=== PATIENT | female | born 1940 | race Caucasian/White ===

== ENCOUNTER 2020-10-21 11:44 | Outpatient (CLI) | payer MEDICARE, SELFPAY | END 2020-10-21 11:45 | disposition home or self-care (01) | PROVIDERS: PCP Family Medicine; Visit Provider Family Medicine | DX: Z23 Encounter for immunization (principal) | CPT/HCPCS: 0001A; 91300 ==

== ENCOUNTER 2020-11-11 11:21 | Outpatient (CLI) | payer MEDICARE, SELFPAY | END 2020-11-11 11:22 | disposition home or self-care (01) | LOC: ANHCOVIDVC 11:21 | PROVIDERS: PCP Family Medicine | DX: Z23 Encounter for immunization (principal) | CPT/HCPCS: 0002A; 91300 ==

== ENCOUNTER 2023-02-01 10:26 | Emergency (ER) | payer MEDICARE, SELFPAY ==
--- NOTE | ~2023-02-01 | XR_ITS ---
EXAMINATION: XR foot RT min 3V DATE: 02/01/2023 11:24 INDICATION: Redness and swelling of the great toe TECHNIQUE: Dorsoplantar, lateral, and 2 oblique views of the right foot were obtained. COMPARISON: None. FINDINGS: Bone alignment is normal. There is an oblique lucency at the lateral base of the fifth meta tarsal. There is periarticular lucency in the lateral base of the first proximal phalanx and the medi al head of the first metatarsal. 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 There is diffuse soft tissue swelling of the foot. Posterior and plantar calcaneal enthesophytes are noted. IMPRESSION: 1. Age-indeterminate fracture at the lateral base of the fifth metatarsal. 2. Periarticular lucency in the lateral base of the first proximal phalanx and the medial head of the first metatarsal which could be degenerative in nature, less likely osteomyelitis. Reviewed, dictated and finalized at location A.
--- NOTE | ~2023-02-01 | US_ITS ---
EXAMINATION:US venous doppler LE RT INDICATION:Lower extremity swelling and tenderness TECHNIQUE: Multiple grayscale, color flow and Doppler images of the right lower extremity deep venous systems were obtained and reviewed. COMPARISON:No prior studies for comparison. FINDINGS: The common femoral, superficial femoral and popliteal veins demonstrate normal respiratory variation, augmentation and compressibility. Color flow is also seen within the posterior tibial, pe roneal, greater saphenous and profunda veins. IMPRESSION: 1: No lower extremity deep venous thrombosis. Reviewed, dictated and finalized at location L.
[2023-02-01 10:29] VITALS: BP 150/61; PULSE 80; RESP 17; TEMP 36.6; O2SAT 94
[2023-02-01 12:00] VITALS: BP 128/88; PULSE 83; RESP 16; TEMP 36.8; O2SAT 98
[2023-02-01 12:07] LABS: Basophils Absolute Auto 0.1 K/mm3 (0.0-0.1); Basophils Percent Auto 0.7 % (0.2-1.2); Eosinophils Percent Auto 0.3 % (0-4.4); Hematocrit 34.4 % (37.0-47.0); Hemoglobin 10.7 g/dL (12.0-15.0); Immature Granulocyte Absolute 0.07 K/mm3 (0.00-0.031); Immature Granulocyte Percent A 0.8 % (0-0.5); Lymphocytes Absolute Auto 1.01 K/mm3 (0.9-3.2); Lymphocytes Percent Auto 11.1 % (18.3-44.2); Mean Corpuscular HGB Conc 31.1 g/dl (32-36); Mean Corpuscular Hemoglobin 27.9 pg (26-34); Mean Corpuscular Volume 89.6 fl (80-100); Mean Platelet Volume 9.5 fl (7.4-10.4); Monocytes Absolute Auto 0.9 K/mm3 (0.1-0.6); Monocytes Percent Auto 9.6 % (2.6-8.5); Neutrophils Absolute Auto 7.1 K/mm3 (1.3-6.7); Neutrophils Percent Auto 77.5 % (45.5-73.1); Platelet Count Result 202 k/mm3 (150-375); Red Blood Count 3.84 M/mm3 (4.2-5.4); Red Cell Distribution Width 15.1 % (11.5-14.5); White Blood Count 9.1 K/mm3 (4.5-10.0)
[2023-02-01 12:15] LABS: Alanine Aminotransferase 20 U/L (6-35); Albumin Level 4.3 g/dL (3.5-5.1); Alkaline Phosphatase 54 U/L (38-126); Anion Gap 8 mmol/L (8-16); Aspartate Amino Transferase 28 U/L (14-36); Bilirubin,Total 0.6 mg/dL (0.2-1.3); Blood Urea Nitrogen 18 mg/dL (7-17); Calcium 8.7 mg/dL (8.4-10.2); Carbon Dioxide 29 mmol/L (22-30); Chloride 100 mmol/L (98-107); Estimated CRCL calculation 56 ml/min; Estimated Glomerular Filt Rate > 60; Glucose 142 mg/dL (65-110); Potassium 4.8 mmol/L (3.4-5.0); Sodium 137 mmol/L (137-145)
[2023-02-01 12:19] LABS: CRP 3.7 mg/dL (<1.0)
[2023-02-01 12:39] LABS: Erythrocyte Sedimentation Rate 26 mm/hr (0-20)
[2023-02-01] MEDS: CLINDAMYCIN 600 MG/D5W 50 ML 600 MG/50 ML PIGGYBACK 100 MG IVPB (12:51)
[2023-02-01] MEDS: ceFAZolin 2 GM/D5W 50 ML 2 GM/50 ML BAG IVPB (12:52)
--- NOTE | 2023-02-01 13:48 | ED.SKABFB ---
HPI - Skin/Abscess/Foreign Bdy General Chief complaint: Extremity Injury, Lower Stated complaint: RLE swelling, redness Time Seen by Provider: 02/01/23 11:28 History of Present Illness HPI narrative: Patient reporting redness and swelling of her right lower leg that she noticed yesterday, seemed worse today so came into the hospital. No fevers or chills. She also incidentally had swelling and redness of her right great toe 1 week ago, with some drainage, has not been bothering her. Related Data Home Medications Medication Instructions Recorded Confirmed clopidogrel 75 mg tablet 75 mg PO DAILY 09/07/19 01/24/23 bimatoprost 0.03 % eye drops 1 drp EACH EYE DAILY 03/19/21 01/24/23 aspirin 81 mg tablet,delayed 81 mg PO DAILY 10/07/22 01/24/23 release (Adult Low Dose Aspirin) insulin glargine 100 unit/mL (3 25 unit subcut QPM 01/24/23 mL) subcutaneous pen (Basaglar KwikPen U-100 Insulin) metformin 500 mg tablet 500 mg PO TID 01/24/23 01/24/23 Allergies Allergy/AdvReac Type Severity Reaction Status Date / Time No Known Allergies Allergy Verified 01/24/23 13:04 Review of Systems Review of Systems: CONST: No fever. HEENT: No sore throat C/V: No chest pain RESP: No cough GI: No nausea or vomiting : No dysuria. M/S: Swelling, redness, pain to right lower leg SKIN: Swelling, redness, pain to right lower leg NEURO: [No headache or focal numbness or weakness] PSYCH: [No depression] [facility] Past Medical History Medical History Actinic keratosis Atherosclerotic heart disease of [place] coronary artery with other forms of angina pectoris Benign hypertension Benign ovarian tumor BMI greater than 30 Cataract Chronic kidney disease, stage I Chronic kidney disease, stage II (mild) DM complication NOS type I, uncontrolled DM renal manif type II DM w/o complication type II, uncontrolled Encounter for dual-energy x-ray absoptiometry review Encounter for immunization (05/10/19) Essential hypertension Hyperlipidemia LDL goal <100 [place] [employer] annual wellness visit, subsequent Metabolic syndrome Mixed hyperlipidemia Nephritis Obesity (BMI 35.0-39.9 without comorbidity) Old myocardial infarction Other and unspecified hyperlipidemia Polyp of colon Post-menopausal Screening for breast cancer Type 2 diabetes mellitus with hyperglycemia Type 2 diabetes mellitus without complication Surgical History Surgical History H/O colonoscopy H/O dilation and curettage History of coronary angioplasty with insertion of stent Hx of CABG Family History Family History Mother Hypertension Family history of congenital heart disease Family history of diabetes mellitus in first degree relative Diabetes mellitus Family history of cardiovascular disease Family history of coronary artery disease Father Diabetes mellitus Hypertension Family history of elevated blood lipids Family history of cardiovascular disease Acute myocardial infarction Family history of coronary artery disease Other Family history of arthritis Social History Social History Smoking packs per day: 1 Smoking cigarettes per day: 20.0 Years smoked: 4 Smoking pack-years: 4.00 Smoking status: Former smoker Tobacco type: cigarettes Second hand tobacco smoke exposure: No Smoking end date: 08/22/1968 Alcohol intake: never Substance use: never Substance use type: does not use Lack of Transportation: No Lack of Food: Never True Current Housing: I Have Housing Concerned About Future Housing: No Difficulty Paying Gas/Electric Bills: No Difficulty Paying for Meds: No Currently Unemployed: No Education: High School Diploma/GED Difficulty w/ Childcare or Family Care: No 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
[2023-02-01 14:00] VITALS: BP 172/80; PULSE 84; RESP 16; TEMP 36.8; O2SAT 98
--- NOTE | 2023-02-01 14:49 | PC.NURSE ---
when removing tegaderm from LFA over SLN a small skin tear occurred. Area immediately cleansed with NS and skin edges were well approximated and skin was pushed back over normal position. ERP notified and per V.O/R.B Dr. Bacon applied steri strips over edges.
[2023-02-01 14:52] VITALS: BP 164/80; PULSE 88; RESP 16; TEMP 36.8; O2SAT 98
== END 2023-02-01 14:55 | disposition home or self-care (01) ==
PROVIDERS: Emergency Provider Emergency Medicine; PCP Family Medicine
DX: L03.115 Cellulitis of right lower limb (principal); L03.031 Cellulitis of right toe; E11.22 Type 2 diabetes mellitus with diabetic chronic kidney disease; I12.9 Hypertensive chronic kidney disease with stage 1 through stage 4 chronic kidney disease, or unspecified chronic kidney disease; N18.2 Chronic kidney disease, stage 2 (mild); I25.118 Atherosclerotic heart disease of native coronary artery with other forms of angina pectoris; E78.2 Mixed hyperlipidemia; I25.2 Old myocardial infarction; E66.9 Obesity, unspecified; Z68.33 Body mass index [BMI] 33.0-33.9, adult; Z95.1 Presence of aortocoronary bypass graft; Z95.5 Presence of coronary angioplasty implant and graft; Z79.84 Long term (current) use of oral hypoglycemic drugs; Z79.4 Long term (current) use of insulin; Z79.82 Long term (current) use of aspirin; R93.6 Abnormal findings on diagnostic imaging of limbs
CPT/HCPCS: 10060; 36415; 73630; 80053; 85025; 85652; 86140; 87040; 87147; 87181; 87186; 93971; 96365; 96368; 99284; J0690

== ENCOUNTER 2023-02-03 10:11 | Inpatient (IN) | payer MEDICARE, SELFPAY ==
[2023-02-03] VITALS (9 sets, daily range): BP systolic 139–171; BP diastolic 53–68; PULSE 72–84; RESP 16–18; TEMP 35.9–36.6; O2SAT 95–100; BMI 31.3
--- NOTE | ~2023-02-03 | MR_ITS ---
EXAMINATION: MR foot RT wo con DATE: 02/05/2023 14:43 INDICATION: Cellulitis, possible osteomyelitis on x-ray TECHNIQUE: Magnetic resonance imaging (MRI) of the right foot was performed without intravenous contr ast. Sequences included axial T1 FSE and T2 FSE FS, sagittal T1 FSE and FSE STIR, and coronal T1 FSE and T2 FSE FS. COMPARISON: X-ray right foot same date FINDINGS: Significant motion artifact in the coronal T2 FSE FS sequence. No acute fracture. Specifica lly, the linear lucency in the in the prior radiograph at base of the fifth metatarsal has no corresp onding acute marrow edema and represents an old healed fracture. Joint space narrowing, osteophytosis , and subchondral sclerosis at the first MTP joint, with subchondral cyst formation. No geographic si gnal hypointensity on T1-weighted sequences to suggest osteomyelitis. No shantel cortical erosion. Mini mal joint fluid present in the first MTP joint. Extensive subcutaneous edema signal in the forefoot. No definite soft tissue defect detected. IMPRESSION: 1. No definite MR evidence of osteomyelitis. 2. Forefoot subcutaneous edema, may represent cellulitis in the appropriate clinical context. 3. Moderate osteoarthritic changes at the first MTP joint. 4. Old healed fifth metatarsal base fracture. Reviewed, dictated and finalized at location K. IMPRESSION: 1. No definite MR evidence of osteomyelitis. 2. Forefoot subcutaneous edema, may represent cellulitis in the appropriate cli nical context. 3. Moderate osteoarthritic changes at the first MTP joint. 4. Old healed fifth metatarsal base fracture.
[2023-02-03 10:56] LABS: Basophils Absolute Auto 0.1 K/mm3 (0.0-0.1); Basophils Percent Auto 0.6 % (0.2-1.2); Eosinophils Absolute Auto 0.1 K/mm3 (0-0.3); Eosinophils Percent Auto 0.6 % (0-4.4); Hematocrit 33.1 % (37.0-47.0); Hemoglobin 9.9 g/dL (12.0-15.0); Immature Granulocyte Absolute 0.09 K/mm3 (0.00-0.031); Immature Granulocyte Percent A 0.9 % (0-0.5); Lymphocytes Absolute Auto 0.97 K/mm3 (0.9-3.2); Lymphocytes Percent Auto 9.7 % (18.3-44.2); Mean Corpuscular HGB Conc 29.9 g/dl (32-36); Mean Corpuscular Hemoglobin 27.7 pg (26-34); Mean Corpuscular Volume 92.5 fl (80-100); Mean Platelet Volume 9.8 fl (7.4-10.4); Monocytes Absolute Auto 1.1 K/mm3 (0.1-0.6); Monocytes Percent Auto 10.6 % (2.6-8.5); Neutrophils Absolute Auto 7.7 K/mm3 (1.3-6.7); Neutrophils Percent Auto 77.6 % (45.5-73.1); Platelet Count Result 222 k/mm3 (150-375); Red Blood Count 3.58 M/mm3 (4.2-5.4); Red Cell Distribution Width 15.2 % (11.5-14.5)
[2023-02-03 11:07] LABS: INR 1.2; Prothrombin Time 15.8 Seconds (11.1-14.7)
[2023-02-03 11:08] LABS: Partial Thromboplastin Time 28.2 SECONDS (22.3-36.8)
[2023-02-03 11:11] LABS: Alanine Aminotransferase 23 U/L (6-35); Alkaline Phosphatase 53 U/L (38-126); Anion Gap 9 mmol/L (8-16); Aspartate Amino Transferase 29 U/L (14-36); Bilirubin,Total 0.8 mg/dL (0.2-1.3); Blood Urea Nitrogen 16 mg/dL (7-17); Calcium 7.8 mg/dL (8.4-10.2); Carbon Dioxide 24 mmol/L (22-30); Chloride 102 mmol/L (98-107); Estimated CRCL calculation 59 ml/min; Estimated Glomerular Filt Rate > 60; Glucose 186 mg/dL (65-110); Potassium 4.1 mmol/L (3.4-5.0); Sodium 135 mmol/L (137-145)
[2023-02-03 11:24] LABS: CRP 15.1 mg/dL (<1.0)
[2023-02-03 11:30] LABS: Lactic Acid Reflex 1.9 mmol/L (0.7-2.0)
[2023-02-03 11:41] LABS: Ovalocytes 1+ (NORMAL); Platelet Estimate Adequate (Adequate)
[2023-02-03 11:42] LABS: Burr Cells 1+ (NORMAL); Schistocytes None Seen (NORMAL)
--- NOTE | 2023-02-03 11:55 | ED.RECABL ---
HPI - Recheck/Abnormal Lab/Rx General Chief Complaint: Recheck/Abnormal Lab/Rx Stated Complaint: Positive Blood Cultures Time Seen by Provider: 02/03/23 10:43 Source: patient and RN notes reviewed Mode of arrival: ambulatory Limitations: no limitations History of Present Illness HPI narrative: This is an 82 year old female who presents for evaluation of positive blood cultures. PAtient developed right leg redness and swelling on Tuesday. She was evaluated in [place] ER with labs, venous duplex. She was notified today that her blood cultures returned positive for staphylococcus epidermis. She has been on antibiotics for 2 days without improvement in her leg pain and swelling. She denies chest pain, fever or shortness of breath. Related Data Home Medications Medication Instructions Recorded Confirmed clopidogrel 75 mg tablet 75 mg PO DAILY 09/07/19 02/03/23 bimatoprost 0.03 % eye drops 1 drp EACH EYE HS 03/19/21 02/03/23 aspirin 81 mg tablet,delayed 81 mg PO DAILY 10/07/22 02/03/23 release (Adult Low Dose Aspirin) insulin glargine 100 unit/mL (3 25 unit subcut QPM 01/24/23 02/03/23 mL) subcutaneous pen (Basaglar KwikPen U-100 Insulin) metformin 500 mg tablet 500 mg PO TID 01/24/23 02/03/23 furosemide 20 mg tablet 20 mg PO DAILY 02/03/23 02/03/23 isosorbide dinitrate 20 mg tablet 40 mg PO DAILY 02/03/23 02/03/23 Allergies Allergy/AdvReac Type Severity Reaction Status Date / Time No Known Allergies Allergy Verified 02/03/23 10:33 Review of Systems Constitutional: Constitutional: Denies weakness Cardiovascular: Cardiovascular: Denies syncope, Denies rapid heart rate, Denies irregular heart rhythm, Reports leg edema and Denies dyspnea Respiratory: Respiratory: Denies chest congestion, Denies hemoptysis, Denies excessive phlegm production and Denies dyspnea Gastrointestinal: Gastrointestinal: Denies abdominal pain, Denies hematochezia, Denies diarrhea and Denies vomiting Genitourinary: Genitourinary: Denies hematuria and Denies dysuria Musculoskeletal: Musculoskeletal: Denies joint swelling, Denies loss of height, Reports muscle cramps and Denies muscle weakness Integumentary/Breasts: Skin/Breast: Reports erythema Neurologic: Denies syncope, Denies focal weakness and Denies weakness [facility] Past Medical History Medical History (Updated 02/03/23 @ 15:19 by Kitty Zamorano NP) Actinic keratosis Atherosclerotic heart disease of [place] coronary artery with other forms of angina pectoris Benign hypertension Benign ovarian tumor BMI greater than 30 Cataract Chronic kidney disease, stage I Chronic kidney disease, stage II (mild) DM complication NOS type I, uncontrolled DM renal manif type II DM w/o complication type II, uncontrolled Encounter for dual-energy x-ray absoptiometry review Encounter for immunization (05/10/19) Essential hypertension Hyperlipidemia LDL goal <100 [place] [employer] annual wellness visit, subsequent Metabolic syndrome Mixed hyperlipidemia Nephritis Obesity (BMI 35.0-39.9 without comorbidity) Old myocardial infarction Other and unspecified hyperlipidemia Polyp of colon Post-menopausal Screening for breast cancer Type 2 diabetes mellitus with hyperglycemia Type 2 diabetes mellitus without complication Surgical History Surgical History (Updated 02/03/23 @ 15:14 by Kitty Zamorano NP) H/O bilateral cataract extraction H/O colonoscopy H/O dilation and curettage H/O rectal polypectomy History of coronary angioplasty with insertion of stent Hx of CABG Quadruple S/P tonsillectomy and adenoidectomy Family History Family History Mother Hypertension Family history of congenital heart disease Family history of diabetes mellitus in first degree relative Diabetes mellitus Family history of cardiovascular disease Family history of coronary artery disease Father Diabetes mellitus Hypertension F
[2023-02-03] MEDS: CEFEPIME 2 GM/NS 50 ML 2 GM/50 ML BAG IVPB ×2 (12:02→20:07)
--- NOTE | 2023-02-03 12:10 | PC.NURSE ---
this RN called dietary and ordered lunch tray for pt at this time
--- NOTE | 2023-02-03 13:25 | ADMGEN ---
This patient, Preeti Garcia, was admitted to 3 [facility] Surg Room 303-01 [id number]. Patient/family oriented to hospital policies and general routines including ID bracelet, bed and alarms, visiting hours, pain management, procedures, bathroom and other care routines, personal items, smoking policy, room service/diet, and visiting hours. Information on how to activate the Rapid Response Team has been discussed. Patient/Family are encouraged to report perceived risks to care and to ask questions if they do not understand what they are told or what they should do.
--- NOTE | 2023-02-03 13:29 | PM.IMHP ---
H&P: HPI History of Present Illness Date/Time: 02/03/23 13:29 Chief Complaint: Abnormal lab Narrative: This is a 82 year old female who came to the emergency room on 02/01/2023 who was complaining of redness and swelling of the right lower extremity that started on the . She stated that she had a swelling to her right great toe about a week ago and had some drainage. Was not bothering her until the 12. The patient was sent home on Keflex and clindamycin. The patient return to the emergency room because she was told that she has positive blood cultures. Patient still has 4+ pitting edema to the right lower extremity. Her cultures returned positive for septa coccus epidermidis. She has been on antibiotics already for 2 days without any improvement. Today her H&H is 9.9 and 33.1. Her blood sugar is 186. She had a venous Doppler on 02/01/2023 that was read as no lower extremity deep vein thrombosis. She also had a foot x-ray on 02/01/2023.1. Age-indeterminate fracture at the lateral base of the fifth metatarsal. 2. Periarticular lucency in the lateral base of the first proximal phalanx and the medial head of the first metatarsal which could be degenerative in nature, less likely osteomyelitis. No new imaging was performed today. The patient was started on cefepime and vancomycin. Her blood pressure was elevated today at 171/65. She was afebrile pulse 82. The patient is being admitted to inpatient status on the date of service of 02/03/2023. Review of Systems Review of Systems: All systems reviewed & are unremarkable except as noted in HPI and below Constitutional: Constitutional: Reports as per HPI and Reports no additional constitutional complaints Eyes: Eyes: Reports as per HPI and Reports no additional eye complaints ENT: Reports system reviewed and no additional complaints, except as documented and Reports Normal hearing present Cardiovascular: Cardiovascular: Reports no additional cardiovascular complaints Respiratory: Respiratory: Reports no additional respiratory complaints and Reports no additional respiratory complaints Gastrointestinal: Gastrointestinal: Reports as per HPI and Reports no additional gastrointestinal complaints Musculoskeletal: Musculoskeletal: Reports no additional musculoskeletal complaints Integumentary/Breasts: Skin/Breast: Reports system reviewed and no additional complaints, except as docu and Reports as per HPI Neurologic: Reports system reviewed and no additional complaints, except as documented, Reports as per HPI and Reports Normal hearing present Psychiatric: Psychiatric: Reports no additional psychiatric complaints and Reports as per HPI Endocrine: Endocrine: Reports no additional endocrine complaints Hematologic/Lymphatic: Hematologic/Lymphatic: Reports no additional hematologic/lymphatic complaints Allergic/Immunologic: Allergic/Immunologic: Reports no additional allergic/immunologic complaints [facility] Past Medical History Medical History (Updated 02/03/23 @ 15:19 by Kitty Zamorano NP) Actinic keratosis Atherosclerotic heart disease of [place] coronary artery with other forms of angina pectoris Benign hypertension Benign ovarian tumor BMI greater than 30 Cataract Chronic kidney disease, stage I Chronic kidney disease, stage II (mild) DM complication NOS type I, uncontrolled DM renal manif type II DM w/o complication type II, uncontrolled Encounter for dual-energy x-ray absoptiometry review Encounter for immunization (05/10/19) Essential hypertension Hyperlipidemia LDL goal <100 [place] [employer] annual wellness visit, subsequent Metabolic syndrome Mixed hyperlipidemia Nephritis Obesity (BMI 35.0-39.9 without comorbidity) Old myocardial infarction Other and unspecified hyperlipidemia Polyp of colon Post-menopausal Screening for breast cancer Type 2 diabetes mellitus with hyperglycemia Type 2 diabetes mellitus without complication Surgical History Surgical Hi
[2023-02-03 16:31] LABS: Glucose Point of Care 160 mg/dl (65-105)
[2023-02-03] MEDS: DICYCLOMINE HCL 10 MG CAPSULE 20 MG PO (17:35)
[2023-02-03] MEDS: METOPROLOL TARTRATE 25 MG TABLET PO (17:36)
[2023-02-03] MEDS: INSULIN GLARGINE (*BKC) 100 UNITS/ML 25 UNITS SUB-Q (17:37)
[2023-02-03] MEDS: LATANOPROST 0.005% OP SOLN 2.5 ML BTL 1 DROP EACH EYE (20:07)
[2023-02-03 20:13] LABS: Glucose Point of Care 228 mg/dl (65-105)
[2023-02-03] MEDS: INSULIN ASPART (*BKC) 100 UNITS/ML SUB-Q (20:13)
[2023-02-03] MEDS: FLUTICASONE/SALMETEROL 115-21 MCG INHALER 1 PUFF 2 PUFF INHALATION (20:18)
[2023-02-04] VITALS (7 sets, daily range): BP systolic 155–183; BP diastolic 62–65; PULSE 72–87; RESP 16–20; TEMP 35.9–36.7; O2SAT 94–98
[2023-02-04 05:58] LABS: Basophils Absolute Auto 0.1 K/mm3 (0.0-0.1); Basophils Percent Auto 0.6 % (0.2-1.2); Eosinophils Absolute Auto 0.1 K/mm3 (0-0.3); Eosinophils Percent Auto 1.5 % (0-4.4); Hematocrit 29.5 % (37.0-47.0); Hemoglobin 9.3 g/dL (12.0-15.0); Immature Granulocyte Absolute 0.09 K/mm3 (0.00-0.031); Lymphocytes Absolute Auto 1.05 K/mm3 (0.9-3.2); Lymphocytes Percent Auto 11.3 % (18.3-44.2); Mean Corpuscular HGB Conc 31.5 g/dl (32-36); Mean Corpuscular Hemoglobin 28.4 pg (26-34); Mean Corpuscular Volume 89.9 fl (80-100); Mean Platelet Volume 9.9 fl (7.4-10.4); Monocytes Percent Auto 10.7 % (2.6-8.5); Neutrophils Percent Auto 74.9 % (45.5-73.1); Platelet Count Result 222 k/mm3 (150-375); Red Blood Count 3.28 M/mm3 (4.2-5.4); Red Cell Distribution Width 14.9 % (11.5-14.5); White Blood Count 9.3 K/mm3 (4.5-10.0)
[2023-02-04 06:02] LABS: Alanine Aminotransferase 17 U/L (6-35); Albumin Level 3.5 g/dL (3.5-5.1); Alkaline Phosphatase 59 U/L (38-126); Anion Gap 7 mmol/L (8-16); Aspartate Amino Transferase 21 U/L (14-36); Bilirubin,Total 0.7 mg/dL (0.2-1.3); Blood Urea Nitrogen 12 mg/dL (7-17); Calcium 7.8 mg/dL (8.4-10.2); Carbon Dioxide 25 mmol/L (22-30); Chloride 102 mmol/L (98-107); Estimated CRCL calculation 59 ml/min; Estimated Glomerular Filt Rate > 60; Glucose 155 mg/dL (65-110); Potassium 3.9 mmol/L (3.4-5.0); Sodium 134 mmol/L (137-145)
[2023-02-04] MEDS: FLUTICASONE/SALMETEROL 115-21 MCG INHALER 1 PUFF 2 PUFF INHALATION ×2 (08:04→20:16)
[2023-02-04] MEDS: METOPROLOL TARTRATE 25 MG TABLET PO ×2 (08:12→17:18)
[2023-02-04] MEDS: ENOXAPARIN 40 MG/0.4 ML SYRINGE SUB-Q (08:12)
[2023-02-04 08:14] LABS: Glucose Point of Care 155 mg/dl (65-105)
[2023-02-04] MEDS: ASPIRIN 81 MG ENTERIC TABLET PO (08:14)
[2023-02-04] MEDS: DICYCLOMINE HCL 10 MG CAPSULE 20 MG PO ×2 (08:15→17:19)
[2023-02-04] MEDS: SIMVASTATIN 20 MG TABLET PO (08:15)
[2023-02-04] MEDS: FUROSEMIDE 20 MG TABLET PO (08:15)
[2023-02-04] MEDS: lisinopriL 20 MG TABLET 40 MG PO (08:15)
[2023-02-04] MEDS: CLOPIDOGREL BISULFATE 75 MG TABLET PO (08:15)
[2023-02-04] MEDS: CEFEPIME 2 GM/NS 50 ML 2 GM/50 ML BAG IVPB ×2 (08:16→20:53)
[2023-02-04 11:32] LABS: Glucose Point of Care 164 mg/dl (65-105)
[2023-02-04] MEDS: ISOSORBIDE MONONITRATE 60 MG TAB.ER.24H PO (12:06)
--- NOTE | 2023-02-04 12:57 | PM.IMPN ---
Progress Note: A&P Assessment and Plan (1) Cellulitis of right leg: Code(s): L03.115 - Cellulitis of right lower limb Status: Acute Assessment and Plan: Patient presented to the ED 02/02/24 with c/o redness, swelling, and pain to RLE. She was discharged on Keflex and Clindamycin. She reports taking 2 days worth of medication without improvement. Nonpurulent and no s/s suggestive of abscess. Venous doppler 02/01/23 negative for DVT. Continue IV Vancomycin and Cefepime. Elevate RLE. she reports an outpatient appoint with a drafter is already scheduled (2) Bacteremia: Code(s): R78.81 - Bacteremia Status: Acute Assessment and Plan: 02/01/23 with staph epidermidis in 1 aerobic bottle in one of two cultures. Likely contaminant. Repeat blood cultures negative to date. (3) Essential hypertension: Code(s): I10 - Essential (primary) hypertension Status: Chronic Assessment and Plan: Continue with metoprolol, lisinopril, and Lasix. (4) Type 2 diabetes mellitus with hyperglycemia: Code(s): E11.65 - Type 2 diabetes mellitus with hyperglycemia Status: Acute Assessment and Plan: Accu-Cheks AC and HS with sliding scale insulin. metformin is on hold at this time. Continue with long-acting insulin. Last A1c was 6.7% and appears well-controlled. (5) Mixed hyperlipidemia: Code(s): E78.2 - Mixed hyperlipidemia Status: Acute Assessment and Plan: Continue with Zocor (6) Iron deficiency anemia: Qualifiers: Iron deficiency anemia type: other iron deficiency Qualified Code(s): D50.8 - Other iron deficiency anemias Code(s): D50.9 - Iron deficiency anemia, unspecified Status: Chronic Assessment and Plan: Chronic, H&H is 9.9 and 33.1. Stable. Plan CODE STATUS: FULL CODE Discharge disposition: from home with spouse. Time Spent With Patient Time with patient: 25 - 35 minutes Subjective Date/time seen: 02/04/23 12:57 Interval history: She thinks her right leg is a little less red or painful. No fevers, chills, rigors, diaphoresis, or paresthesia. She had one loose stool today and yesterday. No abdominal pain, nausea or emesis. Review of Systems Review of Systems: All systems reviewed & are unremarkable except as noted in HPI and below Exam Narrative: General: Well-developed, well-nourished, nontoxic-appearing female lying in bed. HEENT: Normocephalic, atraumatic. PERRL, EOMI. Sclera anicteric. Oral mucosa moist. Neck: Supple. Respiratory: Lungs are clear to auscultation bilaterally. RR regular and unlabored. Cardiovascular: Regular rate and rhythm with S1-S2. 3/6 systolic murmur RSB. No gallops. Gastrointestinal: Abdomen is soft, nontender, and nondistended with positive bowel sounds. Skin: Warm and dry. Extremities: RLE 3+ edema, hot to touch, erythema circumferential mid calf to ankle and surrounding medial malleolus. Right great toe with small ecchymosis to medial/posterior region. Nailbed with dried blood at medial edge. No cyanosis, clubbing. Radial and pedal pulses intact. LLE 1+ edema. Neurological: Alert and oriented x4. Cranial nerves 2-12 are grossly intact. Speech is clear. No focal deficits or facial asymmetry. Psychiatric: Pleasant and cooperative with normal mood and affect. Objective Data Vital Signs Vital Signs: Vital Signs - 24 hr 02/03/23 14:00 02/03/23 17:36 02/03/23 15:30 Temperature 96.6 F L Pulse Rate 82 72 Respiratory Rate 18 Blood Pressure 171/65 H Pulse Oximetry 100 100 Oxygen Delivery Room Air 02/03/23 20:00 02/03/23 20:23 02/03/23 20:47 Temperature 97.9 F Pulse Rate 74 Respiratory Rate 18 Blood Pressure 166/65 H Pulse Oximetry 95 95 Oxygen Delivery Room Air Room Air 02/04/23 06:00 02/04/23 08:05 02/04/23 08:12 Temperature 96.7 F L Pulse Rate 85 72 Respiratory Rate 16
[2023-02-04] MEDS: VANCOMYCIN 1,250 MG/NS 250 ML 1,250 MG/250 ML BAG 166.67 MG IVPB (13:02)
--- NOTE | 2023-02-04 13:29 | PCCCNOTE ---
On 02/04/23, the student, [Precious Adorno], provided care and completed [facility] documentation on this patient. I have reviewed the student's documentation and agree with the findings.
[2023-02-04 16:27] LABS: Glucose Point of Care 149 mg/dl (65-105)
[2023-02-04] MEDS: SACCHAROMYCES BOULARDII 250 MG CAPSULE PO (17:17)
[2023-02-04] MEDS: INSULIN GLARGINE (*BKC) 100 UNITS/ML 25 UNITS SUB-Q (17:19)
[2023-02-04] MEDS: LATANOPROST 0.005% OP SOLN 2.5 ML BTL 1 DROP EACH EYE (20:53)
[2023-02-04 21:23] LABS: Glucose Point of Care 191 mg/dl (65-105)
[2023-02-05 06:00] VITALS: BP 177/69; PULSE 87; RESP 18; TEMP 35.7; O2SAT 94
[2023-02-05 06:06] LABS: Basophils Absolute Auto 0.1 K/mm3 (0.0-0.1); Basophils Percent Auto 0.8 % (0.2-1.2); Eosinophils Absolute Auto 0.1 K/mm3 (0-0.3); Eosinophils Percent Auto 1.1 % (0-4.4); Hematocrit 34.4 % (37.0-47.0); Hemoglobin 10.6 g/dL (12.0-15.0); Immature Granulocyte Absolute 0.18 K/mm3 (0.00-0.031); Immature Granulocyte Percent A 1.7 % (0-0.5); Lymphocytes Absolute Auto 1.09 K/mm3 (0.9-3.2); Lymphocytes Percent Auto 10.4 % (18.3-44.2); Mean Corpuscular HGB Conc 30.8 g/dl (32-36); Mean Corpuscular Hemoglobin 27.5 pg (26-34); Mean Corpuscular Volume 89.1 fl (80-100); Mean Platelet Volume 9.5 fl (7.4-10.4); Monocytes Absolute Auto 1.1 K/mm3 (0.1-0.6); Monocytes Percent Auto 10.3 % (2.6-8.5); Neutrophils Absolute Auto 7.9 K/mm3 (1.3-6.7); Neutrophils Percent Auto 75.7 % (45.5-73.1); Platelet Count Result 285 k/mm3 (150-375); Red Blood Count 3.86 M/mm3 (4.2-5.4); Red Cell Distribution Width 14.9 % (11.5-14.5); White Blood Count 10.5 K/mm3 (4.5-10.0)
[2023-02-05 06:29] LABS: Anion Gap 10 mmol/L (8-16); Blood Urea Nitrogen 11 mg/dL (7-17); Calcium 8.4 mg/dL (8.4-10.2); Carbon Dioxide 26 mmol/L (22-30); Chloride 101 mmol/L (98-107); Estimated CRCL calculation 59 ml/min; Estimated Glomerular Filt Rate > 60; Glucose 168 mg/dL (65-110); Potassium 3.9 mmol/L (3.4-5.0); Sodium 137 mmol/L (137-145)
[2023-02-05 07:11] LABS: Procalcitonin 0.1 ng/mL
[2023-02-05 07:51] LABS: Glucose Point of Care 158 mg/dl (65-105)
[2023-02-05] MEDS: FLUTICASONE/SALMETEROL 115-21 MCG INHALER 1 PUFF 2 PUFF INHALATION ×2 (08:19→20:21)
--- NOTE | 2023-02-05 08:32 | PM.IMPN ---
Progress Note: A&P Assessment and Plan (1) Cellulitis of right leg: Code(s): L03.115 - Cellulitis of right lower limb Status: Acute Assessment and Plan: Patient presented to the ED 02/02/24 with c/o redness, swelling, and pain to RLE. She was discharged on Keflex and Clindamycin. She reports taking 2 days worth of medication without improvement. Nonpurulent and no s/s suggestive of abscess. Venous doppler 02/01/23 negative for DVT. Foot x-ray 02/01/23 with periarticular lunacy lateral base of first proximal phalanx and medial head of 1st metatarsal degenerative changes with osteomyelitis thought less likely. Continue IV Vancomycin and Cefepime. Elevate RLE. she reports an outpatient appoint with a content curator is already scheduled 02/05- CRP 15 and unchanged, procal 0.1, WBC 10 with persistent bandemia. Add Flagyl 500 mg Q8 hours. Will check MRI r/o osteomyelitis (2) Bacteremia: Code(s): R78.81 - Bacteremia Status: Acute Assessment and Plan: 02/01/23 with staph epidermidis in 1 aerobic bottle in one of two cultures. Likely contaminant. Repeat blood cultures negative to date. (3) Essential hypertension: Code(s): I10 - Essential (primary) hypertension Status: Chronic Assessment and Plan: Continue with metoprolol, lisinopril, and Lasix. BP has been elevated 150-180s/60s. May be pain related. Add hydralazine 10 mg IV Q8 hours PRN SBP>160 or DBP>100 (4) Type 2 diabetes mellitus with hyperglycemia: Code(s): E11.65 - Type 2 diabetes mellitus with hyperglycemia Status: Acute Assessment and Plan: Accu-Cheks AC and HS with sliding scale insulin. metformin is on hold at this time. Continue with long-acting insulin. Last A1c was 6.7% and appears well-controlled. (5) Mixed hyperlipidemia: Code(s): E78.2 - Mixed hyperlipidemia Status: Acute Assessment and Plan: Continue with Zocor (6) Iron deficiency anemia: Qualifiers: Iron deficiency anemia type: other iron deficiency Qualified Code(s): D50.8 - Other iron deficiency anemias Code(s): D50.9 - Iron deficiency anemia, unspecified Status: Chronic Assessment and Plan: Chronic, H&H is 9.9 and 33.1. Stable. Plan CODE STATUS: FULL CODE Discharge disposition: from home with spouse. Time Spent With Patient Time with patient: 25 - 35 minutes Subjective Date/time seen: 02/05/23 08:32 Interval history: Her right leg is less painful and she thinks a little less red or swollen. No fever, chills, or rigors overnight. Loose stool has resolved. Review of Systems Review of Systems: All systems reviewed & are unremarkable except as noted in HPI and below Exam Narrative: General: nontoxic-appearing female lying in bed. HEENT: Normocephalic, atraumatic. PERRL, EOMI. Sclera anicteric. Oral mucosa moist. Neck: Supple. Respiratory: Lungs are clear to auscultation bilaterally. RR regular and unlabored. Cardiovascular: Regular rate and rhythm with S1-S2. 3/6 systolic murmur RSB. No gallops. Gastrointestinal: Abdomen is soft, nontender, and nondistended with positive bowel sounds. Skin: Warm and dry. Extremities: RLE 3+ edema, hot to touch, erythema circumferential mid calf to ankle and surrounding medial malleolus. Right great toe with small ecchymosis to medial/posterior region. Nail bed with dried blood at medial edge. No cyanosis, clubbing. Radial and pedal pulses intact. LLE 1+ edema. Neurological: Alert and oriented x4. Cranial nerves 2-12 are grossly intact. Speech is clear. No focal deficits or facial asymmetry. Psychiatric: Pleasant and cooperative with normal mood and affect. Objective Data Vital Signs Vital Signs: Vital Signs - 24 hr 02/04/23 14:00 02/04/23 17:18 02/04/23 20:20 Temperature 98.1 F Pulse Rate 86 78 87 Respiratory Rate 20 Blood Pressure 159/65 H Pulse Oximetry 98 95 Oxyg
[2023-02-05] MEDS: ASPIRIN 81 MG ENTERIC TABLET PO (08:49)
[2023-02-05] MEDS: CLOPIDOGREL BISULFATE 75 MG TABLET PO (08:49)
[2023-02-05] MEDS: DICYCLOMINE HCL 10 MG CAPSULE 20 MG PO ×2 (08:49→17:30)
[2023-02-05] MEDS: metroNIDAZOLE 250 MG TABLET 500 MG PO ×3 (08:49→21:09)
[2023-02-05 08:50] VITALS: PULSE 78
[2023-02-05] MEDS: FUROSEMIDE 20 MG TABLET PO (08:50)
[2023-02-05] MEDS: SIMVASTATIN 20 MG TABLET PO (08:50)
[2023-02-05] MEDS: lisinopriL 20 MG TABLET 40 MG PO (08:50)
[2023-02-05] MEDS: ENOXAPARIN 40 MG/0.4 ML SYRINGE SUB-Q (08:50)
[2023-02-05] MEDS: METOPROLOL TARTRATE 25 MG TABLET PO ×2 (08:50→17:30)
[2023-02-05] MEDS: SACCHAROMYCES BOULARDII 250 MG CAPSULE PO ×2 (08:50→17:31)
[2023-02-05] MEDS: ISOSORBIDE MONONITRATE 60 MG TAB.ER.24H PO (08:50)
[2023-02-05] MEDS: CEFEPIME 2 GM/NS 50 ML 2 GM/50 ML BAG IVPB ×2 (08:54→21:09)
[2023-02-05 12:00] LABS: Glucose Point of Care 142 mg/dl (65-105)
[2023-02-05 13:23] LABS: Vancomycin Trough 5.8 ug/mL (10.0-20.0)
[2023-02-05] MEDS: VANCOMYCIN 1,250 MG/NS 250 ML 1,250 MG/250 ML BAG 166.67 MG IVPB (15:31)
[2023-02-05 15:46] VITALS: BP 174/76; PULSE 86; RESP 18; TEMP 36.6; O2SAT 99
[2023-02-05 16:40] LABS: Glucose Point of Care 156 mg/dl (65-105)
[2023-02-05 17:30] VITALS: PULSE 74
[2023-02-05] MEDS: INSULIN GLARGINE (*BKC) 100 UNITS/ML 25 UNITS SUB-Q (17:31)
[2023-02-05 20:13] LABS: Glucose Point of Care 212 mg/dl (65-105)
[2023-02-05 20:23] VITALS: O2SAT 94
[2023-02-05] MEDS: hydrALAZINE HCL 20 MG/ML VIAL 10 MG IV PUSH (21:08)
[2023-02-05] MEDS: LATANOPROST 0.005% OP SOLN 2.5 ML BTL 1 DROP EACH EYE (21:08)
[2023-02-05] MEDS: INSULIN ASPART (*BKC) 100 UNITS/ML SUB-Q (21:09)
[2023-02-05 22:00] VITALS: BP 186/77; PULSE 87; RESP 18; TEMP 36.7; O2SAT 95
[2023-02-06] MEDS: VANCOMYCIN 1,250 MG/NS 250 ML 1,250 MG/250 ML BAG 166.67 MG IVPB (03:16)
[2023-02-06] MEDS: metroNIDAZOLE 250 MG TABLET 500 MG PO ×3 (05:55→20:38)
[2023-02-06 05:56] LABS: Hemoglobin 10.6 g/dL (12.0-15.0); Mean Corpuscular HGB Conc 31.2 g/dl (32-36); Mean Corpuscular Hemoglobin 27.7 pg (26-34); Mean Corpuscular Volume 88.8 fl (80-100); Mean Platelet Volume 9.2 fl (7.4-10.4); Platelet Count Result 321 k/mm3 (150-375); Red Blood Count 3.83 M/mm3 (4.2-5.4); White Blood Count 10.6 K/mm3 (4.5-10.0)
[2023-02-06 06:00] VITALS: BP 177/69; PULSE 94; RESP 16; TEMP 36.1; O2SAT 93
[2023-02-06 06:08] LABS: Estimated CRCL calculation 70 ml/min; Estimated Glomerular Filt Rate > 60
[2023-02-06 06:47] LABS: Lymphocytes Absolute Manual 0.95 K/mm3 (1.1-4.5); Lymphocytes Percent Manual 9 % (18-44); Monocytes Absolute Manual 1.37 K/mm3 (0.1-0.90); Monocytes Percent Manual 13 % (3-9); Neutrophils Percent Manual 75 % (46-73); Total Cells Counted 100
[2023-02-06 06:48] LABS: Basophils Percent Manual 1 % (0-1); Eosinophils Percent Manual 1 % (0-4); Metamyelocytes Percent 1 %
[2023-02-06 06:49] LABS: Platelet Estimate Adequate (Adequate)
[2023-02-06 06:50] LABS: Schistocytes None Seen (NORMAL)
[2023-02-06 07:33] LABS: Glucose Point of Care 107 mg/dl (65-105)
[2023-02-06] MEDS: FLUTICASONE/SALMETEROL 115-21 MCG INHALER 1 PUFF 2 PUFF INHALATION ×2 (07:58→19:35)
[2023-02-06] MEDS: ENOXAPARIN 40 MG/0.4 ML SYRINGE SUB-Q (08:04)
[2023-02-06 08:05] VITALS: PULSE 77
[2023-02-06] MEDS: ISOSORBIDE MONONITRATE 60 MG TAB.ER.24H PO (08:05)
[2023-02-06] MEDS: SACCHAROMYCES BOULARDII 250 MG CAPSULE PO ×2 (08:05→16:40)
[2023-02-06] MEDS: ASPIRIN 81 MG ENTERIC TABLET PO (08:05)
[2023-02-06] MEDS: SIMVASTATIN 20 MG TABLET PO (08:05)
[2023-02-06] MEDS: DICYCLOMINE HCL 10 MG CAPSULE 20 MG PO ×2 (08:05→16:40)
[2023-02-06] MEDS: CLOPIDOGREL BISULFATE 75 MG TABLET PO (08:05)
[2023-02-06] MEDS: METOPROLOL TARTRATE 25 MG TABLET PO ×2 (08:05→16:40)
[2023-02-06] MEDS: FUROSEMIDE 20 MG TABLET PO ×2 (08:05→10:11)
[2023-02-06] MEDS: lisinopriL 20 MG TABLET 40 MG PO (08:05)
[2023-02-06] MEDS: CEFEPIME 2 GM/NS 50 ML 2 GM/50 ML BAG IVPB ×2 (08:09→20:38)
[2023-02-06] MEDS: POTASSIUM CHLORIDE 10 MEQ ER TABLET PO (10:11)
[2023-02-06 12:06] LABS: Glucose Point of Care 135 mg/dl (65-105)
--- NOTE | 2023-02-06 13:28 | PM.IMPN ---
Progress Note: A&P Assessment and Plan (1) Cellulitis of right leg: Code(s): L03.115 - Cellulitis of right lower limb Status: Acute Assessment and Plan: Patient presented to the ED 02/02/24 with c/o redness, swelling, and pain to RLE. She was discharged on Keflex and Clindamycin. She reports taking 2 days worth of medication without improvement. Nonpurulent and no s/s suggestive of abscess. Venous doppler 02/01/23 negative for DVT. Foot x-ray 02/01/23 with periarticular lunacy lateral base of first proximal phalanx and medial head of 1st metatarsal degenerative changes with osteomyelitis thought less likely. Continue IV Vancomycin and Cefepime. Elevate RLE. she reports an outpatient appoint with a meter readers supervisor is already scheduled 02/05- CRP 15 and unchanged, procal 0.1, WBC 10 with persistent bandemia. Added Flagyl 500 mg Q8 hours. Will check MRI r/o osteomyelitis 02/06 Continue Cefepime (day 4), Vancomycin IV (day 4) and PO Flagyl (day 2). Repeat CBC, CRP and procalcitonin in am. Awaiting MRI r/o osteomyelitis and then can transition to oral antibiotics. (2) Bacteremia: Code(s): R78.81 - Bacteremia Status: Acute Assessment and Plan: 02/01/23 with staph epidermidis in 1 aerobic bottle in one of two cultures. Likely contaminant. Repeat blood cultures negative to date. (3) Essential hypertension: Code(s): I10 - Essential (primary) hypertension Status: Chronic Assessment and Plan: BP has been elevated 150-180s/60s. May be pain related. Continue with metoprolol, lisinopril at home doses. Increase furosemide 40 mg daily d/t LE edema. hydralazine 10 mg IV Q8 hours PRN SBP>160 or DBP>100 (4) Type 2 diabetes mellitus with hyperglycemia: Qualifiers: Diabetes mellitus terminal gauger insulin use: without group home use Qualified Code(s): E11.65 - Type 2 diabetes mellitus with hyperglycemia Code(s): E11.65 - Type 2 diabetes mellitus with hyperglycemia Status: Chronic Assessment and Plan: Chronic, Accu-Cheks AC and HS with sliding scale insulin. Metformin is on hold at this time. Continue with long-acting insulin. Last A1c was 6.7% and appears well-controlled. (5) Mixed hyperlipidemia: Code(s): E78.2 - Mixed hyperlipidemia Status: Chronic Assessment and Plan: Continue with Zocor (6) Iron deficiency anemia: Qualifiers: Iron deficiency anemia type: other iron deficiency Qualified Code(s): D50.8 - Other iron deficiency anemias Code(s): D50.9 - Iron deficiency anemia, unspecified Status: Chronic Assessment and Plan: Chronic, H&H is 9.9 and 33.1. Stable. Plan CODE STATUS: FULL CODE Discharge disposition: from home with spouse. Time Spent With Patient Time with patient: 15 - 25 minutes Subjective Date/time seen: 02/06/23 13:28 Interval history: No new complaints or overnight events. Awaiting MRI results. Review of Systems Review of Systems: All systems reviewed & are unremarkable except as noted in HPI and below Exam Narrative: General: nontoxic-appearing female lying in bed. HEENT: Normocephalic, atraumatic. PERRL, EOMI. Sclera anicteric. Oral mucosa moist. Neck: Supple. Respiratory: Lungs are clear to auscultation bilaterally. RR regular and unlabored. Cardiovascular: Regular rate and rhythm with S1-S2. 3/6 systolic murmur RSB. No gallops. Gastrointestinal: Abdomen is soft, nontender, and nondistended with positive bowel sounds. Skin: Warm and dry. Extremities: RLE 3+ edema, hot to touch, erythema circumferential mid calf to ankle and surrounding medial malleolus. Right great toe with small ecchymosis to medial/posterior region. Nail bed with dried blood at medial edge. No cyanosis, clubbing. Radial and pedal pulses intact. LLE 1+ edema. Neurological: Alert and oriented x4. Cranial nerves 2-12 are grossly intact. Speech is
[2023-02-06 14:00] VITALS: BP 162/84; PULSE 98; RESP 20; TEMP 36.8; O2SAT 100
[2023-02-06] MEDS: VANCOMYCIN 1,250 MG/NS 250 ML 1,250 MG/250 ML BAG 166 MG IVPB (14:35)
[2023-02-06] MEDS: INSULIN ASPART (*BKC) 100 UNITS/ML SUB-Q (16:39)
[2023-02-06] MEDS: INSULIN GLARGINE (*BKC) 100 UNITS/ML 25 UNITS SUB-Q (16:39)
[2023-02-06 18:11] LABS: Glucose Point of Care 217 mg/dl (65-105)
[2023-02-06 19:56] VITALS: PULSE 98; RESP 20; O2SAT 100
[2023-02-06] MEDS: LATANOPROST 0.005% OP SOLN 2.5 ML BTL 1 DROP EACH EYE (20:38)
[2023-02-06] MEDS: hydrALAZINE HCL 20 MG/ML VIAL 10 MG IV PUSH (21:12)
[2023-02-06 21:44] LABS: Glucose Point of Care 153 mg/dl (65-105)
[2023-02-06 22:00] VITALS: BP 177/66; PULSE 90; RESP 16; TEMP 36.1; O2SAT 96
[2023-02-07 02:23] LABS: Basophils Absolute Auto 0.1 K/mm3 (0.0-0.1); Basophils Percent Auto 1.6 % (0.2-1.2); Eosinophils Absolute Auto 0.3 K/mm3 (0-0.3); Eosinophils Percent Auto 2.9 % (0-4.4); Hemoglobin 10.4 g/dL (12.0-15.0); Immature Granulocyte Percent A 7.8 % (0-0.5); Lymphocytes Absolute Auto 1.21 K/mm3 (0.9-3.2); Lymphocytes Percent Auto 13.5 % (18.3-44.2); Mean Corpuscular HGB Conc 31.5 g/dl (32-36); Mean Corpuscular Hemoglobin 27.6 pg (26-34); Mean Corpuscular Volume 87.5 fl (80-100); Mean Platelet Volume 8.6 fl (7.4-10.4); Monocytes Absolute Auto 1.1 K/mm3 (0.1-0.6); Monocytes Percent Auto 12.7 % (2.6-8.5); Neutrophils Absolute Auto 5.5 K/mm3 (1.3-6.7); Neutrophils Percent Auto 61.5 % (45.5-73.1); Nucleated Red Blood Cells Perc 0.2 % (0.0-0.2); Platelet Count Result 316 k/mm3 (150-375); Red Blood Count 3.77 M/mm3 (4.2-5.4); Red Cell Distribution Width 15.1 % (11.5-14.5)
[2023-02-07 02:40] LABS: CRP 5.8 mg/dL (<1.0)
[2023-02-07 03:02] LABS: Vancomycin Trough 16.4 ug/mL (10.0-20.0)
[2023-02-07] MEDS: VANCOMYCIN 1,250 MG/NS 250 ML 1,250 MG/250 ML BAG 166 MG IVPB (03:12)
[2023-02-07 03:14] LABS: Procalcitonin 0.1 ng/mL
[2023-02-07 06:00] VITALS: BP 140/63; PULSE 81; RESP 18; TEMP 36.2; O2SAT 95
[2023-02-07] MEDS: metroNIDAZOLE 250 MG TABLET 500 MG PO (06:13)
[2023-02-07 07:42] LABS: Glucose Point of Care 148 mg/dl (65-105)
[2023-02-07] MEDS: FLUTICASONE/SALMETEROL 115-21 MCG INHALER 1 PUFF 2 PUFF INHALATION (08:11)
[2023-02-07 08:13] VITALS: O2SAT 95
[2023-02-07] MEDS: ENOXAPARIN 40 MG/0.4 ML SYRINGE SUB-Q (08:20)
[2023-02-07] MEDS: FUROSEMIDE 40 MG TABLET PO (08:22)
[2023-02-07] MEDS: ASPIRIN 81 MG ENTERIC TABLET PO (08:23)
[2023-02-07] MEDS: SIMVASTATIN 20 MG TABLET PO (08:23)
[2023-02-07] MEDS: POTASSIUM CHLORIDE 10 MEQ ER TABLET PO (08:23)
[2023-02-07] MEDS: ISOSORBIDE MONONITRATE 60 MG TAB.ER.24H PO (08:24)
[2023-02-07] MEDS: SACCHAROMYCES BOULARDII 250 MG CAPSULE PO (08:25)
[2023-02-07] MEDS: CLOPIDOGREL BISULFATE 75 MG TABLET PO (08:25)
[2023-02-07] MEDS: lisinopriL 20 MG TABLET 40 MG PO (08:25)
[2023-02-07 08:26] VITALS: PULSE 104
[2023-02-07] MEDS: METOPROLOL TARTRATE 25 MG TABLET PO (08:26)
[2023-02-07] MEDS: DICYCLOMINE HCL 10 MG CAPSULE 20 MG PO (08:26)
[2023-02-07] MEDS: CEFEPIME 2 GM/NS 50 ML 2 GM/50 ML BAG IVPB (08:30)
[2023-02-07 11:36] LABS: Glucose Point of Care 107 mg/dl (65-105)
--- NOTE | 2023-02-07 11:54 | PM.DS ---
DS: Admitting Diagnosis Discharge Date 02/07/2023 Admitting Diagnosis Bacteremia Cellulitis RLE Hypertension Type 2 diabetes mellitus DS: Discharge Diagnosis Discharge Diagnosis (1) Cellulitis of right leg: Code(s): L03.115 - Cellulitis of right lower limb Status: Acute Assessment and Plan: Patient presented to the ED 02/02/24 with c/o redness, swelling, and pain to RLE. She was discharged on Keflex and Clindamycin. She reports taking 2 days worth of medication without improvement. Nonpurulent and no s/s suggestive of abscess. Venous doppler 02/01/23 negative for DVT. Foot x-ray 02/01/23 with periarticular lunacy lateral base of first proximal phalanx and medial head of 1st metatarsal degenerative changes with osteomyelitis thought less likely. Continue IV Vancomycin and Cefepime. Elevate RLE. she reports an outpatient appoint with a orderlies teacher is already scheduled 02/05- CRP 15 and unchanged, procal 0.1, WBC 10 with persistent bandemia. Added Flagyl 500 mg Q8 hours. Will check MRI r/o osteomyelitis 02/06 Continue Cefepime (day 4), Vancomycin IV (day 4) and PO Flagyl (day 2). Repeat CBC, CRP and procalcitonin in am. Awaiting MRI r/o osteomyelitis and then can transition to oral antibiotics. 02/07 MRI negative for osteomyelitis. Pain and swelling improved. Changed to Bactrim DS 1 tab BID x 10 days and Levaquin 750 mg PO x 10 days. Mupirocin 2% ointment to right great toe x 14 days. (2) Bacteremia: Code(s): R78.81 - Bacteremia Status: Acute Assessment and Plan: 02/01/23 with staph epidermidis in 1 aerobic bottle in one of two cultures. Likely contaminant. Repeat blood cultures negative to date. (3) Essential hypertension: Code(s): I10 - Essential (primary) hypertension Status: Chronic Assessment and Plan: BP has been elevated 150-180s/60s. May be pain related. Continue with metoprolol, lisinopril at home doses. Increase furosemide 40 mg daily d/t LE edema. hydralazine 10 mg IV Q8 hours PRN SBP>160 or DBP>100 (4) Type 2 diabetes mellitus with hyperglycemia: Qualifiers: Diabetes mellitus recycling sorter insulin use: without mcc use Qualified Code(s): E11.65 - Type 2 diabetes mellitus with hyperglycemia Code(s): E11.65 - Type 2 diabetes mellitus with hyperglycemia Status: Chronic Assessment and Plan: Chronic, Accu-Cheks AC and HS with sliding scale insulin. Metformin is on hold at this time. Continue with long-acting insulin. Last A1c was 6.7% and appears well-controlled. (5) Mixed hyperlipidemia: Code(s): E78.2 - Mixed hyperlipidemia Status: Chronic Assessment and Plan: Continue with Zocor (6) Iron deficiency anemia: Qualifiers: Iron deficiency anemia type: other iron deficiency Qualified Code(s): D50.8 - Other iron deficiency anemias Code(s): D50.9 - Iron deficiency anemia, unspecified Status: Chronic Assessment and Plan: Chronic, H&H is 9.9 and 33.1. Stable. DS: Summary Hospital Course Reason for hospitalization: Positive blood culture Hospital Course: Patient is an 82 year old female who came to the emergency room on 02/01/2023 complaining of redness and swelling of the right lower extremity that started on the . She stated that she had a swelling to her right great toe started about a week prior to admission and had some drainage. The patient was sent home on Keflex and clindamycin from the ED. Blood cultures were drawn in the ED and the patient was called back to the ED because she was told they were positive blood cultures. Patient still has 4+ pitting edema to the right lower extremity. She reported RLE pain, redness and swelling was unchanged after 48 hours of oral antibiotics. She had a venous Doppler on 02/01/2023 that was read as no lower extremity deep vein thrombosis. She also had a foot x-ray on 02/01/2023 mark
--- NOTE | 2023-02-07 12:54 | PCCCNOTE ---
On 02/07/23, the student, [Precious Adorno], provided care and completed [facility] documentation on this patient. I have reviewed the student's documentation and agree with the findings.
== END 2023-02-07 13:20 | disposition home or self-care (01) | DRG 603 ==
LOC: ANHED 11:30 → ANH3MEDSUR 12:32
PROVIDERS: Admitting Provider Student in an Organized Health Care Education/Training Program; Emergency Provider General Practice; PCP Family Medicine; Visit Provider Nurse Practitioner Family
DX: L03.115 Cellulitis of right lower limb (principal); E11.65 Type 2 diabetes mellitus with hyperglycemia; E78.2 Mixed hyperlipidemia; D50.9 Iron deficiency anemia, unspecified; I25.118 Atherosclerotic heart disease of native coronary artery with other forms of angina pectoris; I12.9 Hypertensive chronic kidney disease with stage 1 through stage 4 chronic kidney disease, or unspecified chronic kidney disease; N18.2 Chronic kidney disease, stage 2 (mild); E11.22 Type 2 diabetes mellitus with diabetic chronic kidney disease; E66.9 Obesity, unspecified; Z68.31 Body mass index [BMI] 31.0-31.9, adult; I25.2 Old myocardial infarction; Z98.42 Cataract extraction status, left eye; Z98.41 Cataract extraction status, right eye; Z95.5 Presence of coronary angioplasty implant and graft; Z95.1 Presence of aortocoronary bypass graft; Z87.891 Personal history of nicotine dependence
CPT/HCPCS: 10060; 36415; 73630; 73718; 80048; 80053; 80202; 82565; 82948; 83605; 84145; 85025; 85610; 85652; 85730; 86140; 87040; 87147; 87181; 87186; 93971; 94640; 96365; 96368; 99284; 99285; A9270; J0360; J0690; J0692; J1650; J1815; J3370

== ENCOUNTER 2024-06-28 11:15 | Inpatient (IN) | payer MEDICARE, SELFPAY ==
[2024-06-28] VITALS (25 sets, daily range): BP systolic 106–134; BP diastolic 49–79; PULSE 77–96; RESP 18–27; TEMP 36.4–36.8; O2SAT 92–97; BMI 28.3
--- NOTE | ~2024-06-28 | XR_ITS ---
EXAMINATION: XR chest 1V portable DATE: 07/02/2024 14:59 INDICATION: Shortness of breath. TECHNIQUE: A single frontal view of the chest was obtained. COMPARISON: Chest single view 06/28/2024. FINDINGS: There is mild atelectasis in left lower lung zone. No pleural effusion or pneumothorax. The heart size is normal. Median sternotomy wires and mediastinal surgical clips are seen, likely from p rior coronary artery bypass grafting. IMPRESSION: 1. Mild atelectasis in left lower lung zone. Reviewed, dictated and finalized at location A. PENDENT DRIVER
--- NOTE | ~2024-06-28 | XR_ITS ---
EXAMINATION: XR abdomen/kub 1V DATE: 07/06/2024 12:50 INDICATION: Ascites. TECHNIQUE: A supine view of the abdomen was obtained. COMPARISON: None. FINDINGS: There are no dilated loops of bowel. There is a small volume of stool in the colon. IMPRESSION: 1. Normal bowel gas pattern. Reviewed, dictated and finalized at location A. ETING OPERATIONS MANAGER
--- NOTE | ~2024-06-28 | US_ITS ---
EXAMINATION: US paracentesis abd w/image DATE: 07/07/2024 09:45 INDICATION: Ascites. TECHNIQUE: The procedure and its risks, benefits, and alternatives were discussed with the patient. P otential risks discussed included bleeding and infection. The skin was prepped and draped in sterile fashion. 1% lidocaine was used for local anesthesia. Under ultrasound guidance, a 5 Fr catheter with trochar was advanced into the ascites in the right lower quadrant. Fluid was aspirated. The catheter was removed, and a dressing was applied. There were no immediate complications. FINDINGS: Ultrasound images demonstrate ascites and the catheter within the fluid. IMPRESSION: 1. Successful ultrasound-guided paracentesis yielding 3000 mL of yellow fluid. Reviewed, dictated and finalized at location A. URE STUDIES PROFESSOR
--- NOTE | ~2024-06-28 | XR_ITS ---
EXAMINATION: XR chest 1V portable DATE: 07/06/2024 12:50 INDICATION: Congestive heart failure. TECHNIQUE: A single frontal view of the chest was obtained. COMPARISON: Chest single view 07/02/2024 FINDINGS: There is mild atelectasis at the lung bases. Skinfolds overlie the chest. No pleural effusi on or pneumothorax. The heart size is normal. Median sternotomy wires and mediastinal surgical clips are seen, likely from prior coronary artery bypass grafting. IMPRESSION: 1. Mild atelectasis at the lung bases. Reviewed, dictated and finalized at location A. TIC WELDING OPERATOR
--- NOTE | ~2024-06-28 | US_ITS ---
EXAMINATION: US paracentesis abd w/image DATE: 07/03/2024 15:50 INDICATION: Ascites. TECHNIQUE: The procedure and its risks, benefits, and alternatives were discussed with the patient. P otential risks discussed included bleeding and infection. The skin was prepped and draped in sterile fashion. 1% lidocaine was used for local anesthesia. Under ultrasound guidance, a 5 Fr catheter with trochar was advanced into the ascites in the left lower quadrant. Fluid was aspirated. The catheter w as removed, and a dressing was applied. There were no immediate complications. FINDINGS: Ultrasound images demonstrate ascites and the catheter within the fluid. IMPRESSION: 1. Successful ultrasound-guided paracentesis yielding 5000 mL of yellow fluid. Reviewed, dictated and finalized at location A. IFIED MEDICAL TECHNICIAN
--- NOTE | ~2024-06-28 | US_ITS ---
Duplex Sonography of the bilateral lower extremities: Indication: Swelling Sagittal and transverse B-mode images as well as color-flow imaging were performed on the right and l eft femoral and popliteal veins. B-mode examination was done without and with compression in the tra nsverse plane. There is good visualization of the bilateral common femoral, proximal profunda femora l, superficial femoral, greater saphenous, and popliteal veins. Normal flow was seen on color-flow im aging. Normal compressibility was demonstrated. There is thrombosis the bilateral posterior tibial and peroneal veins. Impression: Probable thrombosis of the bilateral posterior tibial and peroneal veins in the calves. Reviewed, dictated and finalized at location M. HOUSE ATTENDANT Impression: Probable thrombosis of the bilateral posterior tibial and peroneal veins in the calves.
--- NOTE | ~2024-06-28 | US_ITS ---
Renal-Bladder ultrasound Clinical History: Elevated creatinine Technique: Real-time sonographic imaging of the kidneys and urinary bladder was performed. Findings: The right kidney measures 8.1 cm in length and the left kidney measures 8.7 cm. There is no hydronephrosis or renal calculus identified. Renal cortical echogenicity is within normal limits. No renal mass lesion is identified. The urinary bladder is collapsed around a Lombardo catheter. There is probable cirrhotic liver with moderate to large abdominopelvic ascites. Impression: Unremarkable kidneys. Collapsed urinary bladder limits evaluation. Probable cirrhotic liver with moderate to large abdominal pelvic ascites. Reviewed, dictated and finalized at location . KEN AND FISH CLEANER Impression: Unremarkable kidneys. Collapsed urinary bladder limits evaluation. Probable cirrhotic liver with moderate to large abdominal pelvic ascites.
--- NOTE | ~2024-06-28 | XR_ITS ---
EXAMINATION: XR chest 1V portable DATE: 06/28/2024 12:04 INDICATION: Shortness of breath. TECHNIQUE: A single frontal view of the chest was obtained. COMPARISON: Chest 2 views 05/13/2017 FINDINGS: There is no pneumonia or pneumothorax. There is a small right pleural effusion. Cardiomegal y is noted. Median sternotomy wires and mediastinal surgical clips are seen, likely from prior wilkinson ry artery bypass grafting. IMPRESSION: 1. Small right pleural effusion. 2. Cardiomegaly. Reviewed, dictated and finalized at location A. MECHANICAL ENGINEER
--- NOTE | ~2024-06-28 | NM_ITS ---
EXAMINATION: NM lung vent and perfusion DATE: 07/02/2024 14:17 INDICATION: Shortness of breath. TECHNIQUE: 24 mCi Xenon-133 was given for ventilation images. 5.2 mCi Tc-99m MAA was administered int ravenously for perfusion images. Scintigraphic images of the chest were obtained. COMPARISON: Chest single view 07/02/2024 FINDINGS: Ventilation images demonstrate diffuse retention bilaterally. There are matched small and moderate si zed defects in left lung. There are matched large defects in right upper lobe and right lower lobe. IMPRESSION: 1. Intermediate probability for pulmonary embolism. Reviewed, dictated and finalized at location A. E REPAIRMAN
--- NOTE | ~2024-06-28 | US_ITS ---
EXAMINATION: US abdomen limited DATE: 07/06/2024 14:55 INDICATION: Ascites. TECHNIQUE: Multiple grayscale ultrasound images of the abdomen were obtained. COMPARISON: Ultrasound 07/03/2024 FINDINGS: A survey of the 4 quadrants of the abdomen demonstrates a large volume of ascites. IMPRESSION: 1. Large volume of ascites. Reviewed, dictated and finalized at location A. RDER OF DEEDS IMPRESSION: 1. Large volume of ascites.
--- NOTE | ~2024-06-28 | XR_ITS ---
XR abdomen/kub 1V 06/29/2024 11:13 INDICATION: Abdomen distention TECHNIQUE: KUB COMPARISON: None FINDINGS: Bowel gas pattern is normal. There is no evidence of free air, mass, organomegaly, ascites or obstruction. No abnormal calculi are seen. The bones appear intact. Severe lower thoracic and l umbar spondylosis with scoliosis. IMPRESSION: 1: No acute abdominal abnormality identified. Reviewed, dictated and finalized at location B. WIPER
--- NOTE | 2024-06-28 11:17 | ECG_ITS ---
Test Date: 2024-06-28 12:01:13 Measurements Intervals [place] Rate: 78 P: 0 KS: 0 QRS: -42 QRSD: 86 T: 181 QT: 386 QTc: 441 Interpretive Statements SUPRAVENTRICULAR RHYTHM LEFT AXIS DEVIATION PATTERN CONSISTENT WITH PULMONARY DISEASE ST-T WAVE ABNORMALITY IN HIGH LATERAL LEADS- CONSIDER ISCHEMIA BASELINE ARTIFACT- I, II, III, AVR, AVL, AVF, V1-V2 ABNORMAL ECG No previous ECG available for comparison Electronically Signed On 06-28-2024 12:47:13 SHOE SPRAYER by Gopal Astorga D.O.
[2024-06-28] MEDS: IPRATROPIUM 0.5 MG/ALBUTEROL SULFATE 2.5 MG AMPUL.NEB 3 ML INHALATION (11:30)
[2024-06-28] MEDS: predniSONE 20 MG TABLET 40 MG PO (12:10)
[2024-06-28 12:23] LABS: Basophils Percent Auto 0.4 % (0.2-1.2); Eosinophils Percent Auto 0.1 % (0-4.4); Hematocrit 31.3 % (37.0-47.0); Hemoglobin 9.5 g/dL (12.0-15.0); Immature Granulocyte Absolute 0.06 K/mm3 (0.00-0.031); Immature Granulocyte Percent A 0.8 % (0-0.5); Lymphocytes Absolute Auto 0.72 K/mm3 (0.9-3.2); Lymphocytes Percent Auto 9.5 % (18.3-44.2); Mean Corpuscular HGB Conc 30.4 g/dl (32-36); Mean Corpuscular Hemoglobin 25.5 pg (26-34); Mean Corpuscular Volume 84.1 fl (80-100); Mean Platelet Volume 9.3 fl (7.4-10.4); Monocytes Absolute Auto 0.8 K/mm3 (0.1-0.6); Monocytes Percent Auto 10.7 % (2.6-8.5); Neutrophils Absolute Auto 5.9 K/mm3 (1.3-6.7); Neutrophils Percent Auto 78.5 % (45.5-73.1); Platelet Count Result 452 k/mm3 (150-375); Red Blood Count 3.72 M/mm3 (4.2-5.4); Red Cell Distribution Width 20.5 % (11.5-14.5); White Blood Count 7.5 K/mm3 (4.5-10.0)
[2024-06-28 12:35] LABS: Magnesium 1.9 mg/dL (1.6-2.3)
[2024-06-28 12:36] LABS: Alanine Aminotransferase 10 U/L (6-35); Albumin Level 3.6 g/dL (3.5-5.1); Alkaline Phosphatase 64 U/L (38-126); Anion Gap 10 mmol/L (4-12); Aspartate Amino Transferase 30 U/L (14-36); Bilirubin,Total 0.4 mg/dL (0.2-1.3); Blood Urea Nitrogen 33 mg/dL (7-17); Calcium 8.8 mg/dL (8.4-10.2); Carbon Dioxide 21 mmol/L (22-30); Chloride 108 mmol/L (98-107); Estimated CRCL calculation 27 ml/min; Estimated Glomerular Filt Rate 39; Glucose 148 mg/dL (65-110); Potassium 5.9 mmol/L (3.4-5.0); Sodium 139 mmol/L (137-145)
[2024-06-28 12:44] LABS: NT Pro B Type Natriuretic Pept > 30000 pg/mL (19.9-100)
[2024-06-28 12:52] LABS: Troponin I 0.131 ng/mL (0.000-0.034)
[2024-06-28] MEDS: FUROSEMIDE INJ 40 MG/4 ML VIAL IV PUSH (13:28)
--- NOTE | 2024-06-28 15:00 | P.HP_ITS ---
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 The patient presents here from home for further evaluation of shortness of breath. She reports insidious onset approximately 1 week ago. She is experiencing reduced appetite for the last few months, states she was very sick in February and her appetite never returned. Also having generalized weakness which she believes is secondary to the poor appetite. Denies cough, congestion, rhinorrhea, chest pain, palpitations, dizziness, weight gain, lower extremity edema. No known hx of congestive heart failure. She denies having echo performed in the last year. No known hx of thyroid disorders. Patient follows with cardiology, Tony CRAIG. Initial VS at presentation: 98.2? F, HR 79, RR 22, 106/68, and 93% on RA. ED workup showed: No leukocytosis, hemoglobin 9.5 (previously 9.8 on 06/14/2024), potassium 5.9, creatinine 1.3 and GFR 39 (previously 1.15 and GFR 47 on 06/18/2024), troponin 0.131, and BNP greater than 30,000. CXR showed a small right pleural effusion and cardiomegaly. EKG showed a supraventricular rhythm, rate 78, left axis deviation, pattern consistent with pulmonary disease, and ST-T-wave abnormality high lateral leads. 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 Cataract CKD (chronic kidney disease) DM renal manif type II Essential hypertension Iron deficiency anemia Irritable bowel Keratoacanthoma Mixed hyperlipidemia Nephritis Old myocardial infarction Polyp of colon Post-menopausal Type 2 diabetes mellitus without complication Surgical History Surgical History H/O bilateral cataract extraction H/O colonoscopy H/O dilation and curettage H/O rectal polypectomy History of coronary angioplasty with insertion of stent Hx of CABG Quadruple S/P tonsillectomy and adenoidectomy Family History Family History Mother Hypertension Family history of congenital heart disease Family history of diabetes mellitus in first degree relative Diabetes mellitus Family history of cardiovascular disease Family history of coronary artery disease Father Diabetes mellitus Hypertension Family history of elevated blood lipids Family history of cardiovascular disease Acute myocardial infarction Family history of coronary artery disease Other Family history of arthritis Social History Social History Social History: The patient is and has 2 children. 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 The patient is retired from [employer]. She is a former smoker she does not use any alcohol marijuana or illicit drugs. Code status full code Smoking packs per day: 1 Smoking cigarettes per day: 20.0 Years smoked: 5 Smoking pack-years: 5.00 Smoking status: Former smoker Tobacco type: cigarettes Second hand tobacco smoke exposure: No Smoking end date: 08/22/1968 Alcohol intake: never Substance use: never Substance use type: does not use Do You Feel Safe in your Home?: Yes Lack of Transportation: No Lack of Food: Never True Current Housing: I Have Housing Concerned About Future Housing: No Difficulty Paying Gas/Electric Bills: No Difficulty Paying for Meds: No Currently Unemployed: No Education: High School Diploma/GED Difficulty w/ Childcare or Family Care: No 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cation: retired Gender identity (if verbalized by the patient): Female Spiritual care concerns: No Meds Home Medications and Allergies Home Medications Medication Instructions Recorded Confirmed Type clopidogrel 75 mg tablet 75 mg PO HS 09/07/19 06/28/24 History bimatoprost 0.03 % eye drops 1 drp EACH EYE HS 03/19/21 06/28/24 History aspirin 81 mg tablet,delayed 81 mg PO DAILY 10/07/22 06/28/24 History release (Adult Low Dose Aspirin) amlodipine 5 mg tablet 5 mg PO DAILY 06/01/23 06/28/24 History isosorbide dinitrate 20 mg tablet 60 mg PO BID 06/01/23 06/28/24 History metformin 500 mg tablet,extended 500 mg PO TID #270 tabs 10/05/23 06/28/24 Rx release 24 hr pen needle, diabetic 32 gauge x #100 ea 10/05/23 06/28/24 Rx 1/4 (BD Ultra-Fine Micro Pen Needle) furosemide 20 mg tablet See Rx Instructions .Route 11/28/23 06/28/24 Rx .COMPLEX #90 tabs fluticasone 250 mcg-salmeterol 50 1 inh inhalation BID #60 ea 02/08/24 06/28/24 Rx mcg/dose blistr powdr for inhalation (Wixela Inhub) blood sugar diagnostic (OneTouch #200 strips 02/09/24 06/28/24 Rx Ultra Test strips) insulin glargine 100 unit/mL (3 20 unit (0.2 mL) subcut QPM #18 mL 02/09/24 06/28/24 Rx mL) subcutaneous pen (Basaglar KwikPen U-100 Insulin) lancets 33 gauge #200 ea 05/22/24 06/28/24 Rx lisinopril 40 mg tablet See Rx Instructions .Route 05/29/24 06/28/24 Rx .COMPLEX #90 tabs metoprolol tartrate 25 mg tablet See Rx Instructions .Route 05/29/24 06/28/24 Rx .COMPLEX #180 tabs albuterol sulfate 90 mcg/actuation 2 puff inhalation Q4H PRN 06/19/24 06/28/24 Rx aerosol inhaler (Ventolin HFA) shortness of breath or wheezing #25.5 grams dicyclomine 20 mg tablet 20 mg PO TID #180 tabs 06/19/24 06/28/24 Rx albuterol sulfate 90 mcg/actuation 2 inh inhalation Q4H PRN Wheezing 06/28/24 06/28/24 History aerosol inhaler (Ventolin HFA) latanoprost 0.005 % eye drops 1 drp EACH EYE DAILY 06/28/24 06/28/24 History simvastatin 20 mg tablet 20 mg PO DAILY 06/28/24 06/28/24 History Allergies Allergy/AdvReac Type Severity Reaction Status Date / Time No Known Allergies Allergy Verified 06/19/24 13:08 Vital Signs Vital Signs - 24 hr 06/28/24 11:33 06/28/24 11:30 06/28/24 11:36 Temperature 98.2 F Pulse Rate 79 79 82 Respiratory Rate 18 22 H 22 H Blood Pressure 106/68 Pulse Oximetry 93 Oxygen Delivery Room Air 06/28/24 12:10 06/28/24 12:31 06/28/24 12:46 Temperature 97.8 F 97.9 F Pulse Rate 78 77 77 Respiratory Rate 20 20 20 Blood Pressure 109/70 106/52 L 110/59 L Pulse Oximetry 97 95 95 Oxygen Delivery 06/28/24 13:01 06/28/24 13:16 06/28/24 13:17 Temperature 97.7 F Pulse Rate 77 77 77 Respiratory Rate 20 20 24 H Blood Pressure 113/53 L 114/55 L Pulse Oximetry 94 94 94 Oxygen Delivery 06/28/24 13:30 06/28/24 13:31 06/28/24 13:45 Temperature Pulse Rate 77 77 77 Respiratory Rate 24 H 22 H 21 H Blood Pressure 114/55 L Pulse Oximetry 95 95 Oxygen Delivery 06/28/24 13:46 06/28/24 14:00 06/28/24 14:01 Temperature Pulse Rate 77 77 77 Respiratory Rate 27 H 26 H 23 H Blood Pressure 113/61 107/52 L Pulse Oximetry Oxygen Delivery 06/28/24 14:15 06/28/24 12:39 Temperature Pulse Rate 77 Respiratory Rate 26 H Blood Pressure Pulse Oximetry Oxygen Delivery Room Air Exam Const: General: comfortable and no acute distress HENMT: Face/Nose/Sinus: Normal nares present Mouth: Yes moist mucous membranes Eyes: General: appearance normal, both eyes and all related structures Sclera: sclerae normal Pupils: Equal, round and reactive pupils present EOM: EOMs intact bilaterally Resp: Effort & Inspection: normal respiratory effort Auscultation: clear to auscultation bilaterally Cardio: Rate: tachycardic (100-110) Rhythm: abnormal rhythm Other: No murmur or rub. GI: Other: Abdomen soft, nondistended, nontender. Skin: General skin exam: normal color and no rashes or lesions noted Wounds: no wounds Neuro: Speech: normal speech Motor exam (neuro): 5/5 motor strength present throughout Sensory Exam: normal sensation Other: A&O x4 Extrem: Other: 2+ pitting edema to bilateral ankles, sy mmetric. Psych: Mental Status: mental status grossly normal Affect: normal affect Other: Good insight and judgment, pleasant H&P: Results Labs Labs: Short CBC 06/28/24 Range/Units 12:18 WBC 7.5 (4.5-10.0) K/mm3 Hgb 9.5 L (12.0-15.0) g/dL Hct 31.3 L (37.0-47.0) % Plt Count 452 H (150-375) k/mm3 BMP 06/28/24 12:18 Sodium 139 Potassium 5.9 H Chloride 108 H Carbon Dioxide 21 L BUN 33 H D Creatinine 1.30 H Glucose 148 H Calcium 8.8 Cardiac Enzymes 06/28/24 Range/Units 12:18 Troponin I 0.131 H* (0.000-0.034) ng/mL Liver Function 06/28/24 Range/Units 12:18 Total Bilirubin 0.4 (0.2-1.3) mg/dL AST 30 (14-36) U/L ALT 10 (6-35) U/L Alkaline Phosphatase 64 (38-126) U/L Albumin 3.6 (3.5-5.1) g/dL Assessment and Plan Assessment and plan (1) Shortness of breath: Code(s): R06.02 - Shortness of breath Status: Acute Assessment and Plan: - CXR: 1. Small right pleural effusion. 2. Cardiomegaly. - EKG, initial: supraventricular rhythm, rate 78, left axis deviation, pattern consistent with pulmonary disease, and ST-T-wave abnormality high lateral leads - suspect new onset CHF, see below (2) CHF (congestive heart failure): Qualifiers: Heart failure chronicity: acute Heart failure type: unspecified Qualified Code(s): I50.9 - Heart failure, unspecified Code(s): I50.9 - Heart failure, unspecified Status: Suspected Assessment and Plan: - BNP >30,000 - no echo on file, ordered - currently on: lasix 20 mg daily, will continue as 40 mg IVP of lasix daily. - TSH high in May, will add T3 and T4 - monitor I&Os and daily weights - cardiology consulted for sinus arrhythmia noted on EKG and suspected new CHF - trend renal function (3) Elevated troponin: Code(s): R79.89 - Other specified abnormal findings of blood chemistry Status: Acute Assessment and Plan: - Troponin: 0.131 -> 0.122 -> 0.116, flat. No active chest pain. - ASA 324 given - echo ordered - suspect demand secondary to volume overload/new onset chf - telemetry monitoring (4) Type 2 diabetes mellitus with kidney complication: Qualifiers: Chronic kidney disease stage: unspecified stage Diabetes mellitus complication detail: with chronic kidney disease Diabetes mellitus correction insulin use: without handle lathe operator use Qualified Code(s): E11.22 - Type 2 diabetes mellitus with diabetic chronic kidney disease Code(s): E11.29 - Type 2 diabetes mellitus with other diabetic kidney complication Status: Chronic Assessment and Plan: - hypoglycemia protocol - POC blood glucose ACHS - home medication: Hold metformin. Continue glargine 20 units subQ HS - correct regimen ordered - moderate dose TIDWM, based off BMI - A1C 5.9% on 06/14/2024 (5) CKD (chronic kidney disease): Qualifiers: Chronic kidney disease stage: unspecified stage Qualified Code(s): N18.9 - Chronic kidney disease, unspecified Code(s): N18.9 - Chronic kidney disease, unspecified Status: Chronic Assessment and Plan: - creatinine 1.3 and GFR 39, previously 1.15 and GFR 47 on 06/18/2024 - trend renal function - trend electrolytes, correct as needed (6) Essential hypertension: Code(s): I10 - Essential (primary) hypertension Status: Chronic Assessment and Plan: - chronic, currently 134/49 - continue home medications: Amlodipine 5 mg, isosorbide 60 mg b.i.d., lisinopril 40 mg daily, metoprolol 25 mg daily - monitor Plan Diet: Heart healthy GI Prophylaxis: Not currently indicated DVT Prophylaxis: SCDs Lines: Peripheral Code Status: DNR Quality VTE Prophylaxis VTE prophylaxis: mechanical ordered Hospitalist [facility] Advance Care Plan I have confirmed that the patient's Advanced Care Plan is present, code status is documented, or surrogate decision maker is listed in patient medical record.: Yes Medication Reconciliation I have utilized all available resources to obtain, update and review the patients current medications (includes all prescriptions, OTC, herbals, cannabis, and nutritional supplements).: Yes
[2024-06-28 16:42] LABS: Troponin I 0.122 ng/mL (0.000-0.034)
[2024-06-28] MEDS: ASPIRIN 81 MG CHEWABLE TABLET 324 MG PO (17:27)
[2024-06-28 17:39] LABS: Glucose Point of Care 255 mg/dl (65-105)
--- NOTE | 2024-06-28 18:39 | ED.SOB ---
HPI - SOB/Dyspnea General Chief Complaint: Shortness of Breath/Dyspnea Stated Complaint: dyspnea Time Seen by Provider: 06/28/24 11:17 History of Present Illness HPI Narrative: Patient with history of CHF, asthma, cardiac bypass, presents here with shortness of breath. Denies any chest pain, states she has been having symptoms for the last few days. Related Data Home Medications Medication Instructions Recorded Confirmed clopidogrel 75 mg tablet 75 mg PO HS 09/07/19 06/28/24 bimatoprost 0.03 % eye drops 1 drp EACH EYE HS 03/19/21 06/28/24 aspirin 81 mg tablet,delayed 81 mg PO DAILY 10/07/22 06/28/24 release (Adult Low Dose Aspirin) amlodipine 5 mg tablet 5 mg PO DAILY 06/01/23 06/28/24 isosorbide dinitrate 20 mg tablet 60 mg PO BID 06/01/23 06/28/24 albuterol sulfate 90 mcg/actuation 2 inh inhalation Q4H PRN Wheezing 06/28/24 06/28/24 aerosol inhaler (Ventolin HFA) latanoprost 0.005 % eye drops 1 drp EACH EYE DAILY 06/28/24 06/28/24 simvastatin 20 mg tablet 20 mg PO DAILY 06/28/24 06/28/24 Allergies Allergy/AdvReac Type Severity Reaction Status Date / Time No Known Allergies Allergy Verified 06/19/24 13:08 Review of Systems Review of Systems: All systems reviewed & are unremarkable except as noted in HPI and below PMFSH Past Medical History Medical History (Updated 06/28/24 @ 18:[address] MD) Actinic keratosis 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 Cataract CKD (chronic kidney disease) DM renal manif type II Essential hypertension Iron deficiency anemia Irritable bowel Keratoacanthoma Mixed hyperlipidemia Nephritis Old myocardial infarction Polyp of colon Post-menopausal Type 2 diabetes mellitus without complication Surgical History Surgical History H/O bilateral cataract extraction H/O colonoscopy H/O dilation and curettage H/O rectal polypectomy History of coronary angioplasty with insertion of stent Hx of CABG Quadruple S/P tonsillectomy and adenoidectomy Family History Family History Mother Hypertension Family history of congenital heart disease Family history of diabetes mellitus in first degree relative Diabetes mellitus Family history of cardiovascular disease Family history of coronary artery disease Father Diabetes mellitus Hypertension Family history of elevated blood lipids Family history of cardiovascular disease Acute myocardial infarction Family history of coronary artery disease Other Family history of arthritis Social History Social History Social History: The patient is and has 2 children. 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 The patient is retired from [employer]. She is a former smoker she does not use any alcohol marijuana or illicit drugs. Code status full code Smoking packs per day: 1 Smoking cigarettes per day: 20.0 Years smoked: 5 Smoking pack-years: 5.00 Smoking status: Former smoker Tobacco type: cigarettes Second hand tobacco smoke exposure: No Smoking end date: 08/22/1968 Alcohol intake: never Substance use: never Substance use type: does not use Do You Feel Safe in your Home?: Yes Lack of Transportation: No Lack of Food: Never True Current Housing: I Have Housing Concerned About Future Housing: No Difficulty Paying Gas/Electric Bills: No Difficulty Paying for Meds: No Currently Unemployed: No Education: High School Diploma/GED Difficulty w/ Childcare or Family Care: No 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cation: retired Gender identity (if verbalized by the patient): Female Spiritual care concerns: No Exam Narrative: EXAMINATION OF ORGAN SYSTEMS/BODY AREAS: Constitutional: Vital signs per nursing GENERAL: Dyspnea HEAD: Normal with no signs of head trauma. EYES: EOMI, conjunctiva normal ENT: Hearing grossly intact LUNGS: Dyspneic, end expiratory wheezing HEART: [Regular rate and rhythm] ABD: [Soft], [nontender to palpation] EXT: Lower extremity pitting edema SKIN: [No rashes or lesions.] NEURO: [Alert and oriented x 3. No gross focal sensory or strength deficits.] PSYCH: Normal affect Course Vital Signs Vital signs: Vital Signs Pulse Rate 79 06/28/24 11:30 Respiratory Rate 22 H 06/28/24 11:30 Temperature 97.7 F 06/28/24 15:01 Pulse Rate 78 06/28/24 15:01 Respiratory Rate 24 H 06/28/24 15:01 Blood Pressure 134/49 L 06/28/24 15:01 Pulse Oximetry 95 06/28/24 15:01 Oxygen Delivery Room Air 06/28/24 12:39 MDM - SOB/Dyspnea MDM Narrative Medical decision making narrative: 84-year-old female presenting to the emergency department with chest tightness, dyspnea, orthopnea and edema, presentation and history of CHF and asthma, consistent with most likely CHF exacerbation vs ACS/PR, asthma exacerbation, pneumonia, PE. IV is established and cardiac workup is initiated. EKG: Performed in triage and interpreted by me. Rate 78. Left axis. QRS duration 86. QTc for 441. No ST segment elevation a some T-wave inversion/flattening in lateral leads Chest x-ray is performed and remarkable for [cardiomegaly]. Patient given dose of DuoNebs with only minimal improvement in her symptoms. Patient is started on lasix. Labs shows elevated potassium, BNP, troponin. [The patient will be admitted for CHF/asthma exacerbation, trending of troponins, and further management.] I suspect the elevated troponin is from the CHF exacerbation as patient is denying any chest pain. Discussed hospice remission. Patient agreeable to the Lab Data 06/28/24 12:18 06/28/24 12:18 Labs: Lab Results 06/28/24 Range/Units 12:18 WBC 7.5 (4.5-10.0) K/mm3 RBC 3.72 L (4.2-5.4) M/mm3 Hgb 9.5 L (12.0-15.0) g/dL Hct 31.3 L (37.0-47.0) % MCV 84.1 (80-100) fl MCH 25.5 L (26-34) pg MCHC 30.4 L (32-36) g/dl RDW 20.5 H (11.5-14.5) % Plt Count 452 H (150-375) k/mm3 MPV 9.3 (7.4-10.4) fl Immature Gran % (Auto) 0.8 H (0-0.5) % Neut % (Auto) 78.5 H (45.5-73.1) % Lymph % (Auto) 9.5 L (18.3-44.2) % Sutton % (Auto) 10.7 H (2.6-8.5) % Eos % (Auto) 0.1 (0-4.4) % Baso % (Auto) 0.4 (0.2-1.2) % Lymph # (Auto) 0.72 L (0.9-3.2) K/mm3 Sutton # (Auto) 0.8 H (0.1-0.6) K/mm3 Eos # (Auto) 0.0 (0-0.3) K/mm3 Baso # (Auto) 0.0 (0.0-0.1) K/mm3 Abs Immat Gran (auto) 0.06 H (0.00-0.031) K/mm3 Absolute Neuts (auto) 5.9 (1.3-6.7) K/mm3 Absolute Nucleated RBC 0.000 (0.0-0.012) K/mm3 Nucleated RBC % 0.0 (0.0-0.2) % Sodium 139 (137-145) mmol/L Potassium 5.9 H (3.4-5.0) mmol/L Chloride 108 H (98-107) mmol/L Carbon Dioxide 21 L (22-30) mmol/L Anion Gap 10 (4-12) mmol/L BUN 33 H D (7-17) mg/dL Creatinine 1.30 H (0.7-1.0) mg/dL Estim Creat Clear Calc 27 ml/min Estimated GFR 39 L (59 - ) Glucose 148 H (65-110) mg/dL Calcium 8.8 (8.4-10.2) mg/dL Magnesium 1.9 (1.6-2.3) mg/dL Total Bilirubin 0.4 (0.2-1.3) mg/dL AST 30 (14-36) U/L ALT 10 (6-35) U/L Alkaline Phosphatase 64 (38-126) U/L Troponin I 0.131 H* (0.000-0.034) ng/mL NT-Pro-B Natriuret Pep > 07548 H (19.9-100) pg/mL Total Protein 7.0 (6.3-8.2) g/dL Albumin 3.6 (3.5-5.1) g/dL Discharge Plan Discharge Clinical Impression: Asthma, Elevated troponin, Acute exacerbation of CHF (congestive heart failure) Patient Disposition: Still a Patient Condition: Serious
[2024-06-28 19:05] LABS: Troponin I 0.116 ng/mL (0.000-0.034)
[2024-06-28 20:56] LABS: Glucose Point of Care 243 mg/dl (65-105)
[2024-06-28] MEDS: INSULIN GLARGINE (*BKC) 100 UNITS/ML 20 UNITS SUB-Q (23:44)
[2024-06-28] MEDS: METOPROLOL TARTRATE 25 MG TABLET PO (23:45)
[2024-06-29] VITALS (22 sets, daily range): BP systolic 120–130; BP diastolic 48–83; PULSE 62–98; RESP 18–24; TEMP 36.4–36.9; O2SAT 91–97
--- NOTE | 2024-06-29 | ECHO_ITS ---
Patient Info Name: Preeti Garcia Age: 84 years : 1940 Gender: Female Ht: 62 in Wt: 157 lbs BSA: 1.79 m2 Heart Rhythm: Indeterminant Technical Quality: Good Exam Date: 06/29/2024 2:51 PM Exam Location: Echo Lab Patient Status: Inpatient Admit Date: 06/28/2024 Staff Ordering Physician: Grace Inman MD ([email or web address]) Conference Manager: Trista Myers RDCS Attending Provider: Darrell Leblanc MD Referring Physician: Storm FRANKLIN; Exam Type: CA echo dop color flow w con Study Info Indications - CHF Complete two-dimensional, color flow and Doppler transthoracic echocardiogram is performed with contrast to opacify the left ventricle and to improve the deliniation of the left ventricle endocardial borders. Summary 1. Left ventricular chamber dimension is normal. 2. Left ventricular systolic function is normal, estimated at 60-65%. 3. Left ventricular septal wall motion is normal. 4. The left ventricular diastolic function is grade II diastolic dysfunction. 5. Right ventricular chamber dimension is mildly enlarged. 6. Right ventricular systolic function is normal. 7. There is mild to moderate mitral valve regurgitation. 8. There is moderate to severe tricuspid valve regurgitation. 9. Moderate pulmonary hypertension, estimated pulmonary arterial systolic pressure is 62 mmHg. Left Ventricle Left ventricular chamber dimension is normal. Left ventricular systolic function is normal, estimated at 60-65%. There is no increased left ventricular wall thickness. Left ventricular septal wall motion is normal. The left ventricular diastolic function is grade II diastolic dysfunction. Right Ventricle Right ventricular chamber dimension is mildly enlarged. Right ventricular systolic function is normal. Left Atria Left atrial chamber dimension is mildly enlarged. Right Atria Right atrial chamber dimension is moderately enlarged. Aortic Valve The aortic valve is trileaflet. There is no aortic valve sclerosis. There is no aortic valve stenosis. There is no aortic valve regurgitation. Pulmonic Valve The pulmonic valve is not well visualized. Mitral Valve The mitral valve has normal leaflets. There is no mitral valve stenosis. There is mild to moderate mitral valve regurgitation. Tricuspid Valve The tricuspid valve leaflets are normal. There is no significant tricuspid valve stenosis. There is moderate to severe tricuspid valve regurgitation. Moderate pulmonary hypertension, estimated pulmonary arterial systolic pressure is 62 mmHg. Pericardium/Pleural The pericardium appears normal. There is no pericardial effusion. Inferior Vena Cava Inferior vena cava is not well visualized. Aorta The aortic root size at the sinus of Valsalva is normal. The prox ascending aorta size is normal. Left Ventricular Outflow Tract Name Value Normal LVOT 2D LVOT Diameter 1.81 cm LVOT Doppler LVOT Peak Gradient 6 mmHg LVOT Mean Gradient 3 mmHg LVOT VTI 20.35 cm LVOT VTI/AV VTI Ratio 0.54 LVOT Stroke Volume 52.32 ml LVOT CO 2.33 l/min LVOT CI 1.31 L/min/m2 Pulmonic Valve Name Value Normal PV Regurgitation Doppler [place] Peak End Diastolic Velocity 136.08 cm/s Mitral Valve Name Value Normal MV Doppler MV Decel [place] 507.68 cm/s2 MV PHT 0 s MV Area (PHT) 3.93 cm2 4.00-5.00 MV Regurgitation Doppler MR Peak Gradient 95 mmHg MV Diastolic Function MV E Peak Velocity 98.12 cm/s MV A Peak Velocity 39.93 cm/s MV E/A 2.46 MV Decel Time 0 s MV Annular TDI MV E/e' (Septal) 24.91 <=8.00 MV E/e' (Lateral) 13.92 <=8.00 MV E/e' (Average) 19.42 Tricuspid Valve Name Value Normal TV Regurgitation Doppler TR Peak Velocity 361.10 cm/s TR Peak Gradient 36 mmHg Estimated PAP/RSVP RA Pressure 10 mmHg <=5 PA Systolic Pressure 62 mmHg <36 RV Systolic Pressure 62 mmHg <36 Aortic Valve Name Value Normal AV Doppler AV Peak Velocity 203.14 cm/s AV Peak Gradient 17 mmHg AV Mean Gradient 10 mmHg AV VTI 37.97 cm AV Area (Cont Eq VTI) 1.38 cm2 >=3.00 AV Area (Cont Eq Asim) 1.52 cm2 AV Regurgitation 2D LVOT Area 2.57 cm2 Ventricles Name Value Normal LV Dimensions 2D/MM IVS Diastolic Thickness (2D) 0.87 cm 0.60-1.00 LVID Diastole (2D) 4.46 cm 3.80-5.20 LVIW Diastolic Thickness (2D) 0.89 cm 0.60-0.90 LVID Systole (2D) 2.97 cm 2.20-3.50 LVOT Diameter 1.81 cm LV Mass (2D Cubed) 127.56 g 67.00-162.00 LV Mass Index (2D Cubed) 0.01 g/cm2 0.00-0.01 Relative Wall Thickness (2D) 0.40 LV Fractional Shortening/Ejection Fraction 2D/MM LV Fractional Shortening (2D) 33 % 27-45 LV EF (2D Teicholz) 62 % 54-74 LV Diastolic Volume (4C MOD) 94.27 ml LV EF (4C MOD) 64 % LV Diastolic Volume (2C MOD) 60.37 ml LV EF (2C MOD) 31 % LV Diastolic Volume (BP MOD) 78.62 ml 46.00-106.00 LV Diastolic Volume Index (BP MOD) 0.04 l/m2 0.03-0.06 LV Systolic Volume (BP MOD) 38.20 ml 14.00-42.00 LV Systolic Volume Index (BP MOD) 0.02 l/m2 0.01-0.02 LV EF (BP MOD) 51 % 54-74 LV Diastolic Length (4C) 7.36 cm LV Systolic Length (4C) 6.20 cm LV Stroke Volume (4C MOD) 60.50 ml Atria Name Value Normal LA Dimensions LA Volume (4C A-L) 28.54 ml LA Volume (BP A-L) 34.80 ml RA Dimensions RA Area (4C) 15.16 cm2 <=18.00 Report Signatures
[2024-06-29 04:26] LABS: Add Urine Microscopic? YES; Appearance Urine Cloudy (Clear); Bacteria Urine 2+ /hpf; Bilirubin Urine 2+ (Negative); Blood Urine 2+ (Negative); Color Urine Dark Yellow (Yellow); Glucose Urine UA Negative (Negative); Hyaline Casts Urine Present /lpf; Ketones Urine 1+ mg/dL (Negative); Leukocyte Esterase Ur Trace LEU/UL (Negative); Mucus Urine Present /lpf; Need Manual Microscopic Reviewed; Nitrate Urine Negative (Negative); Non Pathogenic Casts >20; Protein Urine 1+ mg/dL (Negative); Specific Grav Ur 1.022 (1.001-1.035); Squamous Epithelial Cell Urine Moderate /hpf (Few); WBC Urine 0-5 /hpf (0-3)
[2024-06-29 05:04] LABS: Basophils Percent Auto 0.1 % (0.2-1.2); Hematocrit 28.8 % (37.0-47.0); Hemoglobin 8.8 g/dL (12.0-15.0); Immature Granulocyte Absolute 0.07 K/mm3 (0.00-0.031); Immature Granulocyte Percent A 0.9 % (0-0.5); Lymphocytes Percent Auto 10.6 % (18.3-44.2); Mean Corpuscular HGB Conc 30.6 g/dl (32-36); Mean Corpuscular Hemoglobin 25.4 pg (26-34); Mean Corpuscular Volume 83.2 fl (80-100); Mean Platelet Volume 9.9 fl (7.4-10.4); Monocytes Absolute Auto 0.8 K/mm3 (0.1-0.6); Monocytes Percent Auto 10.8 % (2.6-8.5); Neutrophils Absolute Auto 5.8 K/mm3 (1.3-6.7); Neutrophils Percent Auto 77.6 % (45.5-73.1); Platelet Count Result 440 k/mm3 (150-375); Red Blood Count 3.46 M/mm3 (4.2-5.4); Red Cell Distribution Width 20.4 % (11.5-14.5); White Blood Count 7.5 K/mm3 (4.5-10.0)
[2024-06-29 05:24] LABS: Alanine Aminotransferase 10 U/L (6-35); Albumin Level 3.5 g/dL (3.5-5.1); Alkaline Phosphatase 61 U/L (38-126); Anion Gap 13 mmol/L (4-12); Aspartate Amino Transferase 25 U/L (14-36); Bilirubin,Total 0.3 mg/dL (0.2-1.3); Blood Urea Nitrogen 38 mg/dL (7-17); Calcium 8.6 mg/dL (8.4-10.2); Carbon Dioxide 19 mmol/L (22-30); Chloride 106 mmol/L (98-107); Estimated CRCL calculation 22 ml/min; Estimated Glomerular Filt Rate 31; Glucose 159 mg/dL (65-110); Potassium 5.5 mmol/L (3.4-5.0); Sodium 138 mmol/L (137-145)
[2024-06-29 06:13] LABS: Free T4 Free Thyroxine 1.32 ng/mL (0.78-2.19)
[2024-06-29 07:41] LABS: Glucose Point of Care 130 mg/dl (65-105)
[2024-06-29] MEDS: FUROSEMIDE INJ 40 MG/4 ML VIAL IV PUSH ×2 (07:51→16:48)
[2024-06-29] MEDS: lisinopriL 20 MG TABLET 40 MG PO (07:54)
[2024-06-29] MEDS: SIMVASTATIN 20 MG TABLET PO (07:54)
[2024-06-29] MEDS: ASPIRIN 81 MG ENTERIC TABLET PO (07:54)
[2024-06-29] MEDS: LATANOPROST 0.005% OP SOLN 2.5 ML BTL 1 DROP EACH EYE (07:54)
[2024-06-29] MEDS: DICYCLOMINE HCL 10 MG CAPSULE 20 MG PO ×3 (07:54→16:48)
[2024-06-29] MEDS: amLODIPine BESYLATE 5 MG TABLET PO (07:55)
[2024-06-29] MEDS: METOPROLOL TARTRATE 25 MG TABLET PO ×2 (07:55→20:43)
[2024-06-29] MEDS: ALBUTEROL SULFATE (*SP) AEROSOL 1 PUFF 2 PUFF INHALATION (08:13)
[2024-06-29] MEDS: FLUTICASONE/SALMETEROL 115-21 MCG INHALER 1 PUFF INHALATION ×2 (08:13→21:23)
--- NOTE | 2024-06-29 09:03 | PM.IMPN ---
Progress Note: A&P Assessment and Plan (1) Shortness of breath: Code(s): R06.02 - Shortness of breath Status: Acute Assessment and Plan: - CXR: 1. Small right pleural effusion. 2. Cardiomegaly. - EKG, initial: supraventricular rhythm, rate 78, left axis deviation, pattern consistent with pulmonary disease, and ST-T-wave abnormality high lateral leads - suspect new onset CHF, see below patient received Eliquis this morning unable to do thoracentesis today, check chest x-ray see if effusion has improved with diuretics (2) CHF (congestive heart failure): Qualifiers: Heart failure chronicity: acute Heart failure type: unspecified Qualified Code(s): I50.9 - Heart failure, unspecified Code(s): I50.9 - Heart failure, unspecified Status: Suspected Assessment and Plan: cardiology consulted - BNP >30,000 - no echo on file, - Echocardiogram pending - currently on: lasix 20 mg daily, will continue as 40 mg IVP of lasix daily. - TSH high in May, will add T3 and T4 - monitor I&Os and daily weights - cardiology consulted for sinus arrhythmia noted on EKG and suspected new CHF - trend renal function (3) Elevated troponin: Code(s): R79.89 - Other specified abnormal findings of blood chemistry Status: Acute Assessment and Plan: - Troponin: 0.131 -> 0.122 -> 0.116, flat. No active chest pain. - ASA 324 given - echo pending - suspect demand secondary to volume overload/new onset chf - telemetry monitoring (4) Type 2 diabetes mellitus with kidney complication: Qualifiers: Chronic kidney disease stage: unspecified stage Diabetes mellitus complication detail: with chronic kidney disease Diabetes mellitus terminal supervisor insulin use: without detention use Qualified Code(s): E11.22 - Type 2 diabetes mellitus with diabetic chronic kidney disease Code(s): E11.29 - Type 2 diabetes mellitus with other diabetic kidney complication Status: Chronic Assessment and Plan: - hypoglycemia protocol - POC blood glucose ACHS - home medication: Hold metformin. Continue glargine 20 units subQ HS - correct regimen ordered - moderate dose TIDWM, based off BMI - A1C 5.9% on 06/14/2024 (5) CKD (chronic kidney disease): Qualifiers: Chronic kidney disease stage: unspecified stage Qualified Code(s): N18.9 - Chronic kidney disease, unspecified Code(s): N18.9 - Chronic kidney disease, unspecified Status: Chronic Assessment and Plan: - creatinine 1.3 and GFR 39, previously 1.15 and GFR 47 on 06/18/2024 - trend renal function - trend electrolytes, correct as needed (6) Essential hypertension: Code(s): I10 - Essential (primary) hypertension Status: Chronic Assessment and Plan: - chronic, currently 134/49 - continue home medications: Amlodipine 5 mg, isosorbide 60 mg b.i.d., lisinopril 40 mg daily, metoprolol 25 mg daily - monitor (7) Serum potassium elevated: Code(s): E87.5 - Hyperkalemia Status: Acute Assessment and Plan: potassium 5.5 this morning recheck K in the afternoon Plan Diet: Heart healthy GI Prophylaxis: Not currently indicated DVT Prophylaxis: SCDs Lines: Peripheral Code Status: DNR Time Spent With Patient Time with patient: Greater than 35 minutes Subjective Date/time seen: 06/29/24 09:03 Interval history: 84 y/o F presents here with shortness of breath with PMH of HTN, CKD, DM, HLD, myocardial infarction, and atherosclerotic heart disease with CABG x3 vessel patient states that her breathing is easier shortness breath is improved. Review of Systems Review of Systems: All systems reviewed & are unremarkable except as noted in HPI and below Exam Narrative: 2-3+ pitting edema, symmetric. irregular, mild tachy. Const: General: comfortable and no acute distress HENMT: Face/Nose/Sinus: Normal nares present Mouth: Yes moist mucous membranes Eyes: General: appearance normal, both eyes and all related structures Sclera: sclerae normal Pupils: Equal, round and reactive pupils present EOM: EOMs intact bilaterally Resp: Effort & Inspection: normal respiratory effort Auscultation: clear to auscultation bilaterally Cardio: Rate: tachycardic (100-110) Rhythm: abnormal rhythm Other: No murmur or rub. GI: Other: Abdomen soft, nondistended, nontender. Skin: General skin exam: normal color and no rashes or lesions noted Wounds: no wounds Neuro: Cranial nerves: Yes Equal, round and reactive pupils present Speech: normal speech Motor exam (neuro): 5/5 motor strength present throughout Sensory Exam: normal sensation Other: A&O x4 Extrem: Other: 2-3+ pitting edema to bilateral ankles, symmetric. Psych: Mental Status: mental status grossly normal Affect: normal affect Other: Good insight and judgment, pleasant Objective Data Vital Signs Vital Signs: Vital Signs - 24 hr 06/28/24 11:33 06/28/24 11:30 06/28/24 11:36 Temperature 98.2 F Pulse Rate 79 79 82 Respiratory Rate 18 22 H 22 H Blood Pressure 106/68 Pulse Oximetry 93 Oxygen Delivery Room Air 06/28/24 12:10 06/28/24 12:31 06/28/24 12:46 Temperature 97.8 F 97.9 F Pulse Rate 78 77 77 Respiratory Rate 20 20 20 Blood Pressure 109/70 106/52 L 110/59 L Pulse Oximetry 97 95 95 Oxygen Delivery 06/28/24 13:01 06/28/24 13:16 06/28/24 13:17 Temperature 97.7 F Pulse Rate 77 77 77 Respiratory Rate 20 20 24 H Blood Pressure 113/53 L 114/55 L Pulse Oximetry 94 94 94 Oxygen Delivery 06/28/24 13:30 06/28/24 13:31 06/28/24 13:45 Temperature Pulse Rate 77 77 77 Respiratory Rate 24 H 22 H 21 H Blood Pressure 114/55 L Pulse Oximetry 95 95 Oxygen Delivery 06/28/24 13:46 06/28/24 14:00 06/28/24 14:01 Temperature Pulse Rate 77 77 77 Respiratory Rate 27 H 26 H 23 H Blood Pressure 113/61 107/52 L Pulse Oximetry Oxygen Delivery 06/28/24 14:15 06/28/24 12:39 06/28/24 15:01 Temperature 97.7 F Pulse Rate 77 78 Respiratory Rate 26 H 24 H Blood Pressure 134/49 L Pulse Oximetry 95 Oxygen Delivery Room Air 06/28/24 16:00 06/28/24 16:00 06/28/24 18:00 Temperature Pulse Rate 77 96 Respiratory Rate Blood Pressure Pulse Oximetry Oxygen Delivery Room Air 06/28/24 20:00 06/28/24 20:00 06/28/24 20:58 Temperature 97.6 F Pulse Rate 96 91 92 Respiratory Rate 24 H 24 H Blood Pressure 122/79 Pulse Oximetry 95 92 Oxygen Delivery Room Air 06/28/24 21:53 06/28/24 23:45 06/28/24 23:56 Temperature Pulse Rate 96 94 94 Respiratory Rate 24 H Blood Pressure Pulse Oximetry 92 Oxygen Delivery Room Air 06/29/24 00:12 06/29/24 00:00 06/29/24 02:00 Temperature 97.7 F Pulse Rate 92 89 63 Respiratory Rate 24 H Blood Pressure 129/48 L Pulse Oximetry 94 Oxygen Delivery 06/29/24 04:00 06/29/24 04:19 06/29/24 04:00 Temperature 97.6 F Pulse Rate 63 92 95 Respiratory Rate 24 H 24 H Blood Pressure 130/83 Pulse Oximetry 94 97 Oxygen Delivery Room Air 06/28/24 22:35 06/29/24 06:00 06/29/24 07:55 Temperature Pulse Rate 64 98 Respiratory Rate Blood Pressure Pulse Oximetry 93 Oxygen Delivery Room Air 06/29/24 07:24 Temperature 98.4 F Pulse Rate 64 Respiratory Rate 18 Blood Pressure 126/52 L Pulse Oximetry 97 Oxygen Delivery Intake/Output Intake/Output: Intake & Output 06/26/24 06/27/24 06/28/24 06/29/24 23:59 23:59 23:59 23:59 Intake Total 540 120 Output Total 25 Balance 540 95 Meds/Results Medications: Active Medications Generic Name Dose Route Start Last Admin Trade Name Freq PRN Reason Stop Dose Admin Albuterol 2 puff 06/28/24 23:21 06/29/24 08:13 Albuterol Sulfate (*Sp) Aerosol 1 Puff INHALATION 2 puff Q4HRT PRN Administration Wheezing Amlodipine Besylate 5 mg 06/29/24 09:00 06/29/24 07:55 Amlodipine Besylate 5 Mg Tablet PO 5 mg DAILY [facility] Administration Aspirin 81 mg 06/29/24 09:00 06/29/24 07:54 Aspirin 81 Mg Enteric Tablet PO 81 mg DAILY [facility] Administration Clopidogrel Bisulfate 75 mg 06/29/24 21:00 Clopidogrel Bisulfate 75 Mg Tablet PO [facility] Dextrose 12.5 gm 06/28/24 15:27 Dextrose 50% 25 Gm/50 Ml Syringe IV PUSH PRN PRN Hypoglycemia Protocol Dicyclomine HCl 20 mg 06/29/24 09:00 06/29/24 07:54 Dicyclomine Hcl 10 Mg Capsule PO 20 mg TID [place] Administration Furosemide 40 mg 06/29/24 09:00 06/29/24 07:51 Furosemide Inj 40 Mg/4 Ml Vial IV PUSH 40 mg DAILY [facility] Administration Glucagon 1 mg 06/28/24 15:27 Glucagon For Inj 1 Mg Vial IM PRN PRN Hypoglycemia Protocol Glucose 15 gm 06/28/24 15:27 Glucose Oral Gel 15 Gm Of Glucse In 37.5 Gm Tube PO PRN PRN Hypoglycemia Protocol Dextrose 1,000 mls @ 100 mls/hr 06/28/24 15:27 Dextrose 5% 1,000 Ml IVPB PRN PRN Hypoglycemia Protocol Insulin Aspart 3 - 6 units 06/28/24 17:00 06/29/24 07:50 Insulin Aspart (*Bkc) 100 Units/Ml SUB-Q Not Given TIDWM [facility] Protocol Insulin Glargine 20 units 06/28/24 23:25 06/28/24 23:44 Insulin Glargine (*Bkc) 100 Units/Ml SUB-Q 20 units QPM [facility] Administration Isosorbide Dinitrate 60 mg 06/29/24 09:00 Isosorbide Dinitrate 20 Mg Tablet PO BID [facility]INA Latanoprost 1 drop 06/29/24 09:00 06/29/24 07:54 Latanoprost 0.005% Op Soln 2.5 Ml Btl EACH EYE 1 drop DAILY [facility] Administration Lisinopril 40 mg 06/29/24 09:00 06/29/24 07:54 Lisinopril 20 Mg Tablet PO 40 mg QAM [facility] Administration Metoprolol Tartrate 25 mg 06/28/24 23:40 06/29/24 07:55 Metoprolol Tartrate 25 Mg Tablet PO 25 mg Q12HR [place] Administration Miscellaneous Information 0 each 06/29/24 00:01 Isosorbide External Med Record Shows Pt Takes Isosorbide Mononitrate 60mg Daily Please Cla XX 07/29/24 00:00 CLARIFY SALINA Fluticasone/Salmeterol 1 puff 06/29/24 08:00 06/29/24 08:13 Fluticasone/Salmeterol 115-21 Mcg Inhaler 1 Puff INHALATION 1 puff Q12HRT [facility] Administration Simvastatin 20 mg 06/29/24 09:00 06/29/24 07:54 Simvastatin 20 Mg Tablet PO 20 mg DAILY [place] Administration Radiology Results: ITS Impressions Chest X-Ray 06/28/24 12:30 IMPRESSION: 1. Small right pleural effusion. 2. Cardiomegaly. Labs Labs: Laboratory Results - last 24 hr 06/28/24 06/28/24 06/28/24 12:18 15:55 17:36 WBC 7.5 RBC 3.72 L Hgb 9.5 L Hct 31.3 L MCV 84.1 MCH 25.5 L MCHC 30.4 L RDW 20.5 H Plt Count 452 H MPV 9.3 Immature Gran % (Auto) 0.8 H Neut % (Auto) 78.5 H Lymph % (Auto) 9.5 L [place] % (Auto) 10.7 H Eos % (Auto) 0.1 Baso % (Auto) 0.4 Lymph # (Auto) 0.72 L [place] # (Auto) 0.8 H Eos # (Auto) 0.0 Baso # (Auto) 0.0 Abs Immat Gran (auto) 0.06 H Absolute Neuts (auto) 5.9 Absolute Nucleated RBC 0.000 Nucleated RBC % 0.0 Sodium 139 Potassium 5.9 H Chloride 108 H Carbon Dioxide 21 L Anion Gap 10 BUN 33 H D Creatinine 1.30 H Estim Creat Clear Calc 27 Estimated GFR 39 L Glucose 148 H POC Capillary Glucose 255 H Calcium 8.8 Magnesium 1.9 Total Bilirubin 0.4 AST 30 ALT 10 Alkaline Phosphatase 64 Troponin I 0.131 H* 0.122 H* NT-Pro-B Natriuret Pep > 37196 H Total Protein 7.0 Albumin 3.6 Free T4 Urine Color Urine Appearance Urine pH Ur Specific [place] Urine Protein Urine Glucose (UA) Urine Ketones Ur Blood (Man) Urine Nitrate Urine Bilirubin Urine Urobilinogen Add Ur Microanalysis Leukocyte Esterase Rfl Urine RBC Urine WBC Ur Squamous Epith Cells Urine Bacteria Urine Casts Hyaline Casts Urine Mucus 06/28/24 06/28/24 06/29/24 18:29 20:53 04:04 WBC RBC Hgb Hct MCV MCH MCHC RDW Plt Count MPV Immature Gran % (Auto) Neut % (Auto) Lymph % (Auto) [place] % (Auto) Eos % (Auto) Baso % (Auto) Lymph # (Auto) [place] # (Auto) Eos # (Auto) Baso # (Auto) Abs Immat Gran (auto) Absolute Neuts (auto) Absolute Nucleated RBC Nucleated RBC % Sodium Potassium Chloride Carbon Dioxide Anion Gap BUN Creatinine Estim Creat Clear Calc Estimated GFR Glucose POC Capillary Glucose 243 H Calcium Magnesium Total Bilirubin AST ALT Alkaline Phosphatase Troponin I 0.116 H* NT-Pro-B Natriuret Pep Total Protein Albumin Free T4 Urine Color Dark yellow Urine Appearance Cloudy H Urine pH 5.0 Ur Specific [place] 1.022 Urine Protein 1+ H Urine Glucose (UA) Negative Urine Ketones 1+ H Ur Blood (Man) 2+ H Urine Nitrate Negative Urine Bilirubin 2+ H Urine Urobilinogen 1.0 Add Ur Microanalysis Reviewed Leukocyte Esterase Rfl Trace H Urine RBC 3-5 H Urine WBC 0-5 Ur Squamous Epith Cells Moderate Urine Bacteria 2+ H Urine Casts >20 Hyaline Casts Present Urine Mucus Present 06/29/24 06/29/24 04:25 07:26 WBC 7.5 RBC 3.46 L Hgb 8.8 L Hct 28.8 L MCV 83.2 MCH 25.4 L MCHC 30.6 L RDW 20.4 H Plt Count 440 H MPV 9.9 Immature Gran % (Auto) 0.9 H Neut % (Auto) 77.6 H Lymph % (Auto) 10.6 L [place] % (Auto) 10.8 H Eos % (Auto) 0.0 Baso % (Auto) 0.1 L Lymph # (Auto) 0.80 L [place] # (Auto) 0.8 H Eos # (Auto) 0.0 Baso # (Auto) 0.0 Abs Immat Gran (auto) 0.07 H Absolute Neuts (auto) 5.8 Absolute Nucleated RBC 0.000 Nucleated RBC % 0.0 Sodium 138 Potassium 5.5 H Chloride 106 Carbon Dioxide 19 L Anion Gap 13 H BUN 38 H Creatinine 1.60 H Estim Creat Clear Calc 22 Estimated GFR 31 L Glucose 159 H POC Capillary Glucose 130 H Calcium 8.6 Magnesium Total Bilirubin 0.3 AST 25 ALT 10 Alkaline Phosphatase 61 Troponin I NT-Pro-B Natriuret Pep Total Protein 7.0 Albumin 3.5 Free T4 1.32 Urine Color Urine Appearance Urine pH Ur Specific [place] Urine Protein Urine Glucose (UA) Urine Ketones Ur Blood (Man) Urine Nitrate Urine Bilirubin Urine Urobilinogen Add Ur Microanalysis Leukocyte Esterase Rfl Urine RBC Urine WBC Ur Squamous Epith Cells Urine Bacteria Urine Casts Hyaline Casts Urine Mucus Quality VTE Prophylaxis VTE prophylaxis: mechanical ordered
[2024-06-29 11:41] LABS: Glucose Point of Care 171 mg/dl (65-105)
--- NOTE | 2024-06-29 13:02 | ECG_ITS ---
Test Date: 2024-06-29 13:27:02 Measurements Intervals [place] Rate: 88 P: 0 [place]: 0 QRS: -73 QRSD: 183 T: 152 QT: 374 QTc: 453 Interpretive Statements ATRIAL FIBRILLATION LEFT AXIS DEVIATION INTRAVENTRICULAR CONDUCTION DELAY PATTERN CONSISTENT WITH PULMONARY DISEASE BORDERLINE ST-T WAVE ABNORMALITY- ANTEROLAT/INF LEADS BASELINE ARTIFACT- I, III, AVR, AVL, AVF, V1-V6 ABNORMAL ECG Compared to ECG 06/28/2024 12:01:13 SUPRAVENTRICULAR RHYTHM NO LONGER PRESENT INTRAVENTRICULAR CONDUCTION DELAY NOW PRESENT Electronically Signed On 06-29-2024 13:50:41 [employer] by Gopal Astorga D.O.
--- NOTE | 2024-06-29 13:51 | PM.CNCAR ---
Assessment and Plan Assessment and plan (1) Acute exacerbation of CHF (congestive heart failure): Code(s): I50.9 - Heart failure, unspecified Status: Acute Assessment and Plan: Urine output not at goal. Remains volume overloaded. Will increase Lasix to 40mg IV BID. Please monitor strict I/Os. Echo pending. (2) Atrial fibrillation: Code(s): I48.91 - Unspecified atrial fibrillation Status: Acute Assessment and Plan: This is a new diagnosis for the patient. TSH mildy elevated, but T4 normal. Rate controlled currently, continue with Metoprolol. Discussed anticoagulation with the patient, including risks vs benefits. Patient agreeable to start. Will start Eliquis 2.5mg BID (given age and renal function). If renal function improves to SCr <1.5, then will need to increase dose to 5mg BID. Echo ordered and pending. (3) Elevated troponin: Code(s): R79.89 - Other specified abnormal findings of blood chemistry Status: Acute Assessment and Plan: Mildly elevated and flat. Not an acute coronary syndrome. (4) Atherosclerotic heart disease of [place] coronary artery with other forms of angina pectoris: Code(s): I25.118 - Atherosclerotic heart disease of [place] coronary artery with other forms of angina pectoris Status: Acute Assessment and Plan: Stable. On ASA and Plavix at home. Since we are starting NOAC, will discontinue Plavix and continue with ASA as she does not have an indication for triple therapy. Continue statin. Continue Metoprolol and Imdur. (5) Essential hypertension: Code(s): I10 - Essential (primary) hypertension Status: Chronic Assessment and Plan: Stable. Continue Amlodipine, Lisinopril, Metoprolol. (6) Mixed hyperlipidemia: Code(s): E78.2 - Mixed hyperlipidemia Status: Acute Assessment and Plan: Continue statin. (7) Type 2 diabetes mellitus with hyperglycemia: Qualifiers: Diabetes mellitus penitentiary insulin use: without manager terminal use Qualified Code(s): E11.65 - Type 2 diabetes mellitus with hyperglycemia Code(s): E11.65 - Type 2 diabetes mellitus with hyperglycemia Status: Chronic Assessment and Plan: Management as per Hospitalist. History of Present Illness History of Present Illness Consult date/time: 06/29/24 13:51 Requesting physician: Bekah,Natacha E., CLINICAL PROJECT ASSISTANT Consult reason: congestive heart failure Reason For Visit: COPD/CHF/ +Trop Narrative: This is an 84 year old female with CAD s/p CABG in 2009 with BAPTISTE to diagonal, SVG to OM and SVG to the RPDA with subsequent occlusion of both the [place] RCA and the vein graft. She also has hypertension. Follows with Dr. Jimenez in the office. She has been having progressive shortness of breath and lower extremity edema over the past few days. No chest pain. Workup here shows TRI with SCr of 1.3. Troponins are 0.131, 0.122, 0.116. CXR with small right pleural effusion. EKG on admission shows possible supraventricular rhythm. However, on telemetry, it appears to be atrial fibrillation. She was given dose of IV Lasix 40mg once daily on admission. Reports she has made some urine but not too much. Her shortness of breath feels better, lower extremity edema persists. 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 Cataract CKD (chronic kidney disease) DM renal manif type II Essential hypertension Iron deficiency anemia Irritable bowel Keratoacanthoma Mixed hyperlipidemia Nephritis Old myocardial infarction Polyp of colon Post-menopausal Type 2 diabetes mellitus without complication Surgical History Surgical History H/O bilateral cataract extraction H/O colonoscopy H/O dilation and curettage H/O rectal polypectomy History of coronary angioplasty with insertion of stent Hx of CABG Quadruple S/P tonsillectomy and adenoidectomy Family History Family History Mother Hypertension Family history of congenital heart disease Family history of diabetes mellitus in first degree relative Diabetes mellitus Family history of cardiovascular disease Family history of coronary artery disease Father Diabetes mellitus Hypertension Family history of elevated blood lipids Family history of cardiovascular disease Acute myocardial infarction Family history of coronary artery disease Other Family history of arthritis Social History Social History Social History: The patient is and has 2 children. Her is a durable power attorney lawyer for healthcare. The patient is retired from [email or web address]. She is a former smoker she does not use any alcohol marijuana or illicit drugs. Code status full code Smoking packs per day: 1 Smoking cigarettes per day: 20.0 Years smoked: 5 Smoking pack-years: 5.00 Smoking status: Former smoker Tobacco type: cigarettes Second hand tobacco smoke exposure: No Smoking end date: 08/22/1968 Alcohol intake: never Substance use: never Substance use type: does not use Do You Feel Safe in your Home?: Yes Lack of Transportation: No Lack of Food: Never True Current Housing: I Have Housing Concerned About Future Housing: No Difficulty Paying Gas/Electric Bills: No Difficulty Paying for Meds: No Currently Unemployed: No Education: High School Diploma/GED Difficulty w/ Childcare or Family Care: No 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cation: retired Gender identity (if verbalized by the patient): Female Spiritual care concerns: No Meds Home Medications and Allergies Home Medications Medication Instructions Recorded Confirmed Type clopidogrel 75 mg tablet 75 mg PO HS 09/07/19 06/28/24 History bimatoprost 0.03 % eye drops 1 drp EACH EYE HS 03/19/21 06/28/24 History aspirin 81 mg tablet,delayed 81 mg PO DAILY 10/07/22 06/28/24 History release (Adult Low Dose Aspirin) amlodipine 5 mg tablet 5 mg PO DAILY 06/01/23 06/28/24 History isosorbide dinitrate 20 mg tablet 60 mg PO BID 06/01/23 06/28/24 History metformin 500 mg tablet,extended 500 mg PO TID #270 tabs 10/05/23 06/28/24 Rx release 24 hr pen needle, diabetic 32 gauge x #100 ea 10/05/23 06/28/24 Rx 1/4 (BD Ultra-Fine Micro Pen Needle) furosemide 20 mg tablet See Rx Instructions .Route 11/28/23 06/28/24 Rx .COMPLEX #90 tabs fluticasone 250 mcg-salmeterol 50 1 inh inhalation BID #60 ea 02/08/24 06/28/24 Rx mcg/dose blistr powdr for inhalation (Wixela Inhub) blood sugar diagnostic (OneTouch #200 strips 02/09/24 06/28/24 Rx Ultra Test strips) insulin glargine 100 unit/mL (3 20 unit (0.2 mL) subcut QPM #18 mL 02/09/24 06/28/24 Rx mL) subcutaneous pen (Basaglar KwikPen U-100 Insulin) lancets 33 gauge #200 ea 05/22/24 06/28/24 Rx lisinopril 40 mg tablet See Rx Instructions .Route 05/29/24 06/28/24 Rx .COMPLEX #90 tabs metoprolol tartrate 25 mg tablet See Rx Instructions .Route 05/29/24 06/28/24 Rx .COMPLEX #180 tabs albuterol sulfate 90 mcg/actuation 2 puff inhalation Q4H PRN 06/19/24 06/28/24 Rx aerosol inhaler (Ventolin HFA) shortness of breath or wheezing #25.5 grams dicyclomine 20 mg tablet 20 mg PO TID #180 tabs 06/19/24 06/28/24 Rx albuterol sulfate 90 mcg/actuation 2 inh inhalation Q4H PRN Wheezing 06/28/24 06/28/24 History aerosol inhaler (Ventolin HFA) latanoprost 0.005 % eye drops 1 drp EACH EYE DAILY 06/28/24 06/28/24 History simvastatin 20 mg tablet 20 mg PO DAILY 06/28/24 06/28/24 History Allergies Allergy/AdvReac Type Severity Reaction Status Date / Time No Known Allergies Allergy Verified 06/19/24 13:08 Vital Signs Vital Signs - 24 hr 06/28/24 14:00 06/28/24 14:01 06/28/24 14:15 Temperature Pulse Rate 77 77 77 Respiratory Rate 26 H 23 H 26 H Blood Pressure 107/52 L Pulse Oximetry Oxygen Delivery Fraction of Inspired Oxygen 06/28/24 15:01 06/28/24 16:00 06/28/24 16:00 Temperature 36.5 C Pulse Rate 78 77 Respiratory Rate 24 H Blood Pressure 134/49 L Pulse Oximetry 95 Oxygen Delivery Room Air Fraction of Inspired Oxygen 06/28/24 18:00 06/28/24 20:00 06/28/24 20:00 Temperature Pulse Rate 96 96 91 Respiratory Rate 24 H Blood Pressure Pulse Oximetry 95 Oxygen Delivery Room Air Fraction of Inspired Oxygen 06/28/24 20:58 06/28/24 21:53 06/28/24 23:45 Temperature 36.4 C Pulse Rate 92 96 94 Respiratory Rate 24 H Blood Pressure 122/79 Pulse Oximetry 92 Oxygen Delivery Fraction of Inspired Oxygen 06/28/24 23:56 06/29/24 00:12 06/29/24 00:00 Temperature 36.5 C Pulse Rate 94 92 89 Respiratory Rate 24 H 24 H Blood Pressure 129/48 L Pulse Oximetry 92 94 Oxygen Delivery Room Air Fraction of Inspired Oxygen 06/29/24 02:00 06/29/24 04:00 06/29/24 04:19 Temperature 36.4 C Pulse Rate 63 63 92 Respiratory Rate 24 H 24 H Blood Pressure 130/83 Pulse Oximetry 94 97 Oxygen Delivery Room Air Fraction of Inspired Oxygen 06/29/24 04:00 06/28/24 22:35 06/29/24 06:00 Temperature Pulse Rate 95 64 Respiratory Rate Blood Pressure Pulse Oximetry 93 Oxygen Delivery Room Air Fraction of Inspired Oxygen 06/29/24 07:55 06/29/24 07:24 06/29/24 08:00 Temperature 36.9 C Pulse Rate 98 64 94 Respiratory Rate 18 Blood Pressure 126/52 L Pulse Oximetry 97 Oxygen Delivery Fraction of Inspired Oxygen 06/29/24 10:00 06/29/24 08:13 06/29/24 08:13 Temperature Pulse Rate 62 88 Respiratory Rate 22 H Blood Pressure Pulse Oximetry 97 Oxygen Delivery Room Air Fraction of Inspired Oxygen 21 06/29/24 11:44 06/29/24 11:52 06/29/24 12:00 Temperature 36.5 C Pulse Rate 66 82 Respiratory Rate 22 H Blood Pressure 121/51 L Pulse Oximetry 94 Oxygen Delivery Room Air Fraction of Inspired Oxygen Exam Const: General: comfortable and no acute distress HENMT: Mouth: Yes moist mucous membranes Eyes: General: appearance normal, both eyes and all related structures Sclera: sclerae normal Resp: Effort & Inspection: normal respiratory effort Auscultation: clear to auscultation bilaterally Cardio: Rhythm: abnormal rhythm irregularly irregular Heart sounds: no murmurs Other: + Bilateral lower extremity edema Skin: General skin exam: normal color Neuro: Speech: normal speech Psych: Mental Status: mental status grossly normal Affect: normal affect Results Labs and Meds 06/29/24 04:25 06/29/24 04:25 Lab results: Cardiac Enzymes 06/28/24 06/28/24 06/29/24 Range/Units 15:55 18:29 04:25 AST 25 (14-36) U/L Troponin I 0.122 H* 0.116 H* (0.000-0.034) ng/mL CBC 06/29/24 Range/Units 04:25 WBC 7.5 (4.5-10.0) K/mm3 RBC 3.46 L (4.2-5.4) M/mm3 Hgb 8.8 L (12.0-15.0) g/dL Hct 28.8 L (37.0-47.0) % Plt Count 440 H (150-375) k/mm3 Lymph # (Auto) 0.80 L (0.9-3.2) K/mm3 [place] # (Auto) 0.8 H (0.1-0.6) K/mm3 Eos # (Auto) 0.0 (0-0.3) K/mm3 Baso # (Auto) 0.0 (0.0-0.1) K/mm3 Comprehensive Metabolic Panel 06/29/24 Range/Units 04:25 Sodium 138 (137-145) mmol/L Potassium 5.5 H (3.4-5.0) mmol/L Chloride 106 (98-107) mmol/L Carbon Dioxide 19 L (22-30) mmol/L BUN 38 H (7-17) mg/dL Creatinine 1.60 H (0.7-1.0) mg/dL Glucose 159 H (65-110) mg/dL Calcium 8.6 (8.4-10.2) mg/dL AST 25 (14-36) U/L ALT 10 (6-35) U/L Alkaline Phosphatase 61 (38-126) U/L Total Protein 7.0 (6.3-8.2) g/dL Albumin 3.5 (3.5-5.1) g/dL Intake and Output 06/28/24 06/29/24 06/29/24 23:59 07:59 15:59 Intake Total 540 120 Output Total 25 Balance 540 -25 120 Intake: Oral 540 120 Output: Urine 25 Other: # Unmeasured Voids 1 1 Patient Weight 06/29/24 23:59 Weight 71.9 kg
[2024-06-29] MEDS: PERFLUTREN LIPID MICROSPHERES 1.5 ML VIAL DILUTED TO 10 ML TOTAL VOLUME IV PUSH (15:20)
--- NOTE | 2024-06-29 16:30 | IVDEFINITY ---
Prior to administration of IV Definity the patient was educated on the risks and benefits of the imaging enhancing agent including potential adverse side effects. The patient verbalized understanding. Allergies were verified. No exclusion criteria were identified and at least one of the following inclusion criteria were met: 1) physician request, 2) patient technically difficult to image (per the [place] [employer]chocardi[employer] guidelines of two or more segments not discernable within the apical view), or 3) questionable left ventricular function. ?
[2024-06-29 16:35] LABS: Glucose Point of Care 166 mg/dl (65-105)
[2024-06-29] MEDS: ISOSORBIDE MONONITRATE 60 MG TAB.ER.24H PO (16:48)
[2024-06-29 16:57] LABS: Potassium 5.4 mmol/L (3.4-5.0)
[2024-06-29] MEDS: APIXABAN 2.5 MG TABLET PO (20:43)
[2024-06-29] MEDS: INSULIN GLARGINE (*BKC) 100 UNITS/ML 20 UNITS SUB-Q (20:43)
[2024-06-29 20:47] LABS: Glucose Point of Care 177 mg/dl (65-105)
[2024-06-30] VITALS (22 sets, daily range): BP systolic 107–146; BP diastolic 45–95; PULSE 65–97; RESP 19–26; TEMP 35.9–36.6; O2SAT 93–100
[2024-06-30] MEDS: FLUTICASONE/SALMETEROL 115-21 MCG INHALER 1 PUFF INHALATION ×2 (07:26→21:09)
[2024-06-30 07:39] LABS: T3 Free 1.8 pg/mL (2.3-4.2)
[2024-06-30 07:47] LABS: Glucose Point of Care 117 mg/dl (65-105)
[2024-06-30] MEDS: amLODIPine BESYLATE 5 MG TABLET PO (08:35)
[2024-06-30] MEDS: ISOSORBIDE MONONITRATE 60 MG TAB.ER.24H PO ×2 (08:36→16:17)
[2024-06-30] MEDS: APIXABAN 2.5 MG TABLET PO ×2 (08:36→20:02)
[2024-06-30] MEDS: METOPROLOL TARTRATE 25 MG TABLET PO ×2 (08:37→20:03)
[2024-06-30] MEDS: DICYCLOMINE HCL 10 MG CAPSULE 20 MG PO ×3 (08:37→16:15)
[2024-06-30] MEDS: lisinopriL 20 MG TABLET 40 MG PO (08:37)
[2024-06-30] MEDS: SIMVASTATIN 20 MG TABLET PO (08:38)
[2024-06-30] MEDS: ASPIRIN 81 MG ENTERIC TABLET PO (08:38)
[2024-06-30] MEDS: FUROSEMIDE INJ 40 MG/4 ML VIAL IV PUSH (08:38)
[2024-06-30] MEDS: LATANOPROST 0.005% OP SOLN 2.5 ML BTL 1 DROP EACH EYE (08:39)
--- NOTE | 2024-06-30 09:23 | P.PNIM_ITS ---
Progress Note: A&P Assessment and Plan (1) CHF (congestive heart failure): Qualifiers: Heart failure chronicity: acute Heart failure type: unspecified Qualified Code(s): I50.9 - Heart failure, unspecified Code(s): I50.9 - Heart failure, unspecified Status: Suspected Assessment and Plan: * New onset * Pro BNP >59633 * Echo results pending * Cardiology consulted * Continue IV Diuresis which was increased today by Cardiology to 80 mg IVP Lasix BID * Monitor I and O and obtain daily weights * Cardiac diet * Continue continuous telemetry * Remain in IMU due to work of breathing (2) Elevated troponin: Code(s): R79.89 - Other specified abnormal findings of blood chemistry Status: Acute Assessment and Plan: * likely demand ischemia * Troponin 0.131 -> 0.122 -> 0.116, flat. No active chest pain. * Awaiting echo results * Cardiology following * Continue cardiac monitoring * Continue diuresis with Lasix (3) Type 2 diabetes mellitus with kidney complication: Qualifiers: Chronic kidney disease stage: unspecified stage Diabetes mellitus complication detail: with chronic kidney disease Diabetes mellitus continuous churn buttermaker insulin use: without snf use Qualified Code(s): E11.22 - Type 2 diabetes mellitus with diabetic chronic kidney disease Code(s): E11.29 - Type 2 diabetes mellitus with other diabetic kidney complication Status: Chronic Assessment and Plan: * Blood sugars ranging 117-177 * Hgb A1C 5.9 * Accu checks AC/HS * Moderate dose SSI ordered * hypoglycemic protocol in place * Diabetic diet ordered * Hold metformin * Continue Lantus 20 units @ HS (4) CKD (chronic kidney disease): Qualifiers: Chronic kidney disease stage: unspecified stage Qualified Code(s): N18.9 - Chronic kidney disease, unspecified Code(s): N18.9 - Chronic kidney disease, unspecified Status: Chronic Assessment and Plan: * Creatinine 1.8 today * Continue Diuresis with Lasix 80mg IV BID per Cardiology recommendation * Continue to trend (5) Essential hypertension: Code(s): I10 - Essential (primary) hypertension Status: Chronic Assessment and Plan: * Blood pressure ranging 111/57-146/95 * Continue Amlodipine, Lisinopril, Metoprolol (6) Serum potassium elevated: Code(s): E87.5 - Hyperkalemia Status: Acute Assessment and Plan: * Potassium 5.4 * Lasix increased by Cardiology * Continue to trend Time Spent With Patient Time with patient: Greater than 35 minutes Subjective Date/time seen: 06/30/24 09:23 Interval history: Interval History: This is an 84 year old female who presented to the hospital on 06/28/24 with complaints of shortness of breath. Work up in the hospital included a chest x- ray which shown a right small pleural effusion, cardiomegaly. Abdomen x-ray which was negative. Labs significant for [place] BNP of >88965, elevated troponin 0.122>0.116, K+ 5.9, Bicarb 21, Creatinine 1.30, eGFR 39. UA shown a cloudy appearance, 1+ urine protein, 1+ urine ketones, 2+ urine blood, 2+ urobilinogen, trace leukocytes, 3-5 urine RBC, 2+ urine bacteria. Echo was obtained with results pending. Patient given IV lasix for diuresis. Cardiology consulted for new onset CHF. Subjective: Patient denies any fever, chills, nausea, vomiting, diarrhea, abdominal pain, or chest pain. Patient endorses shortness of breath at rest that worsens with activity and bilateral lower extremity pitting edema. Labs and imaging reviewed. Review of Systems Review of Systems: All systems reviewed & are unremarkable except as noted in HPI and below Constitutional: Constitutional: Reports as per HPI and Reports no additional constitutional complaints Eyes: Eyes: Reports as per HPI and Reports no additional eye complaints ENT: Reports system reviewed and no additional complaints, except as documented and Reports as per HPI Cardiovascular: Cardiovascular: Reports as per HPI and Reports no additional cardiovascular complaints Respiratory: Respiratory: Reports as per HPI and Reports no additional respiratory complaints Gastrointestinal: Gastrointestinal: Reports as per HPI and Reports no additional gastrointestinal complaints Genitourinary: Genitourinary: Reports no additional female genitourinary complaints and Reports as per HPI Musculoskeletal: Musculoskeletal: Reports no additional musculoskeletal complaints and Reports as per HPI Integumentary/Breasts: Skin/Breast: Reports system reviewed and no additional complaints, except as docu and Reports as per HPI Neurologic: Reports system reviewed and no additional complaints, except as documented and Reports as per HPI Psychiatric: Psychiatric: Reports no additional psychiatric complaints and Reports as per HPI Exam Narrative: General: In no acute distress, well nourished Head: atraumatic, no encephalopathy Eyes: PERRLA, sclera clear ENT: moist mucous membranes, nasal passages clear Neck: supple, JVD++, no adenopathy, trachea midline Cardiac: Normal S1 and S2. No murmur, gallops or friction rubs, peripheral pulses intact. Respiratory: Currently on room air, crackles noted to bilateral bases, use of accessory muscles noted. Gastrointestinal: soft, non-distended, non-tender, normoactive bowel sounds. : voiding without difficulty. Extremities: moves all extremities well,bilateral lower extremity pitting edema 3+ Skin: clean, dry, intact. No wounds or lesions. Neuro: Alert and oriented x4, cranial nerves intact, no neuro deficits. Psych: normal mood, normal affect, interactive Objective Data Vital Signs Vital Signs: Vital Signs - 24 hr 06/29/24 10:00 06/29/24 11:44 06/29/24 11:52 Temperature 97.7 F Pulse Rate 62 66 Respiratory Rate 22 H Blood Pressure 121/51 L Pulse Oximetry 94 Oxygen Delivery Room Air Fraction of Inspired Oxygen 06/29/24 12:00 06/29/24 14:00 06/29/24 16:00 Temperature Pulse Rate 82 77 88 Respiratory Rate Blood Pressure Pulse Oximetry Oxygen Delivery Fraction of Inspired Oxygen 06/29/24 16:00 06/29/24 16:00 06/29/24 18:00 Temperature 98 F Pulse Rate 69 89 Respiratory Rate 24 H Blood Pressure 120/60 Pulse Oximetry 91 Oxygen Delivery Room Air Fraction of Inspired Oxygen 06/29/24 19:58 06/29/24 20:00 06/29/24 20:43 Temperature 98.0 F Pulse Rate 89 79 85 Respiratory Rate 24 H 24 H Blood Pressure 122/65 Pulse Oximetry 91 92 Oxygen Delivery Room Air Fraction of Inspired Oxygen 21 06/29/24 20:00 06/29/24 21:25 06/29/24 22:50 Temperature Pulse Rate 75 79 65 Respiratory Rate 20 Blood Pressure Pulse Oximetry Oxygen Delivery Fraction of Inspired Oxygen 06/29/24 23:41 06/30/24 00:00 06/30/24 00:00 Temperature 97.6 F Pulse Rate 65 71 65 Respiratory Rate 20 26 H Blood Pressure 110/48 L Pulse Oximetry 92 95 Oxygen Delivery Room Air Fraction of Inspired Oxygen 06/30/24 02:14 06/30/24 03:55 06/30/24 04:00 Temperature 97.9 F Pulse Rate 70 82 82 Respiratory Rate 20 20 Blood Pressure 111/57 L Pulse Oximetry 94 94 Oxygen Delivery Room Air Fraction of Inspired Oxygen 06/30/24 04:00 06/30/24 05:53 06/30/24 07:28 Temperature Pulse Rate 79 84 Respiratory Rate Blood Pressure Pulse Oximetry 94 Oxygen Delivery Room Air Fraction of Inspired Oxygen 06/30/24 08:14 06/30/24 08:37 Temperature 97.5 F L Pulse Rate 82 93 Respiratory Rate 20 Blood Pressure 146/95 H Pulse Oximetry 93 Oxygen Delivery Fraction of Inspired Oxygen Intake/Output Intake/Output: Intake & Output 06/27/24 06/28/24 06/29/24 06/30/24 23:59 23:59 23:59 23:59 Intake Total 540 1030 250 Output Total 25 250 Balance 540 1005 0 Meds/Results Medications: Active Medications Generic Name Dose Route Start Last Admin Trade Name Freq PRN Reason Stop Dose Admin Albuterol 2 puff 06/28/24 23:21 06/29/24 08:13 Albuterol Sulfate (*Sp) Aerosol 1 Puff INHALATION 2 puff Q4HRT PRN Administration Wheezing Amlodipine Besylate 5 mg 06/29/24 09:00 06/30/24 08:35 Amlodipine Besylate 5 Mg Tablet PO 5 mg DAILY SALINA Administration Apixaban 2.5 mg 06/29/24 21:00 06/30/24 08:36 Apixaban 2.5 Mg Tablet PO 2.5 mg Q12HR SALINA Administration Aspirin 81 mg 06/30/24 09:00 06/30/24 08:38 Aspirin 81 Mg Enteric Tablet PO 81 mg QAM SALINA Administration Dextrose 12.5 gm 06/28/24 15:27 Dextrose 50% 25 Gm/50 Ml Syringe IV PUSH PRN PRN Hypoglycemia Protocol Dicyclomine HCl 20 mg 06/29/24 09:00 06/30/24 08:37 Dicyclomine Hcl 10 Mg Capsule PO 20 mg TID SALINA Administration Furosemide 40 mg 06/29/24 17:00 06/30/24 08:38 Furosemide Inj 40 Mg/4 Ml Vial IV PUSH 40 mg BID SALINA Administration Glucagon 1 mg 06/28/24 15:27 Glucagon For Inj 1 Mg Vial IM PRN PRN Hypoglycemia Protocol Glucose 15 gm 06/28/24 15:27 Glucose Oral Gel 15 Gm Of Glucse In 37.5 Gm Tube PO PRN PRN Hypoglycemia Protocol Dextrose 1,000 mls @ 100 mls/hr 06/28/24 15:27 Dextrose 5% 1,000 Ml IVPB PRN PRN Hypoglycemia Protocol Insulin Aspart 3 - 6 units 06/28/24 17:00 06/30/24 08:34 Insulin Aspart (*Bkc) 100 Units/Ml SUB-Q Not Given TIDWM SALINA Protocol Insulin Glargine 20 units 06/29/24 21:00 06/29/24 20:43 Insulin Glargine (*Bkc) 100 Units/Ml SUB-Q 20 units HS SALINA Administration Isosorbide Mononitrate 60 mg 06/29/24 17:00 06/30/24 08:36 Isosorbide Mononitrate 60 Mg Tab.Er.24h PO 60 mg BID SALINA Administration Latanoprost 1 drop 06/29/24 09:00 06/30/24 08:39 Latanoprost 0.005% Op Soln 2.5 Ml Btl EACH EYE 1 drop DAILY SALINA Administration Lisinopril 40 mg 06/29/24 09:00 06/30/24 08:37 Lisinopril 20 Mg Tablet PO 40 mg QAM SALINA Administration Metoprolol Tartrate 25 mg 06/28/24 23:40 06/30/24 08:37 Metoprolol Tartrate 25 Mg Tablet PO 25 mg Q12HR SALINA Administration Perflutren Lipid Microsphere 0 ml 06/29/24 13:57 Perflutren Lipid Microspheres 1.5 Ml Vial Diluted To 10 Ml Total Volume IV PUSH 07/02/24 13:58 ONCE PRN adequate visualization Protocol Fluticasone/Salmeterol 1 puff 06/29/24 08:00 06/30/24 07:26 Fluticasone/Salmeterol 115-21 Mcg Inhaler 1 Puff INHALATION 1 puff Q12HRT SALINA Administration Simvastatin 20 mg 06/29/24 09:00 06/30/24 08:38 Simvastatin 20 Mg Tablet PO 20 mg DAILY SALINA Administration Radiology Results: ITS Impressions Chest X-Ray 06/28/24 12:30 IMPRESSION: 1. Small right pleural effusion. 2. Cardiomegaly. Abdomen X-Ray 06/29/24 13:07 IMPRESSION: 1: No acute abdominal abnormality identified. Labs Labs: Laboratory Results - last 24 hr 06/29/24 06/29/24 06/29/24 04:25 11:36 15:56 Potassium POC Capillary Glucose 171 H 166 H Free T3 pg/mL 1.8 L 06/29/24 06/29/24 06/30/24 16:39 20:38 07:34 Potassium 5.4 H POC Capillary Glucose 177 H 117 H Free T3 pg/mL Quality VTE Prophylaxis VTE prophylaxis: mechanical ordered
[2024-06-30 10:24] LABS: Basophils Percent Auto 0.5 % (0.2-1.2); Eosinophils Absolute Auto 0.1 K/mm3 (0-0.3); Eosinophils Percent Auto 0.8 % (0-4.4); Hemoglobin 9.6 g/dL (12.0-15.0); Immature Granulocyte Absolute 0.06 K/mm3 (0.00-0.031); Immature Granulocyte Percent A 0.8 % (0-0.5); Lymphocytes Absolute Auto 0.72 K/mm3 (0.9-3.2); Lymphocytes Percent Auto 9.8 % (18.3-44.2); Mean Corpuscular Hemoglobin 25.3 pg (26-34); Mean Corpuscular Volume 84.2 fl (80-100); Mean Platelet Volume 9.4 fl (7.4-10.4); Monocytes Absolute Auto 0.8 K/mm3 (0.1-0.6); Monocytes Percent Auto 10.8 % (2.6-8.5); Neutrophils Absolute Auto 5.7 K/mm3 (1.3-6.7); Neutrophils Percent Auto 77.3 % (45.5-73.1); Nucleated Red Blood Cells Perc 0.3 % (0.0-0.2); Platelet Count Result 477 k/mm3 (150-375); Red Cell Distribution Width 20.4 % (11.5-14.5); White Blood Count 7.4 K/mm3 (4.5-10.0)
[2024-06-30 10:27] LABS: Alanine Aminotransferase 11 U/L (6-35); Albumin Level 3.6 g/dL (3.5-5.1); Alkaline Phosphatase 62 U/L (38-126); Anion Gap 9 mmol/L (4-12); Aspartate Amino Transferase 26 U/L (14-36); Bilirubin,Total 0.3 mg/dL (0.2-1.3); Blood Urea Nitrogen 45 mg/dL (7-17); Calcium 8.5 mg/dL (8.4-10.2); Carbon Dioxide 22 mmol/L (22-30); Chloride 107 mmol/L (98-107); Estimated CRCL calculation 19 ml/min; Estimated Glomerular Filt Rate 27; Glucose 139 mg/dL (65-110); Potassium 5.4 mmol/L (3.4-5.0); Sodium 138 mmol/L (137-145)
--- NOTE | 2024-06-30 10:57 | P.PNCA_ITS ---
Progress Note: A&P Assessment and Plan (1) Acute exacerbation of CHF (congestive heart failure): Code(s): I50.9 - Heart failure, unspecified Status: Acute Time Spent With Patient Time: Acute on chronic diastolic heart failure Moderate pulmonary hypertension TRI and CKD Hypertension controlled Diabetes mellitus type 2 Paroxysmal atrial fibrillation Plan Eliquis 2.5 mg b.i.d. Increase Lasix to 80 mg IV b.i.d. Follow-up kidney function electrolytes Continue metoprolol Continue lisinopril and kidney function is worse hold the lisinopril tomorrow Continue amlodipine Subjective Date/time seen: 06/30/24 10:57 Interval history: SOB is persistent SR and PVCs Review of Systems Review of Systems: All systems reviewed & are unremarkable except as noted in HPI and below Exam Const: General: comfortable and no acute distress HENMT: Mouth: Yes moist mucous membranes Eyes: General: appearance normal, both eyes and all related structures Sclera: sclerae normal Resp: Effort & Inspection: normal respiratory effort Auscultation: clear to auscultation bilaterally Cardio: Rhythm: abnormal rhythm irregularly irregular Heart sounds: no murmurs Other: + Bilateral lower extremity edema Skin: General skin exam: normal color Neuro: Speech: normal speech Psych: Mental Status: mental status grossly normal Affect: normal affect Objective Data Vital Signs Vital Signs: Vital Signs - 24 hr 06/29/24 11:44 06/29/24 11:52 06/29/24 12:00 Temperature 36.5 C Pulse Rate 66 82 Respiratory Rate 22 H Blood Pressure 121/51 L Pulse Oximetry 94 Oxygen Delivery Room Air Fraction of Inspired Oxygen 06/29/24 14:00 06/29/24 16:00 06/29/24 16:00 Temperature Pulse Rate 77 88 Respiratory Rate Blood Pressure Pulse Oximetry Oxygen Delivery Room Air Fraction of Inspired Oxygen 06/29/24 16:00 06/29/24 18:00 06/29/24 19:58 Temperature 36.6 C Pulse Rate 69 89 89 Respiratory Rate 24 H 24 H Blood Pressure 120/60 Pulse Oximetry 91 91 Oxygen Delivery Room Air Fraction of Inspired Oxygen 21 06/29/24 20:00 06/29/24 20:43 06/29/24 20:00 Temperature 36.7 C Pulse Rate 79 85 75 Respiratory Rate 24 H Blood Pressure 122/65 Pulse Oximetry 92 Oxygen Delivery Fraction of Inspired Oxygen 06/29/24 21:25 06/29/24 22:50 06/29/24 23:41 Temperature Pulse Rate 79 65 65 Respiratory Rate 20 20 Blood Pressure Pulse Oximetry 92 Oxygen Delivery Room Air Fraction of Inspired Oxygen 06/30/24 00:00 06/30/24 00:00 06/30/24 02:14 Temperature 36.4 C Pulse Rate 71 65 70 Respiratory Rate 26 H Blood Pressure 110/48 L Pulse Oximetry 95 Oxygen Delivery Fraction of Inspired Oxygen 06/30/24 03:55 06/30/24 04:00 06/30/24 04:00 Temperature 36.6 C Pulse Rate 82 82 79 Respiratory Rate 20 20 Blood Pressure 111/57 L Pulse Oximetry 94 94 Oxygen Delivery Room Air Fraction of Inspired Oxygen 06/30/24 05:53 06/30/24 07:28 06/30/24 08:14 Temperature 36.4 C L Pulse Rate 84 82 Respiratory Rate 20 Blood Pressure 146/95 H Pulse Oximetry 94 93 Oxygen Delivery Room Air Fraction of Inspired Oxygen 06/30/24 08:37 06/30/24 08:00 06/30/24 08:00 Temperature Pulse Rate 93 97 Respiratory Rate Blood Pressure Pulse Oximetry Oxygen Delivery Room Air Fraction of Inspired Oxygen Intake/Output Intake/Output: Intake & Output 06/27/24 06/28/24 06/29/24 06/30/24 23:59 23:59 23:59 23:59 Intake Total 540 1030 250 Output Total 25 250 Balance 540 1005 0 Meds/Results Medications: Active Medications Generic Name Dose Route Start Last Admin Trade Name Freq PRN Reason Stop Dose Admin Albuterol 2 puff 06/28/24 23:21 06/29/24 08:13 Albuterol Sulfate (*Sp) Aerosol 1 Puff INHALATION 2 puff Q4HRT PRN Administration Wheezing Amlodipine Besylate 5 mg 06/29/24 09:00 06/30/24 08:35 Amlodipine Besylate 5 Mg Tablet PO 5 mg DAILY SALINA Administration Apixaban 2.5 mg 06/29/24 21:00 06/30/24 08:36 Apixaban 2.5 Mg Tablet PO 2.5 mg Q12HR SALINA Administration Aspirin 81 mg 06/30/24 09:00 06/30/24 08:38 Aspirin 81 Mg Enteric Tablet PO 81 mg QAM SALINA Administration Dextrose 12.5 gm 06/28/24 15:27 Dextrose 50% 25 Gm/50 Ml Syringe IV PUSH PRN PRN Hypoglycemia Protocol Dicyclomine HCl 20 mg 06/29/24 09:00 06/30/24 08:37 Dicyclomine Hcl 10 Mg Capsule PO 20 mg TID SALINA Administration Furosemide 40 mg 06/29/24 17:00 06/30/24 08:38 Furosemide Inj 40 Mg/4 Ml Vial IV PUSH 40 mg BID SALINA Administration Glucagon 1 mg 06/28/24 15:27 Glucagon For Inj 1 Mg Vial IM PRN PRN Hypoglycemia Protocol Glucose 15 gm 06/28/24 15:27 Glucose Oral Gel 15 Gm Of Glucse In 37.5 Gm Tube PO PRN PRN Hypoglycemia Protocol Dextrose 1,000 mls @ 100 mls/hr 06/28/24 15:27 Dextrose 5% 1,000 Ml IVPB PRN PRN Hypoglycemia Protocol Insulin Aspart 3 - 6 units 06/28/24 17:00 06/30/24 08:34 Insulin Aspart (*Bkc) 100 Units/Ml SUB-Q Not Given TIDWM SALINA Protocol Insulin Glargine 20 units 06/29/24 21:00 06/29/24 20:43 Insulin Glargine (*Bkc) 100 Units/Ml SUB-Q 20 units HS SALINA Administration Isosorbide Mononitrate 60 mg 06/29/24 17:00 06/30/24 08:36 Isosorbide Mononitrate 60 Mg Tab.Er.24h PO 60 mg BID SALINA Administration Latanoprost 1 drop 06/29/24 09:00 06/30/24 08:39 Latanoprost 0.005% Op Soln 2.5 Ml Btl EACH EYE 1 drop DAILY SALINA Administration Lisinopril 40 mg 06/29/24 09:00 06/30/24 08:37 Lisinopril 20 Mg Tablet PO 40 mg QAM SALINA Administration Metoprolol Tartrate 25 mg 06/28/24 23:40 06/30/24 08:37 Metoprolol Tartrate 25 Mg Tablet PO 25 mg Q12HR SALINA Administration Perflutren Lipid Microsphere 0 ml 06/29/24 13:57 Perflutren Lipid Microspheres 1.5 Ml Vial Diluted To 10 Ml Total Volume IV PUSH 07/02/24 13:58 ONCE PRN adequate visualization Protocol Fluticasone/Salmeterol 1 puff 06/29/24 08:00 06/30/24 07:26 Fluticasone/Salmeterol 115-21 Mcg Inhaler 1 Puff INHALATION 1 puff Q12HRT SALINA Administration Simvastatin 20 mg 06/29/24 09:00 06/30/24 08:38 Simvastatin 20 Mg Tablet PO 20 mg DAILY SALINA Administration Radiology Results: ITS Impressions Chest X-Ray 06/28/24 12:30 IMPRESSION: 1. Small right pleural effusion. 2. Cardiomegaly. Abdomen X-Ray 06/29/24 13:07 IMPRESSION: 1: No acute abdominal abnormality identified. Labs Labs: Laboratory Results - last 24 hr 06/29/24 06/29/24 06/29/24 04:25 11:36 15:56 WBC RBC Hgb Hct MCV MCH MCHC RDW Plt Count MPV Immature Gran % (Auto) Neut % (Auto) Lymph % (Auto) [place] % (Auto) Eos % (Auto) Baso % (Auto) Lymph # (Auto) [place] # (Auto) Eos # (Auto) Baso # (Auto) Abs Immat Gran (auto) Absolute Neuts (auto) Absolute Nucleated RBC Nucleated RBC % Sodium Potassium Chloride Carbon Dioxide Anion Gap BUN Creatinine Estim Creat Clear Calc Estimated GFR Glucose POC Capillary Glucose 171 H 166 H Calcium Total Bilirubin AST ALT Alkaline Phosphatase Total Protein Albumin Free T3 pg/mL 1.8 L 06/29/24 06/29/24 06/30/24 16:39 20:38 07:34 WBC RBC Hgb Hct MCV MCH MCHC RDW Plt Count MPV Immature Gran % (Auto) Neut % (Auto) Lymph % (Auto) [place] % (Auto) Eos % (Auto) Baso % (Auto) Lymph # (Auto) [place] # (Auto) Eos # (Auto) Baso # (Auto) Abs Immat Gran (auto) Absolute Neuts (auto) Absolute Nucleated RBC Nucleated RBC % Sodium Potassium 5.4 H Chloride Carbon Dioxide Anion Gap BUN Creatinine Estim Creat Clear Calc Estimated GFR Glucose POC Capillary Glucose 177 H 117 H Calcium Total Bilirubin AST ALT Alkaline Phosphatase Total Protein Albumin Free T3 pg/mL 06/30/24 10:05 WBC 7.4 RBC 3.80 L Hgb 9.6 L Hct 32.0 L MCV 84.2 MCH 25.3 L MCHC 30.0 L RDW 20.4 H Plt Count 477 H MPV 9.4 Immature Gran % (Auto) 0.8 H Neut % (Auto) 77.3 H Lymph % (Auto) 9.8 L [place] % (Auto) 10.8 H Eos % (Auto) 0.8 Baso % (Auto) 0.5 Lymph # (Auto) 0.72 L [place] # (Auto) 0.8 H Eos # (Auto) 0.1 Baso # (Auto) 0.0 Abs Immat Gran (auto) 0.06 H Absolute Neuts (auto) 5.7 Absolute Nucleated RBC 0.020 H Nucleated RBC % 0.3 H Sodium 138 Potassium 5.4 H Chloride 107 Carbon Dioxide 22 Anion Gap 9 BUN 45 H Creatinine 1.80 H Estim Creat Clear Calc 19 Estimated GFR 27 L Glucose 139 H POC Capillary Glucose Calcium 8.5 Total Bilirubin 0.3 AST 26 ALT 11 Alkaline Phosphatase 62 Total Protein 7.0 Albumin 3.6 Free T3 pg/mL
[2024-06-30 11:41] LABS: Glucose Point of Care 133 mg/dl (65-105)
[2024-06-30 15:46] LABS: Glucose Point of Care 123 mg/dl (65-105)
[2024-06-30] MEDS: FUROSEMIDE INJ 40 MG/4 ML VIAL 80 MG IV PUSH (16:16)
[2024-06-30] MEDS: INSULIN GLARGINE (*BKC) 100 UNITS/ML 20 UNITS SUB-Q (20:02)
[2024-06-30 20:22] LABS: Glucose Point of Care 186 mg/dl (65-105)
[2024-06-30 21:48] LABS: Glucose Point of Care 187 mg/dl (65-105)
[2024-07-01] VITALS (21 sets, daily range): BP systolic 105–124; BP diastolic 42–55; PULSE 68–89; RESP 18–22; TEMP 36.4–36.7; O2SAT 92–97
[2024-07-01 05:05] LABS: Basophils Percent Auto 0.5 % (0.2-1.2); Eosinophils Absolute Auto 0.1 K/mm3 (0-0.3); Eosinophils Percent Auto 1.6 % (0-4.4); Hematocrit 27.3 % (37.0-47.0); Hemoglobin 8.7 g/dL (12.0-15.0); Immature Granulocyte Absolute 0.08 K/mm3 (0.00-0.031); Immature Granulocyte Percent A 1.1 % (0-0.5); Lymphocytes Absolute Auto 1.25 K/mm3 (0.9-3.2); Mean Corpuscular HGB Conc 31.9 g/dl (32-36); Mean Corpuscular Volume 81.5 fl (80-100); Mean Platelet Volume 9.4 fl (7.4-10.4); Monocytes Percent Auto 13.5 % (2.6-8.5); Neutrophils Absolute Auto 4.9 K/mm3 (1.3-6.7); Neutrophils Percent Auto 66.3 % (45.5-73.1); Platelet Count Result 415 k/mm3 (150-375); Red Blood Count 3.35 M/mm3 (4.2-5.4); Red Cell Distribution Width 20.4 % (11.5-14.5); White Blood Count 7.4 K/mm3 (4.5-10.0)
[2024-07-01 05:16] LABS: Alanine Aminotransferase 12 U/L (6-35); Albumin Level 3.3 g/dL (3.5-5.1); Alkaline Phosphatase 55 U/L (38-126); Anion Gap 11 mmol/L (4-12); Aspartate Amino Transferase 25 U/L (14-36); Bilirubin,Total 0.4 mg/dL (0.2-1.3); Blood Urea Nitrogen 49 mg/dL (7-17); Calcium 8.2 mg/dL (8.4-10.2); Carbon Dioxide 21 mmol/L (22-30); Chloride 107 mmol/L (98-107); Estimated CRCL calculation 18 ml/min; Estimated Glomerular Filt Rate 24; Glucose 90 mg/dL (65-110); Potassium 5.1 mmol/L (3.4-5.0); Sodium 139 mmol/L (137-145)
[2024-07-01 07:50] LABS: Glucose Point of Care 81 mg/dl (65-105)
[2024-07-01] MEDS: ASPIRIN 81 MG ENTERIC TABLET PO (09:02)
[2024-07-01] MEDS: APIXABAN 2.5 MG TABLET PO ×2 (09:03→20:47)
[2024-07-01] MEDS: SIMVASTATIN 20 MG TABLET PO (09:03)
[2024-07-01] MEDS: METOPROLOL TARTRATE 25 MG TABLET PO ×2 (09:03→20:47)
[2024-07-01] MEDS: LATANOPROST 0.005% OP SOLN 2.5 ML BTL 1 DROP EACH EYE (09:04)
[2024-07-01] MEDS: ISOSORBIDE MONONITRATE 60 MG TAB.ER.24H PO ×2 (09:04→16:19)
[2024-07-01] MEDS: FUROSEMIDE INJ 40 MG/4 ML VIAL 80 MG IV PUSH ×2 (09:04→16:19)
[2024-07-01] MEDS: DICYCLOMINE HCL 10 MG CAPSULE 20 MG PO ×3 (09:05→16:17)
[2024-07-01] MEDS: ALBUTEROL SULFATE (*SP) AEROSOL 1 PUFF 2 PUFF INHALATION (09:14)
[2024-07-01] MEDS: FLUTICASONE/SALMETEROL 115-21 MCG INHALER 1 PUFF INHALATION ×2 (09:14→19:34)
--- NOTE | 2024-07-01 09:29 | PM.CNNEP ---
Assessment and Plan Assessment and plan (1) Acute kidney injury: Code(s): N17.9 - Acute kidney failure, unspecified Status: Acute Assessment and Plan: The patient has acute kidney injury. Her creatinine was normal in 2022 at 0.5. On admission for this hospitalization the creatinine is 1.3 but has risen to today's value of 2.0. She is not making much urine. She already has a Lombardo catheter in. She has a mild metabolic acidosis and mild hyperkalemia. Her echocardiogram shows grade 2 diastolic dysfunction but normal LVEF. It also shows pulmonary hypertension with a PA P of 60 and also moderate to severe tricuspid regurgitation. Etiology of kidney disease is not clear right now. One possibility is pre renal azotemia on the basis of her poor heart function. She already has diastolic dysfunction but now with her severe tricuspid regurgitation that has caused some swelling and decreased cardiac output as well. The patient could have had a PE I suppose but I think that would be less likely with both legs swollen. Will get a venous Doppler and V/Q scan. I will give her some Lovenox because the VQ scan will be done until tomorrow. She says that she has no history of bleeding. Obstruction could be the case as well. She might have passed a stone on 1 side or the other but usually this would not make urine output be so low. She already has a Lombardo catheter so urinary retention is not the issue. Parenchymal disease is a possibility as well. Glomerulonephritis or interstitial nephritis or possibly infiltrative diseases like myeloma could be occurring as well. She does have some blood and protein in the urine, but urine microalbumin have been okay lately. She has not had labs in a year and a half so something could have been stewing without symptoms. Rhabdomyolysis is a possibility as well. Will check serology immunofixation renal ultrasound CPK To help diuresis, I will add metolazone to the Lasix (2) Edema: Code(s): R60.9 - Edema, unspecified Status: Acute Assessment and Plan: This is most likely due to the tricuspid regurgitation. 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: without assisted use Qualified Code(s): E11.65 - Type 2 diabetes mellitus with hyperglycemia Code(s): E11.65 - Type 2 diabetes mellitus with hyperglycemia Status: Chronic Assessment and Plan: Management per hospitalists (5) Mixed hyperlipidemia: Code(s): E78.2 - Mixed hyperlipidemia Status: Acute Assessment and Plan: The patient is on simvastatin (6) Atherosclerotic heart disease of [place] coronary artery with other forms of angina pectoris: Code(s): I25.118 - Atherosclerotic heart disease of [place] coronary artery with other forms of angina pectoris Status: Acute Assessment and Plan: She is not having any chest pain History of Present Illness Reason for Consult Consult date: 07/01/24 Chief Complaint Chief complaint: COPD/CHF/ +Trop History of Present Illness Narrative: Preeti is a very pleasant 84-year-old lady who has multiple medical problems including COPD, myocardial infarction, coronary disease status post bypass 13 years ago, diabetes, hypertension, and hyperlipidemia. The patient was in her usual state until about 4 days ago when she developed some shortness of breath. This was accompanied by bilateral symmetric swelling. This gradually grew worse in both respects over the 4 days and so she came to the emergency room. She denies much of a cough. She coughs occasionally. No chest pain. No fevers or chills. No sinus issues. Does she does not cough up blood or blow blood out of her nose. No nausea vomiting diarrhea constipation abdominal pain or hematochezia. She denies skin rash or joint pains better new. She is not taking any [id number] medications. Specifically no nonsteroidal anti-inflammatory agents. She has not changed any medications in the last year. She has not been on any antibiotics or had any infections recently. No contrast lately. She denies any bloody urine foamy urine kidney stones or bladder infections. She has no pain with urination. She does not smoke or drink. No family history of kidney disease. Review of Systems Constitutional: Constitutional: Reports no additional constitutional complaints Eyes: Eyes: Reports no additional eye complaints ENT: Reports system reviewed and no additional complaints, except as documented Cardiovascular: Cardiovascular: Reports no additional cardiovascular complaints Respiratory: Respiratory: Reports no additional respiratory complaints Gastrointestinal: Gastrointestinal: Reports no additional gastrointestinal complaints Genitourinary: Genitourinary: Reports no additional female genitourinary complaints Musculoskeletal: Musculoskeletal: Reports no additional musculoskeletal complaints Integumentary/Breasts: Skin/Breast: Reports system reviewed and no additional complaints, except as docu Neurologic: Reports system reviewed and no additional complaints, except as documented Psychiatric: Psychiatric: Reports no additional psychiatric complaints Endocrine: Endocrine: Reports no additional endocrine complaints [facility] Past Medical History Medical History Actinic keratosis Atherosclerotic heart disease of sh[place] coronary artery with other forms of angina pectoris Benign ovarian tumor Cataract CKD (chronic kidney disease) DM renal manif type II Essential hypertension Iron deficiency anemia Irritable bowel Keratoacanthoma Mixed hyperlipidemia Nephritis Old myocardial infarction Polyp of colon Post-menopausal Type 2 diabetes mellitus without complication Surgical History Surgical History H/O bilateral cataract extraction H/O colonoscopy H/O dilation and curettage H/O rectal polypectomy History of coronary angioplasty with insertion of stent Hx of CABG Quadruple S/P tonsillectomy and adenoidectomy Family History Family History Mother Hypertension Family history of congenital heart disease Family history of diabetes mellitus in first degree relative Diabetes mellitus Family history of cardiovascular disease Family history of coronary artery disease Father Diabetes mellitus Hypertension Family history of elevated blood lipids Family history of cardiovascular disease Acute myocardial infarction Family history of coronary artery disease Other Family history of arthritis Social History Social History Social History: The patient is and has 2 children. 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 The patient is retired from [employer]. She is a former smoker she does not use any alcohol marijuana or illicit drugs. Code status full code Smoking packs per day: 1 Smoking cigarettes per day: 20.0 Years smoked: 5 Smoking pack-years: 5.00 Smoking status: Former smoker Tobacco type: cigarettes Second hand tobacco smoke exposure: No Smoking end date: 08/22/1968 Alcohol intake: never Substance use: never Substance use type: does not use Do You Feel Safe in your Home?: Yes Lack of Transportation: No Lack of Food: Never True Current Housing: I Have Housing Concerned About Future Housing: No Difficulty Paying Gas/Electric Bills: No Difficulty Paying for Meds: No Currently Unemployed: No Education: High School Diploma/GED Difficulty w/ Childcare or Family Care: No 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cation: retired Gender identity (if verbalized by the patient): Female Spiritual care concerns: No Meds Home Medications and Allergies Home Medications Medication Instructions Recorded Confirmed Type clopidogrel 75 mg tablet 75 mg PO HS 09/07/19 06/28/24 History bimatoprost 0.03 % eye drops 1 drp EACH EYE HS 03/19/21 06/28/24 History aspirin 81 mg tablet,delayed 81 mg PO DAILY 10/07/22 06/28/24 History release (Adult Low Dose Aspirin) amlodipine 5 mg tablet 5 mg PO DAILY 06/01/23 06/28/24 History isosorbide dinitrate 20 mg tablet 60 mg PO BID 06/01/23 06/28/24 History metformin 500 mg tablet,extended 500 mg PO TID #270 tabs 10/05/23 06/28/24 Rx release 24 hr pen needle, diabetic 32 gauge x #100 ea 10/05/23 06/28/24 Rx 1/4 (BD Ultra-Fine Micro Pen Needle) furosemide 20 mg tablet See Rx Instructions .Route 11/28/23 06/28/24 Rx .COMPLEX #90 tabs fluticasone 250 mcg-salmeterol 50 1 inh inhalation BID #60 ea 02/08/24 06/28/24 Rx mcg/dose blistr powdr for inhalation (Wixela Inhub) blood sugar diagnostic (OneTouch #200 strips 02/09/24 06/28/24 Rx Ultra Test strips) insulin glargine 100 unit/mL (3 20 unit (0.2 mL) subcut QPM #18 mL 02/09/24 06/28/24 Rx mL) subcutaneous pen (Basaglar KwikPen U-100 Insulin) lancets 33 gauge #200 ea 05/22/24 06/28/24 Rx lisinopril 40 mg tablet See Rx Instructions .Route 05/29/24 06/28/24 Rx .COMPLEX #90 tabs metoprolol tartrate 25 mg tablet See Rx Instructions .Route 05/29/24 06/28/24 Rx .COMPLEX #180 tabs albuterol sulfate 90 mcg/actuation 2 puff inhalation Q4H PRN 06/19/24 06/28/24 Rx aerosol inhaler (Ventolin HFA) shortness of breath or wheezing #25.5 grams dicyclomine 20 mg tablet 20 mg PO TID #180 tabs 06/19/24 06/28/24 Rx albuterol sulfate 90 mcg/actuation 2 inh inhalation Q4H PRN Wheezing 06/28/24 06/28/24 History aerosol inhaler (Ventolin HFA) latanoprost 0.005 % eye drops 1 drp EACH EYE DAILY 06/28/24 06/28/24 History simvastatin 20 mg tablet 20 mg PO DAILY 06/28/24 06/28/24 History Allergies Allergy/AdvReac Type Severity Reaction Status Date / Time No Known Allergies Allergy Verified 06/19/24 13:08 Vital Signs Vital Signs - 24 hr 06/30/24 11:40 06/30/24 10:00 06/30/24 12:00 Temperature 97.5 F L Pulse Rate 79 74 79 Respiratory Rate 20 Blood Pressure 117/50 L Pulse Oximetry 95 Oxygen Delivery Room Air 06/30/24 12:00 06/30/24 14:00 06/30/24 16:09 Temperature 97.3 F L Pulse Rate 79 70 94 Respiratory Rate 20 Blood Pressure 127/74 Pulse Oximetry 94 Oxygen Delivery 06/30/24 16:00 06/30/24 16:00 06/30/24 18:00 Temperature Pulse Rate 85 85 90 Respiratory Rate Blood Pressure Pulse Oximetry Oxygen Delivery Room Air 06/30/24 19:48 06/30/24 20:03 06/30/24 20:00 Temperature 96.7 F L Pulse Rate 95 84 Respiratory Rate 22 H Blood Pressure 115/57 L Pulse Oximetry 100 Oxygen Delivery Room Air 06/30/24 21:12 06/30/24 20:00 06/30/24 22:00 Temperature Pulse Rate 84 78 Respiratory Rate Blood Pressure Pulse Oximetry 94 Oxygen Delivery Room Air 06/30/24 23:50 07/01/24 00:00 07/01/24 00:00 Temperature 97.8 F Pulse Rate 68 68 Respiratory Rate 19 Blood Pressure 107/45 L Pulse Oximetry 97 Oxygen Delivery Room Air 07/01/24 02:00 07/01/24 03:52 07/01/24 04:00 Temperature 97.6 F Pulse Rate 68 68 Respiratory Rate 22 H Blood Pressure 116/42 L Pulse Oximetry 95 Oxygen Delivery Room Air 07/01/24 04:00 07/01/24 06:00 07/01/24 07:34 Temperature 97.9 F Pulse Rate 69 69 70 Respiratory Rate 18 Blood Pressure 124/55 L Pulse Oximetry 94 Oxygen Delivery 07/01/24 09:03 07/01/24 09:17 Temperature Pulse Rate 89 Respiratory Rate Blood Pressure Pulse Oximetry 92 Oxygen Delivery Room Air Exam Narrative: Exam Narrative: Well developed well-nourished female in no acute distress Skin is warm and dry without rash Head normocephalic atraumatic Eyes normal sclerae and conjunctivae Mouth normal lips teeth and gums Neck no nodes no thyromegaly no carotid bruits Axillae no nodes Back no CVA tenderness Lungs symmetric and by basilar decrease in breath sounds to auscultation and mild dullness to percussion Heart regular rate and rhythm without rub or gallop Abdomen bowel sounds positive soft nontender, no HSM, masses, or bruits. Extremities no cyanosis, clubbing, and 2+ bilateral edema Pulses 2+ equal in radial arteries Psychological not anxious or depressed Neuro alert and oriented x3 motor 5/5 cranial nerves 2-12 intact reflexes 2+ and equal in the biceps and patellar tendons cerebellar normal rapid alternating movements Results Lab Results 07/01/24 04:49 07/01/24 04:49 Lab results: Most recent lab results Calcium 8.2 mg/dL (8.4-10.2) L 07/01/24 04:49 Magnesium 1.9 mg/dL (1.6-2.3) 06/28/24 12:18
[2024-07-01 10:01] LABS: Creatine Kinase 58 U/L (30-135)
[2024-07-01 10:32] LABS: Complement C3 139 mg/dL (88-165)
[2024-07-01 11:47] LABS: Glucose Point of Care 91 mg/dl (65-105)
[2024-07-01 11:57] LABS: Creatinine Urine 52.4 mg/dL; Total Protein Urine Random 15 mg/dL; Ur Ttl Prot Creatinine Ratio 0.29 mg/mg (0-0.20)
[2024-07-01 11:59] LABS: Urea Random Urine 203 MG/DL
[2024-07-01 12:00] LABS: Sodium Urine Random 102 meq/L
[2024-07-01 12:15] LABS: Erythrocyte Sedimentation Rate 75 mm/hr (0-20)
--- NOTE | 2024-07-01 12:42 | PM.PNCARD ---
Progress Note: A&P Assessment and Plan (1) Acute exacerbation of CHF (congestive heart failure): Code(s): I50.9 - Heart failure, unspecified Status: Acute Time Spent With Patient Time: Acute on chronic diastolic heart failure Moderate pulmonary hypertension TRI and CKD Hypertension controlled Diabetes mellitus type 2 Paroxysmal atrial fibrillation Plan Eliquis 2.5 mg b.i.d. Cont Lasix to 80 mg IV b.i.d. and metolazone by Nephrology Follow-up kidney function electrolytes and if kidney function continue to get worse consider evaluation for PE and consider right heart catheterization for evaluation of filling pressures Continue metoprolol Hold lisinopril under kidney function is stable Continue amlodipine Subjective Date/time seen: 07/01/24 12:42 Interval history: Shortness of breath slightly better Sinus rhythm Review of Systems Review of Systems: All systems reviewed & are unremarkable except as noted in HPI and below Exam Const: General: comfortable and no acute distress HENMT: Mouth: Yes moist mucous membranes Eyes: General: appearance normal, both eyes and all related structures Sclera: sclerae normal Resp: Effort & Inspection: normal respiratory effort Auscultation: clear to auscultation bilaterally Cardio: Rhythm: abnormal rhythm irregularly irregular Heart sounds: no murmurs Other: + Bilateral lower extremity edema Skin: General skin exam: normal color Neuro: Speech: normal speech Psych: Mental Status: mental status grossly normal Affect: normal affect Objective Data Vital Signs Vital Signs: Vital Signs - 24 hr 06/30/24 14:00 06/30/24 16:09 06/30/24 16:00 Temperature 36.3 C L Pulse Rate 70 94 85 Respiratory Rate 20 Blood Pressure 127/74 Pulse Oximetry 94 Oxygen Delivery Room Air 06/30/24 16:00 06/30/24 18:00 06/30/24 19:48 Temperature 35.9 C L Pulse Rate 85 90 95 Respiratory Rate 22 H Blood Pressure 115/57 L Pulse Oximetry 100 Oxygen Delivery 06/30/24 20:03 06/30/24 20:00 06/30/24 21:12 Temperature Pulse Rate 84 Respiratory Rate Blood Pressure Pulse Oximetry 94 Oxygen Delivery Room Air Room Air 06/30/24 20:00 06/30/24 22:00 06/30/24 23:50 Temperature 36.6 C Pulse Rate 84 78 68 Respiratory Rate 19 Blood Pressure 107/45 L Pulse Oximetry 97 Oxygen Delivery 07/01/24 00:00 07/01/24 00:00 07/01/24 02:00 Temperature Pulse Rate 68 68 Respiratory Rate Blood Pressure Pulse Oximetry Oxygen Delivery Room Air 07/01/24 03:52 07/01/24 04:00 07/01/24 04:00 Temperature 36.4 C Pulse Rate 68 69 Respiratory Rate 22 H Blood Pressure 116/42 L Pulse Oximetry 95 Oxygen Delivery Room Air 07/01/24 06:00 07/01/24 07:34 07/01/24 09:03 Temperature 36.6 C Pulse Rate 69 70 89 Respiratory Rate 18 Blood Pressure 124/55 L Pulse Oximetry 94 Oxygen Delivery 07/01/24 09:17 07/01/24 11:23 Temperature 36.4 C Pulse Rate 70 Respiratory Rate 18 Blood Pressure 119/54 L Pulse Oximetry 92 97 Oxygen Delivery Room Air Intake/Output Intake/Output: Intake & Output 06/28/24 06/29/24 06/30/24 07/01/24 23:59 23:59 23:59 23:59 Intake Total 540 1030 1180 360 Output Total 25 350 300 Balance 540 1005 830 60 Meds/Results Medications: Active Medications Generic Name Dose Route Start Last Admin Trade Name Freq PRN Reason Stop Dose Admin Albuterol 2 puff 06/28/24 23:21 07/01/24 09:14 Albuterol Sulfate (*Sp) Aerosol 1 Puff INHALATION 2 puff Q4HRT PRN Administration Wheezing Amlodipine Besylate 5 mg 06/29/24 09:00 07/01/24 09:05 Amlodipine Besylate 5 Mg Tablet PO Not Given DAILY SALINA Apixaban 2.5 mg 06/29/24 21:00 07/01/24 09:03 Apixaban 2.5 Mg Tablet PO 2.5 mg Q12HR SALINA Administration Aspirin 81 mg 06/30/24 09:00 07/01/24 09:02 Aspirin 81 Mg Enteric Tablet PO 81 mg QAM SALINA Administration Dextrose 12.5 gm 06/28/24 15:27 Dextrose 50% 25 Gm/50 Ml Syringe IV PUSH PRN PRN Hypoglycemia Protocol Dicyclomine HCl 20 mg 06/29/24 09:00 07/01/24 09:05 Dicyclomine Hcl 10 Mg Capsule PO 20 mg TID SALINA Administration Furosemide 80 mg 06/30/24 17:00 07/01/24 09:04 Furosemide Inj 40 Mg/4 Ml Vial IV PUSH 80 mg BID SALINA Administration Glucagon 1 mg 06/28/24 15:27 Glucagon For Inj 1 Mg Vial IM PRN PRN Hypoglycemia Protocol Glucose 15 gm 06/28/24 15:27 Glucose Oral Gel 15 Gm Of Glucse In 37.5 Gm Tube PO PRN PRN Hypoglycemia Protocol Dextrose 1,000 mls @ 100 mls/hr 06/28/24 15:27 Dextrose 5% 1,000 Ml IVPB PRN PRN Hypoglycemia Protocol Insulin Aspart 3 - 6 units 06/28/24 17:00 07/01/24 12:41 Insulin Aspart (*Bkc) 100 Units/Ml SUB-Q Not Given TIDWM SALINA Protocol Insulin Glargine 20 units 06/29/24 21:00 06/30/24 20:02 Insulin Glargine (*Bkc) 100 Units/Ml SUB-Q 20 units HS SALINA Administration Isosorbide Mononitrate 60 mg 06/29/24 17:00 07/01/24 09:04 Isosorbide Mononitrate 60 Mg Tab.Er.24h PO 60 mg BID SALINA Administration Latanoprost 1 drop 06/29/24 09:00 07/01/24 09:04 Latanoprost 0.005% Op Soln 2.5 Ml Btl EACH EYE 1 drop DAILY SALINA Administration Lisinopril 40 mg 06/29/24 09:00 07/01/24 09:05 Lisinopril 20 Mg Tablet PO Not Given QAM SALINA Metoprolol Tartrate 25 mg 06/28/24 23:40 07/01/24 09:03 Metoprolol Tartrate 25 Mg Tablet PO 25 mg Q12HR SALINA Administration Perflutren Lipid Microsphere 0 ml 06/29/24 13:57 Perflutren Lipid Microspheres 1.5 Ml Vial Diluted To 10 Ml Total Volume IV PUSH 07/02/24 13:58 ONCE PRN adequate visualization Protocol Fluticasone/Salmeterol 1 puff 06/29/24 08:00 07/01/24 09:14 Fluticasone/Salmeterol 115-21 Mcg Inhaler 1 Puff INHALATION 1 puff Q12HRT SALINA Administration Simvastatin 20 mg 06/29/24 09:00 07/01/24 09:03 Simvastatin 20 Mg Tablet PO 20 mg DAILY SALINA Administration Radiology Results: ITS Impressions Chest X-Ray 06/28/24 12:30 IMPRESSION: 1. Small right pleural effusion. 2. Cardiomegaly. Abdomen X-Ray 06/29/24 13:07 IMPRESSION: 1: No acute abdominal abnormality identified. Venous Doppler Study 07/01/24 10:20 Impression: Probable thrombosis of the bilateral posterior tibial and peroneal veins in the calves. Renal Ultrasound 07/01/24 10:21 Impression: Unremarkable kidneys. Collapsed urinary bladder limits evaluation. Probable cirrhotic liver with moderate to large abdominal pelvic ascites. Labs Labs: Laboratory Results - last 24 hr 06/30/24 06/30/24 06/30/24 15:43 20:00 21:45 WBC RBC Hgb Hct MCV MCH MCHC RDW Plt Count MPV Immature Gran % (Auto) Neut % (Auto) Lymph % (Auto) [place] % (Auto) Eos % (Auto) Baso % (Auto) Lymph # (Auto) [place] # (Auto) Eos # (Auto) Baso # (Auto) Abs Immat Gran (auto) Absolute Neuts (auto) Absolute Nucleated RBC Nucleated RBC % ESR Sodium Potassium Chloride Carbon Dioxide Anion Gap BUN Creatinine Estim Creat Clear Calc Estimated GFR Glucose POC Capillary Glucose 123 H 186 H 187 H Calcium Total Bilirubin AST ALT Alkaline Phosphatase Total Creatine Kinase Total Protein Albumin U Random Total Protein Ur Random Sodium Ur Random Urea Urine Creatinine Protein/Creat Ratio 2 Complement C3 Complement C4 07/01/24 07/01/24 07/01/24 04:44 04:49 07:37 WBC 7.4 RBC 3.35 L Hgb 8.7 L Hct 27.3 L MCV 81.5 MCH 26.0 MCHC 31.9 L RDW 20.4 H Plt Count 415 H MPV 9.4 Immature Gran % (Auto) 1.1 H Neut % (Auto) 66.3 Lymph % (Auto) 17.0 L [place] % (Auto) 13.5 H Eos % (Auto) 1.6 Baso % (Auto) 0.5 Lymph # (Auto) 1.25 [place] # (Auto) 1.0 H Eos # (Auto) 0.1 Baso # (Auto) 0.0 Abs Immat Gran (auto) 0.08 H Absolute Neuts (auto) 4.9 Absolute Nucleated RBC 0.000 Nucleated RBC % 0.0 ESR Sodium 139 Potassium 5.1 H Chloride 107 Carbon Dioxide 21 L Anion Gap 11 BUN 49 H Creatinine 2.00 H Estim Creat Clear Calc 18 Estimated GFR 24 L Glucose 90 POC Capillary Glucose 81 Calcium 8.2 L Total Bilirubin 0.4 AST 25 ALT 12 Alkaline Phosphatase 55 Total Creatine Kinase 58 Total Protein 6.0 L Albumin 3.3 L U Random Total Protein Ur Random Sodium Ur Random Urea Urine Creatinine Protein/Creat Ratio 2 Complement C3 139 Complement C4 38.1 07/01/24 07/01/24 07/01/24 11:23 11:25 11:39 WBC RBC Hgb Hct MCV MCH MCHC RDW Plt Count MPV Immature Gran % (Auto) Neut % (Auto) Lymph % (Auto) [place] % (Auto) Eos % (Auto) Baso % (Auto) Lymph # (Auto) [place] # (Auto) Eos # (Auto) Baso # (Auto) Abs Immat Gran (auto) Absolute Neuts (auto) Absolute Nucleated RBC Nucleated RBC % ESR 75 H Sodium Potassium Chloride Carbon Dioxide Anion Gap BUN Creatinine Estim Creat Clear Calc Estimated GFR Glucose POC Capillary Glucose 91 Calcium Total Bilirubin AST ALT Alkaline Phosphatase Total Creatine Kinase Total Protein Albumin U Random Total Protein 15 Ur Random Sodium 102 Ur Random Urea 203 Urine Creatinine 52.4 Protein/Creat Ratio 2 0.29 H Complement C3 Complement C4
[2024-07-01 15:53] LABS: Glucose Point of Care 111 mg/dl (65-105)
--- NOTE | 2024-07-01 16:46 | P.PNIM_ITS ---
Progress Note: A&P Assessment and Plan (1) CHF (congestive heart failure): Qualifiers: Heart failure type: unspecified Heart failure chronicity: acute Qualified Code(s): I50.9 - Heart failure, unspecified Code(s): I50.9 - Heart failure, unspecified Status: Suspected Assessment and Plan: * New onset * Pro BNP >34963 * Echo results pending * Cardiology consulted * Continue Lasix per cardiology recommendation * consulted for further assistance with diuresis and added metolazone * Monitor I and O and obtain daily weights * Cardiac diet * Continue continuous telemetry * Remain in IMU due to work of breathing (2) Elevated troponin: Code(s): R79.89 - Other specified abnormal findings of blood chemistry Status: Acute Assessment and Plan: * likely demand ischemia * Troponin 0.131 -> 0.122 -> 0.116, flat. No active chest pain. * Awaiting echo results * Cardiology following * Continue cardiac monitoring * Continue diuresis with Lasix (3) Type 2 diabetes mellitus with kidney complication: Qualifiers: Diabetes mellitus half-way insulin use: without half-way use Diabetes mellitus complication detail: with chronic kidney disease Chronic kidney disease stage: unspecified stage Qualified Code(s): E11.22 - Type 2 diabetes mellitus with diabetic chronic kidney disease Code(s): E11.29 - Type 2 diabetes mellitus with other diabetic kidney complication Status: Chronic Assessment and Plan: * Blood sugars ranging 117-177 * Hgb A1C 5.9 * Accu checks AC/HS * Moderate dose SSI ordered * hypoglycemic protocol in place * Diabetic diet ordered * Hold metformin * Continue Lantus 20 units @ HS (4) CKD (chronic kidney disease): Qualifiers: Chronic kidney disease stage: unspecified stage Qualified Code(s): N18.9 - Chronic kidney disease, unspecified Code(s): N18.9 - Chronic kidney disease, unspecified Status: Chronic Assessment and Plan: * Creatinine 2.0 today * Continue Diuresis with Lasix 80mg IV BID per Cardiology recommendation * Continue Metolazone per recommendation to assist with diuresis efforts * Continue to trend (5) Essential hypertension: Code(s): I10 - Essential (primary) hypertension Status: Chronic Assessment and Plan: * Blood pressure ranging 111/57-146/95 * Continue Amlodipine, Lisinopril, Metoprolol (6) Serum potassium elevated: Code(s): E87.5 - Hyperkalemia Status: Acute Assessment and Plan: * Potassium 5.1 * Lasix increased by Cardiology yesterday * Continue to trend Subjective Date/time seen: 07/01/24 16:46 Interval history: Interval History: This is an 84 year old female who presented to the hospital on 06/28/24 with complaints of shortness of breath. Work up in the hospital included a chest x- ray which shown a right small pleural effusion, cardiomegaly. Abdomen x-ray which was negative. Labs significant [place]NP of >47431, elevated troponin 0.122>0.116, K+ 5.9, Bicarb 21, Creatinine 1.30, eGFR 39. UA shown a cloudy appearance, 1+ urine protein, 1+ urine ketones, 2+ urine blood, 2+ urobilinogen, trace leukocytes, 3-5 urine RBC, 2+ urine bacteria. Echo was obtained with results pending. Patient given IV lasix for diuresis. Cardiology consulted for new onset CHF. Subjective: Patient denies any new complaints. Labs reviewed. consulted as well for further assistance. Review of Systems Review of Systems: All systems reviewed & are unremarkable except as noted in HPI and below Constitutional: Constitutional: Reports as per HPI and Reports no additional constitutional complaints Eyes: Eyes: Reports as per HPI and Reports no additional eye complaints ENT: Reports system reviewed and no additional complaints, except as documented and Reports as per HPI Cardiovascular: Cardiovascular: Reports as per HPI and Reports no additional cardiovascular complaints Respiratory: Respiratory: Reports as per HPI and Reports no additional respiratory complaints Gastrointestinal: Gastrointestinal: Reports as per HPI and Reports no additional gastrointestinal complaints Genitourinary: Genitourinary: Reports no additional female genitourinary complaints and Reports as per HPI Musculoskeletal: Musculoskeletal: Reports no additional musculoskeletal complaints and Reports as per HPI Integumentary/Breasts: Skin/Breast: Reports system reviewed and no additional complaints, except as docu and Reports as per HPI Neurologic: Reports system reviewed and no additional complaints, except as documented and Reports as per HPI Psychiatric: Psychiatric: Reports no additional psychiatric complaints and Reports as per HPI Exam Narrative: General: In no acute distress, well nourished Cardiac: Normal S1 and S2. No murmur, gallops or friction rubs, peripheral pulses intact. Respiratory: Currently on room air, crackles noted to bilateral bases, use of accessory muscles noted. Gastrointestinal: rounded, non-tender, hypoactive bowel sounds. : voiding without difficulty. Extremities: moves all extremities well,bilateral lower extremity pitting edema 3+ Skin: clean, dry, intact. No wounds or lesions. Neuro: Alert and oriented x4, cranial nerves intact, no neuro deficits. Psych: normal mood, normal affect, interactive Objective Data Vital Signs Vital Signs: Vital Signs - 24 hr 06/30/24 18:00 06/30/24 19:48 06/30/24 20:03 Temperature 96.7 F L Pulse Rate 90 95 84 Respiratory Rate 22 H Blood Pressure 115/57 L Pulse Oximetry 100 Oxygen Delivery 06/30/24 20:00 06/30/24 21:12 06/30/24 20:00 Temperature Pulse Rate 84 Respiratory Rate Blood Pressure Pulse Oximetry 94 Oxygen Delivery Room Air Room Air 06/30/24 22:00 06/30/24 23:50 07/01/24 00:00 Temperature 97.8 F Pulse Rate 78 68 68 Respiratory Rate 19 Blood Pressure 107/45 L Pulse Oximetry 97 Oxygen Delivery 07/01/24 00:00 07/01/24 02:00 07/01/24 03:52 Temperature 97.6 F Pulse Rate 68 68 Respiratory Rate 22 H Blood Pressure 116/42 L Pulse Oximetry 95 Oxygen Delivery Room Air 07/01/24 04:00 07/01/24 04:00 07/01/24 06:00 Temperature Pulse Rate 69 69 Respiratory Rate Blood Pressure Pulse Oximetry Oxygen Delivery Room Air 07/01/24 07:34 07/01/24 09:03 07/01/24 09:17 Temperature 97.9 F Pulse Rate 70 89 Respiratory Rate 18 Blood Pressure 124/55 L Pulse Oximetry 94 92 Oxygen Delivery Room Air 07/01/24 11:23 07/01/24 08:00 07/01/24 12:00 Temperature 97.6 F Pulse Rate 70 Respiratory Rate 18 Blood Pressure 119/54 L Pulse Oximetry 97 Oxygen Delivery Room Air Room Air 07/01/24 08:00 07/01/24 10:00 07/01/24 12:00 Temperature Pulse Rate 80 85 73 Respiratory Rate Blood Pressure Pulse Oximetry Oxygen Delivery 07/01/24 14:00 07/01/24 15:19 Temperature 98.1 F Pulse Rate 69 70 Respiratory Rate 18 Blood Pressure 121/50 L Pulse Oximetry 95 Oxygen Delivery Intake/Output Intake/Output: Intake & Output 06/28/24 06/29/24 06/30/24 07/01/24 23:59 23:59 23:59 23:59 Intake Total 540 1030 1180 600 Output Total 25 350 575 Balance 540 1005 830 25 Meds/Results Medications: Active Medications Generic Name Dose Route Start Last Admin Trade Name Freq PRN Reason Stop Dose Admin Albuterol 2 puff 06/28/24 23:21 07/01/24 09:14 Albuterol Sulfate (*Sp) Aerosol 1 Puff INHALATION 2 puff Q4HRT PRN Administration Wheezing Amlodipine Besylate 5 mg 06/29/24 09:00 07/01/24 09:05 Amlodipine Besylate 5 Mg Tablet PO Not Given DAILY SALINA Apixaban 2.5 mg 06/29/24 21:00 07/01/24 09:03 Apixaban 2.5 Mg Tablet PO 2.5 mg Q12HR ASLINA Administration Aspirin 81 mg 06/30/24 09:00 07/01/24 09:02 Aspirin 81 Mg Enteric Tablet PO 81 mg QAM SALINA Administration Dextrose 12.5 gm 06/28/24 15:27 Dextrose 50% 25 Gm/50 Ml Syringe IV PUSH PRN PRN Hypoglycemia Protocol Dicyclomine HCl 20 mg 06/29/24 09:00 07/01/24 16:17 Dicyclomine Hcl 10 Mg Capsule PO 20 mg TID SALINA Administration Furosemide 80 mg 06/30/24 17:00 07/01/24 16:19 Furosemide Inj 40 Mg/4 Ml Vial IV PUSH 80 mg BID SALINA Administration Glucagon 1 mg 06/28/24 15:27 Glucagon For Inj 1 Mg Vial IM PRN PRN Hypoglycemia Protocol Glucose 15 gm 06/28/24 15:27 Glucose Oral Gel 15 Gm Of Glucse In 37.5 Gm Tube PO PRN PRN Hypoglycemia Protocol Dextrose 1,000 mls @ 100 mls/hr 06/28/24 15:27 Dextrose 5% 1,000 Ml IVPB PRN PRN Hypoglycemia Protocol Insulin Aspart 3 - 6 units 06/28/24 17:00 07/01/24 16:14 Insulin Aspart (*Bkc) 100 Units/Ml SUB-Q Not Given TIDWM SALINA Protocol Insulin Glargine 20 units 06/29/24 21:00 06/30/24 20:02 Insulin Glargine (*Bkc) 100 Units/Ml SUB-Q 20 units HS SALINA Administration Isosorbide Mononitrate 60 mg 06/29/24 17:00 07/01/24 16:19 Isosorbide Mononitrate 60 Mg Tab.Er.24h PO 60 mg BID SALINA Administration Latanoprost 1 drop 06/29/24 09:00 07/01/24 09:04 Latanoprost 0.005% Op Soln 2.5 Ml Btl EACH EYE 1 drop DAILY SALINA Administration Lisinopril 40 mg 06/29/24 09:00 07/01/24 09:05 Lisinopril 20 Mg Tablet PO Not Given QAM [facility] Metoprolol Tartrate 25 mg 06/28/24 23:40 07/01/24 09:03 Metoprolol Tartrate 25 Mg Tablet PO 25 mg Q12HR SALINA Administration Perflutren Lipid Microsphere 0 ml 06/29/24 13:57 Perflutren Lipid Microspheres 1.5 Ml Vial Diluted To 10 Ml Total Volume IV PUSH 07/02/24 13:58 ONCE PRN adequate visualization Protocol Fluticasone/Salmeterol 1 puff 06/29/24 08:00 07/01/24 09:14 Fluticasone/Salmeterol 115-21 Mcg Inhaler 1 Puff INHALATION 1 puff Q12HRT SALINA Administration Simvastatin 20 mg 06/29/24 09:00 07/01/24 09:03 Simvastatin 20 Mg Tablet PO 20 mg DAILY SALINA Administration Radiology Results: ITS Impressions Chest X-Ray 06/28/24 12:30 IMPRESSION: 1. Small right pleural effusion. 2. Cardiomegaly. Abdomen X-Ray 06/29/24 13:07 IMPRESSION: 1: No acute abdominal abnormality identified. Venous Doppler Study 07/01/24 10:20 Impression: Probable thrombosis of the bilateral posterior tibial and peroneal veins in the calves. Renal Ultrasound 07/01/24 10:21 Impression: Unremarkable kidneys. Collapsed urinary bladder limits evaluation. Probable cirrhotic liver with moderate to large abdominal pelvic ascites. Labs Labs: Laboratory Results - last 24 hr 06/30/24 06/30/24 07/01/24 20:00 21:45 04:44 WBC RBC Hgb Hct MCV MCH MCHC RDW Plt Count MPV Immature Gran % (Auto) Neut % (Auto) Lymph % (Auto) [place] % (Auto) Eos % (Auto) Baso % (Auto) Lymph # (Auto) [place] # (Auto) Eos # (Auto) Baso # (Auto) Abs Immat Gran (auto) Absolute Neuts (auto) Absolute Nucleated RBC Nucleated RBC % ESR Sodium Potassium Chloride Carbon Dioxide Anion Gap BUN Creatinine Estim Creat Clear Calc Estimated GFR Glucose POC Capillary Glucose 186 H 187 H Calcium Total Bilirubin AST ALT Alkaline Phosphatase Total Creatine Kinase 58 Total Protein Albumin U Random Total Protein Ur Random Sodium Ur Random Urea Urine Creatinine Protein/Creat Ratio 2 Complement C3 139 Complement C4 38.1 07/01/24 07/01/24 07/01/24 04:49 07:37 11:23 WBC 7.4 RBC 3.35 L Hgb 8.7 L Hct 27.3 L MCV 81.5 MCH 26.0 MCHC 31.9 L RDW 20.4 H Plt Count 415 H MPV 9.4 Immature Gran % (Auto) 1.1 H Neut % (Auto) 66.3 Lymph % (Auto) 17.0 L [place] % (Auto) 13.5 H Eos % (Auto) 1.6 Baso % (Auto) 0.5 Lymph # (Auto) 1.25 [place] # (Auto) 1.0 H Eos # (Auto) 0.1 Baso # (Auto) 0.0 Abs Immat Gran (auto) 0.08 H Absolute Neuts (auto) 4.9 Absolute Nucleated RBC 0.000 Nucleated RBC % 0.0 ESR Sodium 139 Potassium 5.1 H Chloride 107 Carbon Dioxide 21 L Anion Gap 11 BUN 49 H Creatinine 2.00 H Estim Creat Clear Calc 18 Estimated GFR 24 L Glucose 90 POC Capillary Glucose 81 91 Calcium 8.2 L Total Bilirubin 0.4 AST 25 ALT 12 Alkaline Phosphatase 55 Total Creatine Kinase Total Protein 6.0 L Albumin 3.3 L U Random Total Protein Ur Random Sodium Ur Random Urea Urine Creatinine Protein/Creat Ratio 2 Complement C3 Complement C4 07/01/24 07/01/24 07/01/24 11:25 11:39 15:18 WBC RBC Hgb Hct MCV MCH MCHC RDW Plt Count MPV Immature Gran % (Auto) Neut % (Auto) Lymph % (Auto) [place] % (Auto) Eos % (Auto) Baso % (Auto) Lymph # (Auto) [place] # (Auto) Eos # (Auto) Baso # (Auto) Abs Immat Gran (auto) Absolute Neuts (auto) Absolute Nucleated RBC Nucleated RBC % ESR 75 H Sodium Potassium Chloride Carbon Dioxide Anion Gap BUN Creatinine Estim Creat Clear Calc Estimated GFR Glucose POC Capillary Glucose 111 H Calcium Total Bilirubin AST ALT Alkaline Phosphatase Total Creatine Kinase Total Protein Albumin U Random Total Protein 15 Ur Random Sodium 102 Ur Random Urea 203 Urine Creatinine 52.4 Protein/Creat Ratio 2 0.29 H Complement C3 Complement C4 Quality VTE Prophylaxis VTE prophylaxis: mechanical ordered
[2024-07-01 19:53] LABS: Glucose Point of Care 135 mg/dl (65-105)
[2024-07-01] MEDS: INSULIN GLARGINE (*BKC) 100 UNITS/ML 20 UNITS SUB-Q (20:48)
[2024-07-02] VITALS (17 sets, daily range): BP systolic 100–120; BP diastolic 49–58; PULSE 64–93; RESP 17–28; TEMP 36.4–37; O2SAT 91–100
[2024-07-02 04:55] LABS: Basophils Percent Auto 0.6 % (0.2-1.2); Eosinophils Absolute Auto 0.1 K/mm3 (0-0.3); Eosinophils Percent Auto 2.1 % (0-4.4); Hemoglobin 8.4 g/dL (12.0-15.0); Immature Granulocyte Absolute 0.06 K/mm3 (0.00-0.031); Lymphocytes Absolute Auto 1.15 K/mm3 (0.9-3.2); Lymphocytes Percent Auto 18.3 % (18.3-44.2); Mean Corpuscular HGB Conc 31.1 g/dl (32-36); Mean Corpuscular Hemoglobin 25.7 pg (26-34); Mean Corpuscular Volume 82.6 fl (80-100); Mean Platelet Volume 9.7 fl (7.4-10.4); Monocytes Absolute Auto 0.9 K/mm3 (0.1-0.6); Monocytes Percent Auto 14.3 % (2.6-8.5); Neutrophils Percent Auto 63.7 % (45.5-73.1); Nucleated Red Blood Cells Perc 0.3 % (0.0-0.2); Platelet Count Result 432 k/mm3 (150-375); Red Blood Count 3.27 M/mm3 (4.2-5.4); Red Cell Distribution Width 20.1 % (11.5-14.5); White Blood Count 6.3 K/mm3 (4.5-10.0)
[2024-07-02 05:16] LABS: Alanine Aminotransferase 10 U/L (6-35); Albumin Level 3.1 g/dL (3.5-5.1); Alkaline Phosphatase 54 U/L (38-126); Anion Gap 11 mmol/L (4-12); Aspartate Amino Transferase 27 U/L (14-36); Bilirubin,Total 0.2 mg/dL (0.2-1.3); Blood Urea Nitrogen 51 mg/dL (7-17); Carbon Dioxide 21 mmol/L (22-30); Chloride 106 mmol/L (98-107); Estimated CRCL calculation 18 ml/min; Estimated Glomerular Filt Rate 24; Glucose 52 mg/dL (65-110); Phosphorus 5.8 mg/dL (2.5-4.5); Potassium 4.7 mmol/L (3.4-5.0); Sodium 138 mmol/L (137-145)
[2024-07-02] MEDS: GLUCOSE ORAL GEL 15 GM OF GLUCSE IN 37.5 GM TUBE PO (05:19)
[2024-07-02 06:02] LABS: Glucose Point of Care 89 mg/dl (65-105)
[2024-07-02 06:02] LABS: Glucose Point of Care 70 mg/dl (65-105)
[2024-07-02] MEDS: ALBUTEROL SULFATE (*SP) AEROSOL 1 PUFF 2 PUFF INHALATION (08:20)
[2024-07-02] MEDS: FLUTICASONE/SALMETEROL 115-21 MCG INHALER 1 PUFF INHALATION ×2 (08:20→20:27)
[2024-07-02] MEDS: FUROSEMIDE INJ 40 MG/4 ML VIAL 80 MG IV PUSH (08:35)
[2024-07-02] MEDS: SIMVASTATIN 20 MG TABLET PO (08:36)
[2024-07-02] MEDS: DICYCLOMINE HCL 10 MG CAPSULE 20 MG PO ×3 (08:36→18:06)
[2024-07-02] MEDS: amLODIPine BESYLATE 5 MG TABLET PO (08:36)
[2024-07-02] MEDS: ASPIRIN 81 MG ENTERIC TABLET PO (08:36)
[2024-07-02] MEDS: METOPROLOL TARTRATE 25 MG TABLET PO ×2 (08:36→20:18)
[2024-07-02] MEDS: ISOSORBIDE MONONITRATE 60 MG TAB.ER.24H PO ×2 (08:36→17:41)
[2024-07-02] MEDS: APIXABAN 2.5 MG TABLET PO (08:36)
[2024-07-02] MEDS: LATANOPROST 0.005% OP SOLN 2.5 ML BTL 1 DROP EACH EYE (08:37)
--- NOTE | 2024-07-02 09:35 | PM.PNNEP ---
Progress Note: A&P Assessment and Plan (1) Acute kidney injury: Code(s): N17.9 - Acute kidney failure, unspecified Status: Acute Assessment and Plan: The patient has acute kidney injury. Her creatinine was normal in 2022 at 0.5. renal ultrasound shows unremarkable kidneys, collapsed bladder, and probable cirrhotic liver. 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 The patient is on Eliquis 2.5 b.i.d.. Repeat the Doppler in a few days? increase Eliquis? will leave this to hospitalist. Fractional excretion of urea shows pre renal azotemia. Urine protein to 90. total CK is normal. Serology an immunofixation are pending UA shows blood and protein in the urine but she has a Lombardo catheter. The urine is light imani now. Echo shows severe tricuspid regurg and diastolic dysfunction which may be the core issue. Sometimes just removing fluid will improve the TR by shrinking the tricuspid valve ring.\ Urine output is not very good. However creatinine stopped rising. Will change furosemide to Bumex and add metolazone. Will stop amlodipine because of the swelling side effect. If we do not achieve much of a diuresis then consider ultrafiltration? I am not sure if dobutamine would help in this situation since it is mostly right heart. Serology in immunofixation are all pending (2) Edema: Code(s): R60.9 - Edema, unspecified Status: Acute Assessment and Plan: This is most likely due to the tricuspid regurgitation. amlodipine may contribute not much protein in the urine (3) Essential hypertension: Code(s): I10 - Essential (primary) hypertension Status: Chronic Assessment and Plan: Blood pressure is under good control. Will hold the amlodipine. 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 The patient does not drink alcohol and never did drink very much. Will consult GI Subjective Date/time seen: 07/02/24 09:35 Interval history: patient is about the same. She is on no oxygen but still is a little short of breath. She still has some swelling Review of Systems Cardiovascular: Cardiovascular: Reports no additional cardiovascular complaints Respiratory: Respiratory: Reports no additional respiratory complaints Gastrointestinal: Gastrointestinal: Reports no additional gastrointestinal complaints Genitourinary: Genitourinary: Reports no additional female genitourinary complaints Exam Narrative: WDWN in NAD skin no rash head ncat lungs rare crackles at the bases cor reg no rub abd BS+ nontender and soft ext 1 to2+ bilateral edema. Objective Data Vital Signs Vital Signs: Vital Signs - 24 hr 07/01/24 11:23 07/01/24 12:00 07/01/24 10:00 Temperature 97.6 F Pulse Rate 70 85 Respiratory Rate 18 Blood Pressure 119/54 L Pulse Oximetry 97 Oxygen Delivery Room Air 07/01/24 12:00 07/01/24 14:00 07/01/24 15:19 Temperature 98.1 F Pulse Rate 73 69 70 Respiratory Rate 18 Blood Pressure 121/50 L Pulse Oximetry 95 Oxygen Delivery 07/01/24 16:00 07/01/24 16:00 07/01/24 18:00 Temperature Pulse Rate 70 82 Respiratory Rate Blood Pressure Pulse Oximetry Oxygen Delivery Room Air 07/01/24 19:34 07/01/24 19:53 07/01/24 20:47 Temperature 98.1 F Pulse Rate 84 81 85 Respiratory Rate 20 18 Blood Pressure 105/51 L Pulse Oximetry 94 Oxygen Delivery 07/01/24 20:00 07/02/24 00:04 07/01/24 20:00 Temperature 98.2 F Pulse Rate 68 81 Respiratory Rate 18 Blood Pressure 100/56 L Pulse Oximetry 96 Oxygen Delivery Room Air 07/01/24 22:00 07/02/24 00:00 07/02/24 00:00 Temperature Pulse Rate 80 68 Respiratory Rate Blood Pressure Pulse Oximetry Oxygen Delivery Room Air 07/02/24 02:00 07/02/24 04:45 07/02/24 04:00 Temperature 98.6 F Pulse Rate 68 69 Respiratory Rate 18 Blood Pressure 116/49 L Pulse Oximetry 100 Oxygen Delivery Room Air 07/02/24 04:00 07/02/24 06:00 07/02/24 08:20 Temperature Pulse Rate 71 71 Respiratory Rate Blood Pressure Pulse Oximetry 94 Oxygen Delivery Room Air 07/02/24 08:36 07/02/24 08:00 Temperature 97.6 F Pulse Rate 83 83 Respiratory Rate 22 H Blood Pressure 120/51 L Pulse Oximetry 96 Oxygen Delivery Intake/Output Intake/Output: Intake & Output 06/29/24 06/30/24 07/01/24 07/02/24 23:59 23:59 23:59 23:59 Intake Total 1030 1180 1040 120 Output Total 25 350 575 350 Balance 1005 830 465 -230 Meds/Results Medications: Active Medications Generic Name Dose Route Start Last Admin Trade Name Freq PRN Reason Stop Dose Admin Albuterol 2 puff 06/28/24 23:21 07/02/24 08:20 Albuterol Sulfate (*Sp) Aerosol 1 Puff INHALATION 2 puff Q4HRT PRN Administration Wheezing Amlodipine Besylate 5 mg 06/29/24 09:00 07/02/24 08:36 Amlodipine Besylate 5 Mg Tablet PO 5 mg DAILY SALINA Administration Apixaban 2.5 mg 06/29/24 21:00 07/02/24 08:36 Apixaban 2.5 Mg Tablet PO 2.5 mg Q12HR SALINA Administration Aspirin 81 mg 06/30/24 09:00 07/02/24 08:36 Aspirin 81 Mg Enteric Tablet PO 81 mg QAM SALINA Administration Dextrose 12.5 gm 06/28/24 15:27 Dextrose 50% 25 Gm/50 Ml Syringe IV PUSH PRN PRN Hypoglycemia Protocol Dicyclomine HCl 20 mg 06/29/24 09:00 07/02/24 08:36 Dicyclomine Hcl 10 Mg Capsule PO 20 mg TID SALINA Administration Furosemide 80 mg 06/30/24 17:00 07/02/24 08:35 Furosemide Inj 40 Mg/4 Ml Vial IV PUSH 80 mg BID SALINA Administration Glucagon 1 mg 06/28/24 15:27 Glucagon For Inj 1 Mg Vial IM PRN PRN Hypoglycemia Protocol Glucose 15 gm 06/28/24 15:27 07/02/24 05:19 Glucose Oral Gel 15 Gm Of Glucse In 37.5 Gm Tube PO 15 gm PRN PRN Administration Hypoglycemia Protocol Dextrose 1,000 mls @ 100 mls/hr 06/28/24 15:27 Dextrose 5% 1,000 Ml IVPB PRN PRN Hypoglycemia Protocol Insulin Aspart 3 - 6 units 06/28/24 17:00 07/02/24 08:31 Insulin Aspart (*Bkc) 100 Units/Ml SUB-Q Not Given TIDWM SALINA Protocol Insulin Glargine 20 units 06/29/24 21:00 07/01/24 20:48 Insulin Glargine (*Bkc) 100 Units/Ml SUB-Q 20 units HS SALINA Administration Isosorbide Mononitrate 60 mg 06/29/24 17:00 07/02/24 08:36 Isosorbide Mononitrate 60 Mg Tab.Er.24h PO 60 mg BID SALINA Administration Latanoprost 1 drop 06/29/24 09:00 07/02/24 08:37 Latanoprost 0.005% Op Soln 2.5 Ml Btl EACH EYE 1 drop DAILY SALINA Administration Lisinopril 40 mg 06/29/24 09:00 07/01/24 09:05 Lisinopril 20 Mg Tablet PO Not Given QAM SALINA Metoprolol Tartrate 25 mg 06/28/24 23:40 07/02/24 08:36 Metoprolol Tartrate 25 Mg Tablet PO 25 mg Q12HR SALINA Administration Perflutren Lipid Microsphere 0 ml 06/29/24 13:57 Perflutren Lipid Microspheres 1.5 Ml Vial Diluted To 10 Ml Total Volume IV PUSH 07/02/24 13:58 ONCE PRN adequate visualization Protocol Fluticasone/Salmeterol 1 puff 06/29/24 08:00 07/02/24 08:20 Fluticasone/Salmeterol 115-21 Mcg Inhaler 1 Puff INHALATION 1 puff Q12HRT SALINA Administration Simvastatin 20 mg 06/29/24 09:00 07/02/24 08:36 Simvastatin 20 Mg Tablet PO 20 mg DAILY SALINA Administration Radiology Results: ITS Impressions Chest X-Ray 06/28/24 12:30 IMPRESSION: 1. Small right pleural effusion. 2. Cardiomegaly. Abdomen X-Ray 06/29/24 13:07 IMPRESSION: 1: No acute abdominal abnormality identified. Venous Doppler Study 07/01/24 10:20 Impression: Probable thrombosis of the bilateral posterior tibial and peroneal veins in the calves. Renal Ultrasound 07/01/24 10:21 Impression: Unremarkable kidneys. Collapsed urinary bladder limits evaluation. Probable cirrhotic liver with moderate to large abdominal pelvic ascites. Labs Labs: Laboratory Results - last 24 hr 07/01/24 07/01/24 07/01/24 04:44 11:23 11:25 WBC RBC Hgb Hct MCV MCH MCHC RDW Plt Count MPV Immature Gran % (Auto) Neut % (Auto) Lymph % (Auto) Lee % (Auto) Eos % (Auto) Baso % (Auto) Lymph # (Auto) Lee # (Auto) Eos # (Auto) Baso # (Auto) Abs Immat Gran (auto) Absolute Neuts (auto) Absolute Nucleated RBC Nucleated RBC % ESR 75 H Sodium Potassium Chloride Carbon Dioxide Anion Gap BUN Creatinine Estim Creat Clear Calc Estimated GFR Glucose POC Capillary Glucose 91 Calcium Phosphorus Total Bilirubin AST ALT Alkaline Phosphatase Total Creatine Kinase 58 Total Protein Albumin U Random Total Protein Ur Random Sodium Ur Random Urea Urine Creatinine Protein/Creat Ratio 2 Complement C3 139 Complement C4 38.1 07/01/24 07/01/24 07/01/24 11:39 15:18 19:47 WBC RBC Hgb Hct MCV MCH MCHC RDW Plt Count MPV Immature Gran % (Auto) Neut % (Auto) Lymph % (Auto) Lee % (Auto) Eos % (Auto) Baso % (Auto) Lymph # (Auto) Lee # (Auto) Eos # (Auto) Baso # (Auto) Abs Immat Gran (auto) Absolute Neuts (auto) Absolute Nucleated RBC Nucleated RBC % ESR Sodium Potassium Chloride Carbon Dioxide Anion Gap BUN Creatinine Estim Creat Clear Calc Estimated GFR Glucose POC Capillary Glucose 111 H 135 H Calcium Phosphorus Total Bilirubin AST ALT Alkaline Phosphatase Total Creatine Kinase Total Protein Albumin U Random Total Protein 15 Ur Random Sodium 102 Ur Random Urea 203 Urine Creatinine 52.4 Protein/Creat Ratio 2 0.29 H Complement C3 Complement C4 07/02/24 07/02/24 07/02/24 04:12 05:35 05:45 WBC 6.3 RBC 3.27 L Hgb 8.4 L Hct 27.0 L MCV 82.6 MCH 25.7 L MCHC 31.1 L RDW 20.1 H Plt Count 432 H MPV 9.7 Immature Gran % (Auto) 1.0 H Neut % (Auto) 63.7 Lymph % (Auto) 18.3 Lee % (Auto) 14.3 H Eos % (Auto) 2.1 Baso % (Auto) 0.6 Lymph # (Auto) 1.15 Lee # (Auto) 0.9 H Eos # (Auto) 0.1 Baso # (Auto) 0.0 Abs Immat Gran (auto) 0.06 H Absolute Neuts (auto) 4.0 Absolute Nucleated RBC 0.020 H Nucleated RBC % 0.3 H ESR Sodium 138 Potassium 4.7 Chloride 106 Carbon Dioxide 21 L Anion Gap 11 BUN 51 H Creatinine 2.00 H Estim Creat Clear Calc 18 Estimated GFR 24 L Glucose 52 L* POC Capillary Glucose 70 89 Calcium 8.0 L Phosphorus 5.8 H Total Bilirubin 0.2 AST 27 ALT 10 Alkaline Phosphatase 54 Total Creatine Kinase Total Protein 6.0 L Albumin 3.1 L U Random Total Protein Ur Random Sodium Ur Random Urea Urine Creatinine Protein/Creat Ratio 2 Complement C3 Complement C4
--- NOTE | 2024-07-02 09:59 | P.PNIM_ITS ---
Progress Note: A&P Assessment and Plan (1) CHF (congestive heart failure): Qualifiers: Heart failure chronicity: acute Heart failure type: unspecified Qualified Code(s): I50.9 - Heart failure, unspecified Code(s): I50.9 - Heart failure, unspecified Status: Suspected Assessment and Plan: * New onset * Pro BNP >73194 initially * Echo showing normal left ventricular systolic function with an estimated EF of 60-65%, grade II diastolic dysfunction, moderate pulmonary hypertension with an estimated pulmonary arterial systolic pressure of 62mmHg, no right heart strain * Cardiology following * Lasix changed to Bumex per recommendations since Lasix has not been successful. * consulted for further assistance with diuresis and added metolazone * Monitor I and O and obtain daily weights * Cardiac diet * Continue continuous telemetry * transfer to floor with telemetry (2) Elevated troponin: Code(s): R79.89 - Other specified abnormal findings of blood chemistry Status: Acute Assessment and Plan: * likely demand ischemia * Troponin 0.131 -> 0.122 -> 0.116, flat. No active chest pain. * Awaiting echo results * Cardiology following * Continue cardiac monitoring * Continue diuresis (3) Type 2 diabetes mellitus with kidney complication: Qualifiers: Chronic kidney disease stage: unspecified stage Diabetes mellitus complication detail: with chronic kidney disease Diabetes mellitus chcf insulin use: without chcf use Qualified Code(s): E11.22 - Type 2 diabetes mellitus with diabetic chronic kidney disease Code(s): E11.29 - Type 2 diabetes mellitus with other diabetic kidney complication Status: Chronic Assessment and Plan: * Blood sugars ranging 117-177 * Hgb A1C 5.9 * Accu checks AC/HS * Moderate dose SSI ordered * hypoglycemic protocol in place * Diabetic diet ordered * Hold metformin * Continue Lantus 20 units @ HS (4) CKD (chronic kidney disease): Qualifiers: Chronic kidney disease stage: unspecified stage Qualified Code(s): N18.9 - Chronic kidney disease, unspecified Code(s): N18.9 - Chronic kidney disease, unspecified Status: Chronic Assessment and Plan: * Creatinine 2.0 today * Continue Diuresis with Lasix 80mg IV BID per Cardiology recommendation * Continue Metolazone per recommendation to assist with diuresis efforts * Continue to trend (5) Essential hypertension: Code(s): I10 - Essential (primary) hypertension Status: Chronic Assessment and Plan: * Blood pressure ranging 111/57-146/95 * Continue Amlodipine, Lisinopril, Metoprolol (6) Serum potassium elevated: Code(s): E87.5 - Hyperkalemia Status: Acute Assessment and Plan: * Potassium 5.1 * Lasix increased by Cardiology yesterday * Continue to trend (7) Ascites: Qualifiers: Ascites type: other type Qualified Code(s): R18.8 - Other ascites Code(s): R18.8 - Other ascites Status: Acute Assessment and Plan: * Renal US shown cirrhosis of the liver with moderate to large abdominal pelvic ascites * Will get US guided paracentesis tomorrow * NPO after midnight * Bili and liver enzymes are WNL * Liver labs pending. * No history of alcohol abuse * Hepatitis panel negative (8) DVT (deep venous thrombosis): Code(s): I82.409 - Acute embolism and thrombosis of unspecified deep veins of unspecified lower extremity Status: Acute Assessment and Plan: * Venous doppler showing probable thrombosis of the bilateral posterior tibial and peroneal veins in the calves * VQ scan showing intermediate probability of PE * Eliquis on hold due to paracentesis scheduled for tomorrow * Start Heparin per DVT/PE guidelines * Stop heparin infusion 4 hours prior to procedure or per interventional radiologist (9) Pulmonary embolus: Code(s): I26.99 - Other pulmonary embolism without acute cor pulmonale Status: Acute Assessment and Plan: * VQ scan showing intermediate probability of PE * Start Heparin infusion per DVT/PE guidelines * Will start Eliquis tomorrow after paracentesis Time Spent With Patient Time with patient: Greater than 35 minutes Subjective Date/time seen: 07/02/24 09:59 Interval history: Interval History: This is an 84 year old female who presented to the hospital on 06/28/24 with complaints of shortness of breath. Work up in the hospital included a chest x- ray which shown a right small pleural effusion, cardiomegaly. Abdomen x-ray which was negative. Labs [place] >77444, elevated troponin 0.122>0.116, K+ 5.9, Bicarb 21, Creatinine 1.30, eGFR 39. UA shown a cloudy appearance, 1+ urine protein, 1+ urine ketones, 2+ urine blood, 2+ urobilinogen, trace leukocytes, 3-5 urine RBC, 2+ urine bacteria. Echo was obtained with results pending. Patient given IV lasix for diuresis. Cardiology consulted for new onset CHF. Subjective: Patient denies any new complaints. Labs reviewed. consulted as well for further assistance. Review of Systems Review of Systems: All systems reviewed & are unremarkable except as noted in HPI and below Constitutional: Constitutional: Reports as per HPI and Reports no additional constitutional complaints Eyes: Eyes: Reports as per HPI and Reports no additional eye complaints ENT: Reports system reviewed and no additional complaints, except as documented and Reports as per HPI Cardiovascular: Cardiovascular: Reports as per HPI and Reports no additional cardiovascular complaints Respiratory: Respiratory: Reports as per HPI and Reports no additional respiratory complaints Gastrointestinal: Gastrointestinal: Reports as per HPI and Reports no additional gastrointestinal complaints Genitourinary: Genitourinary: Reports no additional female genitourinary complaints and Reports as per HPI Musculoskeletal: Musculoskeletal: Reports no additional musculoskeletal complaints and Reports as per HPI Integumentary/Breasts: Skin/Breast: Reports system reviewed and no additional complaints, except as docu and Reports as per HPI Neurologic: Reports system reviewed and no additional complaints, except as documented and Reports as per HPI Psychiatric: Psychiatric: Reports no additional psychiatric complaints and Reports as per HPI Exam Narrative: General: In no acute distress, well nourished Cardiac: Normal S1 and S2. No murmur, gallops or friction rubs, peripheral pulses intact. Respiratory: Currently on room air, crackles noted to bilateral bases, use of accessory muscles noted. Gastrointestinal: rounded, non-tender, hypoactive bowel sounds. Ascites : voiding without difficulty. Extremities: moves all extremities well,bilateral lower extremity pitting edema 3+ Skin: clean, dry, intact. No wounds or lesions. Neuro: Alert and oriented x4, cranial nerves intact, no neuro deficits. Psych: normal mood, normal affect, interactive Objective Data Vital Signs Vital Signs: Vital Signs - 24 hr 07/01/24 11:23 07/01/24 12:00 07/01/24 10:00 Temperature 97.6 F Pulse Rate 70 85 Respiratory Rate 18 Blood Pressure 119/54 L Pulse Oximetry 97 Oxygen Delivery Room Air 07/01/24 12:00 07/01/24 14:00 07/01/24 15:19 Temperature 98.1 F Pulse Rate 73 69 70 Respiratory Rate 18 Blood Pressure 121/50 L Pulse Oximetry 95 Oxygen Delivery 07/01/24 16:00 07/01/24 16:00 07/01/24 18:00 Temperature Pulse Rate 70 82 Respiratory Rate Blood Pressure Pulse Oximetry Oxygen Delivery Room Air 07/01/24 19:34 07/01/24 19:53 07/01/24 20:47 Temperature 98.1 F Pulse Rate 84 81 85 Respiratory Rate 20 18 Blood Pressure 105/51 L Pulse Oximetry 94 Oxygen Delivery 07/01/24 20:00 07/02/24 00:04 07/01/24 20:00 Temperature 98.2 F Pulse Rate 68 81 Respiratory Rate 18 Blood Pressure 100/56 L Pulse Oximetry 96 Oxygen Delivery Room Air 07/01/24 22:00 07/02/24 00:00 07/02/24 00:00 Temperature Pulse Rate 80 68 Respiratory Rate Blood Pressure Pulse Oximetry Oxygen Delivery Room Air 07/02/24 02:00 07/02/24 04:45 07/02/24 04:00 Temperature 98.6 F Pulse Rate 68 69 Respiratory Rate 18 Blood Pressure 116/49 L Pulse Oximetry 100 Oxygen Delivery Room Air 07/02/24 04:00 07/02/24 06:00 07/02/24 08:20 Temperature Pulse Rate 71 71 Respiratory Rate Blood Pressure Pulse Oximetry 94 Oxygen Delivery Room Air 07/02/24 08:36 07/02/24 08:00 Temperature 97.6 F Pulse Rate 83 83 Respiratory Rate 22 H Blood Pressure 120/51 L Pulse Oximetry 96 Oxygen Delivery Intake/Output Intake/Output: Intake & Output 06/29/24 06/30/24 07/01/24 07/02/24 23:59 23:59 23:59 23:59 Intake Total 1030 1180 1040 240 Output Total 25 350 575 350 Balance 1005 830 465 -110 Meds/Results Medications: Active Medications Generic Name Dose Route Start Last Admin Trade Name Freq PRN Reason Stop Dose Admin Albuterol 2 puff 06/28/24 23:21 07/02/24 08:20 Albuterol Sulfate (*Sp) Aerosol 1 Puff INHALATION 2 puff Q4HRT PRN Administration Wheezing Apixaban 2.5 mg 06/29/24 21:00 07/02/24 08:36 Apixaban 2.5 Mg Tablet PO 2.5 mg Q12HR [facility] Administration Aspirin 81 mg 06/30/24 09:00 07/02/24 08:36 Aspirin 81 Mg Enteric Tablet PO 81 mg QAM [facility] Administration Bumetanide 2 mg 07/02/24 12:00 Bumetanide Inj 2.5 Mg/10 Ml Vial IV PUSH BID [facility] Dextrose 12.5 gm 06/28/24 15:27 Dextrose 50% 25 Gm/50 Ml Syringe IV PUSH PRN PRN Hypoglycemia Protocol Dicyclomine HCl 20 mg 06/29/24 09:00 07/02/24 08:36 Dicyclomine Hcl 10 Mg Capsule PO 20 mg TID [facility] Administration Glucagon 1 mg 06/28/24 15:27 Glucagon For Inj 1 Mg Vial IM PRN PRN Hypoglycemia Protocol Glucose 15 gm 06/28/24 15:27 07/02/24 05:19 Glucose Oral Gel 15 Gm Of Glucse In 37.5 Gm Tube PO 15 gm PRN PRN Administration Hypoglycemia Protocol Dextrose 1,000 mls @ 100 mls/hr 06/28/24 15:27 Dextrose 5% 1,000 Ml IVPB PRN PRN Hypoglycemia Protocol Insulin Aspart 3 - 6 units 06/28/24 17:00 07/02/24 08:31 Insulin Aspart (*Bkc) 100 Units/Ml SUB-Q Not Given TIDWM [facility] Protocol Insulin Glargine 20 units 06/29/24 21:00 07/01/24 20:48 Insulin Glargine (*Bkc) 100 Units/Ml SUB-Q 20 units HS [facility] Administration Isosorbide Mononitrate 60 mg 06/29/24 17:00 07/02/24 08:36 Isosorbide Mononitrate 60 Mg Tab.Er.24h PO 60 mg BID [facility] Administration Latanoprost 1 drop 06/29/24 09:00 07/02/24 08:37 Latanoprost 0.005% Op Soln 2.5 Ml Btl EACH EYE 1 drop DAILY [facility] Administration Lisinopril 40 mg 06/29/24 09:00 07/01/24 09:05 Lisinopril 20 Mg Tablet PO Not Given QAM [facility] Metolazone 5 mg 07/02/24 09:45 Metolazone 5 Mg Tablet PO QAM [facility] Metoprolol Tartrate 25 mg 06/28/24 23:40 07/02/24 08:36 Metoprolol Tartrate 25 Mg Tablet PO 25 mg Q12HR [facility] Administration Perflutren Lipid Microsphere 0 ml 06/29/24 13:57 Perflutren Lipid Microspheres 1.5 Ml Vial Diluted To 10 Ml Total Volume IV PUSH 07/02/24 13:58 ONCE PRN adequate visualization Protocol Fluticasone/Salmeterol 1 puff 06/29/24 08:00 07/02/24 08:20 Fluticasone/Salmeterol 115-21 Mcg Inhaler 1 Puff INHALATION 1 puff Q12HRT [facility] Administration Simvastatin 20 mg 06/29/24 09:00 07/02/24 08:36 Simvastatin 20 Mg Tablet PO 20 mg DAILY [facility] Administration Radiology Results: ITS Impressions Chest X-Ray 06/28/24 12:30 IMPRESSION: 1. Small right pleural effusion. 2. Cardiomegaly. Abdomen X-Ray 06/29/24 13:07 IMPRESSION: 1: No acute abdominal abnormality identified. Venous Doppler Study 07/01/24 10:20 Impression: Probable thrombosis of the bilateral posterior tibial and peroneal veins in the calves. Renal Ultrasound 07/01/24 10:21 Impression: Unremarkable kidneys. Collapsed urinary bladder limits evaluation. Probable cirrhotic liver with moderate to large abdominal pelvic ascites. Labs Labs: Laboratory Results - last 24 hr 07/01/24 07/01/24 07/01/24 04:44 11:23 11:25 WBC RBC Hgb Hct MCV MCH MCHC RDW Plt Count MPV Immature Gran % (Auto) Neut % (Auto) Lymph % (Auto) [place] % (Auto) Eos % (Auto) Baso % (Auto) Lymph # (Auto) [place] # (Auto) Eos # (Auto) Baso # (Auto) Abs Immat Gran (auto) Absolute Neuts (auto) Absolute Nucleated RBC Nucleated RBC % ESR 75 H Sodium Potassium Chloride Carbon Dioxide Anion Gap BUN Creatinine Estim Creat Clear Calc Estimated GFR Glucose POC Capillary Glucose 91 Calcium Phosphorus Total Bilirubin AST ALT Alkaline Phosphatase Total Creatine Kinase 58 Total Protein Albumin U Random Total Protein Ur Random Sodium Ur Random Urea Urine Creatinine Protein/Creat Ratio 2 Complement C3 139 Complement C4 38.1 07/01/24 07/01/24 07/01/24 11:39 15:18 19:47 WBC RBC Hgb Hct MCV MCH MCHC RDW Plt Count MPV Immature Gran % (Auto) Neut % (Auto) Lymph % (Auto) [place] % (Auto) Eos % (Auto) Baso % (Auto) Lymph # (Auto) [place] # (Auto) Eos # (Auto) Baso # (Auto) Abs Immat Gran (auto) Absolute Neuts (auto) Absolute Nucleated RBC Nucleated RBC % ESR Sodium Potassium Chloride Carbon Dioxide Anion Gap BUN Creatinine Estim Creat Clear Calc Estimated GFR Glucose POC Capillary Glucose 111 H 135 H Calcium Phosphorus Total Bilirubin AST ALT Alkaline Phosphatase Total Creatine Kinase Total Protein Albumin U Random Total Protein 15 Ur Random Sodium 102 Ur Random Urea 203 Urine Creatinine 52.4 Protein/Creat Ratio 2 0.29 H Complement C3 Complement C4 07/02/24 07/02/24 07/02/24 04:12 05:35 05:45 WBC 6.3 RBC 3.27 L Hgb 8.4 L Hct 27.0 L MCV 82.6 MCH 25.7 L MCHC 31.1 L RDW 20.1 H Plt Count 432 H MPV 9.7 Immature Gran % (Auto) 1.0 H Neut % (Auto) 63.7 Lymph % (Auto) 18.3 [place] % (Auto) 14.3 H Eos % (Auto) 2.1 Baso % (Auto) 0.6 Lymph # (Auto) 1.15 [place] # (Auto) 0.9 H Eos # (Auto) 0.1 Baso # (Auto) 0.0 Abs Immat Gran (auto) 0.06 H Absolute Neuts (auto) 4.0 Absolute Nucleated RBC 0.020 H Nucleated RBC % 0.3 H ESR Sodium 138 Potassium 4.7 Chloride 106 Carbon Dioxide 21 L Anion Gap 11 BUN 51 H Creatinine 2.00 H Estim Creat Clear Calc 18 Estimated GFR 24 L Glucose 52 L* POC Capillary Glucose 70 89 Calcium 8.0 L Phosphorus 5.8 H Total Bilirubin 0.2 AST 27 ALT 10 Alkaline Phosphatase 54 Total Creatine Kinase Total Protein 6.0 L Albumin 3.1 L U Random Total Protein Ur Random Sodium Ur Random Urea Urine Creatinine Protein/Creat Ratio 2 Complement C3 Complement C4 Quality VTE Prophylaxis VTE prophylaxis: mechanical ordered
[2024-07-02 10:43] LABS: Glucose Point of Care 74 mg/dl (65-105)
--- NOTE | 2024-07-02 11:59 | P.PNCA_ITS ---
Progress Note: A&P Assessment and Plan (1) Acute exacerbation of CHF (congestive heart failure): Code(s): I50.9 - Heart failure, unspecified Status: Acute Assessment and Plan: She has grade II diastolic dysfunction as well as moderate pHTN with PASP 62 mmHg, severe TR. Diuresing with Bumex and metolazone which should be continued for now. (2) Atrial fibrillation: Code(s): I48.91 - Unspecified atrial fibrillation Status: Acute Assessment and Plan: Rate controlled. Continue Eliquis 2.5mg BID (given age and renal function). If renal function improves to SCr <1.5, then will need to increase dose to 5mg BID. (3) Acute kidney injury: Code(s): N17.9 - Acute kidney failure, unspecified Status: Acute Assessment and Plan: Has worsened since admission but is essentially stable from yesterday. Nephrology is following Subjective Date/time seen: 07/02/24 11:59 Interval history: Cardiology follow up for CHF, atrial fibrillation Date of service 07/02/2024: Feels her shortness of breath is slightly improved today. Still has edema. Review of Systems Review of Systems: All systems reviewed & are unremarkable except as noted in HPI and below Exam Const: General: comfortable and no acute distress HENMT: Mouth: Yes moist mucous membranes Eyes: General: appearance normal, both eyes and all related structures Sclera: sclerae normal Resp: Effort & Inspection: normal respiratory effort Auscultation: clear to auscultation bilaterally Cardio: Rhythm: abnormal rhythm irregularly irregular Heart sounds: no murmurs Other: + Bilateral lower extremity edema GI: Inspection: distended GI Palp: Yes Firmness to palpation present (GI) Skin: General skin exam: normal color Neuro: Speech: normal speech Psych: Mental Status: mental status grossly normal Affect: normal affect Objective Data Vital Signs Vital Signs: Vital Signs - 24 hr 07/01/24 12:00 07/01/24 12:00 07/01/24 14:00 Temperature Pulse Rate 73 69 Respiratory Rate Blood Pressure Pulse Oximetry Oxygen Delivery Room Air 07/01/24 15:19 07/01/24 16:00 07/01/24 16:00 Temperature 36.7 C Pulse Rate 70 70 Respiratory Rate 18 Blood Pressure 121/50 L Pulse Oximetry 95 Oxygen Delivery Room Air 07/01/24 18:00 07/01/24 19:34 07/01/24 19:53 Temperature 36.7 C Pulse Rate 82 84 81 Respiratory Rate 20 18 Blood Pressure 105/51 L Pulse Oximetry 94 Oxygen Delivery 07/01/24 20:47 07/01/24 20:00 07/02/24 00:04 Temperature 36.8 C Pulse Rate 85 68 Respiratory Rate 18 Blood Pressure 100/56 L Pulse Oximetry 96 Oxygen Delivery Room Air 07/01/24 20:00 07/01/24 22:00 07/02/24 00:00 Temperature Pulse Rate 81 80 Respiratory Rate Blood Pressure Pulse Oximetry Oxygen Delivery Room Air 07/02/24 00:00 07/02/24 02:00 07/02/24 04:45 Temperature 37.0 C Pulse Rate 68 68 69 Respiratory Rate 18 Blood Pressure 116/49 L Pulse Oximetry 100 Oxygen Delivery 07/02/24 04:00 07/02/24 04:00 07/02/24 06:00 Temperature Pulse Rate 71 71 Respiratory Rate Blood Pressure Pulse Oximetry Oxygen Delivery Room Air 07/02/24 08:20 07/02/24 08:36 07/02/24 08:00 Temperature 36.4 C Pulse Rate 83 83 Respiratory Rate 22 H Blood Pressure 120/51 L Pulse Oximetry 94 96 Oxygen Delivery Room Air 07/02/24 08:00 Temperature Pulse Rate 84 Respiratory Rate Blood Pressure Pulse Oximetry Oxygen Delivery Intake/Output Intake/Output: Intake & Output 06/29/24 06/30/24 07/01/24 07/02/24 23:59 23:59 23:59 23:59 Intake Total 1030 1180 1040 240 Output Total 25 350 575 350 Balance 1005 830 465 -110 Meds/Results Medications: Active Medications Generic Name Dose Route Start Last Admin Trade Name Freq PRN Reason Stop Dose Admin Albuterol 2 puff 06/28/24 23:21 07/02/24 08:20 Albuterol Sulfate (*Sp) Aerosol 1 Puff INHALATION 2 puff Q4HRT PRN Administration Wheezing Apixaban 2.5 mg 06/29/24 21:00 07/02/24 08:36 Apixaban 2.5 Mg Tablet PO 2.5 mg Q12HR [facility] Administration Aspirin 81 mg 06/30/24 09:00 07/02/24 08:36 Aspirin 81 Mg Enteric Tablet PO 81 mg QAM [facility] Administration Bumetanide 2 mg 07/02/24 12:00 Bumetanide Inj 2.5 Mg/10 Ml Vial IV PUSH BID [facility] Dextrose 12.5 gm 06/28/24 15:27 Dextrose 50% 25 Gm/50 Ml Syringe IV PUSH PRN PRN Hypoglycemia Protocol Dicyclomine HCl 20 mg 06/29/24 09:00 07/02/24 08:36 Dicyclomine Hcl 10 Mg Capsule PO 20 mg TID [facility] Administration Glucagon 1 mg 06/28/24 15:27 Glucagon For Inj 1 Mg Vial IM PRN PRN Hypoglycemia Protocol Glucose 15 gm 06/28/24 15:27 07/02/24 05:19 Glucose Oral Gel 15 Gm Of Glucse In 37.5 Gm Tube PO 15 gm PRN PRN Administration Hypoglycemia Protocol Dextrose 1,000 mls @ 100 mls/hr 06/28/24 15:27 Dextrose 5% 1,000 Ml IVPB PRN PRN Hypoglycemia Protocol Insulin Aspart 3 - 6 units 06/28/24 17:00 07/02/24 08:31 Insulin Aspart (*Bkc) 100 Units/Ml SUB-Q Not Given TIDWM [facility] Protocol Insulin Glargine 20 units 06/29/24 21:00 07/01/24 20:48 Insulin Glargine (*Bkc) 100 Units/Ml SUB-Q 20 units HS [facility] Administration Isosorbide Mononitrate 60 mg 06/29/24 17:00 07/02/24 08:36 Isosorbide Mononitrate 60 Mg Tab.Er.24h PO 60 mg BID [facility] Administration Latanoprost 1 drop 06/29/24 09:00 07/02/24 08:37 Latanoprost 0.005% Op Soln 2.5 Ml Btl EACH EYE 1 drop DAILY [facility] Administration Lisinopril 40 mg 06/29/24 09:00 07/01/24 09:05 Lisinopril 20 Mg Tablet PO Not Given QAM [facility] Metolazone 5 mg 07/02/24 09:45 Metolazone 5 Mg Tablet PO QAM [facility] Metoprolol Tartrate 25 mg 06/28/24 23:40 07/02/24 08:36 Metoprolol Tartrate 25 Mg Tablet PO 25 mg Q12HR [facility] Administration Perflutren Lipid Microsphere 0 ml 06/29/24 13:57 Perflutren Lipid Microspheres 1.5 Ml Vial Diluted To 10 Ml Total Volume IV PUSH 07/02/24 13:58 ONCE PRN adequate visualization Protocol Fluticasone/Salmeterol 1 puff 06/29/24 08:00 07/02/24 08:20 Fluticasone/Salmeterol 115-21 Mcg Inhaler 1 Puff INHALATION 1 puff Q12HRT [facility] Administration Simvastatin 20 mg 06/29/24 09:00 07/02/24 08:36 Simvastatin 20 Mg Tablet PO 20 mg DAILY [facility] Administration Radiology Results: ITS Impressions Chest X-Ray 06/28/24 12:30 IMPRESSION: 1. Small right pleural effusion. 2. Cardiomegaly. Abdomen X-Ray 06/29/24 13:07 IMPRESSION: 1: No acute abdominal abnormality identified. Venous Doppler Study 07/01/24 10:20 Impression: Probable thrombosis of the bilateral posterior tibial and peroneal veins in the calves. Renal Ultrasound 07/01/24 10:21 Impression: Unremarkable kidneys. Collapsed urinary bladder limits evaluation. Probable cirrhotic liver with moderate to large abdominal pelvic ascites. Labs Labs: Laboratory Results - last 24 hr 07/01/24 07/01/24 07/01/24 11:25 11:39 15:18 WBC RBC Hgb Hct MCV MCH MCHC RDW Plt Count MPV Immature Gran % (Auto) Neut % (Auto) Lymph % (Auto) [place] % (Auto) Eos % (Auto) Baso % (Auto) Lymph # (Auto) [place] # (Auto) Eos # (Auto) Baso # (Auto) Abs Immat Gran (auto) Absolute Neuts (auto) Absolute Nucleated RBC Nucleated RBC % ESR 75 H Sodium Potassium Chloride Carbon Dioxide Anion Gap BUN Creatinine Estim Creat Clear Calc Estimated GFR Glucose POC Capillary Glucose 111 H Calcium Phosphorus Total Bilirubin AST ALT Alkaline Phosphatase Total Protein Albumin Ur Random Sodium 102 Ur Random Urea 203 Protein/Creat Ratio 2 0.29 H 07/01/24 07/02/24 07/02/24 19:47 04:12 05:35 WBC 6.3 RBC 3.27 L Hgb 8.4 L Hct 27.0 L MCV 82.6 MCH 25.7 L MCHC 31.1 L RDW 20.1 H Plt Count 432 H MPV 9.7 Immature Gran % (Auto) 1.0 H Neut % (Auto) 63.7 Lymph % (Auto) 18.3 [place] % (Auto) 14.3 H Eos % (Auto) 2.1 Baso % (Auto) 0.6 Lymph # (Auto) 1.15 [place] # (Auto) 0.9 H Eos # (Auto) 0.1 Baso # (Auto) 0.0 Abs Immat Gran (auto) 0.06 H Absolute Neuts (auto) 4.0 Absolute Nucleated RBC 0.020 H Nucleated RBC % 0.3 H ESR Sodium 138 Potassium 4.7 Chloride 106 Carbon Dioxide 21 L Anion Gap 11 BUN 51 H Creatinine 2.00 H Estim Creat Clear Calc 18 Estimated GFR 24 L Glucose 52 L* POC Capillary Glucose 135 H 70 Calcium 8.0 L Phosphorus 5.8 H Total Bilirubin 0.2 AST 27 ALT 10 Alkaline Phosphatase 54 Total Protein 6.0 L Albumin 3.1 L Ur Random Sodium Ur Random Urea Protein/Creat Ratio 2 07/02/24 07/02/24 05:45 08:06 WBC RBC Hgb Hct MCV MCH MCHC RDW Plt Count MPV Immature Gran % (Auto) Neut % (Auto) Lymph % (Auto) [place] % (Auto) Eos % (Auto) Baso % (Auto) Lymph # (Auto) [place] # (Auto) Eos # (Auto) Baso # (Auto) Abs Immat Gran (auto) Absolute Neuts (auto) Absolute Nucleated RBC Nucleated RBC % ESR Sodium Potassium Chloride Carbon Dioxide Anion Gap BUN Creatinine Estim Creat Clear Calc Estimated GFR Glucose POC Capillary Glucose 89 74 Calcium Phosphorus Total Bilirubin AST ALT Alkaline Phosphatase Total Protein Albumin Ur Random Sodium Ur Random Urea Protein/Creat Ratio 2
[2024-07-02 12:00] LABS: Glucose Point of Care 100 mg/dl (65-105)
--- NOTE | 2024-07-02 12:44 | P.CONGI_ITS ---
I, Trell More MD, have provided a substantive portion of the care of this patient and discussed the patient with my Nurse Practitioner. I have reviewed any new relevant radiographic and laboratory results including medications. I agree with her documentation as noted below.?I personally performed the medical decision making and much of the history and exam for this encounter. briefly, here with acute CHF exacerbation, also noted TRI, h/o Afib on AC. Both nephrology and cardiology on board. Ultrasound noted possible cirrhosis of liver, patient denies previous history of liver disease, no alcohol use. She is treated with diuretics, we will complete work up of cirrhosis but probably MASH related given comorbidities. Will follow along. Assessment and Plan Assessment and plan (1) Cirrhosis: Qualifiers: Hepatic cirrhosis type: other cirrhosis Qualified Code(s): K74.69 - Other cirrhosis of liver Code(s): K74.60 - Unspecified cirrhosis of liver Status: Acute (2) Ascites: Qualifiers: Ascites type: other type Qualified Code(s): R18.8 - Other ascites Code(s): R18.8 - Other ascites Status: Acute (3) Anemia of chronic disease: Code(s): D63.8 - Anemia in other chronic diseases classified elsewhere Status: Acute Plan 1) Cirrhosis/ascites: Patient has never had an EGD. normal LFTs with total bilirubin 0.2, AST 27, ALT 10, alkaline phosphatase 54, albumin 3.1. No prior history of liver disease or elevated LFTs. Patient with known congestive heart failure with significantly elevated BNP on admission > 30,000. renal ultrasound showed probable cirrhosis and ascites. Patient states that she has had a tight distended abdomen for quite a long time . * Diagnostic paracentesis ordered to determine if etiology of ascites is cardiac versus liver in nature * Fibrosis panel ordered * Further recs to follow workup 2) Anemia: Likely anemia of chronic disease given multiple comorbidities including chronic kidney disease. no signs of active GI bleeding. * Primary care team to continue monitoring and transfuse as needed to keep HGB > 7 Thank you very much for allowing me share in the care of this very nice patient. This report may have been done utilizing a voice recognition system. Attempts have been made to correct errors. However, there may be uncorrected grammatical, spelling, and recognition errors present. GI Consult Note Consult date/time: 07/02/24 12:44 Reason for consult: Cirrhosis HPI: This is an 84-year-old female with history of chronic kidney disease, HTN, IgA, IBS, HLD, diabetes, history of [place] status post 4 vessel CABG in 2009, and personal history of colon polyps. Patient presented to the Emergency Room 06/28/2024 with complaints of shortness of breath and was admitted for CHF exacerbation. GI consulted for cirrhosis. Patient was seen with her Michael at her bedside throughout the visit. Patient admits to a longstanding history of CHF. The patient states that she was sick in February and since then has had a decreased appetite and early satiety. She has abdominal distension which she states is not new for her and . She denies any abdominal pain, nausea, vomiting, odynophagia, dysphagia, reflux, regurgitation, or unexplained weight loss. She states that she is having daily bowel movements are formed and not urgent. Denies diarrhea, constipation, hematochezia, or melena. She uses NSAIDs on a rare as needed basis. She is on Eliquis daily. Family history negative for CRC or IBD. ENDOSCOPY HISTORY: EGD: The patient has never had an EGD COLONOSCOPY: 09/08/[address] Henderson for personal history of colon polyps Findings: Diverticulosis noted but otherwise unremarkable colonoscopy Five year repeat recommended LABS AND STOOL STUDIES: Labs 07/02/2024 showed sodium 138, potassium 4.7, BUN 51, creatinine 2.00, GFR 24. WBC 6, HGB 8, HCT 27, MCV 83, platelets 432. Total bilirubin 0.2, AST 27, ALT 10, alkaline phosphatase 54, albumin 3.1. Calcium 8.0, phosphorus 5.8, BNP > 30,000. Labs 05/27/2023 showed total iron 52, TIBC 427, iron saturation 12, ferritin 20 IMAGING: Renal ultrasound 07/01/2024 Impression: Unremarkable kidneys. Collapsed urinary bladder limits evaluation. Probable cirrhotic liver with moderate to large abdominal pelvic ascites. Abdominal x-ray 06/29/2024 Normal Review of Systems Constitutional: Constitutional: Reports as per HPI and Reports fatigue ENT: Reports as per HPI Cardiovascular: Cardiovascular: Reports as per HPI, Denies chest pain and Reports dyspnea Respiratory: Respiratory: Denies cough, Reports dyspnea and Reports dyspnea on exertion Gastrointestinal: Gastrointestinal: Reports as per HPI Comments: abdominal distention Musculoskeletal: Musculoskeletal: Reports as per HPI Integumentary/Breasts: Skin/Breast: Reports as per HPI Psychiatric: Psychiatric: Reports as per HPI Endocrine: Endocrine: Reports no additional endocrine complaints Hematologic/Lymphatic: Hematologic/Lymphatic: Reports no additional hematologic/lymphatic complaints [facility] Past Medical History Medical History Actinic keratosis 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 Cataract CKD (chronic kidney disease) DM renal manif type II Essential hypertension Iron deficiency anemia Irritable bowel Keratoacanthoma Mixed hyperlipidemia Nephritis Old myocardial infarction Polyp of colon Post-menopausal Type 2 diabetes mellitus without complication Surgical History Surgical History H/O bilateral cataract extraction H/O colonoscopy H/O dilation and curettage H/O rectal polypectomy History of coronary angioplasty with insertion of stent Hx of CABG Quadruple S/P tonsillectomy and adenoidectomy Family History Family History Mother Hypertension Family history of congenital heart disease Family history of diabetes mellitus in first degree relative Diabetes mellitus Family history of cardiovascular disease Family history of coronary artery disease Father Diabetes mellitus Hypertension Family history of elevated blood lipids Family history of cardiovascular disease Acute myocardial infarction Family history of coronary artery disease Other Family history of arthritis Social History Social History Social History: The patient is and has 2 children. Her is a durable power divorce attorney for healthcare. The patient is retired from [employer]. She is a former smoker she does not use any alcohol marijuana or illicit drugs. Code status full code Smoking packs per day: 1 Smoking cigarettes per day: 20.0 Years smoked: 5 Smoking pack-years: 5.00 Smoking status: Former smoker Tobacco type: cigarettes Second hand tobacco smoke exposure: No Smoking end date: 08/22/1968 Alcohol intake: never Substance use: never Substance use type: does not use Do You Feel Safe in your Home?: Yes Lack of Transportation: No Lack of Food: Never True Current Housing: I Have Housing Concerned About Future Housing: No Difficulty Paying Gas/Electric Bills: No Difficulty Paying for Meds: No Currently Unemployed: No Education: High School Diploma/GED Difficulty w/ Childcare or Family Care: No 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cation: retired Gender identity (if verbalized by the patient): Female Spiritual care concerns: No Meds Home Medications and Allergies Home Medications Medication Instructions Recorded Confirmed Type clopidogrel 75 mg tablet 75 mg PO HS 09/07/19 06/28/24 History bimatoprost 0.03 % eye drops 1 drp EACH EYE HS 03/19/21 06/28/24 History aspirin 81 mg tablet,delayed 81 mg PO DAILY 10/07/22 06/28/24 History release (Adult Low Dose Aspirin) amlodipine 5 mg tablet 5 mg PO DAILY 06/01/23 06/28/24 History isosorbide dinitrate 20 mg tablet 60 mg PO BID 06/01/23 06/28/24 History metformin 500 mg tablet,extended 500 mg PO TID #270 tabs 10/05/23 06/28/24 Rx release 24 hr pen needle, diabetic 32 gauge x #100 ea 10/05/23 06/28/24 Rx 1/4 (BD Ultra-Fine Micro Pen Needle) furosemide 20 mg tablet See Rx Instructions .Route 11/28/23 06/28/24 Rx .COMPLEX #90 tabs fluticasone 250 mcg-salmeterol 50 1 inh inhalation BID #60 ea 02/08/24 06/28/24 Rx mcg/dose blistr powdr for inhalation (Wixela Inhub) blood sugar diagnostic (OneTouch #200 strips 02/09/24 06/28/24 Rx Ultra Test strips) insulin glargine 100 unit/mL (3 20 unit (0.2 mL) subcut QPM #18 mL 02/09/24 06/28/24 Rx mL) subcutaneous pen (Doraar William U-100 Insulin) lancets 33 gauge #200 ea 05/22/24 06/28/24 Rx lisinopril 40 mg tablet See Rx Instructions .Route 05/29/24 06/28/24 Rx .COMPLEX #90 tabs metoprolol tartrate 25 mg tablet See Rx Instructions .Route 05/29/24 06/28/24 Rx .COMPLEX #180 tabs albuterol sulfate 90 mcg/actuation 2 puff inhalation Q4H PRN 06/19/24 06/28/24 Rx aerosol inhaler (Ventolin HFA) shortness of breath or wheezing #25.5 grams dicyclomine 20 mg tablet 20 mg PO TID #180 tabs 06/19/24 06/28/24 Rx albuterol sulfate 90 mcg/actuation 2 inh inhalation Q4H PRN Wheezing 06/28/24 06/28/24 History aerosol inhaler (Ventolin HFA) latanoprost 0.005 % eye drops 1 drp EACH EYE DAILY 06/28/24 06/28/24 History simvastatin 20 mg tablet 20 mg PO DAILY 06/28/24 06/28/24 History Allergies Allergy/AdvReac Type Severity Reaction Status Date / Time No Known Allergies Allergy Verified 06/19/24 13:08 Vital Signs Vital Signs - 24 hr 07/01/24 14:00 07/01/24 15:19 07/01/24 16:00 Temperature 98.1 F Pulse Rate 69 70 70 Respiratory Rate 18 Blood Pressure 121/50 L Pulse Oximetry 95 Oxygen Delivery 07/01/24 16:00 07/01/24 18:00 07/01/24 19:34 Temperature Pulse Rate 82 84 Respiratory Rate 20 Blood Pressure Pulse Oximetry Oxygen Delivery Room Air 07/01/24 19:53 07/01/24 20:47 07/01/24 20:00 Temperature 98.1 F Pulse Rate 81 85 Respiratory Rate 18 Blood Pressure 105/51 L Pulse Oximetry 94 Oxygen Delivery Room Air 07/02/24 00:04 07/01/24 20:00 07/01/24 22:00 Temperature 98.2 F Pulse Rate 68 81 80 Respiratory Rate 18 Blood Pressure 100/56 L Pulse Oximetry 96 Oxygen Delivery 07/02/24 00:00 07/02/24 00:00 07/02/24 02:00 Temperature Pulse Rate 68 68 Respiratory Rate Blood Pressure Pulse Oximetry Oxygen Delivery Room Air 07/02/24 04:45 07/02/24 04:00 07/02/24 04:00 Temperature 98.6 F Pulse Rate 69 71 Respiratory Rate 18 Blood Pressure 116/49 L Pulse Oximetry 100 Oxygen Delivery Room Air 07/02/24 06:00 07/02/24 08:20 07/02/24 08:36 Temperature Pulse Rate 71 83 Respiratory Rate Blood Pressure Pulse Oximetry 94 Oxygen Delivery Room Air 07/02/24 08:00 07/02/24 08:00 07/02/24 10:00 Temperature 97.6 F Pulse Rate 83 84 64 Respiratory Rate 22 H Blood Pressure 120/51 L Pulse Oximetry 96 Oxygen Delivery Exam Const: General: cooperative, healthy appearing, comfortable, no acute distress and well developed Orientation/consciousness: oriented to person, oriented to place, oriented to time and patient oriented x3 HENMT: Head: normal to inspection, normocephalic and atraumatic Mouth: Yes Normal oral and palatal mucosa present and Yes moist mucous membranes Eyes: General: appearance normal, both eyes and all related structures Conjunctivae: conjunctivae normal Sclera: sclerae normal Pupils: Equal, round and reactive pupils present Neck: Neck: normal visual inspection Chest: Chest palpation & inspection: normal inspection of the chest Resp: Effort & Inspection: able to speak in complete sentences Auscultation: diminished lung sounds Cardio: Jugular venous distension: no JVD Rate: regular rate Rhythm: regular rhythm Heart sounds: S1 normal heart sound present and S2 normal heart sound present GI: Inspection: normal to inspection GI Palp: Yes Soft to palpation, Yes Firmness to palpation present (GI), No Tenderness to palpation present (GI), No Guarding due to palpation present (GI) and Yes No hepatosplenomegaly present Auscultation: normal bowel sounds Rectal Exam: deferred Skin: General skin exam: normal color and no rashes or lesions noted Neuro: General: oriented to person, oriented to place, oriented to time and patient oriented x3 Cranial nerves: Yes Equal, round and reactive pupils present Speech: normal speech Extrem: General: normal to inspection and no clubbing, cyanosis or edema Psych: Appearance: grossly normal and well kempt Affect: normal affect Results Labs 07/02/24 04:12 07/02/24 04:12 Labs: Short CBC 07/02/24 Range/Units 04:12 WBC 6.3 (4.5-10.0) K/mm3 Hgb 8.4 L (12.0-15.0) g/dL Hct 27.0 L (37.0-47.0) % Plt Count 432 H (150-375) k/mm3 BMP 07/02/24 04:12 Sodium 138 Potassium 4.7 Chloride 106 Carbon Dioxide 21 L BUN 51 H Creatinine 2.00 H Glucose 52 L* Calcium 8.0 L Liver Function 07/02/24 Range/Units 04:12 Total Bilirubin 0.2 (0.2-1.3) mg/dL AST 27 (14-36) U/L ALT 10 (6-35) U/L Alkaline Phosphatase 54 (38-126) U/L Albumin 3.1 L (3.5-5.1) g/dL
[2024-07-02] MEDS: metOLazone 5 MG TABLET PO (13:09)
[2024-07-02] MEDS: BUMETANIDE INJ 2.5 MG/10 ML VIAL 2 MG IV PUSH ×2 (13:09→17:48)
[2024-07-02] MEDS: lisinopriL 20 MG TABLET 40 MG PO (13:11)
[2024-07-02 14:58] LABS: Complement Total CH50 >60 U/mL (31-60)
[2024-07-02 15:44] LABS: Mean Platelet Volume 9.3 fl (7.4-10.4); Platelet Count Result 452 k/mm3 (150-375)
[2024-07-02 15:53] LABS: Albumin Level 3.3 g/dL (3.5-5.1)
[2024-07-02 16:14] LABS: INR 1.4; Partial Thromboplastin Time 31.1 Seconds (22.3-36.8)
[2024-07-02 16:38] LABS: Hepatitis B Surface Antigen Negative (Negative)
[2024-07-02 16:44] LABS: HAV RESULT Negative (Negative); Hepatitis B Core IgM Result Negative (Negative)
[2024-07-02 16:56] LABS: Hepatitis C Virus Antibody Negative (Negative)
[2024-07-02] MEDS: HEPARIN SOD/D5W 100 UNITS/ML 25,000 UNITS/250 ML BAG 11 UNITS IV CONT (17:41)
[2024-07-02] MEDS: HEPARIN SODIUM 5,000 UNITS/ML VIAL 4500 UNITS IV PUSH (17:45)
[2024-07-02 18:50] LABS: Glucose Point of Care 163 mg/dl (65-105)
[2024-07-02 20:25] LABS: Glucose Point of Care 157 mg/dl (65-105)
[2024-07-02 23:53] LABS: Basophils Absolute Auto 0.1 K/mm3 (0.0-0.1); Basophils Percent Auto 0.8 % (0.2-1.2); Eosinophils Absolute Auto 0.1 K/mm3 (0-0.3); Eosinophils Percent Auto 2.2 % (0-4.4); Hematocrit 27.1 % (37.0-47.0); Hemoglobin 8.4 g/dL (12.0-15.0); Immature Granulocyte Absolute 0.07 K/mm3 (0.00-0.031); Immature Granulocyte Percent A 1.1 % (0-0.5); Lymphocytes Absolute Auto 1.28 K/mm3 (0.9-3.2); Lymphocytes Percent Auto 20.3 % (18.3-44.2); Mean Corpuscular Hemoglobin 25.5 pg (26-34); Mean Corpuscular Volume 82.1 fl (80-100); Mean Platelet Volume 9.5 fl (7.4-10.4); Monocytes Absolute Auto 0.9 K/mm3 (0.1-0.6); Monocytes Percent Auto 13.5 % (2.6-8.5); Neutrophils Absolute Auto 3.9 K/mm3 (1.3-6.7); Neutrophils Percent Auto 62.1 % (45.5-73.1); Platelet Count Result 413 k/mm3 (150-375); Red Cell Distribution Width 19.9 % (11.5-14.5); White Blood Count 6.3 K/mm3 (4.5-10.0)
[2024-07-03] VITALS (13 sets, daily range): BP systolic 108–127; BP diastolic 47–66; PULSE 66–79; RESP 16–20; TEMP 35.9–36.4; O2SAT 94–100
[2024-07-03 00:07] LABS: Partial Thromboplastin Time 120.7 Seconds (22.3-36.8)
[2024-07-03 06:57] LABS: Basophils Absolute Auto 0.1 K/mm3 (0.0-0.1); Basophils Percent Auto 1.3 % (0.2-1.2); Eosinophils Absolute Auto 0.2 K/mm3 (0-0.3); Eosinophils Percent Auto 2.8 % (0-4.4); Hematocrit 27.7 % (37.0-47.0); Hemoglobin 8.4 g/dL (12.0-15.0); Immature Granulocyte Percent A 1.6 % (0-0.5); Lymphocytes Absolute Auto 1.21 K/mm3 (0.9-3.2); Lymphocytes Percent Auto 19.9 % (18.3-44.2); Mean Corpuscular HGB Conc 30.3 g/dl (32-36); Mean Corpuscular Hemoglobin 25.4 pg (26-34); Mean Corpuscular Volume 83.7 fl (80-100); Mean Platelet Volume 9.4 fl (7.4-10.4); Monocytes Absolute Auto 0.9 K/mm3 (0.1-0.6); Monocytes Percent Auto 14.9 % (2.6-8.5); Neutrophils Absolute Auto 3.6 K/mm3 (1.3-6.7); Neutrophils Percent Auto 59.5 % (45.5-73.1); Platelet Count Result 431 k/mm3 (150-375); Red Blood Count 3.31 M/mm3 (4.2-5.4); Red Cell Distribution Width 19.9 % (11.5-14.5); White Blood Count 6.1 K/mm3 (4.5-10.0)
[2024-07-03 07:06] LABS: Alanine Aminotransferase 9 U/L (6-35); Albumin Level 3.1 g/dL (3.5-5.1); Alkaline Phosphatase 57 U/L (38-126); Anion Gap 8 mmol/L (4-12); Aspartate Amino Transferase 28 U/L (14-36); Bilirubin,Total 0.2 mg/dL (0.2-1.3); Blood Urea Nitrogen 53 mg/dL (7-17); Calcium 7.7 mg/dL (8.4-10.2); Carbon Dioxide 24 mmol/L (22-30); Chloride 106 mmol/L (98-107); Estimated CRCL calculation 19 ml/min; Estimated Glomerular Filt Rate 25; Glucose 99 mg/dL (65-110); Phosphorus 5.8 mg/dL (2.5-4.5); Potassium 4.6 mmol/L (3.4-5.0); Sodium 138 mmol/L (137-145)
[2024-07-03 07:09] LABS: Partial Thromboplastin Time 98.8 Seconds (22.3-36.8)
[2024-07-03] MEDS: FLUTICASONE/SALMETEROL 115-21 MCG INHALER 1 PUFF INHALATION (07:55)
[2024-07-03 08:13] LABS: Glucose Point of Care 98 mg/dl (65-105)
--- NOTE | 2024-07-03 08:29 | PC.NURSE ---
call to US dept concerning planned procedure paracentesis, informed dept that this pt is on a heparin drip currently, dept states to place on hold now and will be on hold for aprox 6 hours, placed on hold at this time
[2024-07-03] MEDS: BUMETANIDE INJ 2.5 MG/10 ML VIAL 2 MG IV PUSH ×2 (09:08→17:25)
[2024-07-03] MEDS: lisinopriL 20 MG TABLET 40 MG PO (09:09)
[2024-07-03] MEDS: ISOSORBIDE MONONITRATE 60 MG TAB.ER.24H PO ×2 (09:09→17:25)
[2024-07-03] MEDS: METOPROLOL TARTRATE 25 MG TABLET PO ×2 (09:09→20:19)
[2024-07-03] MEDS: metOLazone 5 MG TABLET PO (09:09)
[2024-07-03] MEDS: LATANOPROST 0.005% OP SOLN 2.5 ML BTL 1 DROP EACH EYE (09:10)
[2024-07-03] MEDS: SIMVASTATIN 20 MG TABLET PO (09:13)
[2024-07-03 11:46] LABS: Glucose Point of Care 92 mg/dl (65-105)
--- NOTE | 2024-07-03 11:54 | P.PNNP_ITS ---
Progress Note: A&P Assessment and Plan (1) Acute kidney injury: Code(s): N17.9 - Acute kidney failure, unspecified Status: Acute Assessment and Plan: The patient has acute kidney injury. Her creatinine was normal in 2022 at 0.5. renal ultrasound shows unremarkable kidneys, collapsed bladder, and probable cirrhotic liver. 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 The patient is on Eliquis 2.5 b.i.d.. Repeat the Doppler in a few days? increase Eliquis? will leave this to hospitalist. Fractional excretion of urea shows pre renal azotemia. Urine protein to 90. total CK is normal. Serology an immunofixation are pending UA shows blood and protein in the urine but she has a Lombardo catheter. The urine is light imani now. Echo shows severe tricuspid regurg and diastolic dysfunction which may be the core issue. Sometimes just removing fluid will improve the TR by shrinking the tricuspid valve ring. Urine output Was very good yesterday. overnight was only 300 but I think not all the urine is being collected. Getting Bumex plus metolazone. I sent a message to Cecy to see if dobutamine might help. sed rate is 75. DNA was normal, and total complement was greater than 60 Otherwise, Serology and immunofixation are all pending (2) Edema: Code(s): R60.9 - Edema, unspecified Status: Acute Assessment and Plan: This is most likely due to the tricuspid regurgitation. amlodipine may contribute not much protein in the urine (3) Essential hypertension: Code(s): I10 - Essential (primary) hypertension Status: Chronic Assessment and Plan: Blood pressure is under good control. off amlodipine (4) Type 2 diabetes mellitus with hyperglycemia: Qualifiers: Diabetes mellitus ocean transportation intermediary insulin use: without [place] [facility] use Qualified Code(s): E11.65 - Type 2 diabetes mellitus with hyperglycemia Code(s): E11.65 - Type 2 diabetes mellitus with hyperglycemia Status: Chronic Assessment and Plan: Management per hospitalists (5) Mixed hyperlipidemia: Code(s): E78.2 - Mixed hyperlipidemia Status: Acute Assessment and Plan: The patient is on simvastatin (6) Atherosclerotic heart disease of [place] coronary artery with other forms of angina pectoris: Code(s): I25.118 - Atherosclerotic heart disease of [place] coronary artery with other forms of angina pectoris Status: Acute Assessment and Plan: She is not having any chest pain (7) Cirrhosis: Qualifiers: Hepatic cirrhosis type: other cirrhosis Qualified Code(s): K74.69 - Other cirrhosis of liver Code(s): K74.60 - Unspecified cirrhosis of liver Status: Acute Assessment and Plan: This showed up on renal ultrasound. The patient does not drink alcohol and never did drink very much. appreciate input by GI Subjective Date/time seen: 07/03/24 11:54 Interval history: patient is alert. Feeling okay. Still has some swelling. Exam Narrative: WDWN in NAD skin no rash head ncat lungs rare crackles at the bases cor reg no rub abd BS+ nontender and soft ext 1 to 2+ bilateral edema. Objective Data Vital Signs Vital Signs: Vital Signs - 24 hr 07/02/24 12:00 07/02/24 12:00 07/02/24 16:00 Temperature 98.3 F Pulse Rate 80 64 88 Respiratory Rate 22 H Blood Pressure 113/58 L Pulse Oximetry 97 Oxygen Delivery 07/02/24 15:03 07/02/24 20:18 07/02/24 20:30 Temperature 97.5 F L Pulse Rate 93 80 Respiratory Rate 17 Blood Pressure 108/53 L Pulse Oximetry 91 94 Oxygen Delivery Room Air 07/02/24 20:45 07/02/24 20:00 07/02/24 20:00 Temperature 97.7 F Pulse Rate 80 92 Respiratory Rate 28 H Blood Pressure 108/50 L Pulse Oximetry 95 Oxygen Delivery Room Air 07/03/24 00:00 07/03/24 04:00 07/03/24 05:29 Temperature 97.2 F L Pulse Rate 69 66 66 Respiratory Rate 16 Blood Pressure 112/47 L Pulse Oximetry 100 Oxygen Delivery 07/03/24 09:07 07/03/24 09:09 07/03/24 08:15 Temperature Pulse Rate 68 68 Respiratory Rate Blood Pressure 116/51 L Pulse Oximetry Oxygen Delivery Room Air 07/03/24 08:00 Temperature Pulse Rate 67 Respiratory Rate Blood Pressure Pulse Oximetry Oxygen Delivery Intake/Output Intake/Output: Intake & Output 06/30/24 07/01/24 07/02/24 07/03/24 23:59 23:59 23:59 23:59 Intake Total 1180 1040 600 155.4 Output Total 845 318 0720 300 Balance 830 465 -1425 -144.6 Meds/Results Medications: Active Medications Generic Name Dose Route Start Last Admin Trade Name Freq PRN Reason Stop Dose Admin Albuterol 2 puff 06/28/24 23:21 07/02/24 08:20 Albuterol Sulfate (*Sp) Aerosol 1 Puff INHALATION 2 puff Q4HRT PRN Administration Wheezing Aspirin 81 mg 06/30/24 09:00 07/03/24 09:09 Aspirin 81 Mg Enteric Tablet PO Not Given QAM SALINA Bumetanide 2 mg 07/02/24 12:00 07/03/24 09:08 Bumetanide Inj 2.5 Mg/10 Ml Vial IV PUSH 2 mg BID SALINA Administration Dextrose 12.5 gm 06/28/24 15:27 Dextrose 50% 25 Gm/50 Ml Syringe IV PUSH PRN PRN Hypoglycemia Protocol Dicyclomine HCl 20 mg 06/29/24 09:00 07/03/24 09:09 Dicyclomine Hcl 10 Mg Capsule PO Not Given TID SALINA Glucagon 1 mg 06/28/24 15:27 Glucagon For Inj 1 Mg Vial IM PRN PRN Hypoglycemia Protocol Glucose 15 gm 06/28/24 15:27 07/02/24 05:19 Glucose Oral Gel 15 Gm Of Glucse In 37.5 Gm Tube PO 15 gm PRN PRN Administration Hypoglycemia Protocol Heparin Sodium (Porcine) 4,500 units 07/02/24 16:52 Heparin Sodium 5,000 Units/Ml Vial IV PUSH PRN PRN aPTT less than 55 seconds Heparin Sodium (Porcine) 2,500 units 07/02/24 16:52 Heparin Sodium 5,000 Units/Ml Vial IV PUSH PRN PRN aPTT 55 - 70 seconds Dextrose 1,000 mls @ 100 mls/hr 06/28/24 15:27 Dextrose 5% 1,000 Ml IVPB PRN PRN Hypoglycemia Protocol Heparin Sodium/Dextrose 25,000 units in 250 mls @ 0 mls/hr 07/02/24 16:55 07/03/24 08:31 Heparin Sodium/D5w 100 Units/Ml IV CONT 0 units/hr .Q0M SALINA 0 mls/hr Titration Protocol 0 UNITS/HR Insulin Aspart 3 - 6 units 06/28/24 17:00 07/03/24 08:30 Insulin Aspart (*Bkc) 100 Units/Ml SUB-Q Not Given TIDWM [facility] Protocol Insulin Glargine 20 units 06/29/24 21:00 07/02/24 20:21 Insulin Glargine (*Bkc) 100 Units/Ml SUB-Q Not Given HS SALINA Isosorbide Mononitrate 60 mg 06/29/24 17:00 07/03/24 09:09 Isosorbide Mononitrate 60 Mg Tab.Er.24h PO 60 mg BID SALINA Administration Latanoprost 1 drop 06/29/24 09:00 07/03/24 09:10 Latanoprost 0.005% Op Soln 2.5 Ml Btl EACH EYE 1 drop DAILY SALINA Administration Lisinopril 40 mg 06/29/24 09:00 07/03/24 09:09 Lisinopril 20 Mg Tablet PO 40 mg QAM SALINA Administration Metolazone 5 mg 07/02/24 09:45 07/03/24 09:09 Metolazone 5 Mg Tablet PO 5 mg QAM SALINA Administration Metoprolol Tartrate 25 mg 06/28/24 23:40 07/03/24 09:09 Metoprolol Tartrate 25 Mg Tablet PO 25 mg Q12HR SALINA Administration Fluticasone/Salmeterol 1 puff 06/29/24 08:00 07/03/24 07:55 Fluticasone/Salmeterol 115-21 Mcg Inhaler 1 Puff INHALATION 1 puff Q12HRT SALINA Administration Simvastatin 20 mg 06/29/24 09:00 07/03/24 09:13 Simvastatin 20 Mg Tablet PO 20 mg DAILY SALINA Administration Radiology Results: ITS Impressions Abdomen X-Ray 06/29/24 13:07 IMPRESSION: 1: No acute abdominal abnormality identified. Venous Doppler Study 07/01/24 10:20 Impression: Probable thrombosis of the bilateral posterior tibial and peroneal veins in the calves. Renal Ultrasound 07/01/24 10:21 Impression: Unremarkable kidneys. Collapsed urinary bladder limits evaluation. Probable cirrhotic liver with moderate to large abdominal pelvic ascites. Pulmonary Perfusion Imaging 07/02/24 14:33 IMPRESSION: 1. Intermediate probability for pulmonary embolism. Chest X-Ray 07/02/24 15:05 IMPRESSION: 1. Mild atelectasis in left lower lung zone. Labs Labs: Laboratory Results - last 24 hr 07/01/24 07/02/24 07/02/24 11:26 11:57 15:35 WBC RBC Hgb Hct MCV MCH MCHC RDW Plt Count MPV Immature Gran % (Auto) Neut % (Auto) Lymph % (Auto) [place] % (Auto) Eos % (Auto) Baso % (Auto) Lymph # (Auto) [place] # (Auto) Eos # (Auto) Baso # (Auto) Abs Immat Gran (auto) Absolute Neuts (auto) Absolute Nucleated RBC Nucleated RBC % PT 17.0 H INR 1.4 APTT 31.1 Sodium Potassium Chloride Carbon Dioxide Anion Gap BUN Creatinine Estim Creat Clear Calc Estimated GFR Glucose POC Capillary Glucose 100 Calcium Phosphorus Total Bilirubin AST ALT Alkaline Phosphatase Total Protein Albumin Anti-DNA Antibody <1 Tot Complement (CH50) >60 H Hepatitis A IgM Ab Negative Hep Bs Antigen Negative Hep B Core IgM Ab Negative Hepatitis C Ab Screen Negative 07/02/24 07/02/24 07/02/24 15:36 18:46 20:21 WBC RBC Hgb Hct MCV MCH MCHC RDW Plt Count 452 H MPV 9.3 Immature Gran % (Auto) Neut % (Auto) Lymph % (Auto) [place] % (Auto) Eos % (Auto) Baso % (Auto) Lymph # (Auto) [place] # (Auto) Eos # (Auto) Baso # (Auto) Abs Immat Gran (auto) Absolute Neuts (auto) Absolute Nucleated RBC Nucleated RBC % PT INR APTT Sodium Potassium Chloride Carbon Dioxide Anion Gap BUN Creatinine Estim Creat Clear Calc Estimated GFR Glucose POC Capillary Glucose 163 H 157 H Calcium Phosphorus Total Bilirubin AST ALT Alkaline Phosphatase Total Protein Albumin 3.3 L Anti-DNA Antibody Tot Complement (CH50) Hepatitis A IgM Ab Hep Bs Antigen Hep B Core IgM Ab Hepatitis C Ab Screen 07/02/24 07/03/24 07/03/24 23:48 06:48 08:08 WBC 6.3 6.1 RBC 3.30 L 3.31 L Hgb 8.4 L 8.4 L Hct 27.1 L 27.7 L MCV 82.1 83.7 MCH 25.5 L 25.4 L MCHC 31.0 L 30.3 L RDW 19.9 H 19.9 H Plt Count 413 H 431 H MPV 9.5 9.4 Immature Gran % (Auto) 1.1 H 1.6 H Neut % (Auto) 62.1 59.5 Lymph % (Auto) 20.3 19.9 [place] % (Auto) 13.5 H 14.9 H Eos % (Auto) 2.2 2.8 Baso % (Auto) 0.8 1.3 H Lymph # (Auto) 1.28 1.21 [place] # (Auto) 0.9 H 0.9 H Eos # (Auto) 0.1 0.2 Baso # (Auto) 0.1 0.1 Abs Immat Gran (auto) 0.07 H 0.10 H Absolute Neuts (auto) 3.9 3.6 Absolute Nucleated RBC 0.000 0.000 Nucleated RBC % 0.0 0.0 PT INR APTT 120.7 H 98.8 H Sodium 138 Potassium 4.6 Chloride 106 Carbon Dioxide 24 Anion Gap 8 BUN 53 H Creatinine 1.90 H Estim Creat Clear Calc 19 Estimated GFR 25 L Glucose 99 POC Capillary Glucose 98 Calcium 7.7 L Phosphorus 5.8 H Total Bilirubin 0.2 AST 28 ALT 9 Alkaline Phosphatase 57 Total Protein 6.0 L Albumin 3.1 L Anti-DNA Antibody Tot Complement (CH50) Hepatitis A IgM Ab Hep Bs Antigen Hep B Core IgM Ab Hepatitis C Ab Screen 07/03/24 11:38 WBC RBC Hgb Hct MCV MCH MCHC RDW Plt Count MPV Immature Gran % (Auto) Neut % (Auto) Lymph % (Auto) [place] % (Auto) Eos % (Auto) Baso % (Auto) Lymph # (Auto) [place] # (Auto) Eos # (Auto) Baso # (Auto) Abs Immat Gran (auto) Absolute Neuts (auto) Absolute Nucleated RBC Nucleated RBC % PT INR APTT Sodium Potassium Chloride Carbon Dioxide Anion Gap BUN Creatinine Estim Creat Clear Calc Estimated GFR Glucose POC Capillary Glucose 92 Calcium Phosphorus Total Bilirubin AST ALT Alkaline Phosphatase Total Protein Albumin Anti-DNA Antibody Tot Complement (CH50) Hepatitis A IgM Ab Hep Bs Antigen Hep B Core IgM Ab Hepatitis C Ab Screen
--- NOTE | 2024-07-03 12:51 | P.PNCA_ITS ---
Progress Note: A&P Assessment and Plan (1) Acute exacerbation of CHF (congestive heart failure): Code(s): I50.9 - Heart failure, unspecified Status: Acute Assessment and Plan: She has grade II diastolic dysfunction as well as moderate pHTN with PASP 62 mmHg, severe TR. Diuresing with Bumex and Metolazone which should be continued for now. Had good urine output yesterday. Amlodipine discontinued, which could have contributed to lower extremity swelling. In addition, found to have probable thrombosis of the bilateral posterior tibial and peroneal veins in the calves, which is certainly likely contributing to her lower extremity edema. Therefore, her lower extremity edema may not all be caused by CHF. Since patient diuresed well yesterday, renal function with slightly improved SCr compare to past two days, will continue with diuresis for now. (2) Atrial fibrillation: Code(s): I48.91 - Unspecified atrial fibrillation Status: Acute Assessment and Plan: Rate controlled. Was on Eliquis 2.5mg BID (given age and renal function), however, currently on Heparin drip due to anticipated paracentesis. Resume Eliquis prior to discharge. If renal function improves to SCr <1.5, then will need to increase dose to 5mg BID. (3) Acute kidney injury: Code(s): N17.9 - Acute kidney failure, unspecified Status: Acute Assessment and Plan: Nephrology is following (4) DVT (deep venous thrombosis): Code(s): I82.409 - Acute embolism and thrombosis of unspecified deep veins of unspecified lower extremity Status: Acute Assessment and Plan: Found to have probable thrombosis of the bilateral posterior tibial and peroneal veins in the calves. Continue anticoagulation. (5) Ascites: Qualifiers: Ascites type: other type Qualified Code(s): R18.8 - Other ascites Code(s): R18.8 - Other ascites Status: Acute Assessment and Plan: Diagnostic paracentesis planned per GI. Subjective Date/time seen: 07/03/24 12:51 Interval history: Cardiology follow up for CHF, atrial fibrillation Date of service 07/02/2024: Feels her shortness of breath is slightly improved today. Still has edema. Date of service 07/03: Still with lower extremity edema. Review of Systems Review of Systems: All systems reviewed & are unremarkable except as noted in HPI and below (HPI) Exam Const: General: comfortable and no acute distress HENMT: Mouth: Yes moist mucous membranes Eyes: General: appearance normal, both eyes and all related structures Sclera: sclerae normal Resp: Effort & Inspection: normal respiratory effort Cardio: Rate: regular rate Rhythm: abnormal rhythm irregularly irregular Other: Bilateral lower extremity edema Skin: General skin exam: normal color Psych: Mental Status: mental status grossly normal Affect: normal affect Objective Data Vital Signs Vital Signs: Vital Signs - 24 hr 07/02/24 16:00 07/02/24 15:03 07/02/24 20:18 Temperature 36.4 C L Pulse Rate 88 93 80 Respiratory Rate 17 Blood Pressure 108/53 L Pulse Oximetry 91 Oxygen Delivery 07/02/24 20:30 07/02/24 20:45 07/02/24 20:00 Temperature 36.5 C Pulse Rate 80 Respiratory Rate 28 H Blood Pressure 108/50 L Pulse Oximetry 94 95 Oxygen Delivery Room Air Room Air 07/02/24 20:00 07/03/24 00:00 07/03/24 04:00 Temperature Pulse Rate 92 69 66 Respiratory Rate Blood Pressure Pulse Oximetry Oxygen Delivery 07/03/24 05:29 07/03/24 09:07 07/03/24 09:09 Temperature 36.2 C L Pulse Rate 66 68 68 Respiratory Rate 16 Blood Pressure 112/47 L 116/51 L Pulse Oximetry 100 Oxygen Delivery 07/03/24 08:15 07/03/24 08:00 Temperature Pulse Rate 67 Respiratory Rate Blood Pressure Pulse Oximetry Oxygen Delivery Room Air Intake/Output Intake/Output: Intake & Output 06/30/24 07/01/24 07/02/24 07/03/24 23:59 23:59 23:59 23:59 Intake Total 1180 1040 600 155.4 Output Total 346 289 1977 300 Balance 830 238 -1425 -144.6 Meds/Results Medications: Active Medications Generic Name Dose Route Start Last Admin Trade Name Freq PRN Reason Stop Dose Admin Albuterol 2 puff 06/28/24 23:21 07/02/24 08:20 Albuterol Sulfate (*Sp) Aerosol 1 Puff INHALATION 2 puff Q4HRT PRN Administration Wheezing Aspirin 81 mg 06/30/24 09:00 07/03/24 09:09 Aspirin 81 Mg Enteric Tablet PO Not Given QAM SALINA Bumetanide 2 mg 07/02/24 12:00 07/03/24 09:08 Bumetanide Inj 2.5 Mg/10 Ml Vial IV PUSH 2 mg BID SALINA Administration Dextrose 12.5 gm 06/28/24 15:27 Dextrose 50% 25 Gm/50 Ml Syringe IV PUSH PRN PRN Hypoglycemia Protocol Dicyclomine HCl 20 mg 06/29/24 09:00 07/03/24 09:09 Dicyclomine Hcl 10 Mg Capsule PO Not Given TID SALINA Glucagon 1 mg 06/28/24 15:27 Glucagon For Inj 1 Mg Vial IM PRN PRN Hypoglycemia Protocol Glucose 15 gm 06/28/24 15:27 07/02/24 05:19 Glucose Oral Gel 15 Gm Of Glucse In 37.5 Gm Tube PO 15 gm PRN PRN Administration Hypoglycemia Protocol Heparin Sodium (Porcine) 4,500 units 07/02/24 16:52 Heparin Sodium 5,000 Units/Ml Vial IV PUSH PRN PRN aPTT less than 55 seconds Heparin Sodium (Porcine) 2,500 units 07/02/24 16:52 Heparin Sodium 5,000 Units/Ml Vial IV PUSH PRN PRN aPTT 55 - 70 seconds Dextrose 1,000 mls @ 100 mls/hr 06/28/24 15:27 Dextrose 5% 1,000 Ml IVPB PRN PRN Hypoglycemia Protocol Heparin Sodium/Dextrose 25,000 units in 250 mls @ 0 mls/hr 07/02/24 16:55 07/03/24 08:31 Heparin Sodium/D5w 100 Units/Ml IV CONT 0 units/hr .Q0M SALINA 0 mls/hr Titration Protocol 0 UNITS/HR Insulin Aspart 3 - 6 units 06/28/24 17:00 07/03/24 11:56 Insulin Aspart (*Bkc) 100 Units/Ml SUB-Q Not Given TIDWM [facility] Protocol Insulin Glargine 20 units 06/29/24 21:00 07/02/24 20:21 Insulin Glargine (*Bkc) 100 Units/Ml SUB-Q Not Given HS [facility] Isosorbide Mononitrate 60 mg 06/29/24 17:00 07/03/24 09:09 Isosorbide Mononitrate 60 Mg Tab.Er.24h PO 60 mg BID SALINA Administration Latanoprost 1 drop 06/29/24 09:00 07/03/24 09:10 Latanoprost 0.005% Op Soln 2.5 Ml Btl EACH EYE 1 drop DAILY SALINA Administration Lisinopril 40 mg 06/29/24 09:00 07/03/24 09:09 Lisinopril 20 Mg Tablet PO 40 mg QAM SALINA Administration Metolazone 5 mg 07/02/24 09:45 07/03/24 09:09 Metolazone 5 Mg Tablet PO 5 mg QAM SALINA Administration Metoprolol Tartrate 25 mg 06/28/24 23:40 07/03/24 09:09 Metoprolol Tartrate 25 Mg Tablet PO 25 mg Q12HR SALINA Administration Fluticasone/Salmeterol 1 puff 06/29/24 08:00 07/03/24 07:55 Fluticasone/Salmeterol 115-21 Mcg Inhaler 1 Puff INHALATION 1 puff Q12HRT SALINA Administration Simvastatin 20 mg 06/29/24 09:00 07/03/24 09:13 Simvastatin 20 Mg Tablet PO 20 mg DAILY SALINA Administration Radiology Results: ITS Impressions Abdomen X-Ray 06/29/24 13:07 IMPRESSION: 1: No acute abdominal abnormality identified. Venous Doppler Study 07/01/24 10:20 Impression: Probable thrombosis of the bilateral posterior tibial and peroneal veins in the calves. Renal Ultrasound 07/01/24 10:21 Impression: Unremarkable kidneys. Collapsed urinary bladder limits evaluation. Probable cirrhotic liver with moderate to large abdominal pelvic ascites. Pulmonary Perfusion Imaging 07/02/24 14:33 IMPRESSION: 1. Intermediate probability for pulmonary embolism. Chest X-Ray 07/02/24 15:05 IMPRESSION: 1. Mild atelectasis in left lower lung zone. Labs Labs: Laboratory Results - last 24 hr 07/01/24 07/02/24 07/02/24 11:26 15:35 15:36 WBC RBC Hgb Hct MCV MCH MCHC RDW Plt Count 452 H MPV 9.3 Immature Gran % (Auto) Neut % (Auto) Lymph % (Auto) [place] % (Auto) Eos % (Auto) Baso % (Auto) Lymph # (Auto) [place] # (Auto) Eos # (Auto) Baso # (Auto) Abs Immat Gran (auto) Absolute Neuts (auto) Absolute Nucleated RBC Nucleated RBC % PT 17.0 H INR 1.4 APTT 31.1 Sodium Potassium Chloride Carbon Dioxide Anion Gap BUN Creatinine Estim Creat Clear Calc Estimated GFR Glucose POC Capillary Glucose Calcium Phosphorus Total Bilirubin AST ALT Alkaline Phosphatase Total Protein Albumin 3.3 L Anti-DNA Antibody <1 Tot Complement (CH50) >60 H Hepatitis A IgM Ab Negative Hep Bs Antigen Negative Hep B Core IgM Ab Negative Hepatitis C Ab Screen Negative 07/02/24 07/02/24 07/02/24 18:46 20:21 23:48 WBC 6.3 RBC 3.30 L Hgb 8.4 L Hct 27.1 L MCV 82.1 MCH 25.5 L MCHC 31.0 L RDW 19.9 H Plt Count 413 H MPV 9.5 Immature Gran % (Auto) 1.1 H Neut % (Auto) 62.1 Lymph % (Auto) 20.3 [place] % (Auto) 13.5 H Eos % (Auto) 2.2 Baso % (Auto) 0.8 Lymph # (Auto) 1.28 [place] # (Auto) 0.9 H Eos # (Auto) 0.1 Baso # (Auto) 0.1 Abs Immat Gran (auto) 0.07 H Absolute Neuts (auto) 3.9 Absolute Nucleated RBC 0.000 Nucleated RBC % 0.0 PT INR APTT 120.7 H Sodium Potassium Chloride Carbon Dioxide Anion Gap BUN Creatinine Estim Creat Clear Calc Estimated GFR Glucose POC Capillary Glucose 163 H 157 H Calcium Phosphorus Total Bilirubin AST ALT Alkaline Phosphatase Total Protein Albumin Anti-DNA Antibody Tot Complement (CH50) Hepatitis A IgM Ab Hep Bs Antigen Hep B Core IgM Ab Hepatitis C Ab Screen 07/03/24 07/03/24 07/03/24 06:48 08:08 11:38 WBC 6.1 RBC 3.31 L Hgb 8.4 L Hct 27.7 L MCV 83.7 MCH 25.4 L MCHC 30.3 L RDW 19.9 H Plt Count 431 H MPV 9.4 Immature Gran % (Auto) 1.6 H Neut % (Auto) 59.5 Lymph % (Auto) 19.9 [place] % (Auto) 14.9 H Eos % (Auto) 2.8 Baso % (Auto) 1.3 H Lymph # (Auto) 1.21 [place] # (Auto) 0.9 H Eos # (Auto) 0.2 Baso # (Auto) 0.1 Abs Immat Gran (auto) 0.10 H Absolute Neuts (auto) 3.6 Absolute Nucleated RBC 0.000 Nucleated RBC % 0.0 PT INR APTT 98.8 H Sodium 138 Potassium 4.6 Chloride 106 Carbon Dioxide 24 Anion Gap 8 BUN 53 H Creatinine 1.90 H Estim Creat Clear Calc 19 Estimated GFR 25 L Glucose 99 POC Capillary Glucose 98 92 Calcium 7.7 L Phosphorus 5.8 H Total Bilirubin 0.2 AST 28 ALT 9 Alkaline Phosphatase 57 Total Protein 6.0 L Albumin 3.1 L Anti-DNA Antibody Tot Complement (CH50) Hepatitis A IgM Ab Hep Bs Antigen Hep B Core IgM Ab Hepatitis C Ab Screen
[2024-07-03 13:40] LABS: INR 1.2; Prothrombin Time 15.9 Seconds (11.1-14.7)
[2024-07-03 13:41] LABS: Partial Thromboplastin Time 28.1 Seconds (22.3-36.8)
--- NOTE | 2024-07-03 14:41 | P.PNIM_ITS ---
Progress Note: A&P Assessment and Plan (1) CHF (congestive heart failure): Qualifiers: Heart failure type: unspecified Heart failure chronicity: acute Qualified Code(s): I50.9 - Heart failure, unspecified Code(s): I50.9 - Heart failure, unspecified Status: Suspected Assessment and Plan: * New onset * Pro BNP >60105 initially * Echo showing normal left ventricular systolic function with an estimated EF of 60-65%, grade II diastolic dysfunction, moderate pulmonary hypertension with an estimated pulmonary arterial systolic pressure of 62mmHg, no right heart strain * Cardiology following * Last 24 hours urine output has picked up and she had a total of 1750ml output. * Continue Bumex and Metolazone * consulted following * Monitor I and O and obtain daily weights * Cardiac diet * Continue continuous telemetry (2) Elevated troponin: Code(s): R79.89 - Other specified abnormal findings of blood chemistry Status: Acute Assessment and Plan: * likely demand ischemia * Troponin 0.131 -> 0.122 -> 0.116, flat. No active chest pain. * Awaiting echo results * Cardiology following * Continue cardiac monitoring * Continue diuresis (3) Type 2 diabetes mellitus with kidney complication: Qualifiers: Diabetes mellitus residential insulin use: without residential use Diabetes mellitus complication detail: with chronic kidney disease Chronic kidney disease stage: unspecified stage Qualified Code(s): E11.22 - Type 2 diabetes mellitus with diabetic chronic kidney disease Code(s): E11.29 - Type 2 diabetes mellitus with other diabetic kidney complication Status: Chronic Assessment and Plan: * Blood sugars ranging 117-177 * Hgb A1C 5.9 * Accu checks AC/HS * Moderate dose SSI ordered * hypoglycemic protocol in place * Diabetic diet ordered * Hold metformin * Continue Lantus 20 units @ HS (4) CKD (chronic kidney disease): Qualifiers: Chronic kidney disease stage: unspecified stage Qualified Code(s): N18.9 - Chronic kidney disease, unspecified Code(s): N18.9 - Chronic kidney disease, unspecified Status: Chronic Assessment and Plan: * Creatinine 1.9 today * Continue Diuresis with Bumex and Metolazone * following * Continue to trend (5) Essential hypertension: Code(s): I10 - Essential (primary) hypertension Status: Chronic Assessment and Plan: * Blood pressure ranging 111/57-146/95 * Continue Amlodipine, Lisinopril, Metoprolol (6) Serum potassium elevated: Code(s): E87.5 - Hyperkalemia Status: Acute Assessment and Plan: * Potassium 4.6 * Continue to trend (7) Ascites: Qualifiers: Ascites type: other type Qualified Code(s): R18.8 - Other ascites Code(s): R18.8 - Other ascites Status: Acute Assessment and Plan: * Renal US shown cirrhosis of the liver with moderate to large abdominal pelvic ascites * Will get US guided paracentesis today * NPO after midnight * Bili and liver enzymes are WNL * Liver labs pending. * No history of alcohol abuse * Hepatitis panel negative (8) DVT (deep venous thrombosis): Code(s): I82.409 - Acute embolism and thrombosis of unspecified deep veins of unspecified lower extremity Status: Acute Assessment and Plan: * Venous doppler showing probable thrombosis of the bilateral posterior tibial and peroneal veins in the calves * VQ scan showing intermediate probability of PE * Eliquis started, Heparin infusion discontinued (9) Pulmonary embolus: Code(s): I26.99 - Other pulmonary embolism without acute cor pulmonale Status: Acute Assessment and Plan: * VQ scan showing intermediate probability of PE * Eliquis started Time Spent With Patient Time with patient: Greater than 35 minutes Subjective Date/time seen: 07/03/24 14:41 Interval history: Interval History: This is an 84 year old female who presented to the hospital on 06/28/24 with complaints of shortness of breath. Work up in the hospital included a chest x- ray which shown a right small pleural effusion, cardiomegaly. Abdomen x-ray which was negative. Labs [place] >34791, elevated troponin 0.122>0.116, K+ 5.9, Bicarb 21, Creatinine 1.30, eGFR 39. UA shown a cloudy appearance, 1+ urine protein, 1+ urine ketones, 2+ urine blood, 2+ urobilinogen, trace leukocytes, 3-5 urine RBC, 2+ urine bacteria. Echo was obtained with results pending. Patient given IV Lasix for diuresis. Cardiology consulted for new onset CHF. Subjective: Patient denies any new complaints. Awaiting paracentesis today. Labs and imaging reviewed. Review of Systems Review of Systems: All systems reviewed & are unremarkable except as noted in HPI and below Constitutional: Constitutional: Reports as per HPI and Reports no additional constitutional complaints Eyes: Eyes: Reports as per HPI and Reports no additional eye complaints ENT: Reports system reviewed and no additional complaints, except as documented and Reports as per HPI Cardiovascular: Cardiovascular: Reports as per HPI and Reports no additional cardiovascular complaints Respiratory: Respiratory: Reports as per HPI and Reports no additional respiratory complaints Gastrointestinal: Gastrointestinal: Reports as per HPI and Reports no additional gastrointestinal complaints Genitourinary: Genitourinary: Reports no additional female genitourinary complaints and Reports as per HPI Musculoskeletal: Musculoskeletal: Reports no additional musculoskeletal complaints and Reports as per HPI Integumentary/Breasts: Skin/Breast: Reports system reviewed and no additional complaints, except as docu and Reports as per HPI Neurologic: Reports system reviewed and no additional complaints, except as documented and Reports as per HPI Psychiatric: Psychiatric: Reports no additional psychiatric complaints and Reports as per HPI Exam Narrative: General: In no acute distress Cardiac: Normal S1 and S2. No murmur, gallops or friction rubs, peripheral pulses intact. Respiratory: Currently on room air, crackles noted to bilateral bases Gastrointestinal: rounded, non-tender, hypoactive bowel sounds. Ascites, slightly distended : voiding without difficulty. Extremities: moves all extremities well,bilateral lower extremity pitting edema 3+ Neuro: Alert and oriented x4 Objective Data Vital Signs Vital Signs: Vital Signs - 24 hr 07/02/24 16:00 07/02/24 15:03 07/02/24 20:18 Temperature 97.5 F L Pulse Rate 88 93 80 Respiratory Rate 17 Blood Pressure 108/53 L Pulse Oximetry 91 Oxygen Delivery 07/02/24 20:30 07/02/24 20:45 07/02/24 20:00 Temperature 97.7 F Pulse Rate 80 Respiratory Rate 28 H Blood Pressure 108/50 L Pulse Oximetry 94 95 Oxygen Delivery Room Air Room Air 07/02/24 20:00 07/03/24 00:00 07/03/24 04:00 Temperature Pulse Rate 92 69 66 Respiratory Rate Blood Pressure Pulse Oximetry Oxygen Delivery 07/03/24 05:29 07/03/24 09:07 07/03/24 09:09 Temperature 97.2 F L Pulse Rate 66 68 68 Respiratory Rate 16 Blood Pressure 112/47 L 116/51 L Pulse Oximetry 100 Oxygen Delivery 07/03/24 08:15 07/03/24 08:00 07/03/24 13:57 Temperature 96.7 F L Pulse Rate 67 66 Respiratory Rate 18 Blood Pressure 127/58 L Pulse Oximetry 100 Oxygen Delivery Room Air Intake/Output Intake/Output: Intake & Output 06/30/24 07/01/24 07/02/24 07/03/24 23:59 23:59 23:59 23:59 Intake Total 1180 1040 600 155.4 Output Total 521 351 6259 300 Balance 830 465 -1425 -144.6 Meds/Results Medications: Active Medications Generic Name Dose Route Start Last Admin Trade Name Freq PRN Reason Stop Dose Admin Albuterol 2 puff 06/28/24 23:21 07/02/24 08:20 Albuterol Sulfate (*Sp) Aerosol 1 Puff INHALATION 2 puff Q4HRT PRN Administration Wheezing Aspirin 81 mg 06/30/24 09:00 07/03/24 09:09 Aspirin 81 Mg Enteric Tablet PO Not Given QAM SALINA Bumetanide 2 mg 07/02/24 12:00 07/03/24 09:08 Bumetanide Inj 2.5 Mg/10 Ml Vial IV PUSH 2 mg BID SALINA Administration Dextrose 12.5 gm 06/28/24 15:27 Dextrose 50% 25 Gm/50 Ml Syringe IV PUSH PRN PRN Hypoglycemia Protocol Dicyclomine HCl 20 mg 06/29/24 09:00 07/03/24 13:43 Dicyclomine Hcl 10 Mg Capsule PO Not Given TID SALINA Glucagon 1 mg 06/28/24 15:27 Glucagon For Inj 1 Mg Vial IM PRN PRN Hypoglycemia Protocol Glucose 15 gm 06/28/24 15:27 07/02/24 05:19 Glucose Oral Gel 15 Gm Of Glucse In 37.5 Gm Tube PO 15 gm PRN PRN Administration Hypoglycemia Protocol Heparin Sodium (Porcine) 4,500 units 07/02/24 16:52 Heparin Sodium 5,000 Units/Ml Vial IV PUSH PRN PRN aPTT less than 55 seconds Heparin Sodium (Porcine) 2,500 units 07/02/24 16:52 Heparin Sodium 5,000 Units/Ml Vial IV PUSH PRN PRN aPTT 55 - 70 seconds Dextrose 1,000 mls @ 100 mls/hr 06/28/24 15:27 Dextrose 5% 1,000 Ml IVPB PRN PRN Hypoglycemia Protocol Heparin Sodium/Dextrose 25,000 units in 250 mls @ 0 mls/hr 07/02/24 16:55 07/03/24 08:31 Heparin Sodium/D5w 100 Units/Ml IV CONT 0 units/hr .Q0M SALINA 0 mls/hr Titration Protocol 0 UNITS/HR Insulin Aspart 3 - 6 units 06/28/24 17:00 07/03/24 11:56 Insulin Aspart (*Bkc) 100 Units/Ml SUB-Q Not Given TIDWM SALINA Protocol Insulin Glargine 20 units 06/29/24 21:00 07/02/24 20:21 Insulin Glargine (*Bkc) 100 Units/Ml SUB-Q Not Given HS SALINA Isosorbide Mononitrate 60 mg 06/29/24 17:00 07/03/24 09:09 Isosorbide Mononitrate 60 Mg Tab.Er.24h PO 60 mg BID SALINA Administration Latanoprost 1 drop 06/29/24 09:00 07/03/24 09:10 Latanoprost 0.005% Op Soln 2.5 Ml Btl EACH EYE 1 drop DAILY SALINA Administration Lisinopril 40 mg 06/29/24 09:00 07/03/24 09:09 Lisinopril 20 Mg Tablet PO 40 mg QAM SALINA Administration Metolazone 5 mg 07/02/24 09:45 07/03/24 09:09 Metolazone 5 Mg Tablet PO 5 mg QAM SALINA Administration Metoprolol Tartrate 25 mg 06/28/24 23:40 07/03/24 09:09 Metoprolol Tartrate 25 Mg Tablet PO 25 mg Q12HR SALINA Administration Fluticasone/Salmeterol 1 puff 06/29/24 08:00 07/03/24 07:55 Fluticasone/Salmeterol 115-21 Mcg Inhaler 1 Puff INHALATION 1 puff Q12HRT SALINA Administration Simvastatin 20 mg 06/29/24 09:00 07/03/24 09:13 Simvastatin 20 Mg Tablet PO 20 mg DAILY SALINA Administration Radiology Results: ITS Impressions Abdomen X-Ray 06/29/24 13:07 IMPRESSION: 1: No acute abdominal abnormality identified. Venous Doppler Study 07/01/24 10:20 Impression: Probable thrombosis of the bilateral posterior tibial and peroneal veins in the calves. Renal Ultrasound 07/01/24 10:21 Impression: Unremarkable kidneys. Collapsed urinary bladder limits evaluation. Probable cirrhotic liver with moderate to large abdominal pelvic ascites. Pulmonary Perfusion Imaging 07/02/24 14:33 IMPRESSION: 1. Intermediate probability for pulmonary embolism. Chest X-Ray 07/02/24 15:05 IMPRESSION: 1. Mild atelectasis in left lower lung zone. Labs Labs: Laboratory Results - last 24 hr 07/01/24 07/01/24 07/02/24 11:26 11:40 15:35 WBC RBC Hgb Hct MCV MCH MCHC RDW Plt Count MPV Immature Gran % (Auto) Neut % (Auto) Lymph % (Auto) [place] % (Auto) Eos % (Auto) Baso % (Auto) Lymph # (Auto) [place] # (Auto) Eos # (Auto) Baso # (Auto) Abs Immat Gran (auto) Absolute Neuts (auto) Absolute Nucleated RBC Nucleated RBC % PT 17.0 H INR 1.4 APTT 31.1 Sodium Potassium Chloride Carbon Dioxide Anion Gap BUN Creatinine Estim Creat Clear Calc Estimated GFR Glucose POC Capillary Glucose Calcium Phosphorus Total Bilirubin AST ALT Alkaline Phosphatase Total Protein Albumin Ur KYRA Interpret 24 hr Anti-DNA Antibody <1 Tot Complement (CH50) >60 H Hepatitis A IgM Ab Negative Hep Bs Antigen Negative Hep B Core IgM Ab Negative Hepatitis C Ab Screen Negative 07/02/24 07/02/24 07/02/24 15:36 18:46 20:21 WBC RBC Hgb Hct MCV MCH MCHC RDW Plt Count 452 H MPV 9.3 Immature Gran % (Auto) Neut % (Auto) Lymph % (Auto) [place] % (Auto) Eos % (Auto) Baso % (Auto) Lymph # (Auto) [place] # (Auto) Eos # (Auto) Baso # (Auto) Abs Immat Gran (auto) Absolute Neuts (auto) Absolute Nucleated RBC Nucleated RBC % PT INR APTT Sodium Potassium Chloride Carbon Dioxide Anion Gap BUN Creatinine Estim Creat Clear Calc Estimated GFR Glucose POC Capillary Glucose 163 H 157 H Calcium Phosphorus Total Bilirubin AST ALT Alkaline Phosphatase Total Protein Albumin 3.3 L Ur KYRA Interpret 24 hr Anti-DNA Antibody Tot Complement (CH50) Hepatitis A IgM Ab Hep Bs Antigen Hep B Core IgM Ab Hepatitis C Ab Screen 07/02/24 07/03/24 07/03/24 23:48 06:48 08:08 WBC 6.3 6.1 RBC 3.30 L 3.31 L Hgb 8.4 L 8.4 L Hct 27.1 L 27.7 L MCV 82.1 83.7 MCH 25.5 L 25.4 L MCHC 31.0 L 30.3 L RDW 19.9 H 19.9 H Plt Count 413 H 431 H MPV 9.5 9.4 Immature Gran % (Auto) 1.1 H 1.6 H Neut % (Auto) 62.1 59.5 Lymph % (Auto) 20.3 19.9 [place] % (Auto) 13.5 H 14.9 H Eos % (Auto) 2.2 2.8 Baso % (Auto) 0.8 1.3 H Lymph # (Auto) 1.28 1.21 [place] # (Auto) 0.9 H 0.9 H Eos # (Auto) 0.1 0.2 Baso # (Auto) 0.1 0.1 Abs Immat Gran (auto) 0.07 H 0.10 H Absolute Neuts (auto) 3.9 3.6 Absolute Nucleated RBC 0.000 0.000 Nucleated RBC % 0.0 0.0 PT INR APTT 120.7 H 98.8 H Sodium 138 Potassium 4.6 Chloride 106 Carbon Dioxide 24 Anion Gap 8 BUN 53 H Creatinine 1.90 H Estim Creat Clear Calc 19 Estimated GFR 25 L Glucose 99 POC Capillary Glucose 98 Calcium 7.7 L Phosphorus 5.8 H Total Bilirubin 0.2 AST 28 ALT 9 Alkaline Phosphatase 57 Total Protein 6.0 L Albumin 3.1 L Ur KYRA Interpret 24 hr Anti-DNA Antibody Tot Complement (CH50) Hepatitis A IgM Ab Hep Bs Antigen Hep B Core IgM Ab Hepatitis C Ab Screen 07/03/24 07/03/24 07/03/24 11:38 13:20 13:20 WBC RBC Hgb Hct MCV MCH MCHC RDW Plt Count MPV Immature Gran % (Auto) Neut % (Auto) Lymph % (Auto) [place] % (Auto) Eos % (Auto) Baso % (Auto) Lymph # (Auto) [place] # (Auto) Eos # (Auto) Baso # (Auto) Abs Immat Gran (auto) Absolute Neuts (auto) Absolute Nucleated RBC Nucleated RBC % PT 15.9 H INR 1.2 APTT Cancelled 28.1 Sodium Potassium Chloride Carbon Dioxide Anion Gap BUN Creatinine Estim Creat Clear Calc Estimated GFR Glucose POC Capillary Glucose 92 Calcium Phosphorus Total Bilirubin AST ALT Alkaline Phosphatase Total Protein Albumin Ur KYRA Interpret 24 hr Anti-DNA Antibody Tot Complement (CH50) Hepatitis A IgM Ab Hep Bs Antigen Hep B Core IgM Ab Hepatitis C Ab Screen Quality VTE Prophylaxis VTE prophylaxis: mechanical ordered
[2024-07-03 16:33] LABS: Glucose Point of Care 75 mg/dl (65-105)
--- NOTE | 2024-07-03 17:45 | WPDGIPROGNO ---
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 Code(s): E11.21 - Type 2 diabetes mellitus with diabetic nephropathy Status: Acute Assessment and Plan: on insulin and other meds (3) Acute exacerbation of CHF (congestive heart failure): Code(s): I50.9 - Heart failure, unspecified Status: Acute Assessment and Plan: by cardiology (4) Acute kidney injury: Code(s): N17.9 - Acute kidney failure, unspecified Status: Acute Assessment and Plan: by credentialing assistant (5) Edema: Code(s): R60.9 - Edema, unspecified Status: Acute Assessment and Plan: volumen overload managed by credentialing assistant, currently on metolazone, also low salt diet (6) Atrial fibrillation: Code(s): I48.91 - Unspecified atrial fibrillation Status: Acute (7) Anemia of chronic disease: Code(s): D63.8 - Anemia in other chronic diseases classified elsewhere Status: Acute Subjective Date/time seen: 07/03/24 17:45 Interval history: today had first paracentesis feeling better still with some sob she is eating Review of Systems Review of Systems: All systems reviewed & are unremarkable except as noted in HPI and below Exam Const: General: comfortable and no acute distress HENMT: Mouth: Yes moist mucous membranes Eyes: General: appearance normal, both eyes and all related structures Sclera: sclerae normal Neck: Neck: supple Resp: Effort & Inspection: normal respiratory effort Cardio: Rate: regular rate Rhythm: abnormal rhythm irregularly irregular Other: Bilateral lower extremity edema GI: Inspection: distended GI Palp: Yes Soft to palpation and No Tenderness to palpation present (GI) Other: less ascites Skin: General skin exam: normal color Neuro: Speech: normal speech Motor exam (neuro): 5/5 motor strength present throughout Extrem: General: pedal edema Psych: Mental Status: mental status grossly normal Affect: normal affect Objective Data Vital Signs Vital Signs: Vital Signs - 24 hr 07/02/24 20:18 07/02/24 20:30 07/02/24 20:45 Temperature 97.7 F Pulse Rate 80 80 Respiratory Rate 28 H Blood Pressure 108/50 L Pulse Oximetry 94 95 Oxygen Delivery Room Air 07/02/24 20:00 07/02/24 20:00 07/03/24 00:00 Temperature Pulse Rate 92 69 Respiratory Rate Blood Pressure Pulse Oximetry Oxygen Delivery Room Air 07/03/24 04:00 07/03/24 05:29 07/03/24 09:07 Temperature 97.2 F L Pulse Rate 66 66 68 Respiratory Rate 16 Blood Pressure 112/47 L 116/51 L Pulse Oximetry 100 Oxygen Delivery 07/03/24 09:09 07/03/24 08:15 07/03/24 08:00 Temperature Pulse Rate 68 67 Respiratory Rate Blood Pressure Pulse Oximetry Oxygen Delivery Room Air 07/03/24 13:57 07/03/24 16:24 Temperature 96.7 F L Pulse Rate 66 76 Respiratory Rate 18 20 Blood Pressure 127/58 L 120/66 Pulse Oximetry 100 98 Oxygen Delivery Intake/Output Intake/Output: Intake & Output 06/30/24 07/01/24 07/02/24 07/03/24 23:59 23:59 23:59 23:59 Intake Total 1180 1040 600 155.4 Output Total 094 214 3986 6050 Balance 421 587 -6208 -5860.6 Meds/Results Medications: Active Medications Generic Name Dose Route Start Last Admin Trade Name Freq PRN Reason Stop Dose Admin Albuterol 2 puff 06/28/24 23:21 07/02/24 08:20 Albuterol Sulfate (*Sp) Aerosol 1 Puff INHALATION 2 puff Q4HRT PRN Administration Wheezing Apixaban 10 mg 07/03/24 21:00 Apixaban 5 Mg Tablet PO 07/10/24 09:01 Q12HR SALINA Apixaban 5 mg 07/10/24 21:00 Apixaban 5 Mg Tablet PO Q12HR SALINA Aspirin 81 mg 06/30/24 09:00 07/03/24 09:09 Aspirin 81 Mg Enteric Tablet PO Not Given QAM SALINA Bumetanide 2 mg 07/02/24 12:00 07/03/24 17:25 Bumetanide Inj 2.5 Mg/10 Ml Vial IV PUSH 2 mg BID SALINA Administration Dextrose 12.5 gm 06/28/24 15:27 Dextrose 50% 25 Gm/50 Ml Syringe IV PUSH PRN PRN Hypoglycemia Protocol Dicyclomine HCl 20 mg 06/29/24 09:00 07/03/24 17:26 Dicyclomine Hcl 10 Mg Capsule PO 20 mg TID SALINA Administration Glucagon 1 mg 06/28/24 15:27 Glucagon For Inj 1 Mg Vial IM PRN PRN Hypoglycemia Protocol Glucose 15 gm 06/28/24 15:27 07/02/24 05:19 Glucose Oral Gel 15 Gm Of Glucse In 37.5 Gm Tube PO 15 gm PRN PRN Administration Hypoglycemia Protocol Dextrose 1,000 mls @ 100 mls/hr 06/28/24 15:27 Dextrose 5% 1,000 Ml IVPB PRN PRN Hypoglycemia Protocol Insulin Aspart 3 - 6 units 06/28/24 17:00 07/03/24 17:26 Insulin Aspart (*Bkc) 100 Units/Ml SUB-Q Not Given TIDWM SALINA Protocol Insulin Glargine 20 units 06/29/24 21:00 07/02/24 20:21 Insulin Glargine (*Bkc) 100 Units/Ml SUB-Q Not Given HS SALINA Isosorbide Mononitrate 60 mg 06/29/24 17:00 07/03/24 17:25 Isosorbide Mononitrate 60 Mg Tab.Er.24h PO 60 mg BID SALINA Administration Latanoprost 1 drop 06/29/24 09:00 07/03/24 09:10 Latanoprost 0.005% Op Soln 2.5 Ml Btl EACH EYE 1 drop DAILY SALINA Administration Lisinopril 40 mg 06/29/24 09:00 07/03/24 09:09 Lisinopril 20 Mg Tablet PO 40 mg QAM SALINA Administration Metolazone 5 mg 07/02/24 09:45 07/03/24 09:09 Metolazone 5 Mg Tablet PO 5 mg QAM SALINA Administration Metoprolol Tartrate 25 mg 06/28/24 23:40 07/03/24 09:09 Metoprolol Tartrate 25 Mg Tablet PO 25 mg Q12HR SALINA Administration Fluticasone/Salmeterol 1 puff 06/29/24 08:00 07/03/24 07:55 Fluticasone/Salmeterol 115-21 Mcg Inhaler 1 Puff INHALATION 1 puff Q12HRT SALINA Administration Simvastatin 20 mg 06/29/24 09:00 07/03/24 09:13 Simvastatin 20 Mg Tablet PO 20 mg DAILY SALINA Administration Radiology Results: ITS Impressions Abdomen X-Ray 06/29/24 13:07 IMPRESSION: 1: No acute abdominal abnormality identified. Venous Doppler Study 07/01/24 10:20 Impression: Probable thrombosis of the bilateral posterior tibial and peroneal veins in the calves. Renal Ultrasound 07/01/24 10:21 Impression: Unremarkable kidneys. Collapsed urinary bladder limits evaluation. Probable cirrhotic liver with moderate to large abdominal pelvic ascites. Pulmonary Perfusion Imaging 07/02/24 14:33 IMPRESSION: 1. Intermediate probability for pulmonary embolism. Chest X-Ray 07/02/24 15:05 IMPRESSION: 1. Mild atelectasis in left lower lung zone. Paracentesis Ultrasound 07/03/24 15:59 IMPRESSION: 1. Successful ultrasound-guided paracentesis yielding 5000 mL of yellow fluid. Labs Labs: Laboratory Results - last 24 hr 07/01/24 07/01/24 07/02/24 11:26 11:40 18:46 WBC RBC Hgb Hct MCV MCH MCHC RDW Plt Count MPV Immature Gran % (Auto) Neut % (Auto) Lymph % (Auto) [place] % (Auto) Eos % (Auto) Baso % (Auto) Lymph # (Auto) [place] # (Auto) Eos # (Auto) Baso # (Auto) Abs Immat Gran (auto) Absolute Neuts (auto) Absolute Nucleated RBC Nucleated RBC % PT INR APTT Sodium Potassium Chloride Carbon Dioxide Anion Gap BUN Creatinine Estim Creat Clear Calc Estimated GFR Glucose POC Capillary Glucose 163 H Calcium Phosphorus Total Bilirubin AST ALT Alkaline Phosphatase Total Protein Albumin Ur KYRA Interpret 24 hr Anti-DNA Antibody <1 07/02/24 07/02/24 07/03/24 20:21 23:48 06:48 WBC 6.3 6.1 RBC 3.30 L 3.31 L Hgb 8.4 L 8.4 L Hct 27.1 L 27.7 L MCV 82.1 83.7 MCH 25.5 L 25.4 L MCHC 31.0 L 30.3 L RDW 19.9 H 19.9 H Plt Count 413 H 431 H MPV 9.5 9.4 Immature Gran % (Auto) 1.1 H 1.6 H Neut % (Auto) 62.1 59.5 Lymph % (Auto) 20.3 19.9 [place] % (Auto) 13.5 H 14.9 H Eos % (Auto) 2.2 2.8 Baso % (Auto) 0.8 1.3 H Lymph # (Auto) 1.28 1.21 [place] # (Auto) 0.9 H 0.9 H Eos # (Auto) 0.1 0.2 Baso # (Auto) 0.1 0.1 Abs Immat Gran (auto) 0.07 H 0.10 H Absolute Neuts (auto) 3.9 3.6 Absolute Nucleated RBC 0.000 0.000 Nucleated RBC % 0.0 0.0 PT INR APTT 120.7 H 98.8 H Sodium 138 Potassium 4.6 Chloride 106 Carbon Dioxide 24 Anion Gap 8 BUN 53 H Creatinine 1.90 H Estim Creat Clear Calc 19 Estimated GFR 25 L Glucose 99 POC Capillary Glucose 157 H Calcium 7.7 L Phosphorus 5.8 H Total Bilirubin 0.2 AST 28 ALT 9 Alkaline Phosphatase 57 Total Protein 6.0 L Albumin 3.1 L Ur KYRA Interpret 24 hr Anti-DNA Antibody 07/03/24 07/03/24 07/03/24 08:08 11:38 13:20 WBC RBC Hgb Hct MCV MCH MCHC RDW Plt Count MPV Immature Gran % (Auto) Neut % (Auto) Lymph % (Auto) [place] % (Auto) Eos % (Auto) Baso % (Auto) Lymph # (Auto) [place] # (Auto) Eos # (Auto) Baso # (Auto) Abs Immat Gran (auto) Absolute Neuts (auto) Absolute Nucleated RBC Nucleated RBC % PT 15.9 H INR 1.2 APTT Cancelled Sodium Potassium Chloride Carbon Dioxide Anion Gap BUN Creatinine Estim Creat Clear Calc Estimated GFR Glucose POC Capillary Glucose 98 92 Calcium Phosphorus Total Bilirubin AST ALT Alkaline Phosphatase Total Protein Albumin Ur KYRA Interpret 24 hr Anti-DNA Antibody 07/03/24 07/03/24 13:20 16:30 WBC RBC Hgb Hct MCV MCH MCHC RDW Plt Count MPV Immature Gran % (Auto) Neut % (Auto) Lymph % (Auto) [place] % (Auto) Eos % (Auto) Baso % (Auto) Lymph # (Auto) [place] # (Auto) Eos # (Auto) Baso # (Auto) Abs Immat Gran (auto) Absolute Neuts (auto) Absolute Nucleated RBC Nucleated RBC % PT INR APTT 28.1 Sodium Potassium Chloride Carbon Dioxide Anion Gap BUN Creatinine Estim Creat Clear Calc Estimated GFR Glucose POC Capillary Glucose 75 Calcium Phosphorus Total Bilirubin AST ALT Alkaline Phosphatase Total Protein Albumin Ur KYRA Interpret 24 hr Anti-DNA Antibody
[2024-07-03 19:36] LABS: Appearance Peritoneal Fluid Hazy (Clear); Color Peritoneal Fluid Yellow (Colorless); Lymphocytes Peritoneal Fluid 35 %; Neutrophils Peritoneal Fluid 14 % (0-25); Nucleated Cells Peritoneal Flu 145 /uL (0-500); RBC Peritoneal Fluid < 2000 /uL (0-10000); Source Peritoneal Fluid Peritoneal Fluid
[2024-07-03 19:37] LABS: Macrophages Peritoneal Fluid 49 %; Mesothelial Cells Peritoneal Fluid 2 %
[2024-07-03] MEDS: APIXABAN 5 MG TABLET 10 MG PO (20:19)
[2024-07-03] MEDS: INSULIN GLARGINE (*BKC) 100 UNITS/ML 20 UNITS SUB-Q (20:19)
[2024-07-03 21:16] LABS: Glucose Point of Care 167 mg/dl (65-105)
--- NOTE | 2024-07-03 22:27 | PCRCNOTE ---
RT not available to give MDI to patient.
[2024-07-04] VITALS (13 sets, daily range): BP systolic 100–126; BP diastolic 43–55; PULSE 64–88; RESP 16–22; TEMP 36.3–36.7; O2SAT 93–100
[2024-07-04 03:43] LABS: Creat 24 Hr 0.57 g/24 h (0.50-2.15); Pro/Creat Ratio 293 mg/g creat (<150); Pro/Creat Ratio mg/mg 0.293 (<0.150); Protein,total, 24 Hr Ur 167 mg/24 h (<150)
[2024-07-04 06:28] LABS: Basophils Absolute Auto 0.1 K/mm3 (0.0-0.1); Basophils Percent Auto 0.8 % (0.2-1.2); Eosinophils Absolute Auto 0.2 K/mm3 (0-0.3); Eosinophils Percent Auto 2.3 % (0-4.4); Hemoglobin 8.1 g/dL (12.0-15.0); Immature Granulocyte Percent A 1.6 % (0-0.5); Lymphocytes Absolute Auto 1.03 K/mm3 (0.9-3.2); Mean Corpuscular HGB Conc 28.9 g/dl (32-36); Mean Corpuscular Volume 86.4 fl (80-100); Mean Platelet Volume 9.6 fl (7.4-10.4); Monocytes Absolute Auto 0.9 K/mm3 (0.1-0.6); Monocytes Percent Auto 14.5 % (2.6-8.5); Neutrophils Absolute Auto 4.2 K/mm3 (1.3-6.7); Neutrophils Percent Auto 64.8 % (45.5-73.1); Platelet Count Result 424 k/mm3 (150-375); Red Blood Count 3.24 M/mm3 (4.2-5.4); Red Cell Distribution Width 19.9 % (11.5-14.5); White Blood Count 6.4 K/mm3 (4.5-10.0)
[2024-07-04 06:38] LABS: Alanine Aminotransferase 8 U/L (6-35); Albumin Level 2.8 g/dL (3.5-5.1); Alkaline Phosphatase 52 U/L (38-126); Anion Gap 7 mmol/L (4-12); Aspartate Amino Transferase 26 U/L (14-36); Bilirubin,Total 0.2 mg/dL (0.2-1.3); Blood Urea Nitrogen 48 mg/dL (7-17); Calcium 7.6 mg/dL (8.4-10.2); Carbon Dioxide 24 mmol/L (22-30); Chloride 104 mmol/L (98-107); Estimated CRCL calculation 23 ml/min; Estimated Glomerular Filt Rate 33; Glucose 120 mg/dL (65-110); Sodium 135 mmol/L (137-145)
[2024-07-04 07:03] LABS: Anisocytosis 2+; Hypochromasia 1+; Ovalocytes 1+; Platelet Estimate Increased (Adequate); Schistocytes None Seen
[2024-07-04 07:26] LABS: Glucose Point of Care 126 mg/dl (65-105)
[2024-07-04] MEDS: METOPROLOL TARTRATE 25 MG TABLET PO ×2 (08:05→20:24)
[2024-07-04] MEDS: metOLazone 5 MG TABLET PO (08:06)
[2024-07-04] MEDS: APIXABAN 5 MG TABLET 10 MG PO ×2 (08:06→20:24)
[2024-07-04] MEDS: SIMVASTATIN 20 MG TABLET PO (08:06)
[2024-07-04] MEDS: BUMETANIDE INJ 2.5 MG/10 ML VIAL 2 MG IV PUSH (08:07)
[2024-07-04] MEDS: DICYCLOMINE HCL 10 MG CAPSULE 20 MG PO ×3 (08:07→16:02)
[2024-07-04] MEDS: ASPIRIN 81 MG ENTERIC TABLET PO (08:07)
[2024-07-04] MEDS: LATANOPROST 0.005% OP SOLN 2.5 ML BTL 1 DROP EACH EYE (08:10)
[2024-07-04] MEDS: ISOSORBIDE MONONITRATE 60 MG TAB.ER.24H PO ×2 (08:10→16:02)
[2024-07-04] MEDS: FLUTICASONE/SALMETEROL 115-21 MCG INHALER 1 PUFF INHALATION ×2 (09:02→20:05)
--- NOTE | 2024-07-04 10:35 | P.PNCA_ITS ---
Progress Note: A&P Assessment and Plan (1) Acute exacerbation of CHF (congestive heart failure): Code(s): I50.9 - Heart failure, unspecified Status: Acute Assessment and Plan: She has grade II diastolic dysfunction as well as moderate pHTN with PASP 62 mmHg, severe TR. Diuresing with Bumex and Metolazone which should be continued for now. Had good urine output yesterday. Amlodipine discontinued, which could have contributed to lower extremity swelling. In addition, found to have probable thrombosis of the bilateral posterior tibial and peroneal veins in the calves, which is certainly likely contributing to her lower extremity edema. Therefore, her lower extremity edema may not all be caused by CHF. Creatinine down to 1.5. Significant diuresis yesterday and has artery received her 2 mg of IV Bumex today. Will reduce her Bumex to 1 mg IV b.i.d. and continue metolazone. Edema is better. Shortness of breath is better. (2) Atrial fibrillation: Code(s): I48.91 - Unspecified atrial fibrillation Status: Acute Assessment and Plan: Rate controlled. Was on Eliquis 2.5mg BID (given age and renal function), however, currently on Heparin drip due to anticipated paracentesis. Resume Eliquis prior to discharge. If renal function improves to SCr <1.5, then will need to increase dose to 5mg BID. (3) Acute kidney injury: Code(s): N17.9 - Acute kidney failure, unspecified Status: Acute Assessment and Plan: Nephrology is following (4) DVT (deep venous thrombosis): Code(s): I82.409 - Acute embolism and thrombosis of unspecified deep veins of unspecified lower extremity Status: Acute Assessment and Plan: Found to have probable thrombosis of the bilateral posterior tibial and peroneal veins in the calves. Continue anticoagulation. (5) Ascites: Qualifiers: Ascites type: other type Qualified Code(s): R18.8 - Other ascites Code(s): R18.8 - Other ascites Status: Acute Assessment and Plan: Diagnostic paracentesis planned per GI. Subjective Date/time seen: 07/04/24 10:35 Interval history: Cardiology follow up for CHF, atrial fibrillation Date of service 07/02/2024: Feels her shortness of breath is slightly improved today. Still has edema. Date of service 07/03: Still with lower extremity edema. Date of service 07/04/2024: Symptoms are better. Less short of breath. Edema is improved. No chest Review of Systems Review of Systems: All systems reviewed & are unremarkable except as noted in HPI and below Constitutional: Constitutional: Denies body ache(s) Eyes: Eyes: Denies blurry vision Cardiovascular: Cardiovascular: Denies chest pain Respiratory: Respiratory: Reports dyspnea Hematologic/Lymphatic: Hematologic/Lymphatic: Denies easy bleeding Exam Const: General: comfortable and no acute distress HENMT: Mouth: Yes moist mucous membranes Eyes: General: appearance normal, both eyes and all related structures Sclera: sclerae normal Neck: Neck: supple Resp: Effort & Inspection: normal respiratory effort Auscultation: clear to auscultation bilaterally Cardio: Rate: regular rate Heart sounds: no murmurs Other: Bilateral lower extremity edema GI: Inspection: distended Skin: General skin exam: normal color Neuro: Speech: normal speech Extrem: General: edema Psych: Mental Status: mental status grossly normal Affect: normal affect Objective Data Vital Signs Vital Signs: Vital Signs - 24 hr 07/03/24 13:57 07/03/24 16:24 07/03/24 12:00 Temperature 35.9 C L Pulse Rate 66 76 73 Respiratory Rate 18 20 Blood Pressure 127/58 L 120/66 Pulse Oximetry 100 98 Oxygen Delivery 07/03/24 16:00 07/03/24 20:19 07/03/24 21:20 Temperature 36.4 C Pulse Rate 73 79 77 Respiratory Rate 17 Blood Pressure 108/50 L Pulse Oximetry 94 Oxygen Delivery 07/03/24 20:00 07/04/24 04:58 07/03/24 20:00 Temperature 36.3 C L Pulse Rate 78 78 Respiratory Rate 16 Blood Pressure 107/48 L Pulse Oximetry 98 Oxygen Delivery Room Air 07/04/24 00:00 07/04/24 04:00 07/04/24 08:04 Temperature Pulse Rate 77 75 79 Respiratory Rate 16 Blood Pressure 126/43 L Pulse Oximetry 97 Oxygen Delivery 07/04/24 08:05 07/04/24 08:00 07/04/24 09:02 Temperature Pulse Rate 79 Respiratory Rate Blood Pressure Pulse Oximetry 100 Oxygen Delivery Room Air Room Air Intake/Output Intake/Output: Intake & Output 1107/02/24 07/03/24 07/04/24 23:59 23:59 23:59 23:59 Intake Total 1040 600 395.4 480 Output Total 125 1236 7898 1050 Balance 594 -3624 -5654.6 -570 Meds/Results Medications: Active Medications Generic Name Dose Route Start Last Admin Trade Name Freq PRN Reason Stop Dose Admin Albuterol 2 puff 06/28/24 23:21 07/02/24 08:20 Albuterol Sulfate (*Sp) Aerosol 1 Puff INHALATION 2 puff Q4HRT PRN Administration Wheezing Apixaban 10 mg 07/03/24 21:00 07/04/24 08:06 Apixaban 5 Mg Tablet PO 07/10/24 09:01 10 mg Q12HR SALINA Administration Apixaban 5 mg 07/10/24 21:00 Apixaban 5 Mg Tablet PO Q12HR SALINA Aspirin 81 mg 06/30/24 09:00 07/04/24 08:07 Aspirin 81 Mg Enteric Tablet PO 81 mg QAM SALINA Administration Bumetanide 2 mg 07/02/24 12:00 07/04/24 08:07 Bumetanide Inj 2.5 Mg/10 Ml Vial IV PUSH 2 mg BID SALINA Administration Dextrose 12.5 gm 06/28/24 15:27 Dextrose 50% 25 Gm/50 Ml Syringe IV PUSH PRN PRN Hypoglycemia Protocol Dicyclomine HCl 20 mg 06/29/24 09:00 07/04/24 08:07 Dicyclomine Hcl 10 Mg Capsule PO 20 mg TID SALINA Administration Glucagon 1 mg 06/28/24 15:27 Glucagon For Inj 1 Mg Vial IM PRN PRN Hypoglycemia Protocol Glucose 15 gm 06/28/24 15:27 07/02/24 05:19 Glucose Oral Gel 15 Gm Of Glucse In 37.5 Gm Tube PO 15 gm PRN PRN Administration Hypoglycemia Protocol Dextrose 1,000 mls @ 100 mls/hr 06/28/24 15:27 Dextrose 5% 1,000 Ml IVPB PRN PRN Hypoglycemia Protocol Insulin Aspart 3 - 6 units 06/28/24 17:00 07/04/24 07:28 Insulin Aspart (*Bkc) 100 Units/Ml SUB-Q Not Given TIDWM SALINA Protocol Insulin Glargine 20 units 06/29/24 21:00 07/03/24 20:19 Insulin Glargine (*Bkc) 100 Units/Ml SUB-Q 20 units HS SALINA Administration Isosorbide Mononitrate 60 mg 06/29/24 17:00 07/04/24 08:10 Isosorbide Mononitrate 60 Mg Tab.Er.24h PO 60 mg BID SALINA Administration Latanoprost 1 drop 06/29/24 09:00 07/04/24 08:10 Latanoprost 0.005% Op Soln 2.5 Ml Btl EACH EYE 1 drop DAILY SALINA Administration Lisinopril 40 mg 06/29/24 09:00 07/04/24 08:06 Lisinopril 20 Mg Tablet PO Not Given QAM SALINA Metolazone 5 mg 07/02/24 09:45 07/04/24 08:06 Metolazone 5 Mg Tablet PO 5 mg QAM SALINA Administration Metoprolol Tartrate 25 mg 06/28/24 23:40 07/04/24 08:05 Metoprolol Tartrate 25 Mg Tablet PO 25 mg Q12HR SALINA Administration Fluticasone/Salmeterol 1 puff 06/29/24 08:00 07/04/24 09:02 Fluticasone/Salmeterol 115-21 Mcg Inhaler 1 Puff INHALATION 1 puff Q12HRT SALINA Administration Simvastatin 20 mg 06/29/24 09:00 07/04/24 08:06 Simvastatin 20 Mg Tablet PO 20 mg DAILY SALINA Administration Radiology Results: ITS Impressions Abdomen X-Ray 06/29/24 13:07 IMPRESSION: 1: No acute abdominal abnormality identified. Venous Doppler Study 07/01/24 10:20 Impression: Probable thrombosis of the bilateral posterior tibial and peroneal veins in the calves. Renal Ultrasound 07/01/24 10:21 Impression: Unremarkable kidneys. Collapsed urinary bladder limits evaluation. Probable cirrhotic liver with moderate to large abdominal pelvic ascites. Pulmonary Perfusion Imaging 07/02/24 14:33 IMPRESSION: 1. Intermediate probability for pulmonary embolism. Chest X-Ray 07/02/24 15:05 IMPRESSION: 1. Mild atelectasis in left lower lung zone. Paracentesis Ultrasound 07/03/24 15:59 IMPRESSION: 1. Successful ultrasound-guided paracentesis yielding 5000 mL of yellow fluid. Labs Labs: Laboratory Results - last 24 hr 07/01/24 07/03/24 07/03/24 11:40 11:38 13:20 WBC RBC Hgb Hct MCV MCH MCHC RDW Plt Count MPV Immature Gran % (Auto) Neut % (Auto) Lymph % (Auto) [place] % (Auto) Eos % (Auto) Baso % (Auto) Lymph # (Auto) [place] # (Auto) Eos # (Auto) Baso # (Auto) Abs Immat Gran (auto) Absolute Neuts (auto) Absolute Nucleated RBC Nucleated RBC % Platelet Estimate Hypochromasia Anisocytosis Ovalocytes Schistocytes PT 15.9 H INR 1.2 APTT Cancelled Sodium Potassium Chloride Carbon Dioxide Anion Gap BUN Creatinine Estim Creat Clear Calc Estimated GFR Glucose POC Capillary Glucose 92 Calcium Phosphorus Total Bilirubin AST ALT Alkaline Phosphatase Total Protein Albumin U Protein 24 Hr Presump 167 H Peritoneal Source Peritoneal Color Peritoneal Appearance Peritoneal RBC Periton Nuc Cells Periton Neutrophils Periton Lymphocytes Periton Mesothelial Periton Macrophages Ur KYRA Interpret 24 hr 07/03/24 07/03/24 07/03/24 13:20 15:17 16:30 WBC RBC Hgb Hct MCV MCH MCHC RDW Plt Count MPV Immature Gran % (Auto) Neut % (Auto) Lymph % (Auto) [place] % (Auto) Eos % (Auto) Baso % (Auto) Lymph # (Auto) [place] # (Auto) Eos # (Auto) Baso # (Auto) Abs Immat Gran (auto) Absolute Neuts (auto) Absolute Nucleated RBC Nucleated RBC % Platelet Estimate Hypochromasia Anisocytosis Ovalocytes Schistocytes PT INR APTT 28.1 Sodium Potassium Chloride Carbon Dioxide Anion Gap BUN Creatinine Estim Creat Clear Calc Estimated GFR Glucose POC Capillary Glucose 75 Calcium Phosphorus Total Bilirubin AST ALT Alkaline Phosphatase Total Protein Albumin U Protein 24 Hr Presump Peritoneal Source Peritoneal fluid Peritoneal Color Yellow Peritoneal Appearance Hazy A Peritoneal RBC < 2000 Periton Nuc Cells 145 [place] Neutrophils 14 [place] Lymphocytes 35 [place] Mesothelial 2 Per[place] Macrophages 49 Ur KYRA Interpret 24 hr 07/03/24 07/04/24 07/04/24 20:22 05:51 07:24 WBC 6.4 RBC 3.24 L Hgb 8.1 L Hct 28.0 L MCV 86.4 MCH 25.0 L MCHC 28.9 L RDW 19.9 H Plt Count 424 H MPV 9.6 Immature Gran % (Auto) 1.6 H Neut % (Auto) 64.8 Lymph % (Auto) 16.0 L [place] % (Auto) 14.5 H Eos % (Auto) 2.3 Baso % (Auto) 0.8 Lymph # (Auto) 1.03 [place] # (Auto) 0.9 H Eos # (Auto) 0.2 Baso # (Auto) 0.1 Abs Immat Gran (auto) 0.10 H Absolute Neuts (auto) 4.2 Absolute Nucleated RBC 0.000 Nucleated RBC % 0.0 Platelet Estimate Increased Hypochromasia 1+ Anisocytosis 2+ Ovalocytes 1+ Schistocytes None seen PT INR APTT Sodium 135 L Potassium 4.0 Chloride 104 Carbon Dioxide 24 Anion Gap 7 BUN 48 H Creatinine 1.50 H Estim Creat Clear Calc 23 Estimated GFR 33 L Glucose 120 H POC Capillary Glucose 167 H 126 H Calcium 7.6 L Phosphorus 5.0 H Total Bilirubin 0.2 AST 26 ALT 8 Alkaline Phosphatase 52 Total Protein 6.0 L Albumin 2.8 L U Protein 24 Hr Presump Peritoneal Source Peritoneal Color Peritoneal Appearance Peritoneal RBC Per[place] Nuc Cells Periton Neutrophils Periton Lymphocytes Periton Mesothelial Periton Macrophages Ur KYRA Interpret 24 hr
--- NOTE | 2024-07-04 10:40 | P.PNNP_ITS ---
Progress Note: A&P Assessment and Plan (1) Acute kidney injury: Code(s): N17.9 - Acute kidney failure, unspecified Status: Acute Assessment and Plan: * normal creatinine a year ago (2022) * admitted with a creatinine of 1.3mg/dl and peaked at 2.0mg/dl * evaluation to date noted: * renal u/s with unremarkable kidneys, collapsed bladder, and probable cirrhotic liver * FeUrea with prerenal azotemia * no significant proteinuria * CPK normal * UA with blood + protein * Echo with severe TR and diastolic dysfunction * bilateral DVTs noted * serologies still pending * with diuresis, creatinine improving (2) Edema: Code(s): R60.9 - Edema, unspecified Status: Acute Assessment and Plan: * multifactorial: * acute CHF exacerbation * amlodipine use * bilateral DVTs * continue current therapy (3) CHF (congestive heart failure): Qualifiers: Heart failure type: unspecified Heart failure chronicity: acute Qualified Code(s): I50.9 - Heart failure, unspecified Code(s): I50.9 - Heart failure, unspecified Status: Suspected Assessment and Plan: * apparently a new finding * elevated pro BNP * Echo with normal left ventricular systolic function with an estimated EF of 60-65%, grade II diastolic dysfunction, moderate pulmonary hypertension with an estimated pulmonary arterial systolic pressure of 62mmHg, no right heart strain * Cardiology following * on bumex and metolazone * follow daily weights, I/Os, and respiratory status (4) Essential hypertension: Code(s): I10 - Essential (primary) hypertension Status: Chronic Assessment and Plan: * reasonable control * follow trend of hemodynamics * off amlodipine (5) Cirrhosis: Qualifiers: Hepatic cirrhosis type: other cirrhosis Qualified Code(s): K74.69 - Other cirrhosis of liver Code(s): K74.60 - Unspecified cirrhosis of liver Status: Acute Assessment and Plan: * as noted by imaging to date * s/p large volume paracentesis (on 07/03) * GI following (6) DVT (deep venous thrombosis): Code(s): I82.409 - Acute embolism and thrombosis of unspecified deep veins of unspecified lower extremity Status: Acute Assessment and Plan: * venous doppler showing probable thrombosis of the bilateral posterior tibial and peroneal veins in the calves * VQ scan showing intermediate probability of PE * on Eliquis (7) Type 2 diabetes mellitus with hyperglycemia: Qualifiers: Diabetes mellitus terminal manager insulin use: without terminal manager use Qualified Code(s): E11.65 - Type 2 diabetes mellitus with hyperglycemia Code(s): E11.65 - Type 2 diabetes mellitus with hyperglycemia Status: Chronic Assessment and Plan: * follow accu-cheks * glycemic control per hospitalists Will continue to follow. Subjective Date/time seen: 07/04/24 10:40 Interval history: Follow-up for acute kidney injury/acute renal failure. Chart reviewed -- assuming care from Dr. Serrano; better urine output in the la st few days with ongoing diuretic therapy with relative stability in renal function/creatinine; s/p large volume paracentesis yesterday with 5L fluid removal; no apparent distress voiced at the time of my visit. Exam Narrative: General: elderly but WD/WN female in NAD Heart: normal S1 and S2; no rub Lungs: decreased at bases Abdomen: soft, nontender, less distension, positive bowel sounds Extremities: no cyanosis or clubbing; 1 - 2+ edema Skin: warm and dry Objective Data Vital Signs Vital Signs: Vital Signs Temp Pulse Resp BP Pulse Ox O2 Del Method 07/04/24 10:00 79 07/04/24 08:00 78 07/04/24 09:02 100 Room Air 07/04/24 08:00 Room Air 07/04/24 08:05 79 07/04/24 08:04 79 16 126/43 L 97 07/04/24 04:00 75 07/04/24 00:00 77 07/03/24 20:00 78 07/04/24 04:58 97.4 F L 78 16 107/48 L 98 07/03/24 20:00 Room Air 07/03/24 21:20 97.6 F 77 17 108/50 L 94 07/03/24 20:19 79 Intake/Output Intake/Output: Intake & Output 07/01/24 07/02/24 07/03/24 07/04/24 23:59 23:59 23:59 23:59 Intake Total 1040 600 395.4 760 Output Total 575 2025 6050 1050 Balance 465 -9705 -5654.6 -290 Meds/Results Medications: Active Medications Generic Name Dose Route Start Last Admin Trade Name Freq PRN Reason Stop Dose Admin Albuterol 2 puff 06/28/24 23:21 07/02/24 08:20 Albuterol Sulfate (*Sp) Aerosol 1 Puff INHALATION 2 puff Q4HRT PRN Administration Wheezing Apixaban 10 mg 07/03/24 21:00 07/04/24 08:06 Apixaban 5 Mg Tablet PO 07/10/24 09:01 10 mg Q12HR SALINA Administration Apixaban 5 mg 07/10/24 21:00 Apixaban 5 Mg Tablet PO Q12HR SALINA Aspirin 81 mg 06/30/24 09:00 07/04/24 08:07 Aspirin 81 Mg Enteric Tablet PO 81 mg QAM SALINA Administration Bumetanide 1 mg 07/04/24 17:00 07/04/24 16:03 Bumetanide Inj 2.5 Mg/10 Ml Vial IV PUSH 1 mg BID SALINA Administration Dextrose 12.5 gm 06/28/24 15:27 Dextrose 50% 25 Gm/50 Ml Syringe IV PUSH PRN PRN Hypoglycemia Protocol Dicyclomine HCl 20 mg 06/29/24 09:00 07/04/24 16:02 Dicyclomine Hcl 10 Mg Capsule PO 20 mg TID SALINA Administration Glucagon 1 mg 06/28/24 15:27 Glucagon For Inj 1 Mg Vial IM PRN PRN Hypoglycemia Protocol Glucose 15 gm 06/28/24 15:27 07/02/24 05:19 Glucose Oral Gel 15 Gm Of Glucse In 37.5 Gm Tube PO 15 gm PRN PRN Administration Hypoglycemia Protocol Dextrose 1,000 mls @ 100 mls/hr 06/28/24 15:27 Dextrose 5% 1,000 Ml IVPB PRN PRN Hypoglycemia Protocol Insulin Aspart 3 - 6 units 06/28/24 17:00 07/04/24 16:07 Insulin Aspart (*Bkc) 100 Units/Ml SUB-Q Not Given TIDWM [facility] Protocol Insulin Glargine 20 units 06/29/24 21:00 07/03/24 20:19 Insulin Glargine (*Bkc) 100 Units/Ml SUB-Q 20 units HS SALINA Administration Isosorbide Mononitrate 60 mg 06/29/24 17:00 07/04/24 16:02 Isosorbide Mononitrate 60 Mg Tab.Er.24h PO 60 mg BID SALINA Administration Latanoprost 1 drop 06/29/24 09:00 07/04/24 08:10 Latanoprost 0.005% Op Soln 2.5 Ml Btl EACH EYE 1 drop DAILY SALINA Administration Lisinopril 40 mg 06/29/24 09:00 07/04/24 08:06 Lisinopril 20 Mg Tablet PO Not Given QAM SALINA Metolazone 5 mg 07/02/24 09:45 07/04/24 08:06 Metolazone 5 Mg Tablet PO 5 mg QAM [facility] Administration Metoprolol Tartrate 25 mg 06/28/24 23:40 07/04/24 08:05 Metoprolol Tartrate 25 Mg Tablet PO 25 mg Q12HR [facility]INA Administration Fluticasone/Salmeterol 1 puff 06/29/24 08:00 07/04/24 09:02 Fluticasone/Salmeterol 115-21 Mcg Inhaler 1 Puff INHALATION 1 puff Q12HRT SALINA Administration Simvastatin 20 mg 06/29/24 09:00 07/04/24 08:06 Simvastatin 20 Mg Tablet PO 20 mg DAILY SALINA Administration Radiology Results: ITS Impressions Abdomen X-Ray 06/29/24 13:07 IMPRESSION: 1: No acute abdominal abnormality identified. Venous Doppler Study 07/01/24 10:20 Impression: Probable thrombosis of the bilateral posterior tibial and peroneal veins in the calves. Renal Ultrasound 07/01/24 10:21 Impression: Unremarkable kidneys. Collapsed urinary bladder limits evaluation. Probable cirrhotic liver with moderate to large abdominal pelvic ascites. Pulmonary Perfusion Imaging 07/02/24 14:33 IMPRESSION: 1. Intermediate probability for pulmonary embolism. Chest X-Ray 07/02/24 15:05 IMPRESSION: 1. Mild atelectasis in left lower lung zone. Paracentesis Ultrasound 07/03/24 15:59 IMPRESSION: 1. Successful ultrasound-guided paracentesis yielding 5000 mL of yellow fluid. Labs Labs: Laboratory Tests 07/04/24 05:51 07/04/24 05:51 Calcium 7.6 L Phosphorus 5.0 H Total Bilirubin 0.2 AST 26 ALT 8 Alkaline Phosphatase 52 Total Protein 6.0 L Albumin 2.8 L Microbiology 07/03/24 15:17 Ascites Fluid Anaerobic Culture - Preliminary 07/03/24 15:17 Abdominal Fluid Anaerobic Culture - Preliminary 07/03/24 15:17 Ascites Fluid Gram Stain - Final
--- NOTE | 2024-07-04 10:42 | P.PNIM_ITS ---
Progress Note: A&P Assessment and Plan (1) CHF (congestive heart failure): Qualifiers: Heart failure chronicity: acute Heart failure type: unspecified Qualified Code(s): I50.9 - Heart failure, unspecified Code(s): I50.9 - Heart failure, unspecified Status: Suspected Assessment and Plan: * New onset * Pro BNP >84252 initially * Echo showing normal left ventricular systolic function with an estimated EF of 60-65%, grade II diastolic dysfunction, moderate pulmonary hypertension with an estimated pulmonary arterial systolic pressure of 62mmHg, no right heart strain * Cardiology following * Last 24 hours urine output has picked up and she had a total of 1750ml output. * Continue Bumex and Metolazone * consulted following * Monitor I and O and obtain daily weights * Cardiac diet * Continue continuous telemetry (2) Elevated troponin: Code(s): R79.89 - Other specified abnormal findings of blood chemistry Status: Acute Assessment and Plan: * likely demand ischemia * Troponin 0.131 -> 0.122 -> 0.116, flat. No active chest pain. * Awaiting echo results * Cardiology following * Continue cardiac monitoring * Continue diuresis (3) Type 2 diabetes mellitus with kidney complication: Qualifiers: Chronic kidney disease stage: unspecified stage Diabetes mellitus complication detail: with chronic kidney disease Diabetes mellitus [facility] insulin use: without [facility] use Qualified Code(s): E11.22 - Type 2 diabetes mellitus with diabetic chronic kidney disease Code(s): E11.29 - Type 2 diabetes mellitus with other diabetic kidney complication Status: Chronic Assessment and Plan: * Blood sugars ranging 117-177 * Hgb A1C 5.9 * Accu checks AC/HS * Moderate dose SSI ordered * hypoglycemic protocol in place * Diabetic diet ordered * Hold metformin * Continue Lantus 20 units @ HS (4) CKD (chronic kidney disease): Qualifiers: Chronic kidney disease stage: unspecified stage Qualified Code(s): N18.9 - Chronic kidney disease, unspecified Code(s): N18.9 - Chronic kidney disease, unspecified Status: Chronic Assessment and Plan: * Creatinine 1.5 today * Continue Diuresis with Bumex and Metolazone * following * Continue to trend (5) Essential hypertension: Code(s): I10 - Essential (primary) hypertension Status: Chronic Assessment and Plan: * Blood pressure ranging 111/57-146/95 * Continue Lisinopril, Metoprolol * Amlodipine stopped by Cardiology due to leg swelling (6) Serum potassium elevated: Code(s): E87.5 - Hyperkalemia Status: Acute Assessment and Plan: * Potassium 4.0 * No replacement needed * Continue to trend (7) Ascites: Qualifiers: Ascites type: other type Qualified Code(s): R18.8 - Other ascites Code(s): R18.8 - Other ascites Status: Acute Assessment and Plan: * Renal US shown cirrhosis of the liver with moderate to large abdominal pelvic ascites * Paracentesis performed yesterday 5L fluid removed * Bili and liver enzymes are WNL * Liver labs pending. * No history of alcohol abuse * Hepatitis panel negative (8) DVT (deep venous thrombosis): Code(s): I82.409 - Acute embolism and thrombosis of unspecified deep veins of unspecified lower extremity Status: Acute Assessment and Plan: * Venous doppler showing probable thrombosis of the bilateral posterior tibial and peroneal veins in the calves * VQ scan showing intermediate probability of PE * Eliquis started, Heparin infusion discontinued * VQ scan showing intermediate probability of PE * Eliquis started * Will increase dose of eliquis to 5 mg if creatinine drops to less than 1.5. Today currently creatinine 1.5. Will hold for another day and recheck labs in the morning. (9) Pulmonary embolus: Code(s): I26.99 - Other pulmonary embolism without acute cor pulmonale Status: Acute Assessment and Plan: * VQ scan showing intermediate probability of PE * Eliquis started * Will increase dose of eliquis to 5 mg if creatinine drops to less than 1.5. Today currently creatinine 1.5. Will hold for another day and recheck labs in the morning. Time Spent With Patient Time with patient: 25 - 35 minutes Subjective Date/time seen: 07/04/24 10:42 Interval history: Interval History: This is an 84 year old female who presented to the hospital on 06/28/24 with complaints of shortness of breath. Work up in the hospital included a chest x- ray which shown a right small pleural effusion, cardiomegaly. Abdomen x-ray which was negative. Labs significant [place] >75327, elevated troponin 0.122>0.116, K+ 5.9, Bicarb 21, Creatinine 1.30, eGFR 39. UA shown a cloudy appearance, 1+ urine protein, 1+ urine ketones, 2+ urine blood, 2+ urobilinogen, trace leukocytes, 3-5 urine RBC, 2+ urine bacteria. Echo was obtained with results pending. Patient given IV Lasix for diuresis. Cardiology consulted for new onset CHF. Subjective: Patient denies any new complaints. Paracentesis yesterday took 5L off. Labs and imaging reviewed. Cardiology discontinued amlodipine as the patient came in with leg swelling and amlodipine is the likely source. Labs reviewed. Review of Systems Review of Systems: All systems reviewed & are unremarkable except as noted in HPI and below Constitutional: Constitutional: Reports as per HPI and Reports no additional constitutional complaints Eyes: Eyes: Reports as per HPI and Reports no additional eye complaints ENT: Reports system reviewed and no additional complaints, except as documented and Reports as per HPI Cardiovascular: Cardiovascular: Reports as per HPI and Reports no additional cardiovascular complaints Respiratory: Respiratory: Reports as per HPI and Reports no additional respiratory complaints Gastrointestinal: Gastrointestinal: Reports as per HPI and Reports no additional gastrointestinal complaints Genitourinary: Genitourinary: Reports no additional female genitourinary complaints and Reports as per HPI Musculoskeletal: Musculoskeletal: Reports no additional musculoskeletal complaints and Reports as per HPI Integumentary/Breasts: Skin/Breast: Reports system reviewed and no additional complaints, except as docu and Reports as per HPI Neurologic: Reports system reviewed and no additional complaints, except as documented and Reports as per HPI Psychiatric: Psychiatric: Reports no additional psychiatric complaints and Reports as per HPI Exam Narrative: General: In no acute distress Cardiac: Normal S1 and S2. No murmur, gallops or friction rubs, peripheral pulses intact. Respiratory: Currently on room air, crackles noted to bilateral bases Gastrointestinal: rounded, non-tender, hypoactive bowel sounds. Ascites, slightly distended : voiding without difficulty. Extremities: moves all extremities well,bilateral lower extremity pitting edema 3+ Neuro: Alert and oriented x4 Objective Data Vital Signs Vital Signs: Vital Signs - 24 hr 07/03/24 13:57 07/03/24 16:24 07/03/24 12:00 Temperature 96.7 F L Pulse Rate 66 76 73 Respiratory Rate 18 20 Blood Pressure 127/58 L 120/66 Pulse Oximetry 100 98 Oxygen Delivery 07/03/24 16:00 07/03/24 20:19 07/03/24 21:20 Temperature 97.6 F Pulse Rate 73 79 77 Respiratory Rate 17 Blood Pressure 108/50 L Pulse Oximetry 94 Oxygen Delivery 07/03/24 20:00 07/04/24 04:58 07/03/24 20:00 Temperature 97.4 F L Pulse Rate 78 78 Respiratory Rate 16 Blood Pressure 107/48 L Pulse Oximetry 98 Oxygen Delivery Room Air 07/04/24 00:00 07/04/24 04:00 07/04/24 08:04 Temperature Pulse Rate 77 75 79 Respiratory Rate 16 Blood Pressure 126/43 L Pulse Oximetry 97 Oxygen Delivery 07/04/24 08:05 07/04/24 08:00 07/04/24 09:02 Temperature Pulse Rate 79 Respiratory Rate Blood Pressure Pulse Oximetry 100 Oxygen Delivery Room Air Room Air Intake/Output Intake/Output: Intake & Output 07/01/24 07/02/24 07/03/24 07/04/24 23:59 23:59 23:59 23:59 Intake Total 1040 600 395.4 480 Output Total 575 2025 6050 1050 Balance 465 -1425 -5654.6 -570 Meds/Results Medications: Active Medications Generic Name Dose Route Start Last Admin Trade Name Freq PRN Reason Stop Dose Admin Albuterol 2 puff 06/28/24 23:21 07/02/24 08:20 Albuterol Sulfate (*Sp) Aerosol 1 Puff INHALATION 2 puff Q4HRT PRN Administration Wheezing Apixaban 10 mg 07/03/24 21:00 07/04/24 08:06 Apixaban 5 Mg Tablet PO 07/10/24 09:01 10 mg Q12HR SALINA Administration Apixaban 5 mg 07/10/24 21:00 Apixaban 5 Mg Tablet PO Q12HR SALINA Aspirin 81 mg 06/30/24 09:00 07/04/24 08:07 Aspirin 81 Mg Enteric Tablet PO 81 mg QAM SALINA Administration Bumetanide 1 mg 07/04/24 17:00 Bumetanide Inj 2.5 Mg/10 Ml Vial IV PUSH BID SALINA Dextrose 12.5 gm 06/28/24 15:27 Dextrose 50% 25 Gm/50 Ml Syringe IV PUSH PRN PRN Hypoglycemia Protocol Dicyclomine HCl 20 mg 06/29/24 09:00 07/04/24 08:07 Dicyclomine Hcl 10 Mg Capsule PO 20 mg TID SALINA Administration Glucagon 1 mg 06/28/24 15:27 Glucagon For Inj 1 Mg Vial IM PRN PRN Hypoglycemia Protocol Glucose 15 gm 06/28/24 15:27 07/02/24 05:19 Glucose Oral Gel 15 Gm Of Glucse In 37.5 Gm Tube PO 15 gm PRN PRN Administration Hypoglycemia Protocol Dextrose 1,000 mls @ 100 mls/hr 06/28/24 15:27 Dextrose 5% 1,000 Ml IVPB PRN PRN Hypoglycemia Protocol Insulin Aspart 3 - 6 units 06/28/24 17:00 07/04/24 07:28 Insulin Aspart (*Bkc) 100 Units/Ml SUB-Q Not Given TIDWM [facility] Protocol Insulin Glargine 20 units 06/29/24 21:00 07/03/24 20:19 Insulin Glargine (*Bkc) 100 Units/Ml SUB-Q 20 units HS SALINA Administration Isosorbide Mononitrate 60 mg 06/29/24 17:00 07/04/24 08:10 Isosorbide Mononitrate 60 Mg Tab.Er.24h PO 60 mg BID SALINA Administration Latanoprost 1 drop 06/29/24 09:00 07/04/24 08:10 Latanoprost 0.005% Op Soln 2.5 Ml Btl EACH EYE 1 drop DAILY SALINA Administration Lisinopril 40 mg 06/29/24 09:00 07/04/24 08:06 Lisinopril 20 Mg Tablet PO Not Given QAM SALINA Metolazone 5 mg 07/02/24 09:45 07/04/24 08:06 Metolazone 5 Mg Tablet PO 5 mg QAM SALINA Administration Metoprolol Tartrate 25 mg 06/28/24 23:40 07/04/24 08:05 Metoprolol Tartrate 25 Mg Tablet PO 25 mg Q12HR SALINA Administration Fluticasone/Salmeterol 1 puff 06/29/24 08:00 07/04/24 09:02 Fluticasone/Salmeterol 115-21 Mcg Inhaler 1 Puff INHALATION 1 puff Q12HRT SALINA Administration Simvastatin 20 mg 06/29/24 09:00 07/04/24 08:06 Simvastatin 20 Mg Tablet PO 20 mg DAILY SALINA Administration Radiology Results: ITS Impressions Abdomen X-Ray 06/29/24 13:07 IMPRESSION: 1: No acute abdominal abnormality identified. Venous Doppler Study 07/01/24 10:20 Impression: Probable thrombosis of the bilateral posterior tibial and peroneal veins in the calves. Renal Ultrasound 07/01/24 10:21 Impression: Unremarkable kidneys. Collapsed urinary bladder limits evaluation. Probable cirrhotic liver with moderate to large abdominal pelvic ascites. Pulmonary Perfusion Imaging 07/02/24 14:33 IMPRESSION: 1. Intermediate probability for pulmonary embolism. Chest X-Ray 07/02/24 15:05 IMPRESSION: 1. Mild atelectasis in left lower lung zone. Paracentesis Ultrasound 07/03/24 15:59 IMPRESSION: 1. Successful ultrasound-guided paracentesis yielding 5000 mL of yellow fluid. Labs Labs: Laboratory Results - last 24 hr 07/01/24 07/03/24 07/03/24 11:40 11:38 13:20 WBC RBC Hgb Hct MCV MCH MCHC RDW Plt Count MPV Immature Gran % (Auto) Neut % (Auto) Lymph % (Auto) [place] % (Auto) Eos % (Auto) Baso % (Auto) Lymph # (Auto) [place] # (Auto) Eos # (Auto) Baso # (Auto) Abs Immat Gran (auto) Absolute Neuts (auto) Absolute Nucleated RBC Nucleated RBC % Platelet Estimate Hypochromasia Anisocytosis Ovalocytes Schistocytes PT 15.9 H INR 1.2 APTT Cancelled Sodium Potassium Chloride Carbon Dioxide Anion Gap BUN Creatinine Estim Creat Clear Calc Estimated GFR Glucose POC Capillary Glucose 92 Calcium Phosphorus Total Bilirubin AST ALT Alkaline Phosphatase Total Protein Albumin U Protein 24 Hr Presump 167 H Peritoneal Source Peritoneal Color Peritoneal Appearance Peritoneal RBC Periton Nuc Cells Periton Neutrophils Periton Lymphocytes Periton Mesothelial Periton Macrophages Ur KYRA Interpret 24 hr 07/03/24 07/03/24 07/03/24 13:20 15:17 16:30 WBC RBC Hgb Hct MCV MCH MCHC RDW Plt Count MPV Immature Gran % (Auto) Neut % (Auto) Lymph % (Auto) [place] % (Auto) Eos % (Auto) Baso % (Auto) Lymph # (Auto) [place] # (Auto) Eos # (Auto) Baso # (Auto) Abs Immat Gran (auto) Absolute Neuts (auto) Absolute Nucleated RBC Nucleated RBC % Platelet Estimate Hypochromasia Anisocytosis Ovalocytes Schistocytes PT INR APTT 28.1 Sodium Potassium Chloride Carbon Dioxide Anion Gap BUN Creatinine Estim Creat Clear Calc Estimated GFR Glucose POC Capillary Glucose 75 Calcium Phosphorus Total Bilirubin AST ALT Alkaline Phosphatase Total Protein Albumin U Protein 24 Hr Presump Peritoneal Source Peritoneal fluid Peritoneal Color Yellow Peritoneal Appearance Hazy A Peritoneal RBC < 2000 Periton Nuc Cells 145 Periton Neutrophils 14 Periton Lymphocytes 35 Periton Mesothelial 2 Periton Macrophages 49 Ur KYRA Interpret 24 hr 07/03/24 07/04/24 07/04/24 20:22 05:51 07:24 WBC 6.4 RBC 3.24 L Hgb 8.1 L Hct 28.0 L MCV 86.4 MCH 25.0 L MCHC 28.9 L RDW 19.9 H Plt Count 424 H MPV 9.6 Immature Gran % (Auto) 1.6 H Neut % (Auto) 64.8 Lymph % (Auto) 16.0 L [place] % (Auto) 14.5 H Eos % (Auto) 2.3 Baso % (Auto) 0.8 Lymph # (Auto) 1.03 [place] # (Auto) 0.9 H Eos # (Auto) 0.2 Baso # (Auto) 0.1 Abs Immat Gran (auto) 0.10 H Absolute Neuts (auto) 4.2 Absolute Nucleated RBC 0.000 Nucleated RBC % 0.0 Platelet Estimate Increased Hypochromasia 1+ Anisocytosis 2+ Ovalocytes 1+ Schistocytes None seen PT INR APTT Sodium 135 L Potassium 4.0 Chloride 104 Carbon Dioxide 24 Anion Gap 7 BUN 48 H Creatinine 1.50 H Estim Creat Clear Calc 23 Estimated GFR 33 L Glucose 120 H POC Capillary Glucose 167 H 126 H Calcium 7.6 L Phosphorus 5.0 H Total Bilirubin 0.2 AST 26 ALT 8 Alkaline Phosphatase 52 Total Protein 6.0 L Albumin 2.8 L U Protein 24 Hr Presump Peritoneal Source Peritoneal Color Peritoneal Appearance Peritoneal RBC Periton Nuc Cells Periton Neutrophils Periton Lymphocytes Periton Mesothelial Periton Macrophages Ur KYRA Interpret 24 hr
[2024-07-04 11:53] LABS: Glucose Point of Care 172 mg/dl (65-105)
[2024-07-04 13:08] LABS: Lambda Light Chain 28.6 mg/L (5.7-26.3)
[2024-07-04] MEDS: BUMETANIDE INJ 2.5 MG/10 ML VIAL 1 MG IV PUSH (16:03)
[2024-07-04 16:43] LABS: Glucose Point of Care 169 mg/dl (65-105)
--- NOTE | 2024-07-04 17:43 | P.PNGI_ITS ---
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 control technician insulin 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: with residential use Qualified Code(s): E11.21 - Type 2 diabetes mellitus with diabetic nephropathy; Z79.4 - [facility] (current) use of insulin Code(s): E11.21 - Type 2 diabetes mellitus with diabetic nephropathy Status: Acute Assessment and Plan: on insulin and other meds (3) Acute exacerbation of CHF (congestive heart failure): Code(s): I50.9 - Heart failure, unspecified Status: Acute Assessment and Plan: by cardiology (4) Acute kidney injury: Code(s): N17.9 - Acute kidney failure, unspecified Status: Acute Assessment and Plan: by human resources manager manufacturing (5) Edema: Code(s): R60.9 - Edema, unspecified Status: Acute Assessment and Plan: volumen overload managed by human resources manager manufacturing, currently on diuretics, also low salt diet (6) Atrial fibrillation: Code(s): I48.91 - Unspecified atrial fibrillation Status: Acute (7) Anemia of chronic disease: Code(s): D63.8 - Anemia in other chronic diseases classified elsewhere Status: Acute Subjective Date/time seen: 07/04/24 17:43 Interval history: no major changes, similar sob on exertion Review of Systems Review of Systems: All systems reviewed & are unremarkable except as noted in HPI and below Exam Const: General: comfortable and no acute distress HENMT: Mouth: Yes moist mucous membranes Eyes: General: appearance normal, both eyes and all related structures Sclera: sclerae normal Neck: Neck: supple Resp: Effort & Inspection: normal respiratory effort Cardio: Rate: regular rate Rhythm: abnormal rhythm irregularly irregular Other: Bilateral lower extremity edema GI: Inspection: distended GI Palp: Yes Soft to palpation and No Tenderness to palpation present (GI) Other: less ascites Skin: General skin exam: normal color Neuro: Speech: normal speech Motor exam (neuro): 5/5 motor strength present throughout Extrem: General: pedal edema Psych: Mental Status: mental status grossly normal Affect: normal affect Objective Data Vital Signs Vital Signs: Vital Signs - 24 hr 07/03/24 20:19 07/03/24 21:20 07/03/24 20:00 Temperature 97.6 F Pulse Rate 79 77 Respiratory Rate 17 Blood Pressure 108/50 L Pulse Oximetry 94 Oxygen Delivery Room Air 07/04/24 04:58 07/03/24 20:00 07/04/24 00:00 Temperature 97.4 F L Pulse Rate 78 78 77 Respiratory Rate 16 Blood Pressure 107/48 L Pulse Oximetry 98 Oxygen Delivery 07/04/24 04:00 07/04/24 08:04 07/04/24 08:05 Temperature Pulse Rate 75 79 79 Respiratory Rate 16 Blood Pressure 126/43 L Pulse Oximetry 97 Oxygen Delivery 07/04/24 08:00 07/04/24 09:02 07/04/24 08:00 Temperature Pulse Rate 78 Respiratory Rate Blood Pressure Pulse Oximetry 100 Oxygen Delivery Room Air Room Air 07/04/24 12:00 07/04/24 14:00 07/04/24 16:00 Temperature 98.1 F Pulse Rate 79 64 81 Respiratory Rate 18 Blood Pressure 110/55 L Pulse Oximetry 100 Oxygen Delivery Intake/Output Intake/Output: Intake & Output 07/01/24 07/02/24 07/03/24 07/04/24 23:59 23:59 23:59 23:59 Intake Total 1040 600 395.4 760 Output Total 575 2025 6050 1050 Balance 465 -1425 -5654.6 -290 Meds/Results Medications: Active Medications Generic Name Dose Route Start Last Admin Trade Name Freq PRN Reason Stop Dose Admin Albuterol 2 puff 06/28/24 23:21 07/02/24 08:20 Albuterol Sulfate (*Sp) Aerosol 1 Puff INHALATION 2 puff Q4HRT PRN Administration Wheezing Apixaban 10 mg 07/03/24 21:00 07/04/24 08:06 Apixaban 5 Mg Tablet PO 07/10/24 09:01 10 mg Q12HR [facility] Administration Apixaban 5 mg 07/10/24 21:00 Apixaban 5 Mg Tablet PO Q12HR [facility] Aspirin 81 mg 06/30/24 09:00 07/04/24 08:07 Aspirin 81 Mg Enteric Tablet PO 81 mg QAM [facility] Administration Bumetanide 1 mg 07/04/24 17:00 07/04/24 16:03 Bumetanide Inj 2.5 Mg/10 Ml Vial IV PUSH 1 mg BID [facility] Administration Dextrose 12.5 gm 06/28/24 15:27 Dextrose 50% 25 Gm/50 Ml Syringe IV PUSH PRN PRN Hypoglycemia Protocol Dicyclomine HCl 20 mg 06/29/24 09:00 07/04/24 16:02 Dicyclomine Hcl 10 Mg Capsule PO 20 mg TID [facility] Administration Glucagon 1 mg 06/28/24 15:27 Glucagon For Inj 1 Mg Vial IM PRN PRN Hypoglycemia Protocol Glucose 15 gm 06/28/24 15:27 07/02/24 05:19 Glucose Oral Gel 15 Gm Of Glucse In 37.5 Gm Tube PO 15 gm PRN PRN Administration Hypoglycemia Protocol Dextrose 1,000 mls @ 100 mls/hr 06/28/24 15:27 Dextrose 5% 1,000 Ml IVPB PRN PRN Hypoglycemia Protocol Insulin Aspart 3 - 6 units 06/28/24 17:00 07/04/24 16:07 Insulin Aspart (*Bkc) 100 Units/Ml SUB-Q Not Given TIDWM [facility] Protocol Insulin Glargine 20 units 06/29/24 21:00 07/03/24 20:19 Insulin Glargine (*Bkc) 100 Units/Ml SUB-Q 20 units HS [facility] Administration Isosorbide Mononitrate 60 mg 06/29/24 17:00 07/04/24 16:02 Isosorbide Mononitrate 60 Mg Tab.Er.24h PO 60 mg BID [facility] Administration Latanoprost 1 drop 06/29/24 09:00 07/04/24 08:10 Latanoprost 0.005% Op Soln 2.5 Ml Btl EACH EYE 1 drop DAILY [facility] Administration Lisinopril 40 mg 06/29/24 09:00 07/04/24 08:06 Lisinopril 20 Mg Tablet PO Not Given QAM [facility] Metolazone 5 mg 07/02/24 09:45 07/04/24 08:06 Metolazone 5 Mg Tablet PO 5 mg QAM [facility] Administration Metoprolol Tartrate 25 mg 06/28/24 23:40 07/04/24 08:05 Metoprolol Tartrate 25 Mg Tablet PO 25 mg Q12HR [facility] Administration Fluticasone/Salmeterol 1 puff 06/29/24 08:00 07/04/24 09:02 Fluticasone/Salmeterol 115-21 Mcg Inhaler 1 Puff INHALATION 1 puff Q12HRT [facility] Administration Simvastatin 20 mg 06/29/24 09:00 07/04/24 08:06 Simvastatin 20 Mg Tablet PO 20 mg DAILY [facility] Administration Radiology Results: ITS Impressions Abdomen X-Ray 06/29/24 13:07 IMPRESSION: 1: No acute abdominal abnormality identified. Venous Doppler Study 07/01/24 10:20 Impression: Probable thrombosis of the bilateral posterior tibial and peroneal veins in the calves. Renal Ultrasound 07/01/24 10:21 Impression: Unremarkable kidneys. Collapsed urinary bladder limits evaluation. Probable cirrhotic liver with moderate to large abdominal pelvic ascites. Pulmonary Perfusion Imaging 07/02/24 14:33 IMPRESSION: 1. Intermediate probability for pulmonary embolism. Chest X-Ray 07/02/24 15:05 IMPRESSION: 1. Mild atelectasis in left lower lung zone. Paracentesis Ultrasound 07/03/24 15:59 IMPRESSION: 1. Successful ultrasound-guided paracentesis yielding 5000 mL of yellow fluid. Labs Labs: Laboratory Results - last 24 hr 07/01/24 07/01/24 07/03/24 11:26 11:40 15:17 WBC RBC Hgb Hct MCV MCH MCHC RDW Plt Count MPV Immature Gran % (Auto) Neut % (Auto) Lymph % (Auto) [place] % (Auto) Eos % (Auto) Baso % (Auto) Lymph # (Auto) [place] # (Auto) Eos # (Auto) Baso # (Auto) Abs Immat Gran (auto) Absolute Neuts (auto) Absolute Nucleated RBC Nucleated RBC % Platelet Estimate Hypochromasia Anisocytosis Ovalocytes Schistocytes Sodium Potassium Chloride Carbon Dioxide Anion Gap BUN Creatinine Estim Creat Clear Calc Estimated GFR Glucose POC Capillary Glucose Calcium Phosphorus Total Bilirubin AST ALT Alkaline Phosphatase Total Protein Albumin U Protein 24 Hr Presump 167 H Peritoneal Source Peritoneal fluid Peritoneal Color Yellow Peritoneal Appearance Hazy A Peritoneal RBC < 2000 [place] Nuc Cells 145 [place] Neutrophils 14 [place] Lymphocytes 35 [place] Mesothelial 2 Periton Macrophages 49 [place]/Lambda Ratio 2.20 H Free [place] Light Chains 63.0 H Free Lambda Light Chain 28.6 H 07/03/24 07/04/24 07/04/24 20:22 05:51 07:24 WBC 6.4 RBC 3.24 L Hgb 8.1 L Hct 28.0 L MCV 86.4 MCH 25.0 L MCHC 28.9 L RDW 19.9 H Plt Count 424 H MPV 9.6 Immature Gran % (Auto) 1.6 H Neut % (Auto) 64.8 Lymph % (Auto) 16.0 L [place] % (Auto) 14.5 H Eos % (Auto) 2.3 Baso % (Auto) 0.8 Lymph # (Auto) 1.03 [place] # (Auto) 0.9 H Eos # (Auto) 0.2 Baso # (Auto) 0.1 Abs Immat Gran (auto) 0.10 H Absolute Neuts (auto) 4.2 Absolute Nucleated RBC 0.000 Nucleated RBC % 0.0 Platelet Estimate Increased Hypochromasia 1+ Anisocytosis 2+ Ovalocytes 1+ Schistocytes None seen Sodium 135 L Potassium 4.0 Chloride 104 Carbon Dioxide 24 Anion Gap 7 BUN 48 H Creatinine 1.50 H Estim Creat Clear Calc 23 Estimated GFR 33 L Glucose 120 H POC Capillary Glucose 167 H 126 H Calcium 7.6 L Phosphorus 5.0 H Total Bilirubin 0.2 AST 26 ALT 8 Alkaline Phosphatase 52 Total Protein 6.0 L Albumin 2.8 L U Protein 24 Hr Presump Peritoneal Source Peritoneal Color Peritoneal Appearance Peritoneal RBC Periton Nuc Cells Periton Neutrophils Periton Lymphocytes Periton Mesothelial Periton Macrophages [place]/Lambda Ratio Free [place] Light Chains Free Lambda Light Chain 07/04/24 07/04/24 11:47 16:31 WBC RBC Hgb Hct MCV MCH MCHC RDW Plt Count MPV Immature Gran % (Auto) Neut % (Auto) Lymph % (Auto) [place] % (Auto) Eos % (Auto) Baso % (Auto) Lymph # (Auto) [place] # (Auto) Eos # (Auto) Baso # (Auto) Abs Immat Gran (auto) Absolute Neuts (auto) Absolute Nucleated RBC Nucleated RBC % Platelet Estimate Hypochromasia Anisocytosis Ovalocytes Schistocytes Sodium Potassium Chloride Carbon Dioxide Anion Gap BUN Creatinine Estim Creat Clear Calc Estimated GFR Glucose POC Capillary Glucose 172 H 169 H Calcium Phosphorus Total Bilirubin AST ALT Alkaline Phosphatase Total Protein Albumin U Protein 24 Hr Presump Peritoneal Source Peritoneal Color Peritoneal Appearance Peritoneal RBC Periton Nuc Cells Periton Neutrophils Periton Lymphocytes Periton Mesothelial Periton Macrophages [place]/Lambda Ratio Free [place] Light Chains Free Lambda Light Chain
[2024-07-04 19:59] LABS: Glucose Point of Care 210 mg/dl (65-105)
[2024-07-04] MEDS: INSULIN GLARGINE (*BKC) 100 UNITS/ML 20 UNITS SUB-Q (20:25)
[2024-07-04 23:29] LABS: ANCA Screen NEGATIVE (NEGATIVE)
[2024-07-05] VITALS (7 sets, daily range): BP systolic 105–115; BP diastolic 36–52; PULSE 69–88; RESP 16–22; TEMP 36.5–37.2; O2SAT 92–100
[2024-07-05 07:48] LABS: Basophils Absolute Auto 0.1 K/mm3 (0.0-0.1); Basophils Percent Auto 0.9 % (0.2-1.2); Eosinophils Absolute Auto 0.1 K/mm3 (0-0.3); Eosinophils Percent Auto 1.9 % (0-4.4); Hematocrit 28.1 % (37.0-47.0); Hemoglobin 8.5 g/dL (12.0-15.0); Immature Granulocyte Absolute 0.08 K/mm3 (0.00-0.031); Immature Granulocyte Percent A 1.4 % (0-0.5); Lymphocytes Percent Auto 17.2 % (18.3-44.2); Mean Corpuscular HGB Conc 30.2 g/dl (32-36); Mean Corpuscular Hemoglobin 25.4 pg (26-34); Mean Corpuscular Volume 84.1 fl (80-100); Mean Platelet Volume 10.2 fl (7.4-10.4); Monocytes Absolute Auto 0.9 K/mm3 (0.1-0.6); Monocytes Percent Auto 16.1 % (2.6-8.5); Neutrophils Absolute Auto 3.7 K/mm3 (1.3-6.7); Neutrophils Percent Auto 62.5 % (45.5-73.1); Platelet Count Result 440 k/mm3 (150-375); Red Blood Count 3.34 M/mm3 (4.2-5.4); Red Cell Distribution Width 19.3 % (11.5-14.5); White Blood Count 5.8 K/mm3 (4.5-10.0)
[2024-07-05 07:49] LABS: Alanine Aminotransferase 9 U/L (6-35); Albumin Level 2.7 g/dL (3.5-5.1); Alkaline Phosphatase 58 U/L (38-126); Anion Gap 6 mmol/L (4-12); Aspartate Amino Transferase 28 U/L (14-36); Bilirubin,Total 0.3 mg/dL (0.2-1.3); Blood Urea Nitrogen 43 mg/dL (7-17); Calcium 7.8 mg/dL (8.4-10.2); Carbon Dioxide 28 mmol/L (22-30); Chloride 102 mmol/L (98-107); Estimated CRCL calculation 23 ml/min; Estimated Glomerular Filt Rate 33; Glucose 80 mg/dL (65-110); Potassium 3.9 mmol/L (3.4-5.0); Sodium 136 mmol/L (137-145)
[2024-07-05] MEDS: FLUTICASONE/SALMETEROL 115-21 MCG INHALER 1 PUFF INHALATION ×2 (07:54→20:28)
[2024-07-05 07:57] LABS: Glucose Point of Care 94 mg/dl (65-105)
[2024-07-05] MEDS: BUMETANIDE INJ 2.5 MG/10 ML VIAL 1 MG IV PUSH ×2 (08:16→15:57)
[2024-07-05] MEDS: ISOSORBIDE MONONITRATE 60 MG TAB.ER.24H PO ×2 (08:17→15:57)
[2024-07-05] MEDS: ASPIRIN 81 MG ENTERIC TABLET PO (08:17)
[2024-07-05] MEDS: METOPROLOL TARTRATE 25 MG TABLET PO ×2 (08:17→20:18)
[2024-07-05] MEDS: DICYCLOMINE HCL 10 MG CAPSULE 20 MG PO ×3 (08:17→15:57)
[2024-07-05] MEDS: SIMVASTATIN 20 MG TABLET PO (08:17)
[2024-07-05] MEDS: metOLazone 5 MG TABLET PO (08:17)
[2024-07-05] MEDS: APIXABAN 5 MG TABLET 10 MG PO ×2 (08:17→20:19)
[2024-07-05] MEDS: LATANOPROST 0.005% OP SOLN 2.5 ML BTL 1 DROP EACH EYE (08:18)
--- NOTE | 2024-07-05 10:30 | P.PNNP_ITS ---
Progress Note: A&P Assessment and Plan (1) Acute kidney injury: Code(s): N17.9 - Acute kidney failure, unspecified Status: Acute Assessment and Plan: * normal creatinine a year ago (2022) * admitted with a creatinine of 1.3mg/dl and peaked at 2.0mg/dl * evaluation to date noted: * renal u/s with unremarkable kidneys, collapsed bladder, and probable cirrhotic liver * FeUrea with prerenal azotemia * no significant proteinuria * CPK normal * UA with blood + protein * Echo with severe TR and diastolic dysfunction * bilateral DVTs noted * serologies still pending * with diuresis, creatinine improving * follow repeat labs and UOP (2) Edema: Code(s): R60.9 - Edema, unspecified Status: Acute Assessment and Plan: * multifactorial: * acute CHF exacerbation * amlodipine use * bilateral DVTs * continue current therapy (3) CHF (congestive heart failure): Qualifiers: Heart failure chronicity: acute Heart failure type: unspecified Qualified Code(s): I50.9 - Heart failure, unspecified Code(s): I50.9 - Heart failure, unspecified Status: Suspected Assessment and Plan: * apparently a new finding * elevated pro BNP * Echo with normal left ventricular systolic function with an estimated EF of 60-65%, grade II diastolic dysfunction, moderate pulmonary hypertension with an estimated pulmonary arterial systolic pressure of 62mmHg, no right heart strain * Cardiology following * on bumex and metolazone * follow daily weights, I/Os, and respiratory status (4) Essential hypertension: Code(s): I10 - Essential (primary) hypertension Status: Chronic Assessment and Plan: * reasonable control * follow trend of hemodynamics * off amlodipine (5) Cirrhosis: Qualifiers: Hepatic cirrhosis type: other cirrhosis Qualified Code(s): K74.69 - Other cirrhosis of liver Code(s): K74.60 - Unspecified cirrhosis of liver Status: Acute Assessment and Plan: * as noted by imaging to date * s/p large volume paracentesis (on 07/03) * GI following (6) DVT (deep venous thrombosis): Code(s): I82.409 - Acute embolism and thrombosis of unspecified deep veins of unspecified lower extremity Status: Acute Assessment and Plan: * venous doppler showing probable thrombosis of the bilateral posterior tibial and peroneal veins in the calves * VQ scan showing intermediate probability of PE * on Eliquis (7) Type 2 diabetes mellitus with hyperglycemia: Qualifiers: Diabetes mellitus termite treater helper insulin use: without termite treater helper use Qualified Code(s): E11.65 - Type 2 diabetes mellitus with hyperglycemia Code(s): E11.65 - Type 2 diabetes mellitus with hyperglycemia Status: Chronic Assessment and Plan: * follow accu-cheks * glycemic control per hospitalists Will continue to follow. Subjective Date/time seen: 07/05/24 10:30 Interval history: Follow-up for acute kidney injury/acute renal failure. Breathing/respiratroy status as well as edema all seems to be slowly improving with ongoing diuretic therapy; major complaint is that of worsening abdominal distension since her previous paracentesis; otherwise, no acute distress noted at the time of my visit. Exam Narrative: General: elderly but WD/WN female in NAD Heart: normal S1 and S2; no rub Lungs: decreased at bases Abdomen: soft, nontender, less distension, positive bowel sounds Extremities: no cyanosis or clubbing; 1+ edema Skin: warm and intact Objective Data Vital Signs Vital Signs: Vital Signs Temp Pulse Resp BP Pulse Ox O2 Del Method 07/05/24 10:18 85 07/05/24 10:00 98.1 F 85 16 112/52 L 100 07/05/24 09:05 Room Air 07/05/24 08:11 98.3 F 88 16 115/36 L 100 Intake/Output Intake/Output: Intake & Output 07/03/24 07/04/24 07/05/24 07/06/24 23:59 23:59 23:59 23:59 Intake Total 395.4 1790 790 360 Output Total 6050 2950 2400 350 Balance -5654.6 -1160 -1610 10 Meds/Results Medications: Active Medications Generic Name Dose Route Start Last Admin Trade Name Freq PRN Reason Stop Dose Admin Albuterol 2 puff 06/28/24 23:21 07/02/24 08:20 Albuterol Sulfate (*Sp) Aerosol 1 Puff INHALATION 2 puff Q4HRT PRN Administration Wheezing Apixaban 10 mg 07/03/24 21:00 07/05/24 20:19 Apixaban 5 Mg Tablet PO 07/10/24 09:01 10 mg Q12HR [facility] Administration Apixaban 5 mg 07/10/24 21:00 Apixaban 5 Mg Tablet PO Q12HR [facility] Aspirin 81 mg 06/30/24 09:00 07/05/24 08:17 Aspirin 81 Mg Enteric Tablet PO 81 mg QAM [facility] Administration Bumetanide 1 mg 07/04/24 17:00 07/05/24 15:57 Bumetanide Inj 2.5 Mg/10 Ml Vial IV PUSH 1 mg BID [facility] Administration Dextrose 12.5 gm 06/28/24 15:27 Dextrose 50% 25 Gm/50 Ml Syringe IV PUSH PRN PRN Hypoglycemia Protocol Dicyclomine HCl 20 mg 06/29/24 09:00 07/05/24 15:57 Dicyclomine Hcl 10 Mg Capsule PO 20 mg TID [facility] Administration Glucagon 1 mg 06/28/24 15:27 Glucagon For Inj 1 Mg Vial IM PRN PRN Hypoglycemia Protocol Glucose 15 gm 06/28/24 15:27 07/02/24 05:19 Glucose Oral Gel 15 Gm Of Glucse In 37.5 Gm Tube PO 15 gm PRN PRN Administration Hypoglycemia Protocol Dextrose 1,000 mls @ 100 mls/hr 06/28/24 15:27 Dextrose 5% 1,000 Ml IVPB PRN PRN Hypoglycemia Protocol Insulin Aspart 3 - 6 units 06/28/24 17:00 07/05/24 15:57 Insulin Aspart (*Bkc) 100 Units/Ml SUB-Q Not Given TIDWM [facility] Protocol Insulin Glargine 20 units 06/29/24 21:00 07/05/24 20:17 Insulin Glargine (*Bkc) 100 Units/Ml SUB-Q 20 units HS [facility] Administration Isosorbide Mononitrate 60 mg 06/29/24 17:00 07/05/24 15:57 Isosorbide Mononitrate 60 Mg Tab.Er.24h PO 60 mg BID [facility] Administration Latanoprost 1 drop 06/29/24 09:00 07/05/24 08:18 Latanoprost 0.005% Op Soln 2.5 Ml Btl EACH EYE 1 drop DAILY [facility] Administration Lisinopril 40 mg 06/29/24 09:00 07/05/24 08:16 Lisinopril 20 Mg Tablet PO Not Given QAM [facility] Metolazone 5 mg 07/02/24 09:45 11/14/24 08:17 Metolazone 5 Mg Tablet PO 5 mg QAM [facility] Administration Metoprolol Tartrate 25 mg 06/28/24 23:40 07/05/24 20:18 Metoprolol Tartrate 25 Mg Tablet PO 25 mg Q12HR [facility] Administration Fluticasone/Salmeterol 1 puff 06/29/24 08:00 07/06/24 07:50 Fluticasone/Salmeterol 115-21 Mcg Inhaler 1 Puff INHALATION 1 puff Q12HRT [facility] Administration Simvastatin 20 mg 06/29/24 09:00 07/05/24 08:17 Simvastatin 20 Mg Tablet PO 20 mg DAILY [facility] Administration Radiology Results: ITS Impressions Abdomen X-Ray 06/29/24 13:07 IMPRESSION: 1: No acute abdominal abnormality identified. Venous Doppler Study 07/01/24 10:20 Impression: Probable thrombosis of the bilateral posterior tibial and peroneal veins in the calves. Renal Ultrasound 07/01/24 10:21 Impression: Unremarkable kidneys. Collapsed urinary bladder limits evaluation. Probable cirrhotic liver with moderate to large abdominal pelvic ascites. Pulmonary Perfusion Imaging 07/02/24 14:33 IMPRESSION: 1. Intermediate probability for pulmonary embolism. Chest X-Ray 07/02/24 15:05 IMPRESSION: 1. Mild atelectasis in left lower lung zone. Paracentesis Ultrasound 07/03/24 15:59 IMPRESSION: 1. Successful ultrasound-guided paracentesis yielding 5000 mL of yellow fluid. Labs Labs: Laboratory Results - last 24 hr 07/05/24 06:06 WBC 5.8 Hgb 8.5 L Hct 28.1 L Plt Count 440 H Sodium 136 L Potassium 3.9 Chloride 102 Carbon Dioxide 28 Anion Gap 6 BUN 43 H Creatinine 1.50 H Estim Creat Clear Calc 23 Estimated GFR 33 L Glucose 80 Calcium 7.8 L Total Bilirubin 0.3 AST 28 ALT 9 Alkaline Phosphatase 58 Total Protein 6.0 L Albumin 2.7 L
[2024-07-05 11:34] LABS: Glucose Point of Care 134 mg/dl (65-105)
--- NOTE | 2024-07-05 12:10 | PM.PNCARD ---
Progress Note: A&P Assessment and Plan (1) Acute exacerbation of CHF (congestive heart failure): Code(s): I50.9 - Heart failure, unspecified Status: Acute Assessment and Plan: She has grade II diastolic dysfunction as well as moderate pHTN with PASP 62 mmHg, severe TR. Diuresing with Bumex and Metolazone which should be continued for now. Had good urine output yesterday. Amlodipine discontinued, which could have contributed to lower extremity swelling. In addition, found to have probable thrombosis of the bilateral posterior tibial and peroneal veins in the calves, which is certainly likely contributing to her lower extremity edema. Therefore, her lower extremity edema may not all be caused by CHF. Creatinine down to 1.5. Significant diuresis 07/03m therefore Bumex was reduced to 1 mg IV b.i.d. and continue metolazone. Edema is better. Shortness of breath is better. Perhaps tomorrow she can be shifted to p.o. bumex. (2) Atrial fibrillation: Code(s): I48.91 - Unspecified atrial fibrillation Status: Acute Assessment and Plan: Rate controlled. Given DVT she is now on apixaban 10mg b.i.d. (3) Acute kidney injury: Code(s): N17.9 - Acute kidney failure, unspecified Status: Acute Assessment and Plan: Nephrology is following (4) DVT (deep venous thrombosis): Code(s): I82.409 - Acute embolism and thrombosis of unspecified deep veins of unspecified lower extremity Status: Acute Assessment and Plan: Found to have probable thrombosis of the bilateral posterior tibial and peroneal veins in the calves. Continue anticoagulation. (5) Ascites: Qualifiers: Ascites type: other type Qualified Code(s): R18.8 - Other ascites Code(s): R18.8 - Other ascites Status: Acute Assessment and Plan: Diagnostic paracentesis planned per GI. Subjective Date/time seen: 07/05/24 12:10 Interval history: Cardiology follow up for CHF, atrial fibrillation Date of service 07/02/2024: Feels her shortness of breath is slightly improved today. Still has edema. Date of service 07/03: Still with lower extremity edema. Date of service 07/04/2024: Symptoms are better. Less short of breath. Edema is improved. No chest Date of service 07/05/2024: Continues to feel better. Less short of breath and no orthopnea. Swelling improving. Review of Systems Review of Systems: All systems reviewed & are unremarkable except as noted in HPI and below Constitutional: Constitutional: Denies body ache(s) Eyes: Eyes: Denies blurry vision Cardiovascular: Cardiovascular: Denies chest pain and Reports dyspnea Respiratory: Respiratory: Reports dyspnea Hematologic/Lymphatic: Hematologic/Lymphatic: Denies easy bleeding Exam Const: General: comfortable and no acute distress HENMT: Mouth: Yes moist mucous membranes Eyes: General: appearance normal, both eyes and all related structures Sclera: sclerae normal Neck: Neck: supple Resp: Effort & Inspection: normal respiratory effort Auscultation: clear to auscultation bilaterally Cardio: Rate: regular rate Rhythm: abnormal rhythm irregularly irregular Heart sounds: no murmurs Other: Bilateral lower extremity edema is improving GI: Inspection: distended Skin: General skin exam: normal color Neuro: Speech: normal speech Extrem: General: edema Psych: Mental Status: mental status grossly normal Affect: normal affect Objective Data Vital Signs Vital Signs: Vital Signs - 24 hr 07/04/24 14:00 07/04/24 16:00 07/04/24 20:06 Temperature 36.7 C Pulse Rate 64 81 Respiratory Rate 18 Blood Pressure 110/55 L Pulse Oximetry 100 93 Oxygen Delivery 07/04/24 20:06 07/04/24 20:24 07/04/24 20:00 Temperature Pulse Rate 81 88 Respiratory Rate 16 Blood Pressure Pulse Oximetry Oxygen Delivery Room Air 07/04/24 22:00 07/05/24 05:56 07/05/24 08:11 Temperature 36.7 C 36.5 C 36.8 C Pulse Rate 78 69 88 Respiratory Rate 22 H 22 H 16 Blood Pressure 100/44 L 105/42 L 115/36 L Pulse Oximetry 93 95 100 Oxygen Delivery 07/05/24 07:53 07/05/24 07:53 07/05/24 08:00 Temperature Pulse Rate 84 84 Respiratory Rate 18 18 Blood Pressure Pulse Oximetry 93 Oxygen Delivery Room Air Room Air Intake/Output Intake/Output: Intake & Output 07/02/24 07/03/24 07/04/24 07/05/24 23:59 23:59 23:59 23:59 Intake Total 600 395.4 1790 350 Output Total 2024 6050 2950 350 [facility]1425 -5654.6 -1160 0 Meds/Results Medications: Active Medications Generic Name Dose Route Start Last Admin Trade Name Freq PRN Reason Stop Dose Admin Albuterol 2 puff 06/28/24 23:21 07/02/24 08:20 Albuterol Sulfate (*Sp) Aerosol 1 Puff INHALATION 2 puff Q4HRT PRN Administration Wheezing Apixaban 10 mg 07/03/24 21:00 07/05/24 08:17 Apixaban 5 Mg Tablet PO 07/10/24 09:01 10 mg Q12HR SALINA Administration Apixaban 5 mg 07/10/24 21:00 Apixaban 5 Mg Tablet PO Q12HR SALINA Aspirin 81 mg 06/30/24 09:00 07/05/24 08:17 Aspirin 81 Mg Enteric Tablet PO 81 mg QAM SALINA Administration Bumetanide 1 mg 07/04/24 17:00 07/05/24 08:16 Bumetanide Inj 2.5 Mg/10 Ml Vial IV PUSH 1 mg BID SALINA Administration Dextrose 12.5 gm 06/28/24 15:27 Dextrose 50% 25 Gm/50 Ml Syringe IV PUSH PRN PRN Hypoglycemia Protocol Dicyclomine HCl 20 mg 06/29/24 09:00 07/05/24 08:17 Dicyclomine Hcl 10 Mg Capsule PO 20 mg TID SALINA Administration Glucagon 1 mg 06/28/24 15:27 Glucagon For Inj 1 Mg Vial IM PRN PRN Hypoglycemia Protocol Glucose 15 gm 06/28/24 15:27 07/02/24 05:19 Glucose Oral Gel 15 Gm Of Glucse In 37.5 Gm Tube PO 15 gm PRN PRN Administration Hypoglycemia Protocol Dextrose 1,000 mls @ 100 mls/hr 06/28/24 15:27 Dextrose 5% 1,000 Ml IVPB PRN PRN Hypoglycemia Protocol Insulin Aspart 3 - 6 units 06/28/24 17:00 07/05/24 11:43 Insulin Aspart (*Bkc) 100 Units/Ml SUB-Q Not Given TIDWM SALINA Protocol Insulin Glargine 20 units 06/29/24 21:00 07/04/24 20:25 Insulin Glargine (*Bkc) 100 Units/Ml SUB-Q 20 units HS SALINA Administration Isosorbide Mononitrate 60 mg 06/29/24 17:00 07/05/24 08:17 Isosorbide Mononitrate 60 Mg Tab.Er.24h PO 60 mg BID SALINA Administration Latanoprost 1 drop 06/29/24 09:00 07/05/24 08:18 Latanoprost 0.005% Op Soln 2.5 Ml Btl EACH EYE 1 drop DAILY SALINA Administration Lisinopril 40 mg 06/29/24 09:00 07/05/24 08:16 Lisinopril 20 Mg Tablet PO Not Given QAM SALINA Metolazone 5 mg 07/02/24 09:45 07/05/24 08:17 Metolazone 5 Mg Tablet PO 5 mg QAM SALINA Administration Metoprolol Tartrate 25 mg 06/28/24 23:40 07/05/24 08:17 Metoprolol Tartrate 25 Mg Tablet PO 25 mg Q12HR SALINA Administration Fluticasone/Salmeterol 1 puff 06/29/24 08:00 07/05/24 07:54 Fluticasone/Salmeterol 115-21 Mcg Inhaler 1 Puff INHALATION 1 puff Q12HRT SALINA Administration Simvastatin 20 mg 06/29/24 09:00 07/05/24 08:17 Simvastatin 20 Mg Tablet PO 20 mg DAILY SALINA Administration Radiology Results: ITS Impressions Abdomen X-Ray 06/29/24 13:07 IMPRESSION: 1: No acute abdominal abnormality identified. Venous Doppler Study 07/01/24 10:20 Impression: Probable thrombosis of the bilateral posterior tibial and peroneal veins in the calves. Renal Ultrasound 07/01/24 10:21 Impression: Unremarkable kidneys. Collapsed urinary bladder limits evaluation. Probable cirrhotic liver with moderate to large abdominal pelvic ascites. Pulmonary Perfusion Imaging 07/02/24 14:33 IMPRESSION: 1. Intermediate probability for pulmonary embolism. Chest X-Ray 07/02/24 15:05 IMPRESSION: 1. Mild atelectasis in left lower lung zone. Paracentesis Ultrasound 07/03/24 15:59 IMPRESSION: 1. Successful ultrasound-guided paracentesis yielding 5000 mL of yellow fluid. Labs Labs: Laboratory Results - last 24 hr 07/01/24 07/04/24 07/04/24 11:26 16:31 19:56 WBC RBC Hgb Hct MCV MCH MCHC RDW Plt Count MPV Immature Gran % (Auto) Neut % (Auto) Lymph % (Auto) [place] % (Auto) Eos % (Auto) Baso % (Auto) Lymph # (Auto) [place] # (Auto) Eos # (Auto) Baso # (Auto) Abs Immat Gran (auto) Absolute Neuts (auto) Absolute Nucleated RBC Nucleated RBC % Sodium Potassium Chloride Carbon Dioxide Anion Gap BUN Creatinine Estim Creat Clear Calc Estimated GFR Glucose POC Capillary Glucose 169 H 210 H Calcium Total Bilirubin AST ALT Alkaline Phosphatase Total Protein Albumin ANCA Screen Negative [employer]/Lambda Ratio 2.20 H Free [employer] Light Chains 63.0 H Free Lambda Light Chain 28.6 H 07/05/24 07/05/24 07/05/24 06:06 07:34 11:29 WBC 5.8 RBC 3.34 L Hgb 8.5 L Hct 28.1 L MCV 84.1 MCH 25.4 L MCHC 30.2 L RDW 19.3 H Plt Count 440 H MPV 10.2 Immature Gran % (Auto) 1.4 H Neut % (Auto) 62.5 Lymph % (Auto) 17.2 L [place] % (Auto) 16.1 H Eos % (Auto) 1.9 Baso % (Auto) 0.9 Lymph # (Auto) 1.00 [place] # (Auto) 0.9 H Eos # (Auto) 0.1 Baso # (Auto) 0.1 Abs Immat Gran (auto) 0.08 H Absolute Neuts (auto) 3.7 Absolute Nucleated RBC 0.000 Nucleated RBC % 0.0 Sodium 136 L Potassium 3.9 Chloride 102 Carbon Dioxide 28 Anion Gap 6 BUN 43 H Creatinine 1.50 H Estim Creat Clear Calc 23 Estimated GFR 33 L Glucose 80 POC Capillary Glucose 94 134 H Calcium 7.8 L Total Bilirubin 0.3 AST 28 ALT 9 Alkaline Phosphatase 58 Total Protein 6.0 L Albumin 2.7 L ANCA Screen [employer]/Lambda Ratio Free [employer] Light Chains Free Lambda Light Chain Quality VTE Prophylaxis VTE prophylaxis: mechanical ordered
--- NOTE | 2024-07-05 12:54 | P.PNIM_ITS ---
Progress Note: A&P Assessment and Plan (1) CHF (congestive heart failure): Qualifiers: Heart failure type: unspecified Heart failure chronicity: acute Qualified Code(s): I50.9 - Heart failure, unspecified Code(s): I50.9 - Heart failure, unspecified Status: Suspected Assessment and Plan: * New onset * Pro BNP >86673 initially * Echo showing normal left ventricular systolic function with an estimated EF of 60-65%, grade II diastolic dysfunction, moderate pulmonary hypertension with an estimated pulmonary arterial systolic pressure of 62mmHg, no right heart strain * Cardiology following * Last 24 hours urine output has picked up and she had a total of 1750ml output. * Continue Bumex IV and Metolazone * consulted following * Monitor I and O and obtain daily weights * Cardiac diet * Continue continuous telemetry (2) Elevated troponin: Code(s): R79.89 - Other specified abnormal findings of blood chemistry Status: Acute Assessment and Plan: * likely demand ischemia * Troponin 0.131 -> 0.122 -> 0.116, flat. No active chest pain. * Awaiting echo results * Cardiology following * Continue cardiac monitoring * Continue diuresis (3) Type 2 diabetes mellitus with kidney complication: Qualifiers: Diabetes mellitus halfway insulin use: without halfway use Diabetes mellitus complication detail: with chronic kidney disease Chronic kidney disease stage: unspecified stage Qualified Code(s): E11.22 - Type 2 diabetes mellitus with diabetic chronic kidney disease Code(s): E11.29 - Type 2 diabetes mellitus with other diabetic kidney complication Status: Chronic Assessment and Plan: * Blood sugars ranging 117-177 * Hgb A1C 5.9 * Accu checks AC/HS * Moderate dose SSI ordered * hypoglycemic protocol in place * Diabetic diet ordered * Hold metformin * Continue Lantus 20 units @ HS (4) CKD (chronic kidney disease): Qualifiers: Chronic kidney disease stage: unspecified stage Qualified Code(s): N18.9 - Chronic kidney disease, unspecified Code(s): N18.9 - Chronic kidney disease, unspecified Status: Chronic Assessment and Plan: * Creatinine 1.5 today * Continue Diuresis with Bumex and Metolazone * following * Continue to trend (5) Essential hypertension: Code(s): I10 - Essential (primary) hypertension Status: Chronic Assessment and Plan: * Blood pressure ranging 111/57-146/95 * Continue Lisinopril, Metoprolol * Amlodipine stopped by Cardiology due to leg swelling (6) Serum potassium elevated: Code(s): E87.5 - Hyperkalemia Status: Acute Assessment and Plan: * Potassium 3.9 * No replacement needed * Continue to trend (7) Ascites: Qualifiers: Ascites type: other type Qualified Code(s): R18.8 - Other ascites Code(s): R18.8 - Other ascites Status: Acute Assessment and Plan: * Renal US shown cirrhosis of the liver with moderate to large abdominal pelvic ascites * Paracentesis performed yesterday 5L fluid removed * Bili and liver enzymes are WNL * Liver labs pending. * No history of alcohol abuse * Hepatitis panel negative (8) DVT (deep venous thrombosis): Code(s): I82.409 - Acute embolism and thrombosis of unspecified deep veins of unspecified lower extremity Status: Acute Assessment and Plan: * Venous doppler showing probable thrombosis of the bilateral posterior tibial and peroneal veins in the calves * VQ scan showing intermediate probability of PE * Eliquis started, Heparin infusion discontinued * VQ scan showing intermediate probability of PE * Eliquis started * Will increase dose of eliquis to 5 mg if creatinine drops to less than 1.5. Today currently creatinine 1.5. Will hold for another day and recheck labs in the morning. (9) Pulmonary embolus: Code(s): I26.99 - Other pulmonary embolism without acute cor pulmonale Status: Acute Assessment and Plan: * VQ scan showing intermediate probability of PE * Eliquis started * Will increase dose of eliquis to 5 mg if creatinine drops to less than 1.5. Today currently creatinine 1.5. Will hold for another day and recheck labs in the morning. Time Spent With Patient Time with patient: 25 - 35 minutes Subjective Date/time seen: 07/05/24 12:54 Interval history: Interval History: This is an 84 year old female who presented to the hospital on 06/28/24 with complaints of shortness of breath. Work up in the hospital included a chest x- ray which shown a right small pleural effusion, cardiomegaly. Abdomen x-ray which was negative. Labs significant [place] >54977, elevated troponin 0.122>0.116, K+ 5.9, Bicarb 21, Creatinine 1.30, eGFR 39. UA shown a cloudy appearance, 1+ urine protein, 1+ urine ketones, 2+ urine blood, 2+ urobilinogen, trace leukocytes, 3-5 urine RBC, 2+ urine bacteria. Echo was obtained with results pending. Patient given IV Lasix for diuresis. Cardiology consulted for new onset CHF. Subjective: Patient denies any new complaints today. Labs reviewed. Review of Systems Review of Systems: All systems reviewed & are unremarkable except as noted in HPI and below Constitutional: Constitutional: Reports as per HPI and Reports no additional constitutional complaints Eyes: Eyes: Reports as per HPI and Reports no additional eye complaints ENT: Reports system reviewed and no additional complaints, except as documented and Reports as per HPI Cardiovascular: Cardiovascular: Reports as per HPI and Reports no additional cardiovascular complaints Respiratory: Respiratory: Reports as per HPI and Reports no additional respiratory complaints Gastrointestinal: Gastrointestinal: Reports as per HPI and Reports no additional gastrointestinal complaints Genitourinary: Genitourinary: Reports no additional female genitourinary complaints and Reports as per HPI Musculoskeletal: Musculoskeletal: Reports no additional musculoskeletal complaints and Reports as per HPI Integumentary/Breasts: Skin/Breast: Reports system reviewed and no additional complaints, except as docu and Reports as per HPI Neurologic: Reports system reviewed and no additional complaints, except as documented and Reports as per HPI Psychiatric: Psychiatric: Reports no additional psychiatric complaints and Reports as per HPI Exam Narrative: General: In no acute distress Cardiac: Normal S1 and S2. No murmur, gallops or friction rubs, peripheral pulses intact. Respiratory: Currently on room air, no use of accessory seen, lungs clear to auscultation Gastrointestinal: rounded, non-tender, hypoactive bowel sounds. : voiding without difficulty. Extremities: moves all extremities well,bilateral lower extremity pitting edema improving Neuro: Alert and oriented x4 Objective Data Vital Signs Vital Signs: Vital Signs - 24 hr 07/04/24 14:00 07/04/24 16:00 07/04/24 20:06 Temperature 98.1 F Pulse Rate 64 81 Respiratory Rate 18 Blood Pressure 110/55 L Pulse Oximetry 100 93 Oxygen Delivery 07/04/24 20:06 07/04/24 20:24 07/04/24 20:00 Temperature Pulse Rate 81 88 Respiratory Rate 16 Blood Pressure Pulse Oximetry Oxygen Delivery Room Air 07/04/24 22:00 07/05/24 05:56 07/05/24 08:11 Temperature 98.1 F 97.7 F 98.3 F Pulse Rate 78 69 88 Respiratory Rate 22 H 22 H 16 Blood Pressure 100/44 L 105/42 L 115/36 L Pulse Oximetry 93 95 100 Oxygen Delivery 07/05/24 07:53 07/05/24 07:53 07/05/24 08:00 Temperature Pulse Rate 84 84 Respiratory Rate 18 18 Blood Pressure Pulse Oximetry 93 Oxygen Delivery Room Air Room Air Intake/Output Intake/Output: Intake & Output 07/02/24 07/03/24 07/04/24 07/05/24 23:59 23:59 23:59 23:59 Intake Total 600 395.4 1790 350 Output Total 5 6050 2950 350 Balance -1425 -5654.6 -1160 0 Meds/Results Medications: Active Medications Generic Name Dose Route Start Last Admin Trade Name Freq PRN Reason Stop Dose Admin Albuterol 2 puff 06/28/24 23:21 07/02/24 08:20 Albuterol Sulfate (*Sp) Aerosol 1 Puff INHALATION 2 puff Q4HRT PRN Administration Wheezing Apixaban 10 mg 07/03/24 21:00 07/05/24 08:17 Apixaban 5 Mg Tablet PO 07/10/24 09:01 10 mg Q12HR SALINA Administration Apixaban 5 mg 07/10/24 21:00 Apixaban 5 Mg Tablet PO Q12HR SALINA Aspirin 81 mg 06/30/24 09:00 07/05/24 08:17 Aspirin 81 Mg Enteric Tablet PO 81 mg QAM SALINA Administration Bumetanide 1 mg 07/04/24 17:00 07/05/24 08:16 Bumetanide Inj 2.5 Mg/10 Ml Vial IV PUSH 1 mg BID SALINA Administration Dextrose 12.5 gm 06/28/24 15:27 Dextrose 50% 25 Gm/50 Ml Syringe IV PUSH PRN PRN Hypoglycemia Protocol Dicyclomine HCl 20 mg 06/29/24 09:00 07/05/24 12:21 Dicyclomine Hcl 10 Mg Capsule PO 20 mg TID SALINA Administration Glucagon 1 mg 06/28/24 15:27 Glucagon For Inj 1 Mg Vial IM PRN PRN Hypoglycemia Protocol Glucose 15 gm 06/28/24 15:27 07/02/24 05:19 Glucose Oral Gel 15 Gm Of Glucse In 37.5 Gm Tube PO 15 gm PRN PRN Administration Hypoglycemia Protocol Dextrose 1,000 mls @ 100 mls/hr 06/28/24 15:27 Dextrose 5% 1,000 Ml IVPB PRN PRN Hypoglycemia Protocol Insulin Aspart 3 - 6 units 06/28/24 17:00 07/05/24 11:43 Insulin Aspart (*Bkc) 100 Units/Ml SUB-Q Not Given TIDWM SALINA Protocol Insulin Glargine 20 units 06/29/24 21:00 07/04/24 20:25 Insulin Glargine (*Bkc) 100 Units/Ml SUB-Q 20 units HS SALINA Administration Isosorbide Mononitrate 60 mg 06/29/24 17:00 07/05/24 08:17 Isosorbide Mononitrate 60 Mg Tab.Er.24h PO 60 mg BID SALINA Administration Latanoprost 1 drop 06/29/24 09:00 07/05/24 08:18 Latanoprost 0.005% Op Soln 2.5 Ml Btl EACH EYE 1 drop DAILY SALINA Administration Lisinopril 40 mg 06/29/24 09:00 07/05/24 08:16 Lisinopril 20 Mg Tablet PO Not Given QAM SALINA Metolazone 5 mg 07/02/24 09:45 07/05/24 08:17 Metolazone 5 Mg Tablet PO 5 mg QAM SALINA Administration Metoprolol Tartrate 25 mg 06/28/24 23:40 07/05/24 08:17 Metoprolol Tartrate 25 Mg Tablet PO 25 mg Q12HR SALINA Administration Fluticasone/Salmeterol 1 puff 06/29/24 08:00 07/05/24 07:54 Fluticasone/Salmeterol 115-21 Mcg Inhaler 1 Puff INHALATION 1 puff Q12HRT SALINA Administration Simvastatin 20 mg 06/29/24 09:00 07/05/24 08:17 Simvastatin 20 Mg Tablet PO 20 mg DAILY SALINA Administration Radiology Results: ITS Impressions Abdomen X-Ray 06/29/24 13:07 IMPRESSION: 1: No acute abdominal abnormality identified. Venous Doppler Study 07/01/24 10:20 Impression: Probable thrombosis of the bilateral posterior tibial and peroneal veins in the calves. Renal Ultrasound 07/01/24 10:21 Impression: Unremarkable kidneys. Collapsed urinary bladder limits evaluation. Probable cirrhotic liver with moderate to large abdominal pelvic ascites. Pulmonary Perfusion Imaging 07/02/24 14:33 IMPRESSION: 1. Intermediate probability for pulmonary embolism. Chest X-Ray 07/02/24 15:05 IMPRESSION: 1. Mild atelectasis in left lower lung zone. Paracentesis Ultrasound 07/03/24 15:59 IMPRESSION: 1. Successful ultrasound-guided paracentesis yielding 5000 mL of yellow fluid. Labs Labs: Laboratory Results - last 24 hr 07/01/24 07/04/24 07/04/24 11:26 16:31 19:56 WBC RBC Hgb Hct MCV MCH MCHC RDW Plt Count MPV Immature Gran % (Auto) Neut % (Auto) Lymph % (Auto) [place] % (Auto) Eos % (Auto) Baso % (Auto) Lymph # (Auto) [place] # (Auto) Eos # (Auto) Baso # (Auto) Abs Immat Gran (auto) Absolute Neuts (auto) Absolute Nucleated RBC Nucleated RBC % Sodium Potassium Chloride Carbon Dioxide Anion Gap BUN Creatinine Estim Creat Clear Calc Estimated GFR Glucose POC Capillary Glucose 169 H 210 H Calcium Total Bilirubin AST ALT Alkaline Phosphatase Total Protein Albumin ANCA Screen Negative [place]/Lambda Ratio 2.20 H Free [place] Light Chains 63.0 H Free Lambda Light Chain 28.6 H 07/05/24 07/05/24 07/05/24 06:06 07:34 11:29 WBC 5.8 RBC 3.34 L Hgb 8.5 L Hct 28.1 L MCV 84.1 MCH 25.4 L MCHC 30.2 L RDW 19.3 H Plt Count 440 H MPV 10.2 Immature Gran % (Auto) 1.4 H Neut % (Auto) 62.5 Lymph % (Auto) 17.2 L [place] % (Auto) 16.1 H Eos % (Auto) 1.9 Baso % (Auto) 0.9 Lymph # (Auto) 1.00 [place] # (Auto) 0.9 H Eos # (Auto) 0.1 Baso # (Auto) 0.1 Abs Immat Gran (auto) 0.08 H Absolute Neuts (auto) 3.7 Absolute Nucleated RBC 0.000 Nucleated RBC % 0.0 Sodium 136 L Potassium 3.9 Chloride 102 Carbon Dioxide 28 Anion Gap 6 BUN 43 H Creatinine 1.50 H Estim Creat Clear Calc 23 Estimated GFR 33 L Glucose 80 POC Capillary Glucose 94 134 H Calcium 7.8 L Total Bilirubin 0.3 AST 28 ALT 9 Alkaline Phosphatase 58 Total Protein 6.0 L Albumin 2.7 L ANCA Screen [place]/Lambda Ratio Free [place] Light Chains Free Lambda Light Chain Quality VTE Prophylaxis VTE prophylaxis: mechanical ordered
[2024-07-05 14:14] LABS: Anti Glomerular Basement Memb <1.0 AI
--- NOTE | 2024-07-05 14:26 | PCOTNOTE ---
Attempted to see pt for OT evaluation however pt had just worked with pt and returned to bed and politely declines getting up again this afternoon. Will continue to follow.
[2024-07-05 16:29] LABS: Glucose Point of Care 117 mg/dl (65-105)
[2024-07-05 20:11] LABS: Glucose Point of Care 219 mg/dl (65-105)
[2024-07-05] MEDS: INSULIN GLARGINE (*BKC) 100 UNITS/ML 20 UNITS SUB-Q (20:17)
[2024-07-06 05:19] VITALS: BP 119/50; PULSE 84; RESP 18; TEMP 36.4; O2SAT 99
[2024-07-06 07:14] LABS: Basophils Absolute Auto 0.1 K/mm3 (0.0-0.1); Basophils Percent Auto 0.9 % (0.2-1.2); Eosinophils Absolute Auto 0.1 K/mm3 (0-0.3); Eosinophils Percent Auto 2.2 % (0-4.4); Hematocrit 27.7 % (37.0-47.0); Hemoglobin 8.3 g/dL (12.0-15.0); Immature Granulocyte Absolute 0.08 K/mm3 (0.00-0.031); Immature Granulocyte Percent A 1.4 % (0-0.5); Lymphocytes Percent Auto 17.1 % (18.3-44.2); Mean Corpuscular Hemoglobin 25.1 pg (26-34); Mean Corpuscular Volume 83.7 fl (80-100); Mean Platelet Volume 9.7 fl (7.4-10.4); Monocytes Absolute Auto 0.9 K/mm3 (0.1-0.6); Neutrophils Absolute Auto 3.7 K/mm3 (1.3-6.7); Neutrophils Percent Auto 62.4 % (45.5-73.1); Platelet Count Result 430 k/mm3 (150-375); Red Blood Count 3.31 M/mm3 (4.2-5.4); White Blood Count 5.9 K/mm3 (4.5-10.0)
[2024-07-06 07:22] LABS: Alanine Aminotransferase 8 U/L (6-35); Albumin Level 2.9 g/dL (3.5-5.1); Alkaline Phosphatase 54 U/L (38-126); Anion Gap 7 mmol/L (4-12); Aspartate Amino Transferase 30 U/L (14-36); Bilirubin,Total 0.2 mg/dL (0.2-1.3); Blood Urea Nitrogen 43 mg/dL (7-17); Calcium 7.9 mg/dL (8.4-10.2); Carbon Dioxide 27 mmol/L (22-30); Chloride 100 mmol/L (98-107); Estimated CRCL calculation 23 ml/min; Estimated Glomerular Filt Rate 39; Glucose 109 mg/dL (65-110); Potassium 3.8 mmol/L (3.4-5.0); Sodium 134 mmol/L (137-145)
[2024-07-06 07:50] VITALS: O2SAT 94
[2024-07-06] MEDS: FLUTICASONE/SALMETEROL 115-21 MCG INHALER 1 PUFF INHALATION ×2 (07:50→21:01)
[2024-07-06 08:02] LABS: Glucose Point of Care 123 mg/dl (65-105)
--- NOTE | 2024-07-06 08:52 | P.PNIM_ITS ---
Progress Note: A&P Assessment and Plan (1) CHF (congestive heart failure): Qualifiers: Heart failure type: unspecified Heart failure chronicity: acute Qualified Code(s): I50.9 - Heart failure, unspecified Code(s): I50.9 - Heart failure, unspecified Status: Suspected Assessment and Plan: * New onset * Pro BNP >73189 initially * Echo showing normal left ventricular systolic function with an estimated EF of 60-65%, grade II diastolic dysfunction, moderate pulmonary hypertension with an estimated pulmonary arterial systolic pressure of 62mmHg, no right heart strain * Cardiology following * Diuresing well * Continue Metolazone and switched to Bumex oral today by Cardiology * following * Monitor I and O and obtain daily weights * Cardiac diet * Continue continuous telemetry * CXR negative today * Awaiting placement versus home health * Case coordination following (2) Elevated troponin: Code(s): R79.89 - Other specified abnormal findings of blood chemistry Status: Acute Assessment and Plan: * likely demand ischemia * Troponin 0.131 -> 0.122 -> 0.116, flat. No active chest pain. * Echo showing normal LV systolic function with an estimated EF of 60-65%, grade 2 diastolic dysfunction, moderate pulmonary hypertension with an estimated pulmonary arterial systolic pressure of 62 mmHg * Cardiology following * Continue cardiac monitoring * Continue diuresis (3) Type 2 diabetes mellitus with kidney complication: Qualifiers: Diabetes mellitus fci insulin use: without fci use Diabetes mellitus complication detail: with chronic kidney disease Chronic kidney disease stage: unspecified stage Qualified Code(s): E11.22 - Type 2 diabetes mellitus with diabetic chronic kidney disease Code(s): E11.29 - Type 2 diabetes mellitus with other diabetic kidney complication Status: Chronic Assessment and Plan: * Blood sugars ranging 117-177 * Hgb A1C 5.9 * Accu checks AC/HS * Moderate dose SSI ordered * hypoglycemic protocol in place * Diabetic diet ordered * Hold metformin * Continue Lantus 20 units @ HS (4) CKD (chronic kidney disease): Qualifiers: Chronic kidney disease stage: unspecified stage Qualified Code(s): N18.9 - Chronic kidney disease, unspecified Code(s): N18.9 - Chronic kidney disease, unspecified Status: Chronic Assessment and Plan: * Creatinine 1.3 today * Continue Diuresis with Bumex and Metolazone * following * Continue to trend (5) Essential hypertension: Code(s): I10 - Essential (primary) hypertension Status: Chronic Assessment and Plan: * Blood pressure ranging 111/57-146/95 * Continue Lisinopril and Metoprolol * Amlodipine stopped by Cardiology due to leg swelling (6) Serum potassium elevated: Code(s): E87.5 - Hyperkalemia Status: Acute Assessment and Plan: * Potassium 3.8 * No replacement needed * Continue to trend (7) Ascites: Qualifiers: Ascites type: other type Qualified Code(s): R18.8 - Other ascites Code(s): R18.8 - Other ascites Status: Acute Assessment and Plan: * Renal US shown cirrhosis of the liver with moderate to large abdominal pelvic ascites * Paracentesis performed yesterday 5L fluid removed * Bili and liver enzymes are WNL * Liver labs pending. * No history of alcohol abuse * Hepatitis panel negative (8) DVT (deep venous thrombosis): Code(s): I82.409 - Acute embolism and thrombosis of unspecified deep veins of unspecified lower extremity Status: Acute Assessment and Plan: * Venous doppler showing probable thrombosis of the bilateral posterior tibial and peroneal veins in the calves * VQ scan showing intermediate probability of PE * Eliquis started, Heparin infusion discontinued * VQ scan showing intermediate probability of PE * Eliquis started * Will increase dose of eliquis to 5 mg if creatinine drops to less than 1.5. Today currently creatinine 1.5. Will hold for another day and recheck labs in the morning. (9) Pulmonary embolus: Code(s): I26.99 - Other pulmonary embolism without acute cor pulmonale Status: Acute Assessment and Plan: * VQ scan showing intermediate probability of PE * Eliquis started * Will increase dose of eliquis to 5 mg if creatinine drops to less than 1.5. Today currently creatinine 1.5. Will hold for another day and recheck labs in the morning. Subjective Date/time seen: 07/06/24 08:52 Interval history: Interval History: This is an 84 year old female who presented to the hospital on 06/28/24 with complaints of shortness of breath. Work up in the hospital included a chest x- ray which shown a right small pleural effusion, cardiomegaly. Abdomen x-ray which was negative. Labs significant [place] >05225, elevated troponin 0.122>0.116, K+ 5.9, Bicarb 21, Creatinine 1.30, eGFR 39. UA shown a cloudy appearance, 1+ urine protein, 1+ urine ketones, 2+ urine blood, 2+ urobilinogen, trace leukocytes, 3-5 urine RBC, 2+ urine bacteria. Echo was obtained with results pending. Patient given IV Lasix for diuresis. Cardiology consulted for new onset CHF. Subjective: Patient denies any new complaints today. Labs reviewed. Review of Systems Review of Systems: All systems reviewed & are unremarkable except as noted in HPI and below Constitutional: Constitutional: Reports as per HPI and Reports no additional constitutional complaints Eyes: Eyes: Reports as per HPI and Reports no additional eye complaints ENT: Reports system reviewed and no additional complaints, except as documented and Reports as per HPI Cardiovascular: Cardiovascular: Reports as per HPI and Reports no additional cardiovascular complaints Respiratory: Respiratory: Reports as per HPI and Reports no additional respiratory complaints Gastrointestinal: Gastrointestinal: Reports as per HPI and Reports no additional gastrointestinal complaints Genitourinary: Genitourinary: Reports no additional female genitourinary complaints and Reports as per HPI Musculoskeletal: Musculoskeletal: Reports no additional musculoskeletal complaints and Reports as per HPI Integumentary/Breasts: Skin/Breast: Reports system reviewed and no additional complaints, except as docu and Reports as per HPI Neurologic: Reports system reviewed and no additional complaints, except as documented and Reports as per HPI Psychiatric: Psychiatric: Reports no additional psychiatric complaints and Reports as per HPI Exam Narrative: General: In no acute distress Cardiac: Normal S1 and S2. No murmur, gallops or friction rubs, peripheral pulses intact. Respiratory: Currently on room air, no use of accessory seen, lungs clear to auscultation Gastrointestinal: rounded, non-tender, hypoactive bowel sounds. : voiding without difficulty. Extremities: moves all extremities well, bilateral lower extremity pitting edema improving Neuro: Alert and oriented x4 Objective Data Vital Signs Vital Signs: Vital Signs - 24 hr 07/05/24 14:05 07/05/24 14:00 07/05/24 20:18 Temperature 98.1 F Pulse Rate 85 85 Respiratory Rate 16 Blood Pressure 112/52 L Pulse Oximetry 100 Oxygen Delivery Room Air 07/05/24 20:31 07/05/24 20:30 07/06/24 05:19 Temperature 98.9 F 97.5 F L Pulse Rate 88 84 Respiratory Rate 16 18 Blood Pressure 115/52 L 119/50 L Pulse Oximetry 92 100 99 Oxygen Delivery Room Air Intake/Output Intake/Output: Intake & Output 07/03/24 07/04/24 07/05/24 07/06/24 23:59 23:59 23:59 23:59 Intake Total 395.4 1790 790 360 Output Total 6050 2950 2400 350 [facility] -[id number] -1160 -1610 10 Meds/Results Medications: Active Medications Generic Name Dose Route Start Last Admin Trade Name Freq PRN Reason Stop Dose Admin Albuterol 2 puff 06/28/24 23:21 07/02/24 08:20 Albuterol Sulfate (*Sp) Aerosol 1 Puff INHALATION 2 puff Q4HRT PRN Administration Wheezing Apixaban 10 mg 07/03/24 21:00 07/05/24 20:19 Apixaban 5 Mg Tablet PO 07/10/24 09:01 10 mg Q12HR SALINA Administration Apixaban 5 mg 07/10/24 21:00 Apixaban 5 Mg Tablet PO Q12HR SALINA Aspirin 81 mg 06/30/24 09:00 07/05/24 08:17 Aspirin 81 Mg Enteric Tablet PO 81 mg QAM SALINA Administration Bumetanide 1 mg 07/04/24 17:00 07/05/24 15:57 Bumetanide Inj 2.5 Mg/10 Ml Vial IV PUSH 1 mg BID SALINA Administration Dextrose 12.5 gm 06/28/24 15:27 Dextrose 50% 25 Gm/50 Ml Syringe IV PUSH PRN PRN Hypoglycemia Protocol Dicyclomine HCl 20 mg 06/29/24 09:00 07/05/24 15:57 Dicyclomine Hcl 10 Mg Capsule PO 20 mg TID SALINA Administration Glucagon 1 mg 06/28/24 15:27 Glucagon For Inj 1 Mg Vial IM PRN PRN Hypoglycemia Protocol Glucose 15 gm 06/28/24 15:27 07/02/24 05:19 Glucose Oral Gel 15 Gm Of Glucse In 37.5 Gm Tube PO 15 gm PRN PRN Administration Hypoglycemia Protocol Dextrose 1,000 mls @ 100 mls/hr 06/28/24 15:27 Dextrose 5% 1,000 Ml IVPB PRN PRN Hypoglycemia Protocol Insulin Aspart 3 - 6 units 06/28/24 17:00 07/05/24 15:57 Insulin Aspart (*Bkc) 100 Units/Ml SUB-Q Not Given TIDWM [facility] Protocol Insulin Glargine 20 units 06/29/24 21:00 07/05/24 20:17 Insulin Glargine (*Bkc) 100 Units/Ml SUB-Q 20 units HS SALINA Administration Isosorbide Mononitrate 60 mg 06/29/24 17:00 07/05/24 15:57 Isosorbide Mononitrate 60 Mg Tab.Er.24h PO 60 mg BID SALINA Administration Latanoprost 1 drop 06/29/24 09:00 07/05/24 08:18 Latanoprost 0.005% Op Soln 2.5 Ml Btl EACH EYE 1 drop DAILY SALINA Administration Lisinopril 40 mg 06/29/24 09:00 07/05/24 08:16 Lisinopril 20 Mg Tablet PO Not Given QAM SALINA Metolazone 5 mg 07/02/24 09:45 07/05/24 08:17 Metolazone 5 Mg Tablet PO 5 mg QAM SALINA Administration Metoprolol Tartrate 25 mg 06/28/24 23:40 07/05/24 20:18 Metoprolol Tartrate 25 Mg Tablet PO 25 mg Q12HR SALINA Administration Fluticasone/Salmeterol 1 puff 06/29/24 08:00 07/06/24 07:50 Fluticasone/Salmeterol 115-21 Mcg Inhaler 1 Puff INHALATION 1 puff Q12HRT SALINA Administration Simvastatin 20 mg 06/29/24 09:00 07/05/24 08:17 Simvastatin 20 Mg Tablet PO 20 mg DAILY SALINA Administration Radiology Results: ITS Impressions Abdomen X-Ray 06/29/24 13:07 IMPRESSION: 1: No acute abdominal abnormality identified. Venous Doppler Study 07/01/24 10:20 Impression: Probable thrombosis of the bilateral posterior tibial and peroneal veins in the calves. Renal Ultrasound 07/01/24 10:21 Impression: Unremarkable kidneys. Collapsed urinary bladder limits evaluation. Probable cirrhotic liver with moderate to large abdominal pelvic ascites. Pulmonary Perfusion Imaging 07/02/24 14:33 IMPRESSION: 1. Intermediate probability for pulmonary embolism. Chest X-Ray 07/02/24 15:05 IMPRESSION: 1. Mild atelectasis in left lower lung zone. Paracentesis Ultrasound 07/03/24 15:59 IMPRESSION: 1. Successful ultrasound-guided paracentesis yielding 5000 mL of yellow fluid. Labs Labs: Laboratory Results - last 24 hr 07/01/24 07/05/24 07/05/24 11:26 11:29 16:26 WBC RBC Hgb Hct MCV MCH MCHC RDW Plt Count MPV Immature Gran % (Auto) Neut % (Auto) Lymph % (Auto) [place] % (Auto) Eos % (Auto) Baso % (Auto) Lymph # (Auto) [place] # (Auto) Eos # (Auto) Baso # (Auto) Abs Immat Gran (auto) Absolute Neuts (auto) Absolute Nucleated RBC Nucleated RBC % Sodium Potassium Chloride Carbon Dioxide Anion Gap BUN Creatinine Estim Creat Clear Calc Estimated GFR Glucose POC Capillary Glucose 134 H 117 H Calcium Total Bilirubin AST ALT Alkaline Phosphatase Total Protein Albumin Serum Immunofixation see note A Glomerular Base Memb Ab <1.0 07/05/24 07/06/24 07/06/24 19:22 06:30 07:58 WBC 5.9 RBC 3.31 L Hgb 8.3 L Hct 27.7 L MCV 83.7 MCH 25.1 L MCHC 30.0 L RDW 19.0 H Plt Count 430 H MPV 9.7 Immature Gran % (Auto) 1.4 H Neut % (Auto) 62.4 Lymph % (Auto) 17.1 L [place] % (Auto) 16.0 H Eos % (Auto) 2.2 Baso % (Auto) 0.9 Lymph # (Auto) 1.00 [place] # (Auto) 0.9 H Eos # (Auto) 0.1 Baso # (Auto) 0.1 Abs Immat Gran (auto) 0.08 H Absolute Neuts (auto) 3.7 Absolute Nucleated RBC 0.000 Nucleated RBC % 0.0 Sodium 134 L Potassium 3.8 Chloride 100 Carbon Dioxide 27 Anion Gap 7 BUN 43 H Creatinine 1.30 H Estim Creat Clear Calc 23 Estimated GFR 39 L Glucose 109 POC Capillary Glucose 219 H 123 H Calcium 7.9 L Total Bilirubin 0.2 AST 30 ALT 8 Alkaline Phosphatase 54 Total Protein 6.0 L Albumin 2.9 L Serum Immunofixation Glomerular Base Memb Ab Quality VTE Prophylaxis VTE prophylaxis: mechanical ordered
[2024-07-06 08:53] LABS: Glucose Point of Care 119 mg/dl (65-105)
[2024-07-06] MEDS: BUMETANIDE INJ 2.5 MG/10 ML VIAL 1 MG IV PUSH (10:15)
[2024-07-06] MEDS: SIMVASTATIN 20 MG TABLET PO (10:15)
[2024-07-06] MEDS: APIXABAN 5 MG TABLET 10 MG PO (10:16)
[2024-07-06] MEDS: ASPIRIN 81 MG ENTERIC TABLET PO (10:16)
[2024-07-06] MEDS: METOPROLOL TARTRATE 25 MG TABLET PO ×2 (10:16→20:39)
[2024-07-06] MEDS: metOLazone 5 MG TABLET PO (10:16)
[2024-07-06] MEDS: DICYCLOMINE HCL 10 MG CAPSULE 20 MG PO ×3 (10:16→17:00)
[2024-07-06] MEDS: lisinopriL 20 MG TABLET 40 MG PO (10:16)
[2024-07-06] MEDS: ISOSORBIDE MONONITRATE 60 MG TAB.ER.24H PO ×2 (10:16→17:01)
--- NOTE | 2024-07-06 10:22 | PCNWS ---
Weekly nutritional screen. Patient is tolerating current diet with adequate intake. Intake declined to ~50% last 24 hours. Ensure Compact BID for additional 220 kcal and 9 g protein each ordered by provider. No weight loss reported. No nutritional needs at this time.
--- NOTE | 2024-07-06 11:27 | P.PNCA_ITS ---
Progress Note: A&P Assessment and Plan (1) Acute exacerbation of CHF (congestive heart failure): Code(s): I50.9 - Heart failure, unspecified Status: Acute Assessment and Plan: She has grade II diastolic dysfunction as well as moderate pHTN with PASP 62 mmHg, severe TR. Amlodipine discontinued, which could have contributed to lower extremity swelling. In addition, found to have probable thrombosis of the jenny ateral posterior tibial and peroneal veins in the calves, which is certainly likely contributing to her lower extremity edema. Therefore, her lower extremity edema may not all be caused by CHF. Creatinine down to significantly improved. Shifted Bumex to PO. Continue Metolazone. (2) Atrial fibrillation: Code(s): I48.91 - Unspecified atrial fibrillation Status: Acute Assessment and Plan: Rate controlled. Given DVT she is now on Apixaban 10mg BID. (3) Acute kidney injury: Code(s): N17.9 - Acute kidney failure, unspecified Status: Acute Assessment and Plan: Nephrology is following (4) DVT (deep venous thrombosis): Code(s): I82.409 - Acute embolism and thrombosis of unspecified deep veins of unspecified lower extremity Status: Acute Assessment and Plan: Found to have probable thrombosis of the bilateral posterior tibial and peroneal veins in the calves. Continue anticoagulation. (5) Ascites: Qualifiers: Ascites type: other type Qualified Code(s): R18.8 - Other ascites Code(s): R18.8 - Other ascites Status: Acute Assessment and Plan: S/p diagnostic paracentesis Plan Okay for discharge from my standpoint. Recommendations and plan discussed with Hospitalist. Subjective Date/time seen: 07/06/24 11:27 Interval history: Cardiology follow up for CHF, atrial fibrillation Date of service 07/02/2024: Feels her shortness of breath is slightly improved today. Still has edema. Date of service 07/03: Still with lower extremity edema. Date of service 07/04/2024: Symptoms are better. Less short of breath. Edema is improved. No chest Date of service 07/05/2024: Continues to feel better. Less short of breath and no orthopnea. Swelling improving. Date of service 07/06: Feeling okay. No shortness of breath. Swelling improving. Still diuresing well. Review of Systems Review of Systems: All systems reviewed & are unremarkable except as noted in HPI and below (HPI) Exam Const: General: comfortable and no acute distress HENMT: Mouth: Yes moist mucous membranes Eyes: General: appearance normal, both eyes and all related structures Sclera: sclerae normal Resp: Effort & Inspection: normal respiratory effort Cardio: Rate: regular rate Rhythm: abnormal rhythm irregularly irregular Other: Bilateral lower extremity edema, significantly improved Skin: General skin exam: normal color Neuro: Speech: normal speech Psych: Mental Status: mental status grossly normal Affect: normal affect Objective Data Vital Signs Vital Signs: Vital Signs - 24 hr 07/05/24 14:05 07/05/24 14:00 07/05/24 20:18 Temperature 36.7 C Pulse Rate 85 85 Respiratory Rate 16 Blood Pressure 112/52 L Pulse Oximetry 100 Oxygen Delivery Room Air Fraction of Inspired Oxygen 07/05/24 20:31 07/05/24 20:30 07/06/24 05:19 Temperature 37.2 C 36.4 C L Pulse Rate 88 84 Respiratory Rate 16 18 Blood Pressure 115/52 L 119/50 L Pulse Oximetry 92 100 99 Oxygen Delivery Room Air Fraction of Inspired Oxygen 07/06/24 07:50 Temperature Pulse Rate Respiratory Rate Blood Pressure Pulse Oximetry 94 Oxygen Delivery Room Air Fraction of Inspired Oxygen 21 Intake/Output Intake/Output: Intake & Output 07/03/24 07/04/24 07/05/24 07/06/24 23:59 23:59 23:59 23:59 Intake Total 395.4 1790 790 380 Output Total 6050 2950 2400 350 [facility]5654.6 -1160 -1610 30 Meds/Results Medications: Active Medications Generic Name Dose Route Start Last Admin Trade Name Freq PRN Reason Stop Dose Admin Albuterol 2 puff 06/28/24 23:21 07/02/24 08:20 Albuterol Sulfate (*Sp) Aerosol 1 Puff INHALATION 2 puff Q4HRT PRN Administration Wheezing Apixaban 10 mg 07/03/24 21:00 07/06/24 10:16 Apixaban 5 Mg Tablet PO 07/10/24 09:01 10 mg Q12HR SALINA Administration Apixaban 5 mg 07/10/24 21:00 Apixaban 5 Mg Tablet PO Q12HR SALINA Aspirin 81 mg 06/30/24 09:00 07/06/24 10:16 Aspirin 81 Mg Enteric Tablet PO 81 mg QAM SALINA Administration Bumetanide 1 mg 07/06/24 17:00 Bumetanide 1 Mg Tablet PO BID [facility] Dextrose 12.5 gm 06/28/24 15:27 Dextrose 50% 25 Gm/50 Ml Syringe IV PUSH PRN PRN Hypoglycemia Protocol Dicyclomine HCl 20 mg 06/29/24 09:00 07/06/24 10:16 Dicyclomine Hcl 10 Mg Capsule PO 20 mg TID SALINA Administration Glucagon 1 mg 06/28/24 15:27 Glucagon For Inj 1 Mg Vial IM PRN PRN Hypoglycemia Protocol Glucose 15 gm 06/28/24 15:27 07/02/24 05:19 Glucose Oral Gel 15 Gm Of Glucse In 37.5 Gm Tube PO 15 gm PRN PRN Administration Hypoglycemia Protocol Dextrose 1,000 mls @ 100 mls/hr 06/28/24 15:27 Dextrose 5% 1,000 Ml IVPB PRN PRN Hypoglycemia Protocol Insulin Aspart 3 - 6 units 06/28/24 17:00 07/06/24 10:17 Insulin Aspart (*Bkc) 100 Units/Ml SUB-Q Not Given TIDWM [facility] Protocol Insulin Glargine 20 units 06/29/24 21:00 07/05/24 20:17 Insulin Glargine (*Bkc) 100 Units/Ml SUB-Q 20 units HS SALINA Administration Isosorbide Mononitrate 60 mg 06/29/24 17:00 07/06/24 10:16 Isosorbide Mononitrate 60 Mg Tab.Er.24h PO 60 mg BID SALINA Administration Latanoprost 1 drop 06/29/24 09:00 07/05/24 08:18 Latanoprost 0.005% Op Soln 2.5 Ml Btl EACH EYE 1 drop DAILY SALINA Administration Lisinopril 40 mg 06/29/24 09:00 07/06/24 10:16 Lisinopril 20 Mg Tablet PO 40 mg QAM SALINA Administration Metolazone 5 mg 07/02/24 09:45 07/06/24 10:16 Metolazone 5 Mg Tablet PO 5 mg QAM SALINA Administration Metoprolol Tartrate 25 mg 06/28/24 23:40 07/06/24 10:16 Metoprolol Tartrate 25 Mg Tablet PO 25 mg Q12HR SALINA Administration Fluticasone/Salmeterol 1 puff 06/29/24 08:00 07/06/24 07:50 Fluticasone/Salmeterol 115-21 Mcg Inhaler 1 Puff INHALATION 1 puff Q12HRT SALINA Administration Simvastatin 20 mg 06/29/24 09:00 07/06/24 10:15 Simvastatin 20 Mg Tablet PO 20 mg DAILY SALINA Administration Radiology Results: ITS Impressions Abdomen X-Ray 06/29/24 13:07 IMPRESSION: 1: No acute abdominal abnormality identified. Venous Doppler Study 07/01/24 10:20 Impression: Probable thrombosis of the bilateral posterior tibial and peroneal veins in the calves. Renal Ultrasound 07/01/24 10:21 Impression: Unremarkable kidneys. Collapsed urinary bladder limits evaluation. Probable cirrhotic liver with moderate to large abdominal pelvic ascites. Pulmonary Perfusion Imaging 07/02/24 14:33 IMPRESSION: 1. Intermediate probability for pulmonary embolism. Chest X-Ray 07/02/24 15:05 IMPRESSION: 1. Mild atelectasis in left lower lung zone. Paracentesis Ultrasound 07/03/24 15:59 IMPRESSION: 1. Successful ultrasound-guided paracentesis yielding 5000 mL of yellow fluid. Labs Labs: Laboratory Results - last 24 hr 07/01/24 07/05/24 07/05/24 11:26 11:29 16:26 WBC RBC Hgb Hct MCV MCH MCHC RDW Plt Count MPV Immature Gran % (Auto) Neut % (Auto) Lymph % (Auto) [place] % (Auto) Eos % (Auto) Baso % (Auto) Lymph # (Auto) [place] # (Auto) Eos # (Auto) Baso # (Auto) Abs Immat Gran (auto) Absolute Neuts (auto) Absolute Nucleated RBC Nucleated RBC % Sodium Potassium Chloride Carbon Dioxide Anion Gap BUN Creatinine Estim Creat Clear Calc Estimated GFR Glucose POC Capillary Glucose 134 H 117 H Calcium Total Bilirubin AST ALT Alkaline Phosphatase Total Protein Albumin Serum Immunofixation see note A Glomerular Base Memb Ab <1.0 07/05/24 07/06/24 07/06/24 19:22 06:30 07:58 WBC 5.9 RBC 3.31 L Hgb 8.3 L Hct 27.7 L MCV 83.7 MCH 25.1 L MCHC 30.0 L RDW 19.0 H Plt Count 430 H MPV 9.7 Immature Gran % (Auto) 1.4 H Neut % (Auto) 62.4 Lymph % (Auto) 17.1 L [place] % (Auto) 16.0 H Eos % (Auto) 2.2 Baso % (Auto) 0.9 Lymph # (Auto) 1.00 [place] # (Auto) 0.9 H Eos # (Auto) 0.1 Baso # (Auto) 0.1 Abs Immat Gran (auto) 0.08 H Absolute Neuts (auto) 3.7 Absolute Nucleated RBC 0.000 Nucleated RBC % 0.0 Sodium 134 L Potassium 3.8 Chloride 100 Carbon Dioxide 27 Anion Gap 7 BUN 43 H Creatinine 1.30 H Estim Creat Clear Calc 23 Estimated GFR 39 L Glucose 109 POC Capillary Glucose 219 H 123 H Calcium 7.9 L Total Bilirubin 0.2 AST 30 ALT 8 Alkaline Phosphatase 54 Total Protein 6.0 L Albumin 2.9 L Serum Immunofixation Glomerular Base Memb Ab 07/06/24 08:47 WBC RBC Hgb Hct MCV MCH MCHC RDW Plt Count MPV Immature Gran % (Auto) Neut % (Auto) Lymph % (Auto) [place] % (Auto) Eos % (Auto) Baso % (Auto) Lymph # (Auto) [place] # (Auto) Eos # (Auto) Baso # (Auto) Abs Immat Gran (auto) Absolute Neuts (auto) Absolute Nucleated RBC Nucleated RBC % Sodium Potassium Chloride Carbon Dioxide Anion Gap BUN Creatinine Estim Creat Clear Calc Estimated GFR Glucose POC Capillary Glucose 119 H Calcium Total Bilirubin AST ALT Alkaline Phosphatase Total Protein Albumin Serum Immunofixation Glomerular Base Memb Ab
[2024-07-06 11:59] LABS: Glucose Point of Care 148 mg/dl (65-105)
[2024-07-06 12:26] LABS: Glucose Point of Care 133 mg/dl (65-105)
--- NOTE | 2024-07-06 12:27 | P.PNNP_ITS ---
Progress Note: A&P Assessment and Plan (1) Acute kidney injury: Code(s): N17.9 - Acute kidney failure, unspecified Status: Acute Assessment and Plan: * normal creatinine a year ago (2022) * admitted with a creatinine of 1.3mg/dl and peaked at 2.0mg/dl * evaluation to date noted: * renal u/s with unremarkable kidneys, collapsed bladder, and probable cirrhotic liver * FeUrea with prerenal azotemia * no significant proteinuria * CPK normal * UA with blood + protein * Echo with severe TR and diastolic dysfunction * bilateral DVTs noted * with diuresis, creatinine improving * follow repeat labs and UOP (2) Edema: Code(s): R60.9 - Edema, unspecified Status: Acute Assessment and Plan: * multifactorial: * acute CHF exacerbation * amlodipine use * liver disease * bilateral DVTs * continue current therapy (3) CHF (congestive heart failure): Qualifiers: Heart failure type: unspecified Heart failure chronicity: acute Yanick lified Code(s): I50.9 - Heart failure, unspecified Code(s): I50.9 - Heart failure, unspecified Status: Suspected Assessment and Plan: * apparently a new finding * elevated pro BNP * Echo with normal left ventricular systolic function with an estimated EF of 60-65%, grade II diastolic dysfunction, moderate pulmonary hypertension with an estimated pulmonary arterial systolic pressure of 62mmHg, no right heart strain * Cardiology following * on bumex and metolazone * follow daily weights, I/Os, and respiratory status (4) Essential hypertension: Code(s): I10 - Essential (primary) hypertension Status: Chronic Assessment and Plan: * reasonable control * follow trend of hemodynamics * off amlodipine (5) Cirrhosis: Qualifiers: Hepatic cirrhosis type: other cirrhosis Qualified Code(s): K74.69 - Other cirrhosis of liver Code(s): K74.60 - Unspecified cirrhosis of liver Status: Acute Assessment and Plan: * as noted by imaging to date * s/p large volume paracentesis (on 07/03) * plan another LVP tomorrow * GI following (6) DVT (deep venous thrombosis): Code(s): I82.409 - Acute embolism and thrombosis of unspecified deep veins of unspecified lower extremity Status: Acute Assessment and Plan: * venous doppler showing probable thrombosis of the bilateral posterior tibial and peroneal veins in the calves * VQ scan showing intermediate probability of PE * on Eliquis (7) Type 2 diabetes mellitus with hyperglycemia: Qualifiers: Diabetes mellitus medical terminologist insulin use: without senior care use Qualified Code(s): E11.65 - Type 2 diabetes mellitus with hyperglycemia Code(s): E11.65 - Type 2 diabetes mellitus with hyperglycemia Status: Chronic Assessment and Plan: * follow accu-cheks * glycemic control per hospitalists Will continue to follow. Subjective Date/time seen: 07/06/24 12:27 Interval history: Follow-up for acute kidney injury/acute renal failure. Renal function/creatinine appears to be slowly improving in spite of ongoing diuresis; breathing/swelling getting better as well but noted worsening abdominal distension since yesterday; noted plans for another paracentesis tomorrow. Exam Narrative: General: elderly but WD/WN female in NAD Heart: normal S1 and S2; no rub Lungs: decreased at bases Abdomen: soft, nontender, less distension, positive bowel sounds Extremities: no cyanosis or clubbing; 1+ edema Skin: no rash Objective Data Vital Signs Vital Signs: Vital Signs Temp Pulse Resp BP Pulse Ox O2 Del Method FiO2 07/06/24 12:00 98.2 F 85 18 118/49 L 97 07/06/24 07:50 94 Room Air 21 07/06/24 05:19 97.5 F L 84 18 119/50 L 99 07/05/24 20:30 98.9 F 88 16 115/52 L 100 07/05/24 20:31 92 Room Air 07/05/24 20:18 85 Intake/Output Intake/Output: Intake & Output 07/03/24 07/04/24 07/05/24 07/06/24 23:59 23:59 23:59 23:59 Intake Total 395.4 1790 790 620 Output Total 6050 2950 2400 350 [facility] -[phone] [phone] -1340 270 Meds/Results Medications: Active Medications Generic Name Dose Route Start Last Admin Trade Name Freq PRN Reason Stop Dose Admin Albuterol 2 puff 06/28/24 23:21 07/02/24 08:20 Albuterol Sulfate (*Sp) Aerosol 1 Puff INHALATION 2 puff Q4HRT PRN Administration Wheezing Apixaban 10 mg 07/03/24 21:00 07/06/24 10:16 Apixaban 5 Mg Tablet PO 10 mg Q12HR SALINA Administration Apixaban 5 mg 07/10/24 21:00 Apixaban 5 Mg Tablet PO Q12HR SALINA Aspirin 81 mg 06/30/24 09:00 07/06/24 10:16 Aspirin 81 Mg Enteric Tablet PO 81 mg QAM SALINA Administration Bumetanide 1 mg 07/06/24 17:00 07/06/24 17:00 Bumetanide 1 Mg Tablet PO 1 mg BID SALINA Administration Dextrose 12.5 gm 06/28/24 15:27 Dextrose 50% 25 Gm/50 Ml Syringe IV PUSH PRN PRN Hypoglycemia Protocol Dicyclomine HCl 20 mg 06/29/24 09:00 07/06/24 17:00 Dicyclomine Hcl 10 Mg Capsule PO 20 mg TID SALINA Administration Glucagon 1 mg 06/28/24 15:27 Glucagon For Inj 1 Mg Vial IM PRN PRN Hypoglycemia Protocol Glucose 15 gm 06/28/24 15:27 07/02/24 05:19 Glucose Oral Gel 15 Gm Of Glucse In 37.5 Gm Tube PO 15 gm PRN PRN Administration Hypoglycemia Protocol Dextrose 1,000 mls @ 100 mls/hr 06/28/24 15:27 Dextrose 5% 1,000 Ml IVPB PRN PRN Hypoglycemia Protocol Insulin Aspart 3 - 6 units 06/28/24 17:00 07/06/24 17:51 Insulin Aspart (*Bkc) 100 Units/Ml SUB-Q Not Given TIDWM [facility] Protocol Insulin Glargine 20 units 06/29/24 21:00 07/05/24 20:17 Insulin Glargine (*Bkc) 100 Units/Ml SUB-Q 20 units HS SALINA Administration Isosorbide Mononitrate 60 mg 06/29/24 17:00 07/06/24 17:01 Isosorbide Mononitrate 60 Mg Tab.Er.24h PO 60 mg BID SALINA Administration Latanoprost 1 drop 06/29/24 09:00 07/06/24 13:35 Latanoprost 0.005% Op Soln 2.5 Ml Btl EACH EYE 1 drop DAILY SAILNA Administration Lisinopril 40 mg 06/29/24 09:00 07/06/24 10:16 Lisinopril 20 Mg Tablet PO 40 mg QAM SALINA Administration Metolazone 5 mg 07/02/24 09:45 07/06/24 10:16 Metolazone 5 Mg Tablet PO 5 mg QAM SALINA Administration Metoprolol Tartrate 25 mg 06/28/24 23:40 07/06/24 10:16 Metoprolol Tartrate 25 Mg Tablet PO 25 mg Q12HR SALINA Administration Fluticasone/Salmeterol 1 puff 06/29/24 08:00 07/06/24 07:50 Fluticasone/Salmeterol 115-21 Mcg Inhaler 1 Puff INHALATION 1 puff Q12HRT SALINA Administration Simvastatin 20 mg 06/29/24 09:00 07/06/24 10:15 Simvastatin 20 Mg Tablet PO 20 mg DAILY SALINA Administration Radiology Results: ITS Impressions Venous Doppler Study 07/01/24 10:20 Impression: Probable thrombosis of the bilateral posterior tibial and peroneal veins in the calves. Renal Ultrasound 07/01/24 10:21 Impression: Unremarkable kidneys. Collapsed urinary bladder limits evaluation. Probable cirrhotic liver with moderate to large abdominal pelvic ascites. Pulmonary Perfusion Imaging 07/02/24 14:33 IMPRESSION: 1. Intermediate probability for pulmonary embolism. Paracentesis Ultrasound 07/03/24 15:59 IMPRESSION: 1. Successful ultrasound-guided paracentesis yielding 5000 mL of yellow fluid. Abdomen X-Ray 07/06/24 12:51 IMPRESSION: 1. Normal bowel gas pattern. Chest X-Ray 07/06/24 12:51 IMPRESSION: 1. Mild atelectasis at the lung bases. Abdomen Ultrasound 07/06/24 15:01 IMPRESSION: 1. Large volume of ascites. Labs Labs: Laboratory Tests 07/06/24 06:30 07/06/24 06:30 Calcium 7.9 L Total Bilirubin 0.2 AST 30 ALT 8 Alkaline Phosphatase 54 Total Protein 6.0 L Albumin 2.9 L
[2024-07-06 13:24] LABS: Albumin 29 %
[2024-07-06] MEDS: LATANOPROST 0.005% OP SOLN 2.5 ML BTL 1 DROP EACH EYE (13:35)
[2024-07-06 14:00] VITALS: BP 118/49; PULSE 85; RESP 18; TEMP 36.8; O2SAT 97
--- NOTE | 2024-07-06 15:14 | P.DS_ITS ---
DS: Admitting Diagnosis Discharge Date 07/07/24 Admitting Diagnosis Shortness of breath Congestive heart failure Elevated troponin Type 2 diabetes mellitus Chronic kidney disease Essential hypertension DS: Discharge Diagnosis Discharge Diagnosis (1) CHF (congestive heart failure): Qualifiers: Heart failure chronicity: acute Heart failure type: unspecified Qualified Code(s): I50.9 - Heart failure, unspecified Code(s): I50.9 - Heart failure, unspecified Status: Suspected (2) Elevated troponin: Code(s): R79.89 - Other specified abnormal findings of blood chemistry Status: Acute (3) Type 2 diabetes mellitus with kidney complication: Qualifiers: Chronic kidney disease stage: unspecified stage Diabetes mellitus complication detail: with chronic kidney disease Diabetes mellitus correction insulin use: without correction use Qualified Code(s): E11.22 - Type 2 diabetes mellitus with diabetic chronic kidney disease Code(s): E11.29 - Type 2 diabetes mellitus with other diabetic kidney complication Status: Chronic (4) CKD (chronic kidney disease): Qualifiers: Chronic kidney disease stage: unspecified stage Qualified Code(s): N18.9 - Chronic kidney disease, unspecified Code(s): N18.9 - Chronic kidney disease, unspecified Status: Chronic (5) Essential hypertension: Code(s): I10 - Essential (primary) hypertension Status: Chronic (6) Serum potassium elevated: Code(s): E87.5 - Hyperkalemia Status: Acute (7) Ascites: Qualifiers: Ascites type: other type Qualified Code(s): R18.8 - Other ascites Code(s): R18.8 - Other ascites Status: Acute (8) DVT (deep venous thrombosis): Code(s): I82.409 - Acute embolism and thrombosis of unspecified deep veins of unspecified lower extremity Status: Acute (9) Pulmonary embolus: Code(s): I26.99 - Other pulmonary embolism without acute cor pulmonale Status: Acute DS: Summary Hospital Course Reason for hospitalization: Shortness of breath Congestive heart failure Elevated troponin Type 2 diabetes mellitus Chronic kidney disease Essential hypertension Hospital Course: This is an 84 year old female who presented to the hospital on 06/28/24 with complaints of shortness of breath. Work up in the hospital included a chest x- ray which shown a right small pleural effusion, cardiomegaly. Abdomen x-ray which was negative. Labs significant for [place] pro BNP of >61323, elevated troponin 0.122>0.116, K+ 5.9, Bicarb 21, Creatinine 1.30, eGFR 39. UA shown a cloudy appearance, 1+ urine protein, 1+ urine ketones, 2+ urine blood, 2+ urobilinogen, trace leukocytes, 3-5 urine RBC, 2+ urine bacteria. Echo was obtained with results pending. Patient given IV Lasix for diuresis. Cardiology consulted for new onset CHF. Patient was given IV diuretics and seen by the GI doctor as well as the doctor. Once we were able to the diuresis her kidney function did im prove as well as her congestive heart failure. She was also found to have ascites and had a paracentesis done yielding 5L removal on 07/03/24. We repeated a paracentesis today and had another 3L removed. Hepatitis panel was negative. Liver panel was obtained and is pending. She also had a venous Doppler study done on 07/01/2024 which showed probable thrombosis of the bilateral posterior tibial and peroneal veins in the calf. She also had a pulmonary perfusion scan done on 07/02/2024 which showed intermediate probability for pulmonary embolism. She was started on Eliquis and will continue upon outpatient. Her VSS, she is afebrile, currently on room air. She will need to follow up with Cardiology in a couple weeks. She will also need to follow up with Dr. Nicole in a couple weeks to discuss the liver workup. She is stable for discharge at this time. Final diagnosis: DVT, PE, new onset diastolic congestive heart failure, hyponatremia, acute kidney injury Status at Discharge Cognitive/behavioral status at discharge: Alert orient x4 Functional status at discharge: uses cane/walker Overall status at discharge: patient is progressing back to baseline Time Spent with Patient Time attestation: Total time spent providing and/or coordinating discharge services: Time spent: Greater than 30 minutes Exam Narrative: General: In no acute distress Cardiac: Normal S1 and S2. No murmur, gallops or friction rubs, peripheral pulses intact. Respiratory: Currently on room air, no use of accessory seen, lungs clear to auscultation Gastrointestinal: rounded, non-tender, hypoactive bowel sounds. : voiding without difficulty. Extremities: moves all extremities well, bilateral lower extremity pitting edema improving Neuro: Alert and oriented x4 DS: Data Data Completed and Pending Completed studies during hospitalization: Pending at discharge 07/02/24 15:03 Cytology [PTH] Routine Pending studies at discharge: Pending at discharge 07/02/24 12:58 Cytology [PTH] Routine Labs on day of discharge: Labs from last 24 hours 07/06/24 07/06/24 07/06/24 12:00 11:48 08:47 WBC RBC Hgb Hct MCV MCH MCHC RDW Plt Count MPV Immature Gran % (Auto) Neut % (Auto) Lymph % (Auto) [place] % (Auto) Eos % (Auto) Baso % (Auto) Lymph # (Auto) [place] # (Auto) Eos # (Auto) Baso # (Auto) Abs Immat Gran (auto) Absolute Neuts (auto) Absolute Nucleated RBC Nucleated RBC % Sodium Potassium Chloride Carbon Dioxide Anion Gap BUN Creatinine Estim Creat Clear Calc Estimated GFR Glucose POC Capillary Glucose 133 H 148 H 119 H Calcium Total Bilirubin AST ALT Alkaline Phosphatase Total Protein Albumin Serum Immunofixation 07/06/24 07/06/24 07/05/24 07:58 06:30 19:22 WBC 5.9 RBC 3.31 L Hgb 8.3 L Hct 27.7 L MCV 83.7 MCH 25.1 L MCHC 30.0 L RDW 19.0 H Plt Count 430 H MPV 9.7 Immature Gran % (Auto) 1.4 H Neut % (Auto) 62.4 Lymph % (Auto) 17.1 L [place] % (Auto) 16.0 H Eos % (Auto) 2.2 Baso % (Auto) 0.9 Lymph # (Auto) 1.00 [place] # (Auto) 0.9 H Eos # (Auto) 0.1 Baso # (Auto) 0.1 Abs Immat Gran (auto) 0.08 H Absolute Neuts (auto) 3.7 Absolute Nucleated RBC 0.000 Nucleated RBC % 0.0 Sodium 134 L Potassium 3.8 Chloride 100 Carbon Dioxide 27 Anion Gap 7 BUN 43 H Creatinine 1.30 H Estim Creat Clear Calc 23 Estimated GFR 39 L Glucose 109 POC Capillary Glucose 123 H 219 H Calcium 7.9 L Total Bilirubin 0.2 AST 30 ALT 8 Alkaline Phosphatase 54 Total Protein 6.0 L Albumin 2.9 L Serum Immunofixation 07/05/24 07/01/24 16:26 11:26 WBC RBC Hgb Hct MCV MCH MCHC RDW Plt Count MPV Immature Gran % (Auto) Neut % (Auto) Lymph % (Auto) [place] % (Auto) Eos % (Auto) Baso % (Auto) Lymph # (Auto) [place] # (Auto) Eos # (Auto) Baso # (Auto) Abs Immat Gran (auto) Absolute Neuts (auto) Absolute Nucleated RBC Nucleated RBC % Sodium Potassium Chloride Carbon Dioxide Anion Gap BUN Creatinine Estim Creat Clear Calc Estimated GFR Glucose POC Capillary Glucose 117 H Calcium Total Bilirubin AST ALT Alkaline Phosphatase Total Protein Albumin Serum Immunofixation see note A Preliminary micro results at discharge 07/03/24 15:17 Anaerobic Culture - Preliminary Ascites Fluid Aerobic Culture - Preliminary 07/03/24 15:17 Anaerobic Culture - Preliminary Abdominal Fluid Aerobic Culture - Preliminary Discharge Plan Discharge Attending physician on discharge: Roxi Lopez Consulting providers: Grace Inman; Asim Serrano Discharging Clinician: Chanel Medina Anticipated Discharge Date/Time: 07/06/24 15:04 Patient Disposition: SNF Activity: as tolerated Diet: as tolerated and heart healthy Discharge Instructions: * You were started on Eliquis 10 mg daily, finish taking the rest of this prescription and then start 5 mg daily after 8 more doses. * Your amlodipine was stopped due to leg swelling and you were started on isosorbide mononitrate * Your Lasix was stopped and you were started on Bumex 1 mg twice a day, continue taking this med. * He will need to follow up with Cardiology in 2 weeks as well as GI in 2 weeks and Nephrology in 2 weeks. * Follow-up with your primary care physician as needed head and let them know of your medication changes going forward. * You will need to follow up with Dr. Nicole in 2 weeks to discuss liver work up. Patient Instructions: Apixaban (By mouth) Patient Language: Welsh Stand Alone Forms: General Discharge Information Follow-up/Referrals: Grace Inman MD [Physician] - 2 Weeks Asim Serrano MD [Physician] - 2 Weeks Trell More MD [Physician] - 2 Weeks Virgen Stephens DO [Primary Care Provider] - 2 Weeks Discharge Medications: New isosorbide mononitrate 60 mg Tablet Extended Release 24 Hr 60 mg PO BID Qty: 60 0RF bumetanide 1 mg Tablet 1 mg PO BID Qty: 60 0RF lisinopril 20 mg Tablet 40 mg PO QAM Qty: 60 0RF metolazone 5 mg Tablet 5 mg PO QAM Qty: 30 0RF Eliquis 5 mg Tablet 5 mg PO Q12HR Qty: 30 0RF Eliquis 5 mg Tablet 10 mg PO Q12HR Qty: 8 0RF Continued metformin 500 mg tablet extended release 24 hr 500 mg PO TID Qty: 270 3RF (DME) pen needle, diabetic [BD Ultra-Fine Micro Pen Needle] 32 gauge x 1/4 needle See Rx Instructions .ROUTE .MEDSUPPLY Qty: 100 1RF Rx Instructions: Use with insulin injections 1 time daily fluticasone propion-salmeterol [Wixela Inhub] 250-50 mcg/dose blister with device 1 inh inhalation BID Qty: 60 2RF (DME) OneTouch Ultra Test Strip See Rx Instructions .ROUTE .COMPLEX Qty: 200 3RF Dose Instruction: USE TO CHECK BLOOD SUGAR TWICE DAILY Rx Instructions: USE TO CHECK BLOOD SUGAR TWICE DAILY insulin glargine [Basaglar KwikPen U-100 Insulin] 100 unit/mL (3 mL) insulin pen 20 unit subcut QPM Qty: 18 3RF bimatoprost 0.03 % drops 1 drp EACH EYE HS albuterol sulfate [Ventolin HFA] 90 mcg/actuation HFA aerosol inhaler 2 puff inhalation Q4H PRN (Reason: shortness of breath or wheezing) Qty: 25.5 1RF dicyclomine 20 mg tablet 20 mg PO TID Qty: 180 1RF isosorbide dinitrate 20 mg tablet 60 mg PO BID Rx Instructions: allow nitrate-free interval of 12-14 hrs per 24-hr period latanoprost 0.005 % drops 1 drp EACH EYE DAILY albuterol sulfate [Ventolin HFA] 90 mcg/actuation HFA aerosol inhaler 2 inh INHALATION Q4H PRN (Reason: Wheezing) simvastatin 20 mg tablet 20 mg PO DAILY (DME) lancets 33 gauge misc See Rx Instructions .ROUTE .MEDSUPPLY Qty: 200 3RF Rx Instructions: Use to check BS 2 times daily metoprolol tartrate 25 mg tablet See Rx Instructions .ROUTE .COMPLEX Qty: 180 1RF Dose Instruction: Take 1 tablet by mouth twice daily Rx Instructions: Take 1 tablet by mouth twice daily Discontinued aspirin [Adult Low Dose Aspirin] 81 mg tablet,delayed release (DR/EC) 81 mg PO DAILY amlodipine 5 mg tablet 5 mg PO DAILY clopidogrel 75 mg tablet 75 mg PO HS furosemide 20 mg tablet See Rx Instructions .ROUTE .COMPLEX Qty: 90 1RF Dose Instruction: Take 1 tablet by mouth once daily Rx Instructions: Take 1 tablet by mouth once daily lisinopril 40 mg tablet See Rx Instructions .ROUTE .COMPLEX Qty: 90 1RF Dose Instruction: Take 1 tablet by mouth once daily Rx Instructions: Take 1 tablet by mouth once daily Date of admission: 06/28/24 13:25 Primary Care Provider: Virgen Stephens Admitting Provider: Darrell Leblanc Attending physician on admission: Chanel Medina Condition: Improved Quality VTE Prophylaxis VTE prophylaxis: mechanical ordered
[2024-07-06] MEDS: BUMETANIDE 1 MG TABLET PO (17:00)
[2024-07-06 17:05] LABS: Glucose Point of Care 139 mg/dl (65-105)
[2024-07-06 19:53] LABS: Glucose Point of Care 185 mg/dl (65-105)
[2024-07-06] MEDS: INSULIN GLARGINE (*BKC) 100 UNITS/ML 20 UNITS SUB-Q (20:38)
[2024-07-06 21:04] VITALS: O2SAT 96
[2024-07-06 21:25] VITALS: BP 120/45; PULSE 80; RESP 16; TEMP 36.4; O2SAT 96
[2024-07-07 05:55] VITALS: BP 106/57; PULSE 83; RESP 16; TEMP 36.4; O2SAT 98
[2024-07-07 06:53] LABS: Basophils Percent Auto 0.7 % (0.2-1.2); Eosinophils Absolute Auto 0.1 K/mm3 (0-0.3); Hematocrit 28.7 % (37.0-47.0); Hemoglobin 8.6 g/dL (12.0-15.0); Immature Granulocyte Absolute 0.11 K/mm3 (0.00-0.031); Lymphocytes Absolute Auto 0.87 K/mm3 (0.9-3.2); Lymphocytes Percent Auto 15.9 % (18.3-44.2); Mean Corpuscular Hemoglobin 25.6 pg (26-34); Mean Corpuscular Volume 85.4 fl (80-100); Mean Platelet Volume 9.6 fl (7.4-10.4); Monocytes Absolute Auto 0.8 K/mm3 (0.1-0.6); Monocytes Percent Auto 14.8 % (2.6-8.5); Neutrophils Absolute Auto 3.5 K/mm3 (1.3-6.7); Neutrophils Percent Auto 64.6 % (45.5-73.1); Platelet Count Result 427 k/mm3 (150-375); Red Blood Count 3.36 M/mm3 (4.2-5.4); Red Cell Distribution Width 19.2 % (11.5-14.5); White Blood Count 5.5 K/mm3 (4.5-10.0)
[2024-07-07 07:03] LABS: Alanine Aminotransferase 8 U/L (6-35); Albumin Level 2.9 g/dL (3.5-5.1); Alkaline Phosphatase 55 U/L (38-126); Anion Gap 2 mmol/L (4-12); Aspartate Amino Transferase 30 U/L (14-36); Bilirubin,Total 0.4 mg/dL (0.2-1.3); Blood Urea Nitrogen 40 mg/dL (7-17); Calcium 7.7 mg/dL (8.4-10.2); Carbon Dioxide 30 mmol/L (22-30); Chloride 100 mmol/L (98-107); Estimated CRCL calculation 23 ml/min; Estimated Glomerular Filt Rate 39; Glucose 92 mg/dL (65-110); Potassium 3.7 mmol/L (3.4-5.0); Sodium 132 mmol/L (137-145)
[2024-07-07] MEDS: FLUTICASONE/SALMETEROL 115-21 MCG INHALER 1 PUFF INHALATION (07:55)
[2024-07-07 08:39] LABS: Glucose Point of Care 95 mg/dl (65-105)
--- NOTE | 2024-07-07 09:23 | PCOTNOTE ---
Attempted OT eval. Pt getting a paracentesis.
[2024-07-07 09:58] VITALS: BP 111/49; PULSE 78; RESP 24; TEMP 36.9; O2SAT 96
[2024-07-07] MEDS: ISOSORBIDE MONONITRATE 60 MG TAB.ER.24H PO (10:31)
[2024-07-07] MEDS: DICYCLOMINE HCL 10 MG CAPSULE 20 MG PO ×2 (10:31→14:20)
[2024-07-07] MEDS: METOPROLOL TARTRATE 25 MG TABLET PO (10:31)
[2024-07-07] MEDS: ASPIRIN 81 MG ENTERIC TABLET PO (10:31)
[2024-07-07] MEDS: SIMVASTATIN 20 MG TABLET PO (10:31)
[2024-07-07 12:15] VITALS: BP 107/49; PULSE 79
[2024-07-07 12:26] LABS: Glucose Point of Care 90 mg/dl (65-105)
--- NOTE | 2024-07-07 12:31 | P.PNNP_ITS ---
Progress Note: A&P Assessment and Plan (1) Acute kidney injury: Code(s): N17.9 - Acute kidney failure, unspecified Status: Acute Assessment and Plan: * normal creatinine a year ago (2022) * admitted with a creatinine of 1.3mg/dl and peaked at 2.0mg/dl * evaluation to date noted: * renal u/s with unremarkable kidneys, collapsed bladder, and probable cirrhotic liver * FeUrea with prerenal azotemia * no significant proteinuria * CPK normal * UA with blood + protein * Echo with severe TR and diastolic dysfunction * bilateral DVTs noted * most likely cause of acute kidney injury is clear renal venous hypertension from the tricuspid regurg and cirrhosis. * with diuresis, creatinine improving * Creatinine is down to 1.3 now (2) Edema: Code(s): R60.9 - Edema, unspecified Status: Acute Assessment and Plan: * multifactorial: * acute CHF exacerbation * amlodipine use * liver disease * bilateral DVTs * continue current therapy (3) CHF (congestive heart failure): Qualifiers: Heart failure type: unspecified Heart failure chronicity: acute Qualified Code(s): I50.9 - Heart failure, unspecified Code(s): I50.9 - Heart failure, unspecified Status: Suspected Assessment and Plan: * apparently a new finding * elevated pro BNP * Echo with normal left ventricular systolic function with an estimated EF of 60-65%, grade II diastolic dysfunction, moderate pulmonary hypertension with an estimated pulmonary arterial systolic pressure of 62mmHg, no right heart strain * Cardiology following * on bumex and metolazone, both orally administered * follow daily weights, I/Os, and respiratory status (4) Essential hypertension: Code(s): I10 - Essential (primary) hypertension Status: Chronic Assessment and Plan: * systolic 100-120. * off amlodipine (5) Cirrhosis: Qualifiers: Hepatic cirrhosis type: other cirrhosis Qualified Code(s): K74.69 - Other cirrhosis of liver Code(s): K74.60 - Unspecified cirrhosis of liver Status: Acute Assessment and Plan: * as noted by imaging to date * s/p large volume paracentesis (on 07/03 And this morning) * GI following (6) DVT (deep venous thrombosis): Code(s): I82.409 - Acute embolism and thrombosis of unspecified deep veins of unspecified lower extremity Status: Acute Assessment and Plan: * venous doppler showing probable thrombosis of the bilateral posterior tibial and peroneal veins in the calves * VQ scan showing intermediate probability of PE * on Eliquis (7) Type 2 diabetes mellitus with hyperglycemia: Qualifiers: 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 at her bedside. She had a paracentesis this morning resulting in 3L of fluid. They are looking forward to going to outpatient rehab. I told them that if she gets more abdominal distension or swelling they should call the doctor. They will follow-up in Nephrology office in a couple of weak Exam Narrative: General: elderly but WD/WN female in NAD Heart: normal S1 and S2; no rub Lungs: decreased at bases Abdomen: soft, nontender, less distension, positive bowel sounds Extremities: no cyanosis or clubbing; 1+ edema Skin: no rash or subcu nodules Objective Data Vital Signs Vital Signs: Vital Signs - 24 hr 07/06/24 14:00 07/06/24 21:04 07/06/24 21:25 Temperature 98.2 F 97.5 F L Pulse Rate 85 80 Respiratory Rate 18 16 Blood Pressure 118/49 L 120/45 L Pulse Oximetry 97 96 96 Oxygen Delivery Room Air 07/06/24 20:00 07/07/24 05:55 07/07/24 09:58 Temperature 97.5 F L 98.4 F Pulse Rate 83 78 Respiratory Rate 16 24 H Blood Pressure 106/57 L 111/49 L Pulse Oximetry 98 96 Oxygen Delivery Room Air Intake/Output Intake/Output: Intake & Output 07/04/24 07/05/24 07/06/24 07/07/24 23:59 23:59 23:59 23:59 Intake Total 1790 790 620 300 Output Total 2950 2400 350 4100 Balance -1160 -1610 270 -3800 Meds/Results Medications: Active Medications Generic Name Dose Route Start Last Admin Trade Name Freq PRN Reason Stop Dose Admin Albuterol 2 puff 06/28/24 23:21 07/02/24 08:20 Albuterol Sulfate (*Sp) Aerosol 1 Puff INHALATION 2 puff Q4HRT PRN Administration Wheezing Apixaban 10 mg 07/03/24 21:00 07/06/24 10:16 Apixaban 5 Mg Tablet PO 07/11/24 09:01 10 mg Q12HR SALINA Administration Apixaban 5 mg 07/11/24 21:00 Apixaban 5 Mg Tablet PO Q12HR SALINA Aspirin 81 mg 06/30/24 09:00 07/07/24 10:31 Aspirin 81 Mg Enteric Tablet PO 81 mg QAM SALINA Administration Bumetanide 1 mg 07/06/24 17:00 07/06/24 17:00 Bumetanide 1 Mg Tablet PO 1 mg BID SALINA Administration Dextrose 12.5 gm 06/28/24 15:27 Dextrose 50% 25 Gm/50 Ml Syringe IV PUSH PRN PRN Hypoglycemia Protocol Dicyclomine HCl 20 mg 06/29/24 09:00 07/07/24 10:31 Dicyclomine Hcl 10 Mg Capsule PO 20 mg TID SALINA Administration Glucagon 1 mg 06/28/24 15:27 Glucagon For Inj 1 Mg Vial IM PRN PRN Hypoglycemia Protocol Glucose 15 gm 06/28/24 15:27 07/02/24 05:19 Glucose Oral Gel 15 Gm Of Glucse In 37.5 Gm Tube PO 15 gm PRN PRN Administration Hypoglycemia Protocol Dextrose 1,000 mls @ 100 mls/hr 06/28/24 15:27 Dextrose 5% 1,000 Ml IVPB PRN PRN Hypoglycemia Protocol Insulin Aspart 3 - 6 units 06/28/24 17:00 07/07/24 10:10 Insulin Aspart (*Bkc) 100 Units/Ml SUB-Q Not Given TIDWM [facility] Protocol Insulin Glargine 20 units 06/29/24 21:00 07/06/24 20:38 Insulin Glargine (*Bkc) 100 Units/Ml SUB-Q 20 units HS SALINA Administration Isosorbide Mononitrate 60 mg 06/29/24 17:00 07/07/24 10:31 Isosorbide Mononitrate 60 Mg Tab.Er.24h PO 60 mg BID SALINA Administration Latanoprost 1 drop 06/29/24 09:00 07/06/24 13:35 Latanoprost 0.005% Op Soln 2.5 Ml Btl EACH EYE 1 drop DAILY SALINA Administration Lisinopril 40 mg 06/29/24 09:00 07/06/24 10:16 Lisinopril 20 Mg Tablet PO 40 mg QAM SALINA Administration Metolazone 5 mg 07/02/24 09:45 07/06/24 10:16 Metolazone 5 Mg Tablet PO 5 mg QAM SALINA Administration Metoprolol Tartrate 25 mg 06/28/24 23:40 07/07/24 10:31 Metoprolol Tartrate 25 Mg Tablet PO 25 mg Q12HR SALINA Administration Fluticasone/Salmeterol 1 puff 06/29/24 08:00 07/07/24 07:55 Fluticasone/Salmeterol 115-21 Mcg Inhaler 1 Puff INHALATION 1 puff Q12HRT SALINA Administration Simvastatin 20 mg 06/29/24 09:00 07/07/24 10:31 Simvastatin 20 Mg Tablet PO 20 mg DAILY SALINA Administration Radiology Results: ITS Impressions Venous Doppler Study 07/01/24 10:20 Impression: Probable thrombosis of the bilateral posterior tibial and peroneal veins in the calves. Renal Ultrasound 07/01/24 10:21 Impression: Unremarkable kidneys. Collapsed urinary bladder limits evaluation. Probable cirrhotic liver with moderate to large abdominal pelvic ascites. Pulmonary Perfusion Imaging 07/02/24 14:33 IMPRESSION: 1. Intermediate probability for pulmonary embolism. Abdomen X-Ray 07/06/24 12:51 IMPRESSION: 1. Normal bowel gas pattern. Chest X-Ray 07/06/24 12:51 IMPRESSION: 1. Mild atelectasis at the lung bases. Abdomen Ultrasound 07/06/24 15:01 IMPRESSION: 1. Large volume of ascites. Paracentesis Ultrasound 07/07/24 09:47 IMPRESSION: 1. Successful ultrasound-guided paracentesis yielding 3000 mL of yellow fluid. Labs Labs: Laboratory Results - last 24 hr 07/06/24 07/06/24 07/07/24 16:36 19:33 06:09 WBC 5.5 RBC 3.36 L Hgb 8.6 L Hct 28.7 L MCV 85.4 MCH 25.6 L MCHC 30.0 L RDW 19.2 H Plt Count 427 H MPV 9.6 Immature Gran % (Auto) 2.0 H Neut % (Auto) 64.6 Lymph % (Auto) 15.9 L [place] % (Auto) 14.8 H Eos % (Auto) 2.0 Baso % (Auto) 0.7 Lymph # (Auto) 0.87 L [place] # (Auto) 0.8 H Eos # (Auto) 0.1 Baso # (Auto) 0.0 Abs Immat Gran (auto) 0.11 H Absolute Neuts (auto) 3.5 Absolute Nucleated RBC 0.000 Nucleated RBC % 0.0 Sodium 132 L Potassium 3.7 Chloride 100 Carbon Dioxide 30 Anion Gap 2 L BUN 40 H Creatinine 1.30 H Estim Creat Clear Calc 23 Estimated GFR 39 L Glucose 92 POC Capillary Glucose 139 H 185 H Calcium 7.7 L Total Bilirubin 0.4 AST 30 ALT 8 Alkaline Phosphatase 55 Total Protein 6.0 L Albumin 2.9 L 07/07/24 07/07/24 08:33 12:21 WBC RBC Hgb Hct MCV MCH MCHC RDW Plt Count MPV Immature Gran % (Auto) Neut % (Auto) Lymph % (Auto) [place] % (Auto) Eos % (Auto) Baso % (Auto) Lymph # (Auto) [place] # (Auto) Eos # (Auto) Baso # (Auto) Abs Immat Gran (auto) Absolute Neuts (auto) Absolute Nucleated RBC Nucleated RBC % Sodium Potassium Chloride Carbon Dioxide Anion Gap BUN Creatinine Estim Creat Clear Calc Estimated GFR Glucose POC Capillary Glucose 95 90 Calcium Total Bilirubin AST ALT Alkaline Phosphatase Total Protein Albumin
[2024-07-07] MEDS: LATANOPROST 0.005% OP SOLN 2.5 ML BTL 1 DROP EACH EYE (14:21)
[2024-07-07 15:35] VITALS: BP 107/41; PULSE 75; RESP 12; TEMP 36.5; O2SAT 96
[2024-07-09 11:09] LABS: Anti Nuclear Antibody Pattern Cytoplasmic; Anti Nuclear Antibody Titer 1:40 titer
[2024-07-09 23:54] LABS: ALT 5 U/L (6-29); Alpha-2-Macroglobulin 254 mg/dL (106-279); Apolipoprotein A1 134 mg/dL (101-198); Fibrosis Score 0.19; Fibrosis Stage F0; GGT 23 U/L (3-65); Haptoglobin 417 mg/dL (43-212); Necroinflammat Act Grade A0; Reference ID 5207389; Total Bilirubin 0.2 mg/dL (0.2-1.2)
[2024-07-10 12:27] LABS: LDH Peritoneal Fluid 655 U/L (<63)
[2024-07-10 20:58] LABS: Albumin Peritoneal Fluid 2.5 g/dL; Amylase Peritoneal Fluid <10 U/L; Glucose Peritoneal Fluid 73 mg/dL; Total Protein Peritoneal Fluid 3.5 g/dL
== END 2024-07-07 16:05 | DRG 291 ==
LOC: ANHED 12:45 → ANHIMU 13:56 → ANH3MEDSUR 07-02 14:24
PROVIDERS: Internal Medicine Nephrology; Nurse Practitioner Family; Nurse Practitioner Gerontology; Student in an Organized Health Care Education/Training Program; Admitting Provider Internal Medicine; Emergency Provider Emergency Medicine; PCP Family Medicine; Visit Provider Nurse Practitioner Acute Care
DX: I13.0 Hypertensive heart and chronic kidney disease with heart failure and stage 1 through stage 4 chronic kidney disease, or unspecified chronic kidney disease (principal); I26.99 Other pulmonary embolism without acute cor pulmonale; I50.33 Acute on chronic diastolic (congestive) heart failure; N17.9 Acute kidney failure, unspecified; J90 Pleural effusion, not elsewhere classified; I82.453 Acute embolism and thrombosis of peroneal vein, bilateral; I82.443 Acute embolism and thrombosis of tibial vein, bilateral; R18.8 Other ascites; D63.1 Anemia in chronic kidney disease; D50.9 Iron deficiency anemia, unspecified; E11.22 Type 2 diabetes mellitus with diabetic chronic kidney disease; E11.65 Type 2 diabetes mellitus with hyperglycemia; E78.2 Mixed hyperlipidemia; E87.5 Hyperkalemia; I25.2 Old myocardial infarction; I48.0 Paroxysmal atrial fibrillation; I07.1 Rheumatic tricuspid insufficiency; I25.10 Atherosclerotic heart disease of native coronary artery without angina pectoris; I27.20 Pulmonary hypertension, unspecified; I48.91 Unspecified atrial fibrillation; K74.69 Other cirrhosis of liver; N18.9 Chronic kidney disease, unspecified; Z66 Do not resuscitate; Z95.1 Presence of aortocoronary bypass graft; Z79.4 Long term (current) use of insulin; Z79.84 Long term (current) use of oral hypoglycemic drugs; Z79.01 Long term (current) use of anticoagulants; Z79.02 Long term (current) use of antithrombotics/antiplatelets; Z79.82 Long term (current) use of aspirin; Z98.41 Cataract extraction status, right eye; Z98.42 Cataract extraction status, left eye; Z87.891 Personal history of nicotine dependence
CPT/HCPCS: 36415; 49083; 71045; 74018; 76705; 76775; 78582; 80053; 80074; 81001; 81596; 82040; 82042; 82150; 82550; 82570; 82945; 82948; 83520; 83615; 83735; 83880; 83883; 84100; 84132; 84156; 84157; 84300; 84439; 84480; 84484; 84540; 85025; 85049; 85610; 85652; 85730; 86036; 86038; 86039; 86160; 86162; 86225; 86334; 86335; 87070; 87075; 87205; 88108; 88305; 89051; 93005; 93970; 94640; 97161; 97530; 99285; A9270; A9540; A9558; C8929; J1644; J1815; J1939; J1940; J7512; Q9957

== ENCOUNTER 2024-07-14 09:46 | Inpatient (IN) | payer MEDICARE, SELFPAY ==
[2024-07-14] VITALS (34 sets, daily range): BP systolic 72–124; BP diastolic 37–110; PULSE 62–90; RESP 18–28; TEMP 36.4–36.6; O2SAT 73–97; BMI 25.2
--- NOTE | ~2024-07-14 | CT_ITS ---
EXAMINATION: CT abdomen pelvis wo con DATE: 07/14/2024 11:36 INDICATION: Abdominal pain, vomiting and diarrhea TECHNIQUE: Computed tomography (CT) of the abdomen and pelvis was performed without intravenous contr ast. Automated exposure control and iterative reconstruction technique were employed. The dose-length product was 196.83 mGy-cm. COMPARISON: None FINDINGS: Very small bilateral dependently layering pleural effusions. Mild atelectasis at the bilateral lung b ases. Calcified right lower lobe nodule consistent with old granulomatous disease. Cardiomegaly. Ther e is a left ventricular apical aneurysm suggesting sequela of chronic infarct. Small sliding-type hia joan hernia. Shrunken and nodular cirrhotic liver. The moderate amount of ascites scattered throughout the abdomen and pelvis. Gallbladder, spleen, pancreas, bilateral adrenal glands and kidneys are normal. Bowels a re unremarkable with no obstruction. Atherosclerotic coronary artery calcifications. Postoperative ch dick of prior median sternotomy and coronary artery bypass grafting. Small focus of gas within the de compressed bladder. Uterus and bilateral adnexa are unremarkable. No pathologically enlarged abdomina l or pelvic lymphadenopathy. Mild body wall edema along the flanks. Subcutaneous scarring with a few small dystrophic calcifications along both sides of the umbilicus likely sequela of chronic subcutane ous injections. Severe lumbar and lower thoracic spondylosis. IMPRESSION: 1. Cirrhosis with moderate amount of ascites in the abdomen and pelvis. 2. 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 3. Small sliding-type hiatal hernia. 4. Tiny bilateral pleural effusions. 5. Small focus of gas within the decompressed bladder. Correlate for recent instrumentation or Lombardo catheterization. Reviewed, dictated and finalized at location A. RCOACH DRIVER IMPRESSION: 1. Cirrhosis with moderate amount of ascites in the abdomen and pelvis. 2. 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 3. Small sliding-type hiatal hernia. 4. Tiny bilateral pleural effusions. 5. Small focus of gas within the decompressed bladder. Correlate for recent ins trumentation or Lombardo catheterization.
--- NOTE | ~2024-07-14 | XR_ITS ---
EXAMINATION: XR chest 1V DATE: 07/14/2024 11:39 INDICATION: Cough TECHNIQUE: frontal view of the chest was obtained. COMPARISON: Chest radiograph dated 07/06/2024 FINDINGS: Skinfolds projecting over the right mid to lower lung zone. Mild atelectasis along the left hemidiaph ragm. No other airspace opacities, pulmonary edema, pleural effusion or pneumothorax. Cardiomegaly. M edian sternotomy wires and mediastinal surgical clips are seen, likely from prior coronary artery byp ass grafting. Bilateral rotator cuff arthropathy with at least moderate bilateral glenohumeral osteo arthritis. IMPRESSION: 1. Mild left basilar atelectasis. No other acute cardiopulmonary disease. 2. Cardiomegaly. Reviewed, dictated and finalized at location A. TY HOLDER
[2024-07-14 09:55] LABS: Glucose Point of Care 27 mg/dl (65-105)
[2024-07-14 09:55] LABS: Glucose Point of Care 29 mg/dl (65-105)
--- NOTE | 2024-07-14 10:21 | ED.GENADULT ---
HPI - General Adult General Chief complaint: Recheck/Abnormal Lab/Rx Stated complaint: hypoglycemia Time Seen by Provider: 07/14/24 10:01 Source: patient Mode of arrival: ambulatory Limitations: no limitations History of Present Illness HPI narrative: 84 YEARS OLD WHITE FEMALE CAME TO THE ED BY AMBULANCE FROM CARE HOME COMPLAINING OF NAUSEA, VOMITING up coffee-ground material AND DIARRHEA STARTED YESTERDAY. PATIENT REPORTS COUGHING FOR THE LAST 2 MONTHS. PATIENT IS DNR, DIABETIC, RECEIVED HER NORMAL DOSE OF INSULIN LAST NIGHT BEFORE GOING TO BED currently blood glucose is 29 PATIENT DENIES ANY ABDOMINAL PAIN OR FEVER OR CHILLS. HISTORY OF CIRRHOSIS OF THE LIVER WITH ASCITES, TYPE 2 DIABETES, CHF, AK RI, PERIPHERAL EDEMA, ATRIAL FIBRILLATION, ANEMIA OF CHRONIC DISEASE, PATIENT CURRENTLY ON ELIQUIS AND ASPIRIN Related Data Home Medications Medication Instructions Recorded Confirmed bimatoprost 0.03 % eye drops 1 drp EACH EYE HS 03/19/21 06/28/24 isosorbide dinitrate 20 mg tablet 60 mg PO BID 06/01/23 06/28/24 albuterol sulfate 90 mcg/actuation 2 inh inhalation Q4H PRN Wheezing 06/28/24 06/28/24 aerosol inhaler (Ventolin HFA) latanoprost 0.005 % eye drops 1 drp EACH EYE DAILY 06/28/24 06/28/24 simvastatin 20 mg tablet 20 mg PO DAILY 06/28/24 06/28/24 Allergies Allergy/AdvReac Type Severity Reaction Status Date / Time No Known Allergies Allergy Verified 06/19/24 13:08 Review of Systems Review of Systems: All systems reviewed & are unremarkable except as noted in HPI and below PMFSH Past Medical History Medical History (Updated 07/14/24 @ 16:50 by Bernice Corbett MD) Actinic keratosis Anemia of chronic disease Benign ovarian tumor Chronic kidney disease Cirrhosis of liver with ascites Coronary artery disease Deep venous thrombosis (06/2024) Essential hypertension Heart failure with preserved ejection fraction Echocardiogram on 06/29/2024 showed normal LV function with an estimated EF 60 to 65% and grade 2 diastolic dysfunction with [id number] mitral valve regurgitation, moderate to severe tricuspid regurgitation, and moderate pulmonary hypertension. Iron deficiency anemia Irritable bowel Mixed hyperlipidemia Paroxysmal atrial fibrillation Post-menopausal Pulmonary hypertension Type 2 diabetes mellitus Surgical History Surgical History (Updated 07/14/24 @ 14:14 by Melissa Gonzáles PA-C) History of bilateral cataract extraction History of colonoscopy with polypectomy History of coronary angioplasty with insertion of stent History of coronary artery bypass graft x 3 (2009) BAPTISTE to diagonal, SVG to OM, SVG to RDPA History of dilation and curettage History of tonsillectomy Family History Family History Mother Hypertension Family history of congenital heart disease Family history of diabetes mellitus in first degree relative Diabetes mellitus Family history of cardiovascular disease Family history of coronary artery disease Father Diabetes mellitus Hypertension Family history of elevated blood lipids Family history of cardiovascular disease Acute myocardial infarction Family history of coronary artery disease Other Family history of arthritis Social History Social History (Updated 07/14/24 @ 14:15 by Melissa Gonzáles PA-C) Social History: Surrogate medical decision maker: Michael Garcia ([phone]), spouse. Code status: DO NOT RESUSCITATE. Smoking packs per day: 1 Smoking cigarettes per day: 20.0 Years smoked: 5 Smoking pack-years: 5.00 Smoking status: Former smoker Tobacco type: cigarettes Second hand tobacco smoke exposure: No Smoking end date: 08/22/1968 Alcohol intake: never Substance use: never Substance use type: does not use Do You Feel Safe in your Home?: Yes Lack of Transportation: No Lack of Food: Never True Current Housing: I Have Housing Concerned About Future Housing: No Difficulty Paying Gas/Electric Bills: No Difficulty Paying for Meds: No Currently Unemployed: No Education: High School Diploma/GED Difficulty w/ Childcare or Family Care: No Living arrangements: with family Additional living arrangements comments: . Lives with spouse in [place]. They have 2 children. 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cation: retired Additional occupation/education comments: [employer]. Spiritual care concerns: No Exam Narrative: GENERAL APPEARANCE: WELL-DEVELOPED, WELL-NOURISHED, LOOKS ILL SKIN: NORMAL COLOR HEAD: NORMOCEPHALIC, NONTRAUMATIC EYES: CLEAR CONJUNCTIVA ENT: OROPHARYNX NORMAL, EARS NORMAL, NOSE NORMAL NECK: SUPPLE, NONTENDER CHEST AND RESPIRATORY: AIRWAY PATENT, NO RESPIRATORY DISTRESS, NO ACCESSORY MUSCLE USE HEART: IRREGULAR IRREGULARITY ABDOMEN: SOFT, NONTENDER, NO ORGANOMEGALY, QUIET BOWEL SOUNDS VASCULAR: NORMAL PERIPHERAL PULSES, NORMAL CAPILLARY REFILL. MUSCULOSKELETAL: NORMAL RANGE OF MOTION, NONTENDER BACK NEUROLOGIC: ALERT AND ORIENTED ?3, PLATEN BUILDER UP IS NORMAL TESTED, NO GROSS MOTOR DEFICIT Course Consultations Consultation #1: DR SEGURA Date: 07/14/24 Time: 11:49 Consultation #2: DR VARGAS Date: 07/14/24 Vital Signs Vital signs: Vital Signs Pulse Rate 68 07/14/24 10:19 Respiratory Rate 26 H 07/14/24 10:19 Blood Pressure 89/38 L 07/14/24 10:19 Pulse Oximetry 97 07/14/24 10:19 Temperature 36.6 C 07/14/24 16:00 Pulse Rate 80 07/14/24 16:00 Respiratory Rate 28 H 07/14/24 16:00 Blood Pressure 84/48 L 07/14/24 16:00 Pulse Oximetry 96 07/14/24 16:00 Medical Decision Making MDM Narrative Medical decision making narrative: PATIENT PRESENTS WITH NAUSEA, VOMITING up coffee-ground material AND DIARRHEA FOR THE LAST 24 HOURS, LAST INSULIN INTAKE WAS LAST NIGHT, PATIENT HAD HISTORY liver cirrhosis with ascites,. Has been not eating or drinking well over the last 7 days. Vital signs showing blood pressure of 89/38, respiration 26 per minute, no fever Physical examination showing ill looking patient, awake, alert oriented x4, complaining of general weakness. Differential diagnosis include sepsis, dehydration, electrolyte imbalance, viral gastroenteritis, small-bowel obstruction, colitis, constipation, urinary tract infection, hematemesis secondary to esophageal varices secondary to liver cirrhosis, anemia Blood workup today showed include CBC, CMP, lactic acid, blood culture, lipase showed WBC of 12.1, hemoglobin 9.4, platelet count 653, sodium 133, potassium 5. Three, anion gap 30, BUN 68, creatinine 5.9 glucose 259, lactic acid 10.4 calcium 6.2, C-reactive protein 6.8, total protein 6.0 Urine analysis, waiting for the result Chest x-ray showed no acute abnormality CT abdomen and pelvis without contrast showed no acute abnormality. Nephrology consult and gastroenterology consult ordered Patient is DNR, currently awake, alert and oriented x4, and sister at the bedside. Blood pressure is borderline low, patient declined any central line at this time. Admit to hospitalist Differential Diagnosis Differential Diagnosis: As above Vital Signs Vital Signs: Vital Signs Pulse Rate 68 07/14/24 10:19 Respiratory Rate 26 H 07/14/24 10:19 Blood Pressure 89/38 L 07/14/24 10:19 Pulse Oximetry 97 07/14/24 10:19 Temperature 36.6 C 07/14/24 16:00 Pulse Rate 80 07/14/24 16:00 Respiratory Rate 28 H 07/14/24 16:00 Blood Pressure 84/48 L 07/14/24 16:00 Pulse Oximetry 96 07/14/24 16:00 Lab Data 07/14/24 15:05 07/14/24 15:05 Labs: Lab Results 07/14/24 07/14/24 07/14/24 Range/Units 09:51 09:53 10:42 WBC 12.1 H (4.5-10.0) K/mm3 RBC 3.73 L (4.2-5.4) M/mm3 Hgb 9.4 L (12.0-15.0) g/dL Hct 31.7 L (37.0-47.0) % MCV 85.0 (80-100) fl MCH 25.2 L (26-34) pg MCHC 29.7 L (32-36) g/dl RDW 18.7 H (11.5-14.5) % Plt Count 653 H D (150-375) k/mm3 MPV 9.6 (7.4-10.4) fl Immature Gran % (Auto) 1.9 H (0-0.5) % Neut % (Auto) 88.0 H (45.5-73.1) % Lymph % (Auto) 4.5 L (18.3-44.2) % [place] % (Auto) 5.4 (2.6-8.5) % Eos % (Auto) 0.0 (0-4.4) % Baso % (Auto) 0.2 (0.2-1.2) % Lymph # (Auto) 0.55 L (0.9-3.2) K/mm3 [place] # (Auto) 0.7 H (0.1-0.6) K/mm3 Eos # (Auto) 0.0 (0-0.3) K/mm3 Baso # (Auto) 0.0 (0.0-0.1) K/mm3 Abs Immat Gran (auto) 0.23 H (0.00-0.031) K/mm3 Absolute Neuts (auto) 10.7 H (1.3-6.7) K/mm3 Absolute Nucleated RBC 0.000 (0.0-0.012) K/mm3 Nucleated RBC % 0.0 (0.0-0.2) % Platelet Estimate Increased (Adequate) Hypochromasia 1+ Anisocytosis 2+ Ovalocytes 1+ Kesha Cells 2+ Schistocytes None seen PT (11.1-14.7) Seconds INR APTT (22.3-36.8) Seconds Sodium (137-145) mmol/L Potassium (3.4-5.0) mmol/L Chloride (98-107) mmol/L Carbon Dioxide (22-30) mmol/L Anion Gap (4-12) mmol/L BUN (7-17) mg/dL Creatinine (0.7-1.0) mg/dL Estim Creat Clear Calc Estimated GFR (59 - ) Glucose (65-110) mg/dL POC Capillary Glucose 27 L* 29 L* (65-105) mg/dl Lactic Acid 11.3 H* (0.7-2.0) mmol/L Calcium (8.4-10.2) mg/dL Total Bilirubin (0.2-1.3) mg/dL AST (14-36) U/L ALT (6-35) U/L Alkaline Phosphatase (38-126) U/L C-Reactive Protein (<1.0) mg/dL Total Protein (6.3-8.2) g/dL Albumin (3.5-5.1) g/dL Urine Color Urine Appearance Urine pH Ur Specific [place] Urine Protein Urine Glucose (UA) Urine Ketones Ur Blood (Man) Urine Nitrate Urine Bilirubin Urine Urobilinogen Leukocyte Esterase Rfl Urine Eosinophils U Random Total Protein mg/dL Ur Random Sodium meq/L Ur Random Urea MG/DL Urine Total Volume Urine Creatinine Protein/Creat Ratio 2 (0-0.20) mg/mg Influenza A (RT-PCR) (Negative) Influenza B (RT-PCR) (Negative) RSV (RT-PCR) (Negative) SARS-CoV-2 RNA (RT-PCR) (Negative) 07/14/24 07/14/24 07/14/24 Range/Units 10:43 10:44 10:46 WBC (4.5-10.0) K/mm3 RBC (4.2-5.4) M/mm3 Hgb (12.0-15.0) g/dL Hct (37.0-47.0) % MCV (80-100) fl MCH (26-34) pg MCHC (32-36) g/dl RDW (11.5-14.5) % Plt Count (150-375) k/mm3 MPV (7.4-10.4) fl Immature Gran % (Auto) (0-0.5) % Neut % (Auto) (45.5-73.1) % Lymph % (Auto) (18.3-44.2) % [place] % (Auto) (2.6-8.5) % Eos % (Auto) (0-4.4) % Baso % (Auto) (0.2-1.2) % Lymph # (Auto) (0.9-3.2) K/mm3 [place] # (Auto) (0.1-0.6) K/mm3 Eos # (Auto) (0-0.3) K/mm3 Baso # (Auto) (0.0-0.1) K/mm3 Abs Immat Gran (auto) (0.00-0.031) K/mm3 Absolute Neuts (auto) (1.3-6.7) K/mm3 Absolute Nucleated RBC (0.0-0.012) K/mm3 Nucleated RBC % (0.0-0.2) % Platelet Estimate (Adequate) Hypochromasia Anisocytosis Ovalocytes [place] Cells Schistocytes PT 22.3 H (11.1-14.7) Seconds INR 1.9 APTT 34.8 (22.3-36.8) Seconds Sodium 134 L (137-145) mmol/L Potassium 5.2 H (3.4-5.0) mmol/L Chloride 93 L (98-107) mmol/L Carbon Dioxide 8 L (22-30) mmol/L Anion Gap 33 H (4-12) mmol/L BUN 73 H D (7-17) mg/dL Creatinine 6.30 H (0.7-1.0) mg/dL Estim Creat Clear Calc Not Reportable Estimated GFR 6 L (59 - ) Glucose 48 L* (65-110) mg/dL POC Capillary Glucose 28 L* (65-105) mg/dl Lactic Acid (0.7-2.0) mmol/L Calcium 7.1 L (8.4-10.2) mg/dL Total Bilirubin 0.4 (0.2-1.3) mg/dL AST 38 H (14-36) U/L ALT 21 (6-35) U/L Alkaline Phosphatase 57 (38-126) U/L C-Reactive Protein 6.8 H (<1.0) mg/dL Total Protein 6.0 L (6.3-8.2) g/dL Albumin 3.2 L (3.5-5.1) g/dL Urine Color Urine Appearance Urine pH Ur Specific [place] Urine Protein Urine Glucose (UA) Urine Ketones Ur Blood (Man) Urine Nitrate Urine Bilirubin Urine Urobilinogen Leukocyte Esterase Rfl Urine Eosinophils U Random Total Protein mg/dL Ur Random Sodium meq/L Ur Random Urea MG/DL Urine Total Volume Urine Creatinine Protein/Creat Ratio 2 (0-0.20) mg/mg Influenza A (RT-PCR) Negative (Negative) Influenza B (RT-PCR) Negative (Negative) RSV (RT-PCR) Negative (Negative) SARS-CoV-2 RNA (RT-PCR) Negative (Negative) 07/14/24 07/14/24 07/14/24 Range/Units 11:08 11:55 12:21 WBC (4.5-10.0) K/mm3 RBC (4.2-5.4) M/mm3 Hgb (12.0-15.0) g/dL Hct (37.0-47.0) % MCV (80-100) fl MCH (26-34) pg MCHC (32-36) g/dl RDW (11.5-14.5) % Plt Count (150-375) k/mm3 MPV (7.4-10.4) fl Immature Gran % (Auto) (0-0.5) % Neut % (Auto) (45.5-73.1) % Lymph % (Auto) (18.3-44.2) % [place] % (Auto) (2.6-8.5) % Eos % (Auto) (0-4.4) % Baso % (Auto) (0.2-1.2) % Lymph # (Auto) (0.9-3.2) K/mm3 [place] # (Auto) (0.1-0.6) K/mm3 Eos # (Auto) (0-0.3) K/mm3 Baso # (Auto) (0.0-0.1) K/mm3 Abs Immat Gran (auto) (0.00-0.031) K/mm3 Absolute Neuts (auto) (1.3-6.7) K/mm3 Absolute Nucleated RBC (0.0-0.012) K/mm3 Nucleated RBC % (0.0-0.2) % Platelet Estimate (Adequate) Hypochromasia Anisocytosis Ovalocytes [place] Cells Schistocytes PT (11.1-14.7) Seconds INR APTT (22.3-36.8) Seconds Sodium (137-145) mmol/L Potassium (3.4-5.0) mmol/L Chloride (98-107) mmol/L Carbon Dioxide (22-30) mmol/L Anion Gap (4-12) mmol/L BUN (7-17) mg/dL Creatinine (0.7-1.0) mg/dL Estim Creat Clear Calc Estimated GFR (59 - ) Glucose (65-110) mg/dL POC Capillary Glucose 89 121 H (65-105) mg/dl Lactic Acid (0.7-2.0) mmol/L Calcium (8.4-10.2) mg/dL Total Bilirubin (0.2-1.3) mg/dL AST (14-36) U/L ALT (6-35) U/L Alkaline Phosphatase (38-126) U/L C-Reactive Protein (<1.0) mg/dL Total Protein (6.3-8.2) g/dL Albumin (3.5-5.1) g/dL Urine Color Pending Urine Appearance Pending Urine pH Pending Ur Specific [place] Pending Urine Protein Pending Urine Glucose (UA) Pending Urine Ketones Pending Ur Blood (Man) Pending Urine Nitrate Pending Urine Bilirubin Pending Urine Urobilinogen Pending Leukocyte Esterase Rfl Pending Urine Eosinophils Pending U Random Total Protein > 600 mg/dL Ur Random Sodium meq/L Ur Random Urea MG/DL Urine Total Volume Urine Creatinine Protein/Creat Ratio 2 (0-0.20) mg/mg Influenza A (RT-PCR) (Negative) Influenza B (RT-PCR) (Negative) RSV (RT-PCR) (Negative) SARS-CoV-2 RNA (RT-PCR) (Negative) 07/14/24 07/14/24 Range/Units 12:21 12:21 WBC (4.5-10.0) K/mm3 RBC (4.2-5.4) M/mm3 Hgb (12.0-15.0) g/dL Hct (37.0-47.0) % MCV (80-100) fl MCH (26-34) pg MCHC (32-36) g/dl RDW (11.5-14.5) % Plt Count (150-375) k/mm3 MPV (7.4-10.4) fl Immature Gran % (Auto) (0-0.5) % Neut % (Auto) (45.5-73.1) % Lymph % (Auto) (18.3-44.2) % [place] % (Auto) (2.6-8.5) % Eos % (Auto) (0-4.4) % Baso % (Auto) (0.2-1.2) % Lymph # (Auto) (0.9-3.2) K/mm3 [place] # (Auto) (0.1-0.6) K/mm3 Eos # (Auto) (0-0.3) K/mm3 Baso # (Auto) (0.0-0.1) K/mm3 Abs Immat Gran (auto) (0.00-0.031) K/mm3 Absolute Neuts (auto) (1.3-6.7) K/mm3 Absolute Nucleated RBC (0.0-0.012) K/mm3 Nucleated RBC % (0.0-0.2) % Platelet Estimate (Adequate) Hypochromasia Anisocytosis Ovalocytes [place] Cells Schistocytes PT (11.1-14.7) Seconds INR APTT (22.3-36.8) Seconds Sodium (137-145) mmol/L Potassium (3.4-5.0) mmol/L Chloride (98-107) mmol/L Carbon Dioxide (22-30) mmol/L Anion Gap (4-12) mmol/L BUN (7-17) mg/dL Creatinine (0.7-1.0) mg/dL Estim Creat Clear Calc Estimated GFR (59 - ) Glucose (65-110) mg/dL POC Capillary Glucose (65-105) mg/dl Lactic Acid (0.7-2.0) mmol/L Calcium (8.4-10.2) mg/dL Total Bilirubin (0.2-1.3) mg/dL AST (14-36) U/L ALT (6-35) U/L Alkaline Phosphatase (38-126) U/L C-Reactive Protein (<1.0) mg/dL Total Protein (6.3-8.2) g/dL Albumin (3.5-5.1) g/dL Urine Color Urine Appearance Urine pH Ur Specific [place] Urine Protein Urine Glucose (UA) Urine Ketones Ur Blood (Man) Urine Nitrate Urine Bilirubin Urine Urobilinogen Leukocyte Esterase Rfl Urine Eosinophils U Random Total Protein Cancelled mg/dL Ur Random Sodium 116 meq/L Ur Random Urea < 67 MG/DL Urine Total Volume Cancelled Urine Creatinine Cancelled 34.6 Protein/Creat Ratio 2 > 17.34 H (0-0.20) mg/mg Influenza A (RT-PCR) (Negative) Influenza B (RT-PCR) (Negative) RSV (RT-PCR) (Negative) SARS-CoV-2 RNA (RT-PCR) (Negative) Imaging Data Radiologist's impression: Impressions Abdomen/Pelvis CT 07/14/24 11:40 IMPRESSION: 1. Cirrhosis with moderate amount of ascites in the abdomen and pelvis. 2. 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 3. Small sliding-type hiatal hernia. 4. Tiny bilateral pleural effusions. 5. Small focus of gas within the decompressed bladder. Correlate for recent instrumentation or Lombardo catheterization. Chest X-Ray 07/14/24 11:55 IMPRESSION: 1. Mild left basilar atelectasis. No other acute cardiopulmonary disease. 2. Cardiomegaly. ECG Data EKG #1: Attestation: I personally reviewed and interpreted this ECG as follows: ECG completion date: 07/14/24 ECG completion time: 16:46 Interpretation: Atrial fibrillation at 76 beats per minute, left axis deviation, ST T-wave abnormality, abnormal EKG, compared to EKG on June 29, 2024 no significant change Critical Care Time Critical Care Time Critical Care Time: Yes Total Critical Care Time: 45 Discharge Plan Discharge Clinical Impression: Hematemesis, TRI (acute kidney injury), Acute hypotension Patient Disposition: Still a Patient Condition: Guarded Prognosis
[2024-07-14] MEDS: GLUCAGON FOR INJ 1 MG VIAL IM (10:22)
--- NOTE | 2024-07-14 10:22 | ECG_ITS ---
Test Date: 2024-07-14 09:59:49 Measurements Intervals [place] Rate: 76 P: 0 TN: 0 QRS: -43 QRSD: 106 T: 91 QT: 413 QTc: 466 Interpretive Statements ATRIAL FIBRILLATION LEFT AXIS DEVIATION PATTERN CONSISTENT WITH PULMONARY DISEASE BORDERLINE ST-T WAVE ABNORMALITY- HIGH LATERAL LEADS BASELINE ARTIFACT- I, III, AVR, AVL, AVF, V1-V6 ABNORMAL ECG Compared to ECG 06/29/2024 13:27:02 NO SIGNIFICANT CHANGE Electronically Signed On 07-14-2024 15:51:09 [employer] OPER[employer] by Gopal Astorga D.O.
[2024-07-14] MEDS: SODIUM CHLORIDE 0.9% IV 1,000 ML 999 ML IV CONT ×2 (10:45→12:40)
[2024-07-14 10:48] LABS: Glucose Point of Care 28 mg/dl (65-105)
[2024-07-14 10:50] LABS: Basophils Percent Auto 0.2 % (0.2-1.2); Hematocrit 31.7 % (37.0-47.0); Hemoglobin 9.4 g/dL (12.0-15.0); Immature Granulocyte Absolute 0.23 K/mm3 (0.00-0.031); Immature Granulocyte Percent A 1.9 % (0-0.5); Lymphocytes Absolute Auto 0.55 K/mm3 (0.9-3.2); Lymphocytes Percent Auto 4.5 % (18.3-44.2); Mean Corpuscular HGB Conc 29.7 g/dl (32-36); Mean Corpuscular Hemoglobin 25.2 pg (26-34); Mean Platelet Volume 9.6 fl (7.4-10.4); Monocytes Absolute Auto 0.7 K/mm3 (0.1-0.6); Monocytes Percent Auto 5.4 % (2.6-8.5); Neutrophils Absolute Auto 10.7 K/mm3 (1.3-6.7); Platelet Count Result 653 k/mm3 (150-375); Red Blood Count 3.73 M/mm3 (4.2-5.4); Red Cell Distribution Width 18.7 % (11.5-14.5); White Blood Count 12.1 K/mm3 (4.5-10.0)
[2024-07-14] MEDS: DEXTROSE 50% 25 GM/50 ML SYRINGE IV PUSH (10:50)
[2024-07-14 11:03] LABS: Lactic Acid Reflex 11.3 mmol/L (0.7-2.0)
[2024-07-14 11:04] LABS: INR 1.9; Partial Thromboplastin Time 34.8 Seconds (22.3-36.8); Prothrombin Time 22.3 Seconds (11.1-14.7)
[2024-07-14 11:08] LABS: Alanine Aminotransferase 21 U/L (6-35); Albumin Level 3.2 g/dL (3.5-5.1); Alkaline Phosphatase 57 U/L (38-126); Anion Gap 33 mmol/L (4-12); Aspartate Amino Transferase 38 U/L (14-36); Bilirubin,Total 0.4 mg/dL (0.2-1.3); Blood Urea Nitrogen 73 mg/dL (7-17); CRP 6.8 mg/dL (<1.0); Calcium 7.1 mg/dL (8.4-10.2); Carbon Dioxide 8 mmol/L (22-30); Chloride 93 mmol/L (98-107); Estimated Glomerular Filt Rate 6; Glucose 48 mg/dL (65-110); Potassium 5.2 mmol/L (3.4-5.0); Sodium 134 mmol/L (137-145)
[2024-07-14 11:11] LABS: Glucose Point of Care 89 mg/dl (65-105)
[2024-07-14 11:12] LABS: Platelet Estimate Increased (Adequate)
[2024-07-14 11:13] LABS: Anisocytosis 2+; Burr Cells 2+; Hypochromasia 1+; Ovalocytes 1+; Schistocytes None Seen
[2024-07-14 11:26] LABS: Influenza A QL RT-PCR Negative (Negative); Influenza B QL RT-PCR Negative (Negative); RSV RNA, RT-PCR Negative (Negative); SARS-CoV-2 RNA PCR Negative (Negative)
[2024-07-14 11:58] LABS: Glucose Point of Care 121 mg/dl (65-105)
[2024-07-14] MEDS: DEXTROSE 10% 1,000 ML 100 ML IV CONT (12:05)
[2024-07-14] MEDS: OCTREOTIDE ACETATE 500 MCG in SODIUM CHLORIDE 0.9% IV 99 ML 10 MCG IV CONT ×2 (12:30→16:17)
[2024-07-14] MEDS: OCTREOTIDE ACETATE 50 MCG/ML VIAL IV PUSH (12:30)
[2024-07-14] MEDS: SODIUM BICARBONATE 8.4% 50 MEQ/50 ML SYRINGE IV PUSH (12:40)
[2024-07-14 12:44] LABS: Creatinine Urine 34.6 mg/dL
[2024-07-14 12:48] LABS: Sodium Urine Random 116 meq/L
[2024-07-14 12:50] LABS: Total Protein Urine Random > 600 mg/dL; Ur Ttl Prot Creatinine Ratio > 17.34 mg/mg (0-0.20); Urea Random Urine < 67 MG/DL
--- NOTE | 2024-07-14 12:50 | P.CONGI_ITS ---
Assessment and Plan Assessment and plan (1) Cirrhosis of liver with ascites: Code(s): K74.60 - Unspecified cirrhosis of liver; R18.8 - Other ascites Status: Acute Assessment and Plan: Patient with decompensated cirrhosis and acute kidney injury most likely prerenal, due to mulple factors : diuretics, diarrhea, lack of oral intake and maybe GI bleeding. She has severe coagulopathy with an INBR 1.9, hypoalbu minemia,and most importantly a creatinine level of 6.3. Will replace volume with Albumin, 75 grams IV today (each 25 g / 100 ml bottle to be administered in 2 hours), and tomorrow 50 grams IV (same rate of administration). Will also start Octreotide drip @50 mcg/hr (50 mcg bolus already given), Ceftriaxone 1 g q 24 h IV and Pantoprazole 40 mg IV q 24 . Will send stool sample for C difficile and culture. Will follow closely in a monitored bed. (2) Ascites: Qualifiers: Ascites type: other type Qualified Code(s): R18.8 - Other ascites Code(s): R18.8 - Other ascites Status: Acute (3) Serum potassium elevated: Code(s): E87.5 - Hyperkalemia Status: Acute GI Consult Note Consult date/time: 07/14/24 12:50 HPI: This is an 84-year-old female with history of chronic kidney disease, diabetes, history of MN status post 4 vessel CABG in 2009. As per latest cardiology evaluation, her EF is normal but has diastolic dysfunction. Patient presented to the Emergency Room 06/28/2024 with complaints of shortness of breath and was admitted for CHF exacerbation, discharged on 07/04. She was recently found to have cirrhosis based on ultrasound findings, and has undergone large volume paracentesis, the last one 3 days ago (3 liters removed). Her diuretic regime, previously prescribed for CHF was recently changed from Lasix to Bumetanide + Metolazone. She is brought today because of several episodes of coffee ground emesis, the last one witnessed shortly after arrival to the ED. Her mental status has been unchanged, but she has not been eating or drinking much over the past week, and 2 days ago she started to have diarrhea, 1-2 episodes per day. At her arrival to the ED she was found hypoglycemic (glucose 48) and DW10% was administered. 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 Cataract Cirrhosis of liver with ascites CKD (chronic kidney disease) DM renal manif type II Essential hypertension Iron deficiency anemia Irritable bowel Keratoacanthoma Mixed hyperlipidemia Nephritis Old myocardial infarction Polyp of colon Post-menopausal Type 2 diabetes mellitus without complication Surgical History Surgical History H/O bilateral cataract extraction H/O colonoscopy H/O dilation and curettage H/O rectal polypectomy History of coronary angioplasty with insertion of stent Hx of CABG Quadruple S/P tonsillectomy and adenoidectomy Family History Family History Mother Hypertension Family history of congenital heart disease Family history of diabetes mellitus in first degree relative Diabetes mellitus Family history of cardiovascular disease Family history of coronary artery disease Father Diabetes mellitus Hypertension Family history of elevated blood lipids Family history of cardiovascular disease Acute myocardial infarction Family history of coronary artery disease Other Family history of arthritis Social History Social History Social History: The patient is and has 2 children. Her is a durable power [employer] attorney for healthcare. The patient is retired from [employer]. She is a former smoker she does not use any alcohol marijuana or illicit drugs. Code status full code Smoking packs per day: 1 Smoking cigarettes per day: 20.0 Years smoked: 5 Smoking pack-years: 5.00 Smoking status: Former smoker Tobacco type: cigarettes Second hand tobacco smoke exposure: No Smoking end date: 08/22/1968 Alcohol intake: never Substance use: never Substance use type: does not use Do You Feel Safe in your Home?: Yes Lack of Transportation: No Lack of Food: Never True Current Housing: I Have Housing Concerned About Future Housing: No Difficulty Paying Gas/Electric Bills: No Difficulty Paying for Meds: No Currently Unemployed: No Education: High School Diploma/GED Difficulty w/ Childcare or Family Care: No 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cation: retired Gender identity (if verbalized by the patient): Female Spiritual care concerns: No Meds Home Medications and Allergies Home Medications Medication Instructions Recorded Confirmed Type bimatoprost 0.03 % eye drops 1 drp EACH EYE HS 03/19/21 06/28/24 History isosorbide dinitrate 20 mg tablet 60 mg PO BID 06/01/23 06/28/24 History metformin 500 mg tablet,extended 500 mg PO TID #270 tabs 10/05/23 06/28/24 Rx release 24 hr pen needle, diabetic 32 gauge x #100 ea 10/05/23 06/28/24 Rx 1/4 (BD Ultra-Fine Micro Pen Needle) fluticasone 250 mcg-salmeterol 50 1 inh inhalation BID #60 ea 02/08/24 06/28/24 Rx mcg/dose blistr powdr for inhalation (Wixela Inhub) blood sugar diagnostic (OneTouch #200 strips 02/09/24 06/28/24 Rx Ultra Test strips) insulin glargine 100 unit/mL (3 20 unit (0.2 mL) subcut QPM #18 mL 02/09/24 06/28/24 Rx mL) subcutaneous pen (Basaglar KwikPen U-100 Insulin) lancets 33 gauge #200 ea 05/22/24 06/28/24 Rx metoprolol tartrate 25 mg tablet See Rx Instructions .Route 05/29/24 06/28/24 Rx .COMPLEX #180 tabs albuterol sulfate 90 mcg/actuation 2 puff inhalation Q4H PRN 06/19/24 06/28/24 Rx aerosol inhaler (Ventolin HFA) shortness of breath or wheezing #25.5 grams dicyclomine 20 mg tablet 20 mg PO TID #180 tabs 06/19/24 06/28/24 Rx albuterol sulfate 90 mcg/actuation 2 inh inhalation Q4H PRN Wheezing 06/28/24 06/28/24 History aerosol inhaler (Ventolin HFA) latanoprost 0.005 % eye drops 1 drp EACH EYE DAILY 06/28/24 06/28/24 History simvastatin 20 mg tablet 20 mg PO DAILY 06/28/24 06/28/24 History apixaban 5 mg tablet (Eliquis) 5 mg PO Q12HR #30 tabs 07/06/24 Rx apixaban 5 mg tablet (Eliquis) 10 mg PO Q12HR #8 tabs 07/06/24 Rx bumetanide 1 mg tablet 1 mg PO BID #60 tabs 07/06/24 Rx isosorbide mononitrate 60 mg 60 mg PO BID #60 tabs 07/06/24 Rx tablet,extended release 24 hr lisinopril 20 mg tablet 40 mg PO QAM #60 tabs 07/06/24 Rx metolazone 5 mg tablet 5 mg PO QAM #30 tabs 07/06/24 Rx Allergies Allergy/AdvReac Type Severity Reaction Status Date / Time No Known Allergies Allergy Verified 06/19/24 13:08 Vital Signs Vital Signs - 24 hr 07/14/24 10:19 07/14/24 10:32 07/14/24 10:46 Pulse Rate 68 74 68 Respiratory Rate 26 H 27 H 26 H Blood Pressure 89/38 L 93/39 L 72/51 L Pulse Oximetry 97 07/14/24 10:47 07/14/24 11:20 Pulse Rate 71 79 Respiratory Rate 25 H 25 H Blood Pressure 89/52 L 100/55 L Pulse Oximetry 96 Exam Narrative: GENERAL APPEARANCE: WELL-DEVELOPED, WELL-NOURISHED, LOOKS ILL SKIN: NORMAL COLOR HEAD: NORMOCEPHALIC, NONTRAUMATIC EYES: CLEAR CONJUNCTIVA ENT: OROPHARYNX NORMAL, EARS NORMAL, NOSE NORMAL NECK: SUPPLE, NONTENDER CHEST AND RESPIRATORY: AIRWAY PATENT, NO RESPIRATORY DISTRESS, NO ACCESSORY MUSCLE USE HEART: IRREGULAR IRREGULARITY ABDOMEN: SOFT, NONTENDER, NO ORGANOMEGALY, QUIET BOWEL SOUNDS VASCULAR: NORMAL PERIPHERAL PULSES, NORMAL CAPILLARY REFILL. MUSCULOSKELETAL: NORMAL RANGE OF MOTION, NONTENDER BACK NEUROLOGIC: ALERT AND ORIENTED ?3, PHOTO LAB SPECIALIST IS NORMAL TESTED, NO GROSS MOTOR DEFICIT Results Labs 07/14/24 10:42 07/14/24 10:43 Labs: Short CBC 07/14/24 Range/Units 10:42 WBC 12.1 H (4.5-10.0) K/mm3 Hgb 9.4 L (12.0-15.0) g/dL Hct 31.7 L (37.0-47.0) % Plt Count 653 H D (150-375) k/mm3 BMP 07/14/24 10:43 Sodium 134 L Potassium 5.2 H Chloride 93 L Carbon Dioxide 8 L BUN 73 H D Creatinine 6.30 H Glucose 48 L* Calcium 7.1 L Liver Function 07/14/24 Range/Units 10:43 Total Bilirubin 0.4 (0.2-1.3) mg/dL AST 38 H (14-36) U/L ALT 21 (6-35) U/L Alkaline Phosphatase 57 (38-126) U/L Albumin 3.2 L (3.5-5.1) g/dL
[2024-07-14] MEDS: ALBUMIN HUMAN 25% 25 GM/100 ML VIAL IV CONT (12:54)
--- NOTE | 2024-07-14 13:13 | PC.NURSE ---
Per Dr. Welsh. Change albumin order to 300ml at 50gm per hour over 3 hours.
[2024-07-14 13:47] LABS: Reflex Lactic Acid Yes or No Add Lactic
[2024-07-14] MEDS: PANTOPRAZOLE SODIUM IV 40 MG VIAL IV PUSH ×2 (13:50→16:58)
--- NOTE | 2024-07-14 14:10 | P.HP_ITS ---
H&P: HPI History of Present Illness Date/Time: 07/14/24 16:00 Chief Complaint: Weakness. Narrative: This is an 84-year-old female with history of cirrhosis, chronic kidney disease, coronary artery disease, hypertension, hyperlipidemia, paroxysmal atrial fibrillation on anticoagulation, and type 2 diabetes mellitus who presented to the emergency department via EMS from [facility] for evaluation of weaknes s. The patient provides the following history. She was recently hospitalized from 06/28/24 to 07/07/2024 with volume overload after presenting with shortness of breath and was diuresed with improvement. She had paracenteses with removal of a total of 8 L of fluid on 2 separate occasions. Additionally she was started on apixaban for paroxysmal atrial fibrillation and it was later discovered that she had bilateral lower extremity DVTs and a V/Q scan that was intermediate probability for pulmonary embolism. She has been doing fair up until the last couple of days when she developed nausea, vomiting, and diarrhea. Emesis and stool were dark brown according to the patient. She has become increasingly weak since that time. She denies fever, headache, neck ache, sinus congestion, sore throat, change in chronic cough, abdominal pain, distension, bloating, belching, dysuria, hematuria, and lower extremity edema. In the ED: Vital signs on arrival include a blood pressure of 89/38, pulse 68, respiratory rate 26, SpO2 97% on room air. Labs are significant for WBC count of 12.1, hemoglobin 9.4, platelets 653, PT 22.3, INR 1.9, sodium 134, potassium 5.2, chloride 93, carbon dioxide 8, anion gap 33, BUN 73, creatinine 6.30, glucose 48, lactic acid 11.3, calcium 7.1, total protein 6.0, albumin 3.2. She was negative for influenza, RSV, and COVID. Chest x-ray showed mild left basilar atelectasis and cardiomegaly. CT of the abdomen and pelvis showed cirrhosis with moderate amount of ascites, tiny bilateral pleural effusions, and a small focus of gas within the decompressed bladder. She was given a 2 L normal saline bolus with only slight improvement her blood pressures. She was started on pantoprazole and octreotide given coffee-ground emesis and was given a dose of ceftriaxone. She reiterated her DO NOT RESUSCITATE status and decline a central line. She is being admitted to the IMU in this setting for further treatment. Review of Systems Review of Systems: 12 systems were reviewed and are negativ e except for as per HPI. [facility] Past Medical History Medical History Actinic keratosis Anemia of chronic disease Benign ovarian tumor Chronic kidney disease Cirrhosis of liver with ascites Coronary artery disease Deep venous thrombosis (06/2024) Essential hypertension Heart failure with preserved ejection fraction Echocardiogram on 06/29/2024 showed normal LV function with an estimated EF 60 to 65% and grade 2 diastolic dysfunction with [id number] mitral valve regurgitation, moderate to severe tricuspid regurgitation, and moderate pulmonary hypertension. Iron deficiency anemia Irritable bowel Mixed hyperlipidemia Paroxysmal atrial fibrillation Post-menopausal Pulmonary hypertension Type 2 diabetes mellitus Surgical History Surgical History History of bilateral cataract extraction History of colonoscopy with polypectomy History of coronary angioplasty with insertion of stent History of coronary artery bypass graft x 3 (2009) BAPTISTE to diagonal, SVG to OM, SVG to RDPA History of dilation and curettage History of tonsillectomy Family History Family History Mother Hypertension Family history of congenital heart disease Family history of diabetes mellitus in first degree relative Diabetes mellitus Family history of cardiovascular disease Family history of coronary artery disease Father Diabetes mellitus Hypertension Family history of elevated blood lipids Family history of cardiovascular disease Acute myocardial infarction Family history of coronary artery disease Other Family history of arthritis Social History Social History Social History: Surrogate medical decision maker: Michael Lyonsnicolas ([phone]), spouse. Code status: DO NOT RESUSCITATE. Smoking packs per day: 1 Smoking cigarettes per day: 20.0 Years smoked: 5 Smoking pack-years: 5.00 Smoking status: Former smoker Tobacco type: cigarettes Second hand tobacco smoke exposure: No Smoking end date: 08/22/1968 Alcohol intake: never Substance use: never Substance use type: does not use Do You Feel Safe in your Home?: Yes Lack of Transportation: No Lack of Food: Never True Current Housing: I Have Housing Concerned About Future Housing: No Difficulty Paying Gas/Electric Bills: No Difficulty Paying for Meds: No Currently Unemployed: No Education: High School Diploma/GED Difficulty w/ Childcare or Family Care: No Living arrangements: with family Additional living arrangements comments: . Lives with spouse in [place]. They have 2 children. 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cation: retired Additional occupation/education comments: [employer]. Spiritual care concerns: No Meds Home Medications and Allergies Home Medications Medication Instructions Recorded Confirmed Type bimatoprost 0.03 % eye drops 1 drp EACH EYE HS 03/19/21 07/14/24 History metformin 500 mg tablet,extended 500 mg PO TID #270 tabs 10/05/23 07/14/24 Rx release 24 hr pen needle, diabetic 32 gauge x #100 ea 10/05/23 07/14/24 Rx 1/4 (BD Ultra-Fine Micro Pen Needle) fluticasone 250 mcg-salmeterol 50 1 inh inhalation BID #60 ea 02/08/24 07/14/24 Rx mcg/dose blistr powdr for inhalation (Wixela Inhub) blood sugar diagnostic (OneTouch #200 strips 02/09/24 07/14/24 Rx Ultra Test strips) lancets 33 gauge #200 ea 05/22/24 07/14/24 Rx albuterol sulfate 90 mcg/actuation 2 puff inhalation Q4H PRN 06/19/24 07/14/24 Rx aerosol inhaler (Ventolin HFA) shortness of breath or wheezing #25.5 grams dicyclomine 20 mg tablet 20 mg PO TID #180 tabs 06/19/24 07/14/24 Rx albuterol sulfate 90 mcg/actuation 2 inh inhalation Q4H PRN Wheezing 06/28/24 07/14/24 History aerosol inhaler (Ventolin HFA) latanoprost 0.005 % eye drops 1 drp EACH EYE DAILY 06/28/24 07/14/24 History simvastatin 20 mg tablet 20 mg PO DAILY 06/28/24 07/14/24 History apixaban 5 mg tablet (Eliquis) 5 mg PO Q12HR #30 tabs 07/06/24 07/14/24 Rx apixaban 5 mg tablet (Eliquis) 10 mg PO Q12HR #8 tabs 07/06/24 Rx bumetanide 1 mg tablet 1 mg PO BID #60 tabs 07/06/24 07/14/24 Rx isosorbide mononitrate 60 mg 60 mg PO BID #60 tabs 07/06/24 07/14/24 Rx tablet,extended release 24 hr lisinopril 20 mg tablet 40 mg PO QAM #60 tabs 07/06/24 07/14/24 Rx metolazone 5 mg tablet 5 mg PO QAM #30 tabs 07/06/24 07/14/24 Rx glucagon HCl 1 mg solution for 1 mg IM PRN 07/14/24 07/14/24 History injection (Glucagon (HCl) Emergency Kit) guaifenesin 100 mg/5 mL oral liquid 200 mg PO Q4H PRN Cough 07/14/24 07/14/24 History insulin glargine 100 unit/mL (3 20 unit subcut QHS 07/14/24 07/14/24 History mL) subcutaneous pen (Basaglar KwikPen U-100 Insulin) metoprolol tartrate 25 mg tablet 25 mg PO BID 07/14/24 07/14/24 History Allergies Allergy/AdvReac Type Severity Reaction Status Date / Time No Known Allergies Allergy Verified 06/19/24 13:08 Vital Signs Vital Signs - 24 hr 07/14/24 10:19 07/14/24 10:32 07/14/24 10:46 Pulse Rate 68 74 68 Respiratory Rate 26 H 27 H 26 H Blood Pressure 89/38 L 93/39 L 72/51 L Pulse Oximetry 97 07/14/24 10:47 07/14/24 11:20 07/14/24 13:01 Pulse Rate 71 79 82 Respiratory Rate 25 H 25 H 23 H Blood Pressure 89/52 L 100/55 L 90/41 L Pulse Oximetry 96 94 07/14/24 14:01 07/14/24 11:04 07/14/24 11:14 Pulse Rate 64 66 78 Respiratory Rate 28 H 22 H 25 H Blood Pressure 97/60 L 124/110 H Pulse Oximetry 96 73 L 95 07/14/24 11:15 07/14/24 11:16 07/14/24 11:44 Pulse Rate 79 78 90 Respiratory Rate 22 H 23 H 24 H Blood Pressure 100/44 L Pulse Oximetry 07/14/24 11:46 07/14/24 12:00 07/14/24 12:30 Pulse Rate 90 68 69 Respiratory Rate 28 H 26 H 22 H Blood Pressure Pulse Oximetry 07/14/24 12:52 07/14/24 12:54 07/14/24 12:57 Pulse Rate 89 74 79 Respiratory Rate 22 H 21 H 18 Blood Pressure 83/65 L Pulse Oximetry 07/14/24 13:10 07/14/24 13:11 07/14/24 13:15 Pulse Rate 72 78 64 Respiratory Rate 18 27 H 28 H Blood Pressure 92/39 L Pulse Oximetry 91 90 07/14/24 13:17 07/14/24 13:21 07/14/24 13:43 Pulse Rate 70 68 62 Respiratory Rate 28 H 23 H 27 H Blood Pressure 103/37 L 94/45 L Pulse Oximetry 93 07/14/24 13:49 07/14/24 13:51 07/14/24 13:52 Pulse Rate 74 68 65 Respiratory Rate 23 H 25 H 25 H Blood Pressure 84/53 L 87/41 L Pulse Oximetry 92 94 89 L Exam Narrative: General: Acutely ill-appearing female supine in bed. Weight: 62.5 kg. BMI: 25.2. HEENT: Normocephalic, atraumatic. PERRL, EOMI. Sclera anicteric. Tacky mucous membranes. Neck: Supple. No jugular venous distention. Respiratory: Tachypneic with moderate conversational dyspnea. She is speaking in 3 to 4 word sentences. She denies however feelings of shortness of breath. Lung sounds are coarse throughout the chest anteriorly and at the flanks. Cardiovascular: Irregularly irregular rate and rhythm. Systolic murmur heard at the left sternal border. Gastrointestinal: Abdomen is soft and slightly distended with positive bowel sounds. No significant tenderness to palpation. No guarding or rebound tenderness. Skin: Warm and dry. He hands and feet are slightly cool however. Generalized pallor. Capillary refill is about 4 to 5 seconds. Extremities: No cyanosis, clubbing, or significant edema. Radial and pedal pulses intact. Neurological: Alert and oriented. Cranial nerves 2-12 are grossly intact. Generalized weakness without gross focal findings. Psychiatric: Cooperative with appropriate mood and flat affect. H&P: Results Labs Labs: Short CBC 07/14/24 Range/Units 10:42 WBC 12.1 H (4.5-10.0) K/mm3 Hgb 9.4 L (12.0-15.0) g/dL Hct 31.7 L (37.0-47.0) % Plt Count 653 H D (150-375) k/mm3 [facility] 07/14/24 10:43 Sodium 134 L Potassium 5.2 H Chloride 93 L Carbon Dioxide 8 L BUN 73 H D Creatinine 6.30 H Glucose 48 L* Calcium 7.1 L Liver Function 07/14/24 Range/Units 10:43 Total Bilirubin 0.4 (0.2-1.3) mg/dL AST 38 H (14-36) U/L ALT 21 (6-35) U/L Alkaline Phosphatase 57 (38-126) U/L Albumin 3.2 L (3.5-5.1) g/dL Imaging Abdomen/Pelvis CT 07/14/24 11:40 IMPRESSION: 1. Cirrhosis with moderate amount of ascites in the abdomen and pelvis. 2. 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 3. Small sliding-type hiatal hernia. 4. Tiny bilateral pleural effusions. 5. Small focus of gas within the decompressed bladder. Correlate for recent instrumentation or Lombardo catheterization. Chest X-Ray 07/14/24 11:55 IMPRESSION: 1. Mild left basilar atelectasis. No other acute cardiopulmonary disease. 2. Cardiomegaly. Assessment and Plan Assessment and plan (1) Shock: Code(s): R57.9 - Shock, unspecified Status: Acute Assessment and Plan: Blood pressures remain in the mid 80s to low 90s systolic with mean arterial pressures averaging between 55 and 65 despite fluid resuscitation. She reiterates her DO NOT RESUSCITATE status and has declined central line insertion for vasopressor therapy; she understands the implications. * Differential diagnosis includes: * Hypovolemia with prerenal factors to include dehydration from poor oral intake, vomiting, diarrhea, diuretic use (bumetanide and metolazone), possible GI bleeding. * Sepsis though no obvious source of infection or history to suggest such aside from diarrhea. * Cardiogenic and neurologic shock unlikely. * Interventions thus far: * 2 L normal saline bolus and albumin IV 75 gm without improvement in blood pressures or lactic acid level 11.3-10.4). * Octreotide drip and pantoprazole 40 mg IV b.i.d. for reports of coffee- ground emesis. * Ceftriaxone 1 g scheduled Q 24 hours for antibiotic prophylaxis. * Plan and pending workup: * Noninvasive cardiac output monitoring to see if she is volume responsive. * Continue empiric antibiotics pending blood cultures. * Obtain urinalysis and urine culture. * Schedule midodrine 10 mg q.8 hours. * Consider hydrocortisone. (2) Acute kidney injury: Code(s): N17.9 - Acute kidney failure, unspecified Status: Acute Assessment and Plan: Kidney function started to decline last month and creatinine was as high as 2.00 with her most recent hospitalization however BUN and creatinine were 40 and 1.30 on 07/07/2024. Today she presents with a BUN and creatinine of 73 and 6.30 respectively. She has minimal urine output in Lombardo catheter thus far. * Differential diagnosis includes: * Pre renal due to hypovolemia (poor oral intake, vomiting, diarrhea, diuretic use) and hypoperfusion from hypotension and decompensated cirrhosis. * Intrinsic renal failure seems less likely. * Post renal is ruled out; Lombardo catheter has been placed and she has minimal urine output. * Interventions thus far: * 2 L normal saline bolus given in the ED. * Lombardo catheter inserted with minimal output. * Plan and pending workup: * Renal ultrasound last week showed unremarkable kidneys. * Continue Lombardo catheter for strict I/O and monitor daily weights. * Avoid all nephrotoxic agents (diuretics and GEMINI inhibitor are on hold) and renally dose all medications. * Nephrology has been consulted. (3) Decompensated cirrhosis: Code(s): K72.90 - Hepatic failure, unspecified without coma; K74.60 - Unspecified cirrhosis of liver Status: Acute Assessment and Plan: Patient has decompensated cirrhosis with coagulopathy (was recently started on apixaban) and hypoalbuminemia in addition to and acute kidney injury. She is without jaundice and platelet count is well within normal limits. * Continue octreotide drip at 50 mcg an hour and pantoprazole 40 mg IV Q 24 hours. * Received 75 g albumin IV today. Administer 50 g albumin IV tomorrow. * Continue ceftriaxone 1 g Q 24 hours for antibiotic prophylaxis. * GI consult and their input is greatly appreciated. (4) Electrolyte abnormality: Code(s): E87.8 - Other disorders of electrolyte and fluid balance, not elsewhere classified Status: Acute Assessment and Plan: Several electrolyte abnormalities including sodium of 134, potassium 5.2, chloride 93, calcium 7.1, magnesium 1.5. * Status post 2 L normal saline bolus. * Calcium and magnesium replaced. * Continue to monitor electrolytes closely. (5) Coffee ground emesis: Code(s): K92.0 - Hematemesis Status: Acute Assessment and Plan: Patient reports coffee-ground emesis and dark stools which began today. * Hemoglobin and hematocrit are stable and will be trended. * Currently on octreotide and pantoprazole as detailed above. * Apixaban (recent addition for atrial fibrillation and DVT with possible PE) on hold. * GI is following. (6) Lactic acidosis: Code(s): E87.20 - Acidosis, unspecified Status: Acute Assessment and Plan: Initial lactic acid level was 11.3 and improved minimally to 10.4 with IV fluids and albumin. Lactic acidosis is likely due to a combination of poor hepatic clearance and hypoperfusion. She is also metformin though it is unclear if she has been taking that. Sepsis is also a possibility. * Avoid over-hydration; noninvasive cardiac output monitoring is pending at this time. * Continue empiric antibiotics. * Schedule midodrine to try to improve blood pressures. * Hold metformin. (7) Hypoglycemia: Code(s): E16.2 - Hypoglycemia, unspecified Status: Acute Assessment and Plan: Glucose was in the 40s on arrival for which she was started on a D10 drip. * Glucose is now in the upper 100s to low 200s thus will discontinue D10 drip. * Continue Accu-Cheks q.4 hours for now until stable. * Hold metformin and basal insulin. * Initiate sliding scale insulin, Accu-Cheks, and hypoglycemic protocol. (8) Anemia of chronic disease: Code(s): D63.8 - Anemia in other chronic diseases classified elsewhere Status: Acute Assessment and Plan: Hemoglobin are stable on review of previous labs. * Continue to trend and transfuse if indicated. (9) Chronic anticoagulation: Code(s): Z79.01 - snf (current) use of anticoagulants Status: Acute Assessment and Plan: Patient was started on apixaban a couple of weeks ago for atrial fibrillation and DVT with possible PE as detailed in HPI. * Apixaban on hold given reports of hematemesis. * Heparin drip considered but will hold for now given critical illness. * Strict bed rest. * Consider IVC filter if unable to resume anticoagulation. (10) Paroxysmal atrial fibrillation: Code(s): I48.0 - Paroxysmal atrial fibrillation Status: Acute Assessment and Plan: Currently in atrial fibrillation with rates in the 70s to 80s. * Metoprolol on hold given hypertension. * Apixaban on hold given reports that hematemesis. (11) Heart failure with preserved ejection fraction: Code(s): I50.30 - Unspecified diastolic (congestive) heart failure Status: Acute Assessment and Plan: Clinically compensated at this time. Recent echocardiogram showed grade 2 diastolic dysfunction * Avoid over-hydration. * Monitor strict I/O and daily weights. (12) Type 2 diabetes mellitus: Code(s): E11.9 - Type 2 diabetes mellitus without complications Status: Acute Assessment and Plan: Presented with a glucose of 41 and was temporarily on a D10 drip, now stable. * Hold metformin and basal insulin. * Initiate sliding scale insulin, Accu-Cheks, and hypoglycemic protocol. Plan Long discussion with the patient and her at bedside regarding critical nature of her illness. They understand and wish for treatment but no invasive procedures including central line insertion. If she does not show improvement overnight hospice would be appropriate. Quality VTE Prophylaxis VTE prophylaxis: mechanical ordered If No VTE Prophylaxis Answer both mechanical and pharmacologic: Reason no pharmacologic proph: medical contraindication (coffee ground emesis) Hospitalist MIPS Advance Care Plan I have confirmed that the patient's Advanced Care Plan is present, code status is documented, or surrogate decision maker is listed in patient medical record.: Yes Medication Reconciliation I have utilized all available resources to obtain, update and review the patients current medications (includes all prescriptions, OTC, herbals, cannabis, and nutritional supplements).: Yes Critical Care Time Critical Care Time: Yes Total Critical Care Time: 90 Attestation: Due to a high probability of clinically significant, life threatening deterioration, the patient required my highest level of preparedness to intervene emergently and I personally spent this critical care time directly and personally managing the patient. This critical care time included obtaining a history; examining the patient; pulse oximetry; ordering and review of studies; arranging urgent treatment with development of a management plan; evaluation of patient's response to treatment; frequent reassessment; and discussions with other providers. It was exclusive of separately billable procedures and treating other patients and teaching time. Please see Assessment and Plan section and the rest of the note for further information on patient assessment and treatment.
[2024-07-14 14:35] LABS: Lactic Acid 9.3 mmol/L (0.7-2.0)
[2024-07-14 14:55] LABS: Glucose Point of Care 190 mg/dl (65-105)
[2024-07-14] MEDS: SODIUM CHLORIDE 0.9% IV 1,000 ML 125 ML IV CONT (15:00)
[2024-07-14 15:10] LABS: Hematocrit 25.6 % (37.0-47.0); Hemoglobin 7.5 g/dL (12.0-15.0)
[2024-07-14 15:22] LABS: Anion Gap 30 mmol/L (4-12); Blood Urea Nitrogen 68 mg/dL (7-17); Calcium 6.2 mg/dL (8.4-10.2); Carbon Dioxide 8 mmol/L (22-30); Chloride 95 mmol/L (98-107); Creatine Kinase 103 U/L (30-135); Glucose 259 mg/dL (65-110); Magnesium 1.5 mg/dL (1.6-2.3); Potassium 5.3 mmol/L (3.4-5.0); Sodium 133 mmol/L (137-145)
[2024-07-14 15:27] LABS: Estimated Glomerular Filt Rate 7; Fractional Inspired Oxygen 21 %; HCO3 VBG 6.7 mEq/l (24.0-30.0); PO2 VBG 58.9 mmHg (35.0-45.0)
[2024-07-14 15:38] LABS: PCO2 VBG 22.1 mmHg (42.0-48.0); pH VBG 7.101 (7.300-7.400)
[2024-07-14 15:39] LABS: Device ROOM AIR
[2024-07-14 16:28] LABS: Lactic Acid Reflex 10.4 mmol/L (0.7-2.0)
[2024-07-14 16:37] LABS: Glucose Point of Care 207 mg/dl (65-105)
[2024-07-14] MEDS: SODIUM BICARBONATE 8.4% 50 MEQ/50 ML SYRINGE 100 MEQ IV PUSH (16:47)
[2024-07-14] MEDS: CALCIUM GLUC 2,000 MG/NS 100ML 2,000 MG/100 ML BAG 100 MG IVPB (17:02)
[2024-07-14] MEDS: MAGNESIUM SULF 1 GM/D5W 100 ML 1 GM/100 ML BAG IVPB (17:02)
--- NOTE | 2024-07-14 17:42 | PC.NURSE ---
This patient, Preeti Garcia, was admitted to IMU Room 205-01at 1530. . Patient/family oriented to hospital policies and general routines including ID bracelet, bed and alarms, visiting hours, pain management, procedures, bathroom and other care routines, personal items, smoking policy, room service/diet, and visiting hours. Information on how to activate the Rapid Response Team has been discussed. Patient/Family are encouraged to report perceived risks to care and to ask questions if they do not understand what they are told or what they should do.
[2024-07-14 18:28] LABS: Glucose Point of Care 241 mg/dl (65-105)
[2024-07-14] MEDS: SODIUM BICARBONATE 8.4% 150 MEQ in WATER, STERILE FOR INJECTION 950 ML 100 MEQ IV CONT (18:30)
[2024-07-14] MEDS: MIDODRINE HCL 10 MG TABLET PO (18:30)
[2024-07-14 21:01] LABS: Glucose Point of Care 213 mg/dl (65-105)
[2024-07-14 21:39] LABS: Glucose Point of Care 223 mg/dl (65-105)
--- NOTE | 2024-07-14 23:08 | P.PNCROSS_ITS ---
Event Note Event Note Event Note: Over the course of the evening the patient began to decline with worsening hyp otension and lethargy. Lower extremities began to mottled. I met with her again at bedside. He remarks that the patient has gone downhill steadily over the past 6 months however significantly so in the last 1 month to the point where she did not have good quality of life. We discussed comfort measures which were initiated. Patient seemed comfortable at the time of this meeting.
[2024-07-14] MEDS: LORazepam INJ (*CRX) 2 MG/ML VIAL 1 MG IV PUSH (23:14)
[2024-07-14] MEDS: MORPHINE SULFATE (*CRX) 2 MG/ML INJ IV PUSH (23:14)
--- NOTE | 2024-07-15 12:28 | PM.DDS ---
Discharge Summary Date and Time Date of : 07/14/24 Time of : 23:32 Provider Pronounced By: 2 RNs Name of First RN That Pronounced: Nellie Beaulieu RN Name of Second RN That Pronounced: Blanca Cruz RN Probable Cause of Probable Cause of : Acute kidney failure Summary Hospital Course: This 84-year-old female presented to the emergency department with complaints of weakness after a recent hospitalization for volume overload at which time she was also found to have a deep venous thrombosis and possible pulmonary embolism for which she was started on apixaban. She was discharged to a local residential facility for rehab where she has been doing okay until the last several days. In addition to weakness she complained of nausea, vomiting, and diarrhea. Emesis and stools were dark and concerns were for possible occult GI bleeding. She was afebrile on arrival with a blood pressure of 89/38. Despite adequate IV fluid resuscitation she remained hypotensive. She reiterated her DO NOT RESUSCITATE status and declined central line placement for vasopressor therapy. Her labs were significant for a WBC count 12.1, hemoglobin 9.4, INR 1.9, potassium 5.2, sodium 134, calcium 7.1, carbon dioxide 8, anion gap 33, BUN 73, creatinine 6.30, lactic acid 11.3, albumin 3.2. Hemoglobin was pretty stable compared to previous labs however the renal failure was new. She was started on an octreotide drip and pantoprazole as well as ceftriaxone for antibiotic prophylaxis. VBG drawn after she arrived to the floor showed a pH of 7.101, pCO2 22.1, HC03 6.7. She was given 2 amps of sodium bicarbonate and was started on a bicarbonate drip. Over the course of the evening she became less responsive and her legs began to mottle. I met again with the patient's at bedside and his wish was to keep the patient comfortable as she was not improving with current measures. She peacefully within an hour so after this decision was made. Additional Data Confirmation of as documented by pronouncing clinician: Pupillary Reflex, Palpable Pulses, Response to Stimuli, Heart Tones and Breath Sounds Name of Provider Notified: Melissa EVANS Time Provider Notified: 23:44 Provider Requests Autopsy: No Family Requests Autopsy: No Mold Inspector Notified: Yes Date [facility] Notified of : 07/14/24 Time [facility] Notified of : 23:57
== END 2024-07-14 23:32 | disposition expired | DRG 682 ==
LOC: ANHED 10:08 → ANHIMU 15:05
PROVIDERS: Internal Medicine Nephrology; Admitting Provider Internal Medicine; Emergency Provider Emergency Medicine; PCP Family Medicine; Visit Provider Physician Assistant
DX: N17.9 Acute kidney failure, unspecified (principal); K72.00 Acute and subacute hepatic failure without coma; I13.0 Hypertensive heart and chronic kidney disease with heart failure and stage 1 through stage 4 chronic kidney disease, or unspecified chronic kidney disease; K92.0 Hematemesis; R18.8 Other ascites; R57.9 Shock, unspecified; I48.20 Chronic atrial fibrillation, unspecified; I50.32 Chronic diastolic (congestive) heart failure; K74.69 Other cirrhosis of liver; K74.60 Unspecified cirrhosis of liver; K72.10 Chronic hepatic failure without coma; N18.9 Chronic kidney disease, unspecified; I25.10 Atherosclerotic heart disease of native coronary artery without angina pectoris; I48.0 Paroxysmal atrial fibrillation; I27.20 Pulmonary hypertension, unspecified; D63.8 Anemia in other chronic diseases classified elsewhere; E87.5 Hyperkalemia; E11.649 Type 2 diabetes mellitus with hypoglycemia without coma; E11.22 Type 2 diabetes mellitus with diabetic chronic kidney disease; E78.2 Mixed hyperlipidemia; K58.9 Irritable bowel syndrome, unspecified; Z20.822 Contact with and (suspected) exposure to COVID-19; Z79.01 Long term (current) use of anticoagulants; Z79.82 Long term (current) use of aspirin; Z79.4 Long term (current) use of insulin; Z95.5 Presence of coronary angioplasty implant and graft; Z95.1 Presence of aortocoronary bypass graft; Z86.0101 Personal history of adenomatous and serrated colon polyps; Z87.891 Personal history of nicotine dependence
CPT/HCPCS: 36415; 71045; 74176; 80048; 80053; 82533; 82550; 82570; 82803; 82948; 83605; 83735; 84156; 84300; 84540; 85014; 85018; 85025; 85610; 85730; 86140; 86850; 86900; 86901; 87040; 87637; 93005; 96361; 96365; 96372; 96375; 96376; 99285; A9270; J0613; J0696; J1610; J2060; J2270; J2354; J2470; J3475; J7030; P9047